=== PATIENT | male | born 1960 | race Caucasian/White ===

== ENCOUNTER → 2017-06-27 13:14 | Outpatient (CLI) | payer OTHER, SELFPAY ==
--- NOTE | 2017-06-27 13:45 | MRI_ITS ---
STUDY: MRI RIGHT ANKLE WITHOUT CONTRAST REASON FOR EXAM: Male, 57 years old. Pain and swelling. Recent fall. Posterior tibial tendinopathy TECHNIQUE: Standardized fat and water weighted pulse sequences were obtained in all 3 orthogonal planes. COMPARISON: None. FINDINGS: Normal subcutis adipose space. There is posterior tibialis tendinosis and tenosynovitis, with a partial intrasubstance and longitudinal split tendon tear, series 3 images through . Normal flexor digitorum longus tendon. Normal flexor hallucis longus tendon. Normal peroneus longus and brevis tendons. Normal tibialis anterior tendon. Normal extensor hallucis longus tendon. Normal extensor digitorum longus tendons. Normal Achilles tendon and teno-osseous insertion. Normal plantar fascia. There is a plantar calcaneal spur, but without cancellous marrow edema. Normal intrinsic muscles of the rearfoot. Normal distal tibiofibular syndesmotic ligamentous complex. Normal lateral ligamentous complex. Normal subtalar ligaments and sinus tarsi. Normal deltoid ligamentous complexes. Normal plantar calcaneonavicular (spring) ligament. Normal tibiotalar articulation. Normal talar dome. Mild arthrosis of the subtalar articulations. Mild arthrosis of the talonavicular articulation. Normal calcaneocuboid articulation. Normal navicular-cuneiform articulations. MRI/Lower Ext Joint Only (Routine) IMPRESSION: Longitudinal split tear of the posterior tibial tendon. Electronically Signed: Seven Lisa MD at 8:30 EST , Service support ,
== END ==
PROVIDERS: Family Provider Family Medicine; PCP Family Medicine; Visit Provider Podiatrist Foot & Ankle Surgery
DX: M76.812 Anterior tibial syndrome, left leg (principal)
CPT/HCPCS: 73721

== ENCOUNTER → 2018-03-31 16:23 | Outpatient (CLI) | payer OTHER, SELFPAY ==
--- NOTE | 2018-03-31 16:25 | CT_ITS ---
STUDY: CT MAXILLOFACIAL SINUSES REASON FOR EXAM: Male, 57 years old. Vertigo RADIATION DOSAGE (If Supplied By Facility): CTDIvol = ( 33.45 ) mGy, DLP = ( 814.00 ) mGycm TECHNIQUE: The patient was scanned in a multi detector CT scanner. High resolution axial imaging was performed without the administration of intravenous contrast material. Sagittal and coronal images were reconstructed. Individualized dose optimization techniques were used for this CT. COMPARISON: None. FINDINGS: FRONTAL SINUSES: Normal aeration, without mucosal inflammatory disease. ETHMOIDAL SINUSES: Normal aeration, with minimal mucosal inflammatory disease. MAXILLARY SINUSES: Normal aeration, with likely mucous retention cysts or polyps in the left maxillary sinus SPHENOIDAL SINUSES: Normal aeration, without mucosal inflammatory disease. There is patency of the bilateral maxillary infundibuli with normal uncinate processes, ethmoid bullae, and hiatus semilunaris. Normal bilateral middle turbinates. Normal bilateral inferior turbinates. Normal midline nasal septum. There is patency of the bilateral nasal airways. There are scattered subcentimeter jugular chain lymph nodes. 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 The visualized osseous structures are normal. The visualized bilateral orbital contents are normal. CT/Sinus/Facial Bone IMPRESSION: Paranasal sinusitis Scattered subcentimeter jugular chain lymph nodes. 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
== END ==
PROVIDERS: Family Provider Family Medicine; PCP Family Medicine; Referring Provider Otolaryngology Otolaryngology/Facial Plastic Surgery; Visit Provider Otolaryngology Otolaryngology/Facial Plastic Surgery
DX: J32.9 Chronic sinusitis, unspecified (principal)
CPT/HCPCS: 70486

== ENCOUNTER → 2018-06-02 15:00 | Outpatient (CLI) | payer OTHER, SELFPAY ==
--- NOTE | 2018-06-02 15:08 | RAD_ITS ---
STUDY: X-RAY - CERVICAL SPINE REASON FOR EXAM: Male, 58 years old. Pain. TECHNIQUE: 6 view(s) of the cervical spine were obtained including flexion and extension views. COMPARISON: None FINDINGS: Normal anterior atlantoaxial articulation. Normal odontoid process. Normal cervical lordosis. There is endplate spondylosis and the level of C5-C6. There is narrowing of C5-C6 disc space. There are small posterior lateral degenerative spurs on the left side at the level of C5-C6. The alignment of the vertebral bodies is unremarkable and is unchanged on the flexion and extension views. The soft tissue structures are unremarkable. RAD/Cerv Spine Obl/Flex/Ext Comp IMPRESSION: Degenerative changes of the cervical spine as described above. Electronically Signed: Scott Mann MD at 8:08 EST Tel , Service support ,
== END ==
PROVIDERS: Family Provider Family Medicine; PCP Family Medicine; Visit Provider Family Medicine
DX: M54.2 Cervicalgia (principal); R51 Headache; R42 Dizziness and giddiness
CPT/HCPCS: 72052

== ENCOUNTER → 2018-09-17 14:57 | Outpatient (CLI) | payer OTHER, SELFPAY ==
--- NOTE | 2018-09-17 15:00 | VDLE_ITS ---
Reason For Study: pain RIGHT LEFT CFV is compressible, spontaneous, phasic, GSV is normal. competent and demonstrates normal CFV is compressible, spontaneous, phasic, augmentation. competent, and demonstrates normal Procedure augmentation. Exam performed in department. FV is compressible, spontaneous, phasic, The exam was diagnostic. competent and demonstrates normal A preliminary report was called and/or faxed augmentation. to Dr. Barbour's. POP V is compressible, spontaneous, phasic, competent and demonstrates normal augmentation. T/P Trunk is compressible. PTV is compressible. LT PerV is compressible. Hypoechoic area behind the knee measuring 1.82 x 1.75 cm. Area is nonvascular. Interpretation Summary Deep veins of the left lower extremity are patent and compressible segmentally. There is no evidence of left lower extremity deep vein thrombosis. Valvular competence appears intact within the proximal deep venous system on the left . The left greater saphenous vein appears patent and compressible segmentally. A non-vascular, hypoechoic structure is noted in the left popliteal space, measuring 1.82 cm x 1.75 cm. This probably represents a popliteal cyst. Clinical correlation is advised. Ordering Physician: Kenneth Barbour Performed By: Joselito Saul RVT
== END ==
PROVIDERS: Family Provider Family Medicine; PCP Family Medicine; Referring Provider Family Medicine; Visit Provider Family Medicine
DX: M79.662 Pain in left lower leg (principal)
CPT/HCPCS: 93971

== ENCOUNTER → 2019-05-11 13:45 | Outpatient (CLI) | payer OTHER, SELFPAY ==
[2019-05-11 15:25] LABS: Absolute Lymphocyte Count 2.35 X10^3/uL (0.83-4.51); Absolute Neutrophil Count 4.3 X10^3/uL (2.0-7.7); Basophil# 0.04 X10^3/uL; Basophil% 0.5 % (0-1); Eosinophil# 0.14 X10^3/uL; Eosinophils% 1.9 % (0-5); Hematocrit 44.9 % (40-54); Lymphocyte # 2.35 X10^3/ul (4.0); Lymphocyte % 31.8 % (19-41); Mean Corp Hgb Conc 33.4 g/dL (32-36); Mean Corpuscular Hgb 31.5 pg (27.0-32.0); Mean Corpuscular Volume 94.3 fL (80-94); Monocyte# 0.53 X10^3/uL; Monocyte% 7.2 % (0-10); NRBC Flagged by Analyzer 0 % (0-5); Neutrophil # 4.28 X10^3/uL (2.7-7.7); Neutrophil % 57.8 % (47-70); Platelet Count 233 K/mm3 (150-450); RBC Distribution Width CV 12.2 % (11.6-14.6); RBC Distribution Width SD 42.1 fl (35.1-43.9); Red Blood Count 4.76 M/mm3 (4.6-6.2); White Blood Count 7.4 K/mm3 (4.4-11.0)
[2019-05-11 15:51] LABS: AST(SGOT) 30 U/L (15-37); Alanine Aminotransfer ALT/SGPT 49 U/L (16-61); Albumin, Serum 3.6 g/dL (3.2-5.0); Alkaline Phosphatase 53 U/L (45-117); Anion Gap 5 (5-15); BUN 14 mg/dL (7-18); BUN/Creat Ratio 20.6 RATIO (10-20); Calcium,Total 8.8 mg/dL (8.5-10.1); Chloride 106 mmol/L (98-107); Creatinine, Serum 0.68 mg/dL (0.70-1.30); EST Glomerular Filtration Rate 126 mL/min (>60); Est Glom Filt Rate - Afr Amer 153 mL/min (>60); Globulin 3.6 g/dL (2.2-4.2); Glucose 96 mg/dL (74-106); Potassium 3.9 mmol/L (3.5-5.1); Protein, Total 7.2 g/dL (6.4-8.2); Sodium Level 137 mmol/L (136-145)
== END ==
PROVIDERS: Family Provider Family Medicine; PCP Family Medicine; Visit Provider Family Medicine
DX: R03.0 Elevated blood-pressure reading, without diagnosis of hypertension (principal); E66.9 Obesity, unspecified; Z83.3 Family history of diabetes mellitus
CPT/HCPCS: 36415; 80053; 83036; 85025

== ENCOUNTER → 2020-04-26 11:01 | Outpatient (CLI) | payer OTHER, SELFPAY ==
[2020-04-19 11:44] VITALS: BMI 38.1
[2020-04-26 12:04] LABS: AST(SGOT) 21 U/L (15-37); Alanine Aminotransfer ALT/SGPT 42 U/L (16-61); Albumin, Serum 3.5 g/dL (3.2-5.0); Alkaline Phosphatase 56 U/L (45-117); Bilirubin, Direct 0.21 mg/dL (0.00-0.30); Cholesterol 200 mg/dL (200); Globulin 3.6 g/dL (2.2-4.2); High Density Lipoprotein 61 mg/dL; Protein, Total 7.1 g/dL (6.4-8.2); Triglycerides 104 mg/dL; Very Low Density Lipoprotein 21 mg/dL (5-40)
== END ==
PROVIDERS: PCP Family Medicine; Referring Provider Internal Medicine Cardiovascular Disease; Visit Provider Internal Medicine Cardiovascular Disease
DX: E78.00 Pure hypercholesterolemia, unspecified (principal)
CPT/HCPCS: 36415; 80061; 80076

== ENCOUNTER → 2021-08-24 | Outpatient (CLI) | payer OTHER, SELFPAY ==
--- NOTE | 2021-08-24 12:46 | STRESSREP_ITS ---
Stress Test Report Date: 08-24-2021 Procedure: Pharmacologic stress nuclear imaging study Indications: Chest pain; hypertension Consent: Per the patient Procedure: The patient underwent pharmacologic (Regadenoson 0.4mg ) evaluation with a peak heart rate of 74 beats per minute (47%predicted maximal heart rate) and a peak blood pressure of 162/90 mmHg. The baseline ECG demonstrated sinus bradycardia. The peak pharmacologic ECG demonstrated no obvious ECG changes. There were no cardiac dysrhythmias pretest, during pharmacologic infusion, or recovery. There was no complaint of chest discomfort during pharmacologic infusion or recovery. The examination was discontinued secondary to completion of protocol. Impression: 1. Pharmacologic (Regadenoson) evaluation 2. Peak pharmacologic ECG with no obvious ECG changes. 3. There were no cardiac dysrhythmias pretest, during pharmacologic infusion, or recovery. 4. Nuclear images pending Myocardial perfusion imaging study: Technique: The patient was injected with 14.5 millicuries of technetium 99m Cardiolite and subsequently rest SPECT Cardiolite nuclear imaging was obtained in the horizont al long, vertical long, and short axis views. The patient underwent pharmacologic (Regadenoson) evaluation with a peak heart rate of 74 beats per minute (47% percent predicted maximal heart rate) and a peak blood pressure of 162/90 mmHg. The patient was injected with 44.1 millicuries of technetium 99m Cardiolite and subsequently stress SPECT Cardiolite nuclear imaging was obtained in the horizontal long, vertical long, and short axis views. A gated Cardiolite study at peak stress was obtained. Interpretation: Rest and stress SPECT Cardiolite nuclear imaging status post realignment, normalization, and attenuation correction demonstrate a small area of subtle diminished tracer uptake near the apical segments without significant change between rest and stress appearing compatible with physiologic apical thinning. There is end systolic thickening and brightening. The gated Cardiolite study demonstrates myocardial thickening and inward wall motion. The reported LVEF is 70%. Impression: 1. Rest and stress SPECT current nuclear imaging demonstrate myocardial perfusion changes appearing compatible with physiologic apical thinning with no myocardial perfusion changes considered diagnostic for associated stress-induced myocardial ischemia. 2. The gated Cardiolite study reports an LVEF of 70%. This note was generated with iHydroRunation software. It may contain incorrect words, spelling, and punctuation that were not noted in checking the note before signing.
== END | disposition home or self-care (01) ==
LOC: CVS 06:30
PROVIDERS: PCP Family Medicine; Referring Provider Internal Medicine Cardiovascular Disease; Visit Provider Internal Medicine Cardiovascular Disease
DX: I10 Essential (primary) hypertension (principal); R20.0 Anesthesia of skin; R07.9 Chest pain, unspecified
CPT/HCPCS: 78452; 93017; A9500; A4216; J2785

== ENCOUNTER → 2021-11-09 | Outpatient (CLI) | payer OTHER, SELFPAY ==
[2021-11-09 07:10] LABS: Absolute Lymphocyte Count 2.87 X10^3/uL (0.83-4.51); Absolute Neutrophil Count 3.3 X10^3/uL (2.0-7.7); Basophil# 0.06 X10^3/uL; Basophil% 0.8 % (0-1); Eosinophils% 2.8 % (0-5); Hematocrit 45.3 % (40-54); Hemoglobin 14.6 g/dL (13.0-16.5); Lymphocyte # 2.87 X10^3/ul (0.83-4.51); Lymphocyte % 40.1 % (19-41); Mean Corp Hgb Conc 32.2 g/dL (32-36); Mean Corpuscular Hgb 31.5 pg (27.0-32.0); Mean Corpuscular Volume 97.8 fL (80-94); Mean Platelet Vol. 9.2 fl (6.2-12.0); Monocyte# 0.61 X10^3/uL; Monocyte% 8.5 % (0-10); NRBC Flagged by Analyzer 0 % (0-5); Neutrophil # 3.33 X10^3/uL (2.7-7.7); Neutrophil % 46.5 % (47-70); Platelet Count 215 K/mm3 (150-450); RBC Distribution Width CV 12.4 % (11.6-14.6); RBC Distribution Width SD 44.7 fl (35.1-43.9); Red Blood Count 4.63 M/mm3 (4.6-6.2); White Blood Count 7.2 K/mm3 (4.4-11.0)
[2021-11-09 07:54] LABS: Hemoglobin A1c 6.1 % (3.8-5.6)
[2021-11-09 07:58] LABS: AST(SGOT) 24 U/L (15-37); Alanine Aminotransfer ALT/SGPT 36 U/L (16-61); Albumin, Serum 3.4 g/dL (3.2-5.0); Alkaline Phosphatase 49 U/L (45-117); Anion Gap 6 (5-15); BUN 16 mg/dL (7-18); BUN/Creat Ratio 21.5 RATIO (10-20); Calcium,Total 8.5 mg/dL (8.5-10.1); Chloride 106 mmol/L (98-107); Cholesterol 181 mg/dL (200); Creatinine, Serum 0.74 mg/dL (0.70-1.30); EST Glomerular Filtration Rate 113 mL/min (>60); Est Glom Filt Rate - Afr Amer 137 mL/min (>60); Globulin 3.4 g/dL (2.2-4.2); Glucose 132 mg/dL (74-106); High Density Lipoprotein 50 mg/dL; Potassium 4.1 mmol/L (3.5-5.1); Protein, Total 6.8 g/dL (6.4-8.2); Sodium Level 141 mmol/L (136-145); Triglycerides 133 mg/dL; Very Low Density Lipoprotein 27 mg/dL (5-40)
== END | disposition home or self-care (01) ==
PROVIDERS: PCP Family Medicine; Referring Provider Family Medicine; Visit Provider Family Medicine
DX: R73.03 Prediabetes (principal); K21.9 Gastro-esophageal reflux disease without esophagitis
CPT/HCPCS: 36415; 80053; 80061; 83036; 85025

== ENCOUNTER → 2022-07-12 | Outpatient (CLI) | payer OTHER, SELFPAY ==
--- NOTE | 2022-07-12 16:20 | MRI_ITS ---
EXAM: MR HEAD WITHOUT AND WITH INTRAVENOUS CONTRAST CLINICAL INDICATION: ATAXIA TECHNIQUE: Multiplanar and multisequence MR images of the brain were obtained without and with intravenous contrast. This report was created using Payment plugin report generation technology. CONTRAST: IV 22ML CLARISCAN COMPARISON: 2..18 FINDINGS: BRAIN AND EXTRA-AXIAL SPACES: Single focus of increased FLAIR signal in the right frontal lobe may signify early microvascular ischemic changes, a demyelinating process, vasculitis, or sequela related to migraines. No intra- or extra-axial hemorrhage. No intracranial mass or mass effect. Posterior fossa structures are unremarkable. Ventricles are appropriate for age. No hydrocephalus. Basal cisterns are patent. SELLA: Unremarkable. Normal sella turcica, pituitary gland, infundibular stalk, optic chiasm and hypothalamus. AUDITORY SYSTEM: Unremarkable. The internal auditory canals are patent. BONES/JOINTS: Unremarkable. No discrete lytic or blastic abnormalities. SINUSES: There is sinus disease. MASTOID AIR CELLS: Unremarkable as visualized. Clear. ORBITS: Unremarkable as visualized. Both globes, extraocular muscles, optic nerves and retrobulbar fat appear unremarkable. VASCULATURE: Unremarkable as visualized. Normal flow voids in the major intracranial circulation. MRI/Brain W/WO Contrast IMPRESSION: Single focus of increased FLAIR signal in the right frontal lobe may signify early microvascular ischemic changes, a demyelinating process, vasculitis, or sequela related to migraines. Electronically Signed: Tavares Pool MD at 21:28 EDT ,
[2022-07-12 16:40] LABS: CREATININE FINGERSTICK 0.9 mg/dL (0.70-1.30); EGFR FINGERSTICK > 60.0000 mL/min (>60)
== END | disposition home or self-care (01) ==
LOC: MRI 16:10
PROVIDERS: Referring Provider Otolaryngology Otolaryngology/Facial Plastic Surgery; Visit Provider Otolaryngology Otolaryngology/Facial Plastic Surgery
DX: R27.0 Ataxia, unspecified (principal)
CPT/HCPCS: 70553; A9575

== ENCOUNTER → 2022-08-21 | Outpatient (CLI) | payer OTHER, SELFPAY ==
[2022-08-21 16:55] LABS: Bacteria 0 SEEN /hpf (None Seen); Mucous, Urine 0 SEEN /hpf (<or=2+); White Blood Cells 0 SEEN /hpf (0-5)
[2022-08-21 18:21] LABS: Absolute Lymphocyte Count 3.34 X10^3/uL (0.83-4.51); Absolute Neutrophil Count 4.8 X10^3/uL (2.0-7.7); Basophil# 0.05 X10^3/uL; Basophil% 0.5 % (0-1); Eosinophils% 2.2 % (0-5); Hematocrit 47.2 % (40-54); Hemoglobin 15.7 g/dL (13.0-16.5); Lymphocyte # 3.34 X10^3/ul (0.83-4.51); Lymphocyte % 36.5 % (19-41); Mean Corp Hgb Conc 33.3 g/dL (32-36); Mean Corpuscular Volume 96.3 fL (80-94); Mean Platelet Vol. 9.7 fl (6.2-12.0); Monocyte# 0.67 X10^3/uL; Monocyte% 7.3 % (0-10); NRBC Flagged by Analyzer 0 % (0-5); Neutrophil # 4.76 X10^3/uL (2.7-7.7); Neutrophil % 52.1 % (47-70); Platelet Count 243 K/mm3 (150-450); RBC Distribution Width CV 12.7 % (11.6-14.6); RBC Distribution Width SD 45.1 fl (35.1-43.9); White Blood Count 9.2 K/mm3 (4.4-11.0)
[2022-08-21 18:37] LABS: Color, Urine Yellow (Yellow); Glucose, Dipstick Normal (Normal); Ketone-Dipstick Negative (Negative); Leukocyte Esterase-Dipstick Negative /ul (Negative); Nitrite-Dipstick Negative (Negative); Occult Blood-Urine 10 /ul (Negative); Protein-Dipstick Negative (Negative); Specific Gravity, Urine 1.015 (1.002-1.030); Urine Bilirubin Dipstick Negative (Negative); Urine Clarity Clear (Clear); Urine Urobilinogen Normal (Normal); Urine pH 6.5 (5.0 - 8.0)
[2022-08-21 18:43] LABS: Red Blood Cells-Urine 0-5 SEEN /hpf (0-5); Squamous Epithelial Cells - UA 0-5 SEEN /hpf (0-5)
[2022-08-21 19:06] LABS: Cholesterol 200 mg/dL (200); High Density Lipoprotein 55 mg/dL; T4 Free Direct 0.98 ng/dL (0.76-1.46); Thyroid Stim Hormone (TSH) 1.92 uIU/mL (0.358-3.74); Triglycerides 170 mg/dL; Very Low Density Lipoprotein 34 mg/dL (5-40)
[2022-08-22 08:34] LABS: Vitamin B12 260 pg/mL (211-911); Vitamin D,25 Hydroxy 25.6 ng/mL
[2022-08-23 12:52] LABS: AST(SGOT) 24 U/L (15-37); Alanine Aminotransfer ALT/SGPT 44 U/L (16-61); Albumin, Serum 3.6 g/dL (3.2-5.0); Alkaline Phosphatase 53 U/L (45-117); Anion Gap 5 (5-15); BUN 18 mg/dL (7-18); BUN/Creat Ratio 26.5 RATIO (10-20); Calcium,Total 9.1 mg/dL (8.5-10.1); Chloride 104 mmol/L (98-107); Creatinine, Serum 0.68 mg/dL (0.70-1.30); EST Glomerular Filtration Rate 125 mL/min (>60); Est Glom Filt Rate - Afr Amer 151 mL/min (>60); Globulin 3.5 g/dL (2.2-4.2); Glucose 92 mg/dL (74-106); Potassium 4.3 mmol/L (3.5-5.1); Protein, Total 7.1 g/dL (6.4-8.2); Sodium Level 134 mmol/L (136-145)
== END | disposition home or self-care (01) ==
LOC: MTLAB 16:46
PROVIDERS: PCP Family Medicine; Referring Provider Family Medicine; Visit Provider Family Medicine
DX: I10 Essential (primary) hypertension (principal); R53.83 Other fatigue
CPT/HCPCS: 36415; 80053; 80061; 81001; 82306; 82607; 84439; 84443; 85025

== ENCOUNTER → 2022-12-19 | Outpatient (CLI) | payer OTHER, SELFPAY ==
--- NOTE | 2022-12-19 15:06 | CDU_ITS ---
Reason For Study: Lightheadedness Rt. Velocities/BP Lt. Velocities/BP Prox CCA 88.8/23.7 cm/sec. Prox CCA 133.2/22.2 cm/sec. Mid CCA 97.2/20.4 cm/sec. Mid CCA 100.1/18.9 cm/sec. Dist CCA 143.3/26.7 cm/sec. Dist CCA 95.3/17.9 cm/sec. Prox ICA 104.7/33.5 cm/sec. Prox ICA 83.8/19.6 cm/sec. Mid ICA 88.3/23.4 cm/sec. Mid ICA 91.3/32.4 cm/sec. Dist ICA 101.5/36.2 cm/sec. Dist ICA 74.0/27.4 cm/sec. Rt. ICA/CCA = 1.0. Lt. ICA/CCA = 0.9. Prox ECA 122.9/18.8 cm/sec. Prox ECA 83.9/27.4 cm/sec. Rt. Vert. 83.9/16.3 cm/sec. Lt. Vert. 62.2/18.2 cm/sec. Right Extracranial There is intimal thickening but no significant atherosclerotic plaque noted in the right common carotid artery. There is heterogeneous, irregular atherosclerotic plaque noted in the right internal carotid artery. There is intimal thickening but no significant atherosclerotic plaque noted in the right external carotid artery. Antegrade flow is noted in the right vertebral artery. Left Extracranial There is homogeneous, smooth atherosclerotic plaque noted in the left common carotid artery. There is heterogeneous, irregular atherosclerotic plaque noted in the left internal carotid artery. The left external carotid artery is not well visualized. Antegrade flow is noted in the left vertebral artery. Procedure Carotid Duplex 19927. This is a Carotid Duplex examination using B-mode, color flow and specral Doppler. The exam was diagnostic. Exam performed in department. VL/Carotid Duplex Ultrasound Interpretation Summary Mild (<50%) stenosis right extracranial internal carotid. Mild (<50%) stenosis left extracranial internal carotid. Patent and antegrade vertebrals bilaterally. Ordering Physician: Lou Soler Referring Physician: Jose Moreno Performed By: Juan Perez RVT
== END | disposition home or self-care (01) ==
LOC: CVS 15:04
PROVIDERS: PCP Family Medicine; Referring Provider Nurse Practitioner Gerontology; Visit Provider Nurse Practitioner Gerontology
DX: R42 Dizziness and giddiness (principal)
CPT/HCPCS: 93880

== ENCOUNTER → 2023-01-07 | Outpatient (CLI) | payer OTHER, SELFPAY ==
[2023-01-07 17:40] LABS: Absolute Lymphocyte Count 2.61 X10^3/uL (0.83-4.51); Absolute Neutrophil Count 3.4 X10^3/uL (2.0-7.7); Basophil# 0.03 X10^3/uL; Basophil% 0.4 % (0-1); Eosinophil# 0.13 X10^3/uL; Eosinophils% 1.9 % (0-5); Hematocrit 43.9 % (40-54); Hemoglobin 14.4 g/dL (13.0-16.5); Lymphocyte # 2.61 X10^3/ul (0.83-4.51); Lymphocyte % 38.7 % (19-41); Mean Corp Hgb Conc 32.8 g/dL (32-36); Mean Corpuscular Hgb 32.2 pg (27.0-32.0); Mean Corpuscular Volume 98.2 fL (80-94); Mean Platelet Vol. 9.9 fl (6.2-12.0); Monocyte# 0.53 X10^3/uL; Monocyte% 7.9 % (0-10); NRBC Flagged by Analyzer 0 % (0-5); Neutrophil # 3.42 X10^3/uL (2.7-7.7); Neutrophil % 50.7 % (47-70); Platelet Count 228 K/mm3 (150-450); RBC Distribution Width CV 12.8 % (11.6-14.6); RBC Distribution Width SD 46.1 fl (35.1-43.9); Red Blood Count 4.47 M/mm3 (4.6-6.2); White Blood Count 6.8 K/mm3 (4.4-11.0)
[2023-01-07 18:44] LABS: ALB/GLOB Ratio 1.1 RATIO (0.9-2.4); AST(SGOT) 26 U/L (15-37); Alanine Aminotransfer ALT/SGPT 44 U/L (16-61); Albumin, Serum 3.6 g/dL (3.2-5.0); Alkaline Phosphatase 48 U/L (45-117); Anion Gap 4 (5-15); BUN 18 mg/dL (7-18); BUN/Creat Ratio 28.4 RATIO (10-20); Calcium,Total 8.4 mg/dL (8.5-10.1); Chloride 109 mmol/L (98-107); Creatinine, Serum 0.63 mg/dL (0.70-1.30); EST Glomerular Filtration Rate 135 mL/min (>60); Est Glom Filt Rate - Afr Amer 164 mL/min (>60); Globulin 3.3 g/dL (2.2-4.2); Glucose 91 mg/dL (74-106); Potassium 3.9 mmol/L (3.5-5.1); Protein, Total 6.9 g/dL (6.4-8.2); Sodium Level 141 mmol/L (136-145); Thyroid Stim Hormone (TSH) 1.41 uIU/mL (0.358-3.74)
== END | disposition home or self-care (01) ==
LOC: MFPLAB 16:33
PROVIDERS: PCP Family Medicine; Visit Provider Family Medicine
DX: I10 Essential (primary) hypertension (principal); R73.02 Impaired glucose tolerance (oral)
CPT/HCPCS: 36415; 80053; 83036; 84443; 85025

== ENCOUNTER → 2023-05-20 | Outpatient (CLI) | payer MEDICARE, OTHER, SELFPAY ==
[2023-05-20 15:51] LABS: Basophil# 0.03 X10^3/uL; Basophil% 0.4 % (0-1); Eosinophil# 0.12 X10^3/uL; Eosinophils% 1.7 % (0-5); Lymphocyte % 33.9 % (19-41); Mean Corp Hgb Conc 32.6 g/dL (32-36); Mean Corpuscular Hgb 31.3 pg (27.0-32.0); Mean Platelet Vol. 9.9 fl (6.2-12.0); Monocyte# 0.47 X10^3/uL; Monocyte% 6.6 % (0-10); NRBC Flagged by Analyzer 0 % (0-5); Neutrophil # 4.02 X10^3/uL (2.7-7.7); Neutrophil % 56.8 % (47-70); Platelet Count 230 K/mm3 (150-450); RBC Distribution Width CV 12.3 % (11.6-14.6); Red Blood Count 4.79 M/mm3 (4.6-6.2); White Blood Count 7.1 K/mm3 (4.4-11.0)
[2023-05-20 16:27] LABS: ALB/GLOB Ratio 1.1 RATIO (0.9-2.4); AST(SGOT) 31 U/L (15-37); Alanine Aminotransfer ALT/SGPT 44 U/L (16-61); Albumin, Serum 3.6 g/dL (3.2-5.0); Alkaline Phosphatase 51 U/L (45-117); Anion Gap 5 (5-15); BUN 14 mg/dL (7-18); BUN/Creat Ratio 20.3 RATIO (10-20); Calcium,Total 8.6 mg/dL (8.5-10.1); Chloride 106 mmol/L (98-107); Cholesterol 188 mg/dL (200); Creatinine, Serum 0.69 mg/dL (0.70-1.30); EST Glomerular Filtration Rate 123 mL/min (>60); Est Glom Filt Rate - Afr Amer 148 mL/min (>60); Globulin 3.2 g/dL (2.2-4.2); Glucose 96 mg/dL (74-106); High Density Lipoprotein 60 mg/dL; Potassium 3.9 mmol/L (3.5-5.1); Protein, Total 6.8 g/dL (6.4-8.2); Sodium Level 138 mmol/L (136-145); Triglycerides 98 mg/dL; Very Low Density Lipoprotein 20 mg/dL (5-40)
== END | disposition home or self-care (01) ==
LOC: MTLAB 12:05
PROVIDERS: PCP Family Medicine; Referring Provider Family Medicine; Visit Provider Family Medicine
DX: I10 Essential (primary) hypertension (principal); R73.02 Impaired glucose tolerance (oral)
CPT/HCPCS: 36415; 80053; 80061; 83036; 85025

== ENCOUNTER → 2023-05-29 | Outpatient (CLI) | payer MEDICARE, OTHER, SELFPAY ==
--- NOTE | 2023-05-29 08:00 | CT_ITS ---
CT LEFT LOWER EXTREMITY WITH 3-D IMAGING CLINICAL INDICATION: OSTEOARTHRITIS, PRE OP ANTOLIN LEFT KNEE TECHNIQUE: Axial CT images of the left lower extremity (including left hip left knee, left ankle) was performed without IV contrast material. Coronal and sagittal reformats were provided. RADIATION DOSAGE (If Supplied By Facility): CTDIvol = ( 20.10 ) mGy, DLP = ( 2262.61 ) mGycm COMPARISON: No relevant prior comparison study available. FINDINGS: Bones: There is mild pubic symphysis arthrosis. There is moderate degenerative arthrosis of the left hip joint with joint space narrowing and small marginal osteophyte formation. There is tricompartment degenerative arthrosis of the left knee with joint space narrowing and marginal osteophyte formation, most pronounced in the medial femorotibial compartment. There is a tiny plantar calcaneal spur. Osseous structures are intact without evidence of fracture or dislocation. No lytic or blastic osseous masses. Soft Tissues: There is a small knee joint effusion with a suspected 2.0 cm ossified loose body in the superior aspect of the suprapatellar bursa. The deep soft tissue structures are unremarkable. There is atherosclerotic calcifications. There is mild subcutaneous soft tissue edema along the anterior aspect of the knee and along the medial aspect of the ankle. CT/Extremity Lower without Contra IMPRESSION: Tricompartment degenerative arthrosis of the left knee, most pronounced in the medial femorotibial compartment. Small knee joint effusion with a suspected 2.0 cm ossified loose body in the superior aspect of the suprapatellar bursa. Mild subcutaneous soft tissue edema along the anterior aspect of the knee. Electronically Signed: Shahzad Wagner MD at 10:46 EST ,
== END | disposition home or self-care (01) ==
LOC: CT 07:59
PROVIDERS: PCP Family Medicine; Referring Provider Orthopaedic Surgery; Visit Provider Orthopaedic Surgery
DX: M17.12 Unilateral primary osteoarthritis, left knee (principal)
CPT/HCPCS: 73700

== ENCOUNTER → 2023-06-30 | Outpatient (CLI) | payer MEDICARE, OTHER, SELFPAY ==
--- NOTE | 2023-06-30 09:04 | EKG12_ITS ---
Test Reason : PRE OP Blood Pressure : / mmHG Vent. Rate : 059 BPM Atrial Rate : 059 BPM P-R Int : 124 ms QRS Dur : 098 ms QT Int : 402 ms P-R-T Axes : -25 -61 051 degrees QTc Int : 397 ms Sinus bradycardia Left anterior fascicular block Nonspecific ST abnormality Abnormal ECG Confirmed by Lior Pak ([id number]), editor trade journal ANNEL MCKENNA ([id number]) on 07/01/2023 7:43:15 AM Referred By: Yogesh Brown Confirmed By:Lior Pak
[2023-06-30 09:10] LABS: Absolute Lymphocyte Count 2.11 X10^3/uL (0.83-4.51); Absolute Neutrophil Count 3.1 X10^3/uL (2.0-7.7); Basophil# 0.03 X10^3/uL; Basophil% 0.5 % (0-1); Eosinophils% 1.7 % (0-5); Hematocrit 46.6 % (40-54); Hemoglobin 15.4 g/dL (13.0-16.5); Lymphocyte # 2.11 X10^3/ul (0.83-4.51); Lymphocyte % 35.8 % (19-41); Mean Corpuscular Hgb 31.8 pg (27.0-32.0); Mean Corpuscular Volume 96.1 fL (80-94); Mean Platelet Vol. 9.2 fl (6.2-12.0); Monocyte# 0.46 X10^3/uL; Monocyte% 7.8 % (0-10); NRBC Flagged by Analyzer 0 % (0-5); Neutrophil # 3.14 X10^3/uL (2.7-7.7); Neutrophil % 53.4 % (47-70); Platelet Count 207 K/mm3 (150-450); RBC Distribution Width CV 12.8 % (11.6-14.6); RBC Distribution Width SD 45.1 fl (35.1-43.9); Red Blood Count 4.85 M/mm3 (4.6-6.2); White Blood Count 5.9 K/mm3 (4.4-11.0)
[2023-06-30 09:40] LABS: Vitamin D,25 Hydroxy 30.4 ng/mL
[2023-06-30 10:16] LABS: AST(SGOT) 27 U/L (15-37); Alanine Aminotransfer ALT/SGPT 44 U/L (16-61); Albumin, Serum 3.4 g/dL (3.2-5.0); Alkaline Phosphatase 50 U/L (45-117); Anion Gap 5 (5-15); BUN 16 mg/dL (7-18); Chloride 110 mmol/L (98-107); Cholesterol 204 mg/dL (200); EST Glomerular Filtration Rate 121 mL/min (>60); Est Glom Filt Rate - Afr Amer 146 mL/min (>60); Globulin 3.5 g/dL (2.2-4.2); Glucose 107 mg/dL (74-106); High Density Lipoprotein 63 mg/dL; Potassium 4.3 mmol/L (3.5-5.1); Protein, Total 6.9 g/dL (6.4-8.2); Sodium Level 141 mmol/L (136-145); Triglycerides 109 mg/dL; Very Low Density Lipoprotein 22 mg/dL (5-40)
[2023-06-30 10:36] LABS: Hemoglobin A1c 6.1 % (3.8-5.6)
--- NOTE | 2023-06-30 19:16 | RAD_ITS ---
INDICATION: PRE OP EXAMINATION/TECHNIQUE: X-RAY - XR Chest 2 Views COMPARISON: No relevant prior comparison study available FINDINGS: LINES/DEVICES: None. LUNGS: No consolidation, edema or effusion. No pneumothorax. MEDIASTINUM AND CARDIOVASCULAR STRUCTURES: Cardiac silhouette not enlarged. Central airways and mediastinal contour are unremarkable. BONES AND SOFT TISSUES: Mild degenerative changes of the thoracic spine. RAD/Chest PA and Lateral IMPRESSION: No radiographic evidence of acute cardiopulmonary disease. Electronically Signed: Scott Mann MD at 11:20 EST ,
== END | disposition home or self-care (01) ==
LOC: PSN 08:42
PROVIDERS: PCP Family Medicine; Referring Provider Orthopaedic Surgery; Visit Provider Orthopaedic Surgery
DX: Z01.810 Encounter for preprocedural cardiovascular examination (principal); Z01.811 Encounter for preprocedural respiratory examination; Z01.818 Encounter for other preprocedural examination; M17.12 Unilateral primary osteoarthritis, left knee; R94.31 Abnormal electrocardiogram [ECG] [EKG]; E55.9 Vitamin D deficiency, unspecified; I10 Essential (primary) hypertension; R73.02 Impaired glucose tolerance (oral)
CPT/HCPCS: 36415; 71046; 80053; 80061; 82306; 83036; 85025; 93005

== ENCOUNTER → 2023-07-21 | Outpatient (CLI) | payer MEDICARE, OTHER, SELFPAY ==
--- NOTE | 2023-07-18 09:15 | KNEE_PTH ---
PATIENT: VESTA OLIVAREZ LOC: [facility] U#:[id number] AGE/SX: 63/M ROOM: RE07/21/[address]: Dr. Yogesh Brown MD : 1960 BED: DIS: 07/21/2023 SPEC #: [id number] RECD: 07/22/23 08:50 STATUS: QUIQUE REWilliam #: [id number] ISABELA: 07/18/23 09:[address]: Yogesh Brown DEPT: SURGICAL PATHOLOGY RECD BY: Nia Britton ENTERED: 07/22/23 08:51 SP TYPE: TOTAL KNEE OTHR DR: Dr. Jose Moreno MD [facility] Tissues: Knee, NOS Procedures: Decalcification bone/plaque Surgery Specimen Level IV HEADER OPERATION: Left total knee replacement PRE-OP DIAGNOSIS: Grade four primary osteoarthritis, left knee TISSUE SUBMITTED: Left knee MICROSCOPIC DIAGNOSIS Bone and soft tissue, left knee, total knee replacement/resection: Pieces of bone with degenerative osteoarthritic changes. Fibroconnective tissue, fibroadipose tissue and reactive synovial tissue. RA: 07/25/2023 MICROSCOPIC DESCRIPTION Slides are reviewed. GROSS DESCRIPTION Received is one container designated bone and soft tissue left knee. The specimen consists of multiple fragments of parra-yellow bone measuring in aggregate 11.0 x 9.0 x 4.0 cm. A piece of soft tissue is noted attached to one piece of bone measuring 2.5 x 1.5 x 0.3cm. A piece of bone consistent with loose body is also identified measuring 1.6 x 1.0 x 0.5cm. A number of bony fragments contain articular surfaces consistent with tibial plateau and femoral condyle and displaying prominent osteophyte formation, eburnation and bone erosion. Benzene Washer Operator sections are submitted in two cassettes as follows: 1 - soft tissue, entirely submitted, 2 - bone after decalcification. RA/ 07/22/23 TC:5 CPT: 05737, [id number]
== END | disposition home or self-care (01) ==
LOC: LABSPEC 15:18
PROVIDERS: PCP Family Medicine; Referring Provider Orthopaedic Surgery; Visit Provider Orthopaedic Surgery
DX: M17.12 Unilateral primary osteoarthritis, left knee (principal)
CPT/HCPCS: 88305; 88311

== ENCOUNTER → 2023-07-31 | Outpatient (CLI) | payer MEDICARE, OTHER, SELFPAY ==
--- NOTE | 2023-07-31 13:21 | VDLE_ITS ---
Reason For Study: pain in left knee RIGHT LEFT CFV is compressible, spontaneous, phasic, GSV is normal. competent and demonstrates normal CFV is compressible, spontaneous, phasic, augmentation. competent, and demonstrates normal Procedure augmentation. This is a venous duplex using B-mode, color FV is compressible, spontaneous, phasic, flow and spectral Doppler. competent and demonstrates normal Exam performed in department. augmentation. The exam was of fair technical quality due to POP V is compressible, spontaneous, phasic, severe edema. competent and demonstrates normal A preliminary report was called and/or faxed augmentation. to [facility]. T/P Trunk is compressible. PTV is compressible. LT PerV is compressible. VL/Venous Duplex US, Unilateral Interpretation Summary Deep veins of the left lower extremity are patent and compressible segmentally. There is no evidence of left lower extremity deep vein thrombosis. The left great saphenous vein collette ears patent and compressible segmentally. Ordering Physician: Hannah Hooker Performed By: Joselito Saul RVT
== END | disposition home or self-care (01) ==
LOC: CVS 13:10
PROVIDERS: PCP Family Medicine; Visit Provider Physician Assistant
DX: M25.462 Effusion, left knee (principal); G89.18 Other acute postprocedural pain; M25.562 Pain in left knee
CPT/HCPCS: 93971

== ENCOUNTER → 2023-10-02 | Outpatient (CLI) | payer MEDICARE, OTHER, SELFPAY ==
[2023-10-02 10:45] LABS: Vitamin D,25 Hydroxy 28.6 ng/mL
[2023-10-02 10:49] LABS: Absolute Lymphocyte Count 1.79 X10^3/uL (0.83-4.51); Absolute Neutrophil Count 2.7 X10^3/uL (2.0-7.7); Basophil# 0.03 X10^3/uL; Basophil% 0.6 % (0-1); Eosinophil# 0.08 X10^3/uL; Eosinophils% 1.6 % (0-5); Hematocrit 44.3 % (40-54); Hemoglobin 14.3 g/dL (13.0-16.5); Hemoglobin A1c 5.8 % (3.8-5.6); Lymphocyte # 1.79 X10^3/ul (0.83-4.51); Lymphocyte % 35.4 % (19-41); Mean Corp Hgb Conc 32.3 g/dL (32-36); Mean Corpuscular Hgb 31.3 pg (27.0-32.0); Mean Corpuscular Volume 96.9 fL (80-94); Mean Platelet Vol. 9.5 fl (6.2-12.0); Monocyte# 0.45 X10^3/uL; Monocyte% 8.9 % (0-10); NRBC Flagged by Analyzer 0 % (0-5); Neutrophil # 2.67 X10^3/uL (2.7-7.7); Neutrophil % 52.9 % (47-70); Platelet Count 249 K/mm3 (150-450); RBC Distribution Width CV 12.9 % (11.6-14.6); Red Blood Count 4.57 M/mm3 (4.6-6.2); White Blood Count 5.1 K/mm3 (4.4-11.0)
[2023-10-02 10:53] LABS: ALB/GLOB Ratio 0.8 RATIO (0.9-2.4); AST(SGOT) 23 U/L (15-37); Alanine Aminotransfer ALT/SGPT 29 U/L (16-61); Albumin, Serum 3.2 g/dL (3.2-5.0); Alkaline Phosphatase 58 U/L (45-117); Anion Gap 6 (5-15); BUN 15 mg/dL (7-18); BUN/Creat Ratio 20.1 RATIO (10-20); Calcium,Total 8.8 mg/dL (8.5-10.1); Chloride 108 mmol/L (98-107); Cholesterol 184 mg/dL (200); Creatinine, Serum 0.75 mg/dL (0.70-1.30); EST Glomerular Filtration Rate 112 mL/min (>60); Est Glom Filt Rate - Afr Amer 135 mL/min (>60); Globulin 3.8 g/dL (2.2-4.2); Glucose 112 mg/dL (74-106); High Density Lipoprotein 51 mg/dL; Magnesium 1.9 mg/dL (1.6-2.6); Potassium 3.4 mmol/L (3.5-5.1); Sodium Level 138 mmol/L (136-145); Triglycerides 133 mg/dL; Very Low Density Lipoprotein 27 mg/dL (5-40)
== END | disposition home or self-care (01) ==
LOC: MFPLAB 08:17
PROVIDERS: PCP Family Medicine; Visit Provider Family Medicine
DX: I10 Essential (primary) hypertension (principal); E55.9 Vitamin D deficiency, unspecified; R73.02 Impaired glucose tolerance (oral); R60.0 Localized edema
CPT/HCPCS: 36415; 80053; 80061; 82306; 83036; 83735; 85025

== ENCOUNTER → 2023-12-17 | Outpatient (CLI) | payer MEDICARE, OTHER, SELFPAY ==
[2023-12-17 15:38] LABS: Anion Gap 6 (5-15); BUN 18 mg/dL (7-18); BUN/Creat Ratio 23.8 RATIO (10-20); Calcium,Total 8.9 mg/dL (8.5-10.1); Chloride 104 mmol/L (98-107); Creatinine, Serum 0.76 mg/dL (0.70-1.30); EST Glomerular Filtration Rate 110 mL/min (>60); Est Glom Filt Rate - Afr Amer 133 mL/min (>60); Glucose 101 mg/dL (74-106); Sodium Level 138 mmol/L (136-145)
== END | disposition home or self-care (01) ==
LOC: MFPLAB 13:43
PROVIDERS: PCP Family Medicine; Visit Provider Family Medicine
DX: R60.0 Localized edema (principal)
CPT/HCPCS: 36415; 80048

== ENCOUNTER 2024-01-23 11:00 | Outpatient (RCR) | payer MEDICARE, OTHER, SELFPAY ==
[2024-01-20 08:26] VITALS: BP 150/61; PULSE 61; RESP 18; TEMP 36.7; BMI 38.8
--- NOTE | 2024-01-20 09:41 | PCM.HP.STD ---
HPI - General General Date of Admission: 01/20/24 HPI Narrative VESTA OLIVAREZ, is a 63 M who presents as a new patient for bilateral lower extremity swelling, left greater than right. Patient has been treated for cellulitis left lower extremity. Patient underwent left total knee replacement in June 2023. Since that time he has noted increased swelling to his left lower extremity. Patient has had outpatient duplex ultrasound negative for any DVT. Patient denies any chest pain calf pain shortness of breath. Patient denies any constitutional symptoms. Patient denies any wounds today but notes occasional blistering the left lower extremity mid tibial region. No other complaints. [facility] Medical History (Updated 01/20/24 @ 09:[address] Antione Bah, LATRELL) Basal cell carcinoma of skin GERD (gastroesophageal reflux disease) Positional vertigo Chest pain Home Medications ?Medication ?Instructions ?Recorded ?Last Taken ?Type ibuprofen 200 mg tablet (Advil) 200 mg PO Q6H PRN pain 04/19/20 Unknown History antiarthritic combination no.2 900 900 mg PO DAILY PRN 06/06/22 Unknown History mg tablet (glucosamine-chondroitin) aspirin 81 mg tablet,delayed 81 mg PO DAILY PRN pain 06/06/22 Unknown History release famotidine 20 mg tablet 20 mg PO DAILY 01/20/24 Unknown History fluticasone propionate 50 1 spray intranasal QHS 01/20/24 Unknown History mcg/actuation nasal spray,suspension furosemide 40 mg tablet 40 mg PO DAILY 01/20/24 Unknown History Allergy/AdvReac Type Severity Reaction Status Date / Time No Known Allergies Allergy Verified 01/20/24 08:21 Family History Mother Hypertension Diabetes Father Diabetes Hypertension Social History Smoking Status: Never smoker alcohol intake: never substance use type: does not use caffeine: Yes Type: carbonated beverages and coffee Vital Signs Vital Signs Vital Signs: 01/20/24 08:26 Temperature 98.1 F Temperature Source Temporal Pulse Rate 61 Respiratory Rate 18 Blood Pressure 150/61 H Blood Pressure Mean 90 Blood Pressure Source Monitor Blood Pressure Position Sitting Blood Pressure Location Left Arm Oxygen Delivery Method Room Air Weight Weight: 112.491 kg Body Mass Index (BMI) 38.8 Physical Exam Narrative Vascular: Dorsalis pedis posterior tibial pulses palpable 2 out of 4 to bilateral lower extremity. +3 pitting edema to left lower extremity. +1 pitting edema to right lower extremity. Varicosities noted to perimalleolar region bilaterally. Neurologic: Light touch protective sensation intact bilateral feet. Dermatologic: Focal area of erythema and scaling to the mid tibial region medially along course of great saphenous veins. Musculoskeletal: No pain with calf squeeze. No gross musculoskeletal deformity causing wound formation. Muscular strength full. Assessment & Plan Assessment/Plan (1) Venous insufficiency (chronic) (peripheral): PLAN: Exam performed. No additional antibiotics indicated. Previous notes lab results cultures reviewed. I believe the issue is secondary to venous insufficiency with stasis dermatitis to left lower extremity. This has been exacerbated by recent left knee replacement overloading the incompetent venous system of the left lower extremity. I have recommended compression elevation exercise for edema management. Today we wrapped left lower extremity and 3M compression wrap. Plan for Tubigrip to right lower extremity. Follow-up in 1 week. Consider addition of triamcinolone ointment.
--- NOTE | 2024-01-21 10:22 | WC ---
PHOTO 01/20/24 KIKI
--- NOTE | 2024-01-21 10:23 | WC ---
PHOTO 01/20/24 KIKI
== END 2024-01-26 23:59 | disposition home or self-care (01) ==
LOC: WC 11:00
PROVIDERS: PCP Family Medicine; Referring Provider Family Medicine; Visit Provider Podiatrist
DX: I87.2 Venous insufficiency (chronic) (peripheral) (principal); Z79.82 Long term (current) use of aspirin
CPT/HCPCS: 29581; 99213; G0463

== ENCOUNTER 2024-02-24 08:15 | Outpatient (RCR) | payer MEDICARE, OTHER, SELFPAY ==
[2024-01-27 00:32] VITALS: BP 150/61; PULSE 61; RESP 18; TEMP 36.7; BMI 38.8
[2024-01-27 08:22] VITALS: BP 157/79; PULSE 60; RESP 18; TEMP 36.2; BMI 38.8
--- NOTE | 2024-01-27 08:59 | PN.PCM_ITS ---
History of Present Illness Date of Service: 01/27/24 Progress of Wound: Left lower extremity cellulitis in setting of chronic swelling and venous insufficiency after obtaining a knee replacement. Objective Data Objective Data Vital Signs: Vital Signs Temp Pulse Resp BP O2 Del Method 97.2 F L 60 18 157/79 H Room Air 01/27/24 08:22 01/27/24 08:22 01/27/24 08:22 01/27/24 08:22 01/27/24 08:22 Oxygen Delivery Method Room Air Weight: 112.491 kg Body Mass Index (BMI) 38.8 Physical Exam Narrative Neurovascular status unchanged. No open wounds noted. Improved erythema to medial leg along course of great saphenous vein. Improved edema of the left lower extremity significantly. Residual +1 pitting edema noted to MARIA ALEJANDRA malleoli region on the left side today. Debridement Note Debridement Note Post-Debridement Measurements and Additional Note: Post-Debridement Measurements/Treatment WC - Nurse 1 - General Ulcer Assessment Start: 01/27/24 08:22 Freq: Status: Active Protocol: LEONEL Activity Type Activity Date Activity User E-sign Co-sign Detail Recorded Client Recorded Date Recorded By Document 01/27/24 08:22 KW [id number] 01/27/24 08:29 KW 01/27/24 08:22 - Today's Visit Information Type of service Follow-up Visit (Physician/CONTROL CLERK [employer] ) Arrival Mode Ambulatory Height and Weight Body Mass Index (BMI) 38.8 BMI Classification Obese Vital Signs Temperature (97.8 F-99.1 F) 97.2 F L Temperature Source Temporal Pulse Rate (60-100) 60 Pulse Location Monitor Respiratory Rate (12-18) 18 Respiratory rate source Observation Oxygen Delivery Method Room Air Blood Pressure (90/60-120/80) 157/79 H Blood Pressure Mean (mm Hg) 105 Source Monitor Position Sitting Blood Pressure Location Left Arm History Since Last Visit- (Skip if this is Patient's initial visit) Have you changed medications since your No last visit? Any new allergies or adverse reactions No Had a fall/change in ADL's that may No increase risk of falls Signs or symptoms of abuse and/or No neglect since last visit Have you been in the hospital since your No last visit? Has dressing in place as prescribed Yes Has compression in place as prescribed Yes Has offloadiing in place as prescribed N/A Experienced any changes in pain level or No management Left Footwear Regular Shoe Right Footwear Regular Shoe Pain Scale: 0-10 Numeric Is Patient Pain Free? Yes WC - Nurse 1 - General Ulcer Measurement Start: 01/27/24 08:22 Freq: Status: Active Protocol: Activity Type Activity Date Activity User E-sign Co-sign Detail Recorded Client Recorded Date Recorded By Document 01/27/24 08:22 KW [id number] 01/27/24 08:29 KW 01/27/24 08:22 Wound Center Nurse 1 Left Calf (cm) 44 Left Ankle (cm) 28 WC - Nurse 2 - General Ulcer CM Notes Start: 01/27/24 08:22 Freq: Status: Active Protocol: Activity Type Activity Date Activity User E-sign Co-sign Detail Recorded Client Recorded Date Recorded By Document 01/27/24 08:45 JF [id number] 01/27/24 08:46 JF 01/27/24 08:45 Pain Scale: 0-10 Numeric Is Patient Pain Free? Yes Assessment/Plan Assessment/Plan (1) Venous insufficiency (chronic) (peripheral): CODE(S): I87.2 - Venous insufficiency (chronic) (peripheral) PLAN: Exam performed. Significant improvement in left lower extremity edema noted today with improvement in erythema. Left lower extremity rewrapped with 3M compression wrap. Continue compression exercises and elevation for edema management Will plan for custom compression stockings pending resolution of left lower extremity edema Consider lymphedema pumps if required.
[2024-02-04 11:04] VITALS: BP 158/84; PULSE 64; RESP 18; TEMP 36.4; BMI 38.8
[2024-02-04 11:09] VITALS: BP 158/84; PULSE 18; RESP 18; TEMP 36.4; BMI 38.8
--- NOTE | 2024-02-04 11:57 | PCM.WC.PN ---
History of Present Illness Date of Service: 02/04/24 Chief Complaint: Ulcer on left lozano History of Wound: Patient is wearing compression wraps for the week and when they took him off this last week he had a blister that had developed and opened. Drained clear fluid. And now is just an open wound nonhealing. The cork cutter is seeing him for cellulitis and for swelling. Progress of Wound: Left lower extremity cellulitis in setting of chronic swelling and venous insufficiency after obtaining a knee replacement. Subjective Subjective Patient is very happy with outcome so far his legs let skinnier and he is doing very well. Objective Data Objective Data Coloring of the leg looks good around the wound there is no erythema no odor the wound is open easily debrided and bleeds easily. Has good skin buds growing. Will use Aquacel dry on it and Adaptic over top and then he can wear his wraps he will be re-seen on Friday. Vital Signs: Vital Signs Temp Pulse Resp BP O2 Del Method 97.6 F L 18 L 18 158/84 H Room Air 02/04/24 11:09 02/04/24 11:09 02/04/24 11:02/04/24 11:01/27/24 08:22 Oxygen Delivery Method Room Air Weight: 248 lb Body Mass Index (BMI) 38.8 Physical Exam Const oriented x3 General Appearance: cooperative Exam Limitations: no limitations HEENT normocephalic Eyes General Eye: normal appearance of both eyes Neck full ROM General: normal visual inspection Resp normal respiratory effort Effort and Inspection: able to speak in complete sentences Auscultation: clear to auscultation bilaterally Cardio regular rate and regular rhythm Palpation: normal PMI Rate: regular rate Rhythm: regular rhythm Extremity normal to inspection General Extremity: normal exam except as noted Peripheral Pulses: Yes pulses 2+ throughout Skin no rashes or lesions noted Wounds: wounds noted Wound Narrative: Nonhealing wound left lozano Neuro oriented x3 Psych Appearance: grossly normal Speech: normal speech Thought Content: normal thought content Judgement: judgement good Debridement Note Debridement Note Wound debrided: Left lozano open wound nonhealing nonsurgical Type of Debridement: Excisional debridement Anesthesia Used: 5% Lidocaine Gel Depth: Down to and including healthy tissue and in the subcutaneous layer Percentage of wound debrided: 100 Instrument Used: 5mm curette Tissue Removed: Fibrin Severity: Fat Layer Exposed Amount of bleeding with debridement: Mild Bleeding Controlled with: Compression and gauze Patient tolerated procedure: Patient tolerated procedure well Post-Debridement Measurements and Additional Note: Post-Debridement Measurements/Treatment WC - Nurse 1 - General Ulcer Assessment Start: 01/27/24 08:22 Freq: Status: Active Protocol: LEONEL Activity Type Activity Date Activity User E-sign Co-sign Detail Recorded Client Recorded Date Recorded By Document 01/27/24 08:22 KW [id number] 01/27/24 08:29 KW Document 02/04/24 11:04 DL [id number] 02/04/24 11:09 DL Document 02/04/24 11:09 DL [id number] 02/04/24 11:13 DL 01/27/24 02/04/24 02/04/24 08:22 11:04 11:09 WC - Today's Visit Information Type of service Follow-up Visit Follow-up Visit Follow-up Visit (Physician/LOSS PREVENTION SUPERVISOR (Physician/LOSS PREVENTION SUPERVISOR (Physician/LOSS PREVENTION SUPERVISOR ) ) ) Arrival Mode Ambulatory Ambulatory Ambulatory Transfer Assistance None None Patient Identification Verified (Name & Yes Yes ) Patient Requires Transmission-Based No No Precautions Height and Weight Body Mass Index (BMI) 38.8 38.8 38.8 BMI Classification Obese Obese Obese Vital Signs Temperature (97.8 F-99.1 F) 97.2 F L 97.5 F L 97.6 F L Temperature Source Temporal Temporal Temporal Pulse Rate (60-100) 60 64 18 L Pulse Location Monitor Monitor Monitor Respiratory Rate (12-18) 18 18 18 Respiratory rate source Observation Observation Observation Oxygen Delivery Method Room Air Blood Pressure (90/60-120/80) 157/79 H 158/84 H 158/84 H Blood Pressure Mean (mm Hg) 105 108 108 Source Monitor Monitor Monitor Position Sitting Blood Pressure Location Left Arm History Since Last Visit- (Skip if this is Patient's initial visit) Have you changed medications since your No No No last visit? Any new allergies or adverse reactions No No No Had a fall/change in ADL's that may No No No increase risk of falls Signs or symptoms of abuse and/or No No No neglect since last visit Have you been in the hospital since your No No No last visit? Has dressing in place as prescribed Yes Yes Yes Has compression in place as prescribed Yes Yes Yes Has offloadiing in place as prescribed N/A N/A N/A Experienced any changes in pain level or No No No management Left Footwear Regular Shoe Right Footwear Regular Shoe Pain Scale: 0-10 Numeric Is Patient Pain Free? Yes Yes Yes - Nurse 1 - General Ulcer Measurement Start: 01/27/24 08:22 Freq: Status: Active Protocol: Activity Type Activity Date Activity User E-sign Co-sign Detail Recorded Client Recorded Date Recorded By Document 01/27/24 08:22 KW [id number] 01/27/24 08:29 KW Document 02/04/24 11:09 DL [id number] 02/04/24 11:13 DL 01/27/24 02/04/24 08:22 11:09 Wound Center Nurse 1 #1 L Lozano -Current Size (cm) - Length 1.8 -Current Size (cm) - Width 1.8 -Current Size (cm) - Depth 0.1 -Total Square Cm 3.24 -Photo Taken Yes -Exudate Amt Medium -Exudate Type Purulent -Wound Margin Distinct, Outline Attached -Granulation Amt Large (67-100%) -Granulation Quality Marvin,Red -Necrosis Amt Small (1-33%) -Necrotic Tissue Type Adherent Slough -Structure Exposed N/A -Texture (Estefany-wound Skin Appearance) Scarring -Moisture (Estefany-wound Skin Appearance) No Abnormality -Color (Estefany-wound Skin Appearance) Hemosiderin Staining -Temperature (Estefany-wound Skin No Abnormality Appearance) (Pt Warm) -Ulcer Cleansing Soap and Water -Foul Odor after Cleansing No -Anesthetic Used 5% Lidocaine Gel Left Calf (cm) 44 Left Ankle (cm) 28 - Nurse 2 - General Ulcer CM Notes Start: 01/27/24 08:22 Freq: Status: Active Protocol: Activity Type Activity Date Activity User E-sign Co-sign Detail Recorded Client Recorded Date Recorded By Document 01/27/24 08:45 [id number] 01/27/24 08:46 Document 02/04/24 11:32 BM [id number] 02/04/24 11:35 [facility] 01/27/24 02/04/24 08:45 11:32 Wound Center Nurse 2 #1 L Lozano -Time 11:32 -Correct Patient Yes -Correct Side, Site, Position Yes -Correct Procedure Yes -Procedure Performed Yes -Type of Procedure Debridement -Clinical Debridement Subcutaneous -Tissue Removed Subcutaneous -Post Debridement (cm) - Length 2 -Post Debridement (cm) - Width 2 -Post Debridement (cm) - Depth 0.2 -Total Square (Post) (cm) 4 -Area of Debridement (cm) - Length 2 -Area of Debridement (cm) - Width 2 -Total Square (Area) (cm) 4 -Tunneling No -Undermining/Tunneling No -Circular Undermining No -Wound/Ulcer Outcome Not Healed -Ulcer Cleansing Rinsed/ Irrigated with Saline -Foul Odor after Cleansing No -Bioengineered Tissue No -Bleeding Controlled with Pressure -Treatment Response Procedure Tolerated Well -Debridement - Subq, 1st 20sq cm Yes Pain Scale: 0-10 Numeric Is Patient Pain Free? Yes Yes - Nurse 3 - General Ulcer D/C NN Start: 01/27/24 08:22 Freq: Status: Active Protocol: Activity Type Activity Date Activity User E-sign Co-sign Detail Recorded Client Recorded Date Recorded By Document 01/27/24 09:07 KW [id number] 01/27/24 09:07 KW Document 02/04/24 11:04 DL [id number] 02/04/24 11:09 DL Document 02/04/24 11:54 DL [id number] 02/04/24 11:56 DL 01/27/24 02/04/24 02/04/24 09:07 11:04 11:54 Wound Care Center Nurse 3 #1 L Lozano -Ulcer Cleansing Rinsed/ Irrigated with Saline -Foul Odor after Cleansing No -Primary Dressing Applied Aquacel Extra, NonAdherent Contact Layer -Primary Dressing Covered/Secured with Dry Gauze -Aquacel Extra 1 Left -Multi-Layered Wrap Application Multi-Layer Multi-Layer Comp - Left ($) Comp - Left ($) Treatment Response Procedure Tolerated Well Vital Signs Temperature (97.8 F-99.1 F) 97.5 F L Temperature Source Temporal Pulse Rate (60-100) 64 Pulse Location Monitor Respiratory Rate (12-18) 18 Respiratory rate source Observation Blood Pressure (90/60-120/80) 158/84 H Blood Pressure Mean (mm Hg) 108 Source Monitor Pain Scale: 0-10 Numeric Is Patient Pain Free? Yes Yes Yes WC - Visit Discharge Discharge Condition Stable Ambulatory Status Ambulatory Transportation Private Auto Assessment/Plan Assessment/Plan (1) Venous insufficiency (chronic) (peripheral): CODE(S): I87.2 - Venous insufficiency (chronic) (peripheral) (2) Nonhealing nonsurgical wound: CODE(S): T14.8XXA - Other injury of unspecified body region, initial encounter PLAN: Apply Aquacel extra to wound base Adaptic over top and then small dressing then apply his 2 layered compression stocking. Follow-up in [address] Bah
--- NOTE | 2024-02-05 09:33 | WC ---
PHOTO 02/04/24 LEFT SHEA
[2024-02-10 08:20] VITALS: BP 152/84; PULSE 61; RESP 18; TEMP 36.1; BMI 38.8
--- NOTE | 2024-02-10 09:15 | PCM.WC.PN ---
History of Present Illness Date of Service: 02/10/24 Chief Complaint: Ulcer on left lozano History of Wound: Patient is wearing compression wraps for the week and when they took him off this last week he had a blister that had developed and opened. Drained clear fluid. And now is just an open wound nonhealing. The cocoa milling machine operator is seeing him for cellulitis and for swelling. Progress of Wound: Patient had an ulceration on previous visits secondary to blister formation. Patient follow-up for this today but denies constitutional symptoms. Denies chest pain calf pain shortness of breath. Objective Data Objective Data Vital Signs: Vital Signs Temp Pulse Resp BP O2 Del Method 97 F L 61 18 152/84 H Room Air 02/10/24 08:20 02/10/24 08:20 02/10/24 08:20 02/10/24 08:20 01/27/24 08:22 Oxygen Delivery Method Room Air Weight: 112.491 kg Body Mass Index (BMI) 38.8 Physical Exam Narrative Neurovascular status unchanged from previous visit. Full-thickness wound noted to the left medial leg. Wound demonstrates clean granular base and no signs of infection deep probing or undermining. No gross deformities noted bilaterally. No pain with calf squeeze bilaterally. Debridement Note Debridement Note Post-Debridement Measurements and Additional Note: Post-Debridement Measurements/Treatment - Nurse 1 - General Ulcer Assessment Start: 01/27/24 08:22 Freq: Status: Active Protocol: KENYA.KOREY Activity Type Activity Date Activity User E-sign Co-sign Detail Recorded Client Recorded Date Recorded By Document 01/27/24 08:22 KW [id number] 01/27/24 08:29 KW Document 02/04/24 11:04 DL [id number] 02/04/24 11:09 DL Document 02/04/24 11:09 DL [id number] 02/04/24 11:13 DL Document 02/10/24 08:20 RB [id number] 02/10/24 08:28 RB 01/27/24 02/04/24 02/04/24 08:22 11:04 11:09 - Today's Visit Information Type of service Follow-up Visit Follow-up Visit Follow-up Visit (Physician/CLINICAL MENTAL HEALTH COUNSELOR (Physician/CLINICAL MENTAL HEALTH COUNSELOR (Physician/CLINICAL MENTAL HEALTH COUNSELOR ) ) ) Arrival Mode Ambulatory Ambulatory Ambulatory Transfer Assistance None None Patient Identification Verified (Name & Yes Yes ) Patient Requires Transmission-Based No No Precautions Height and Weight Body Mass Index (BMI) 38.8 38.8 38.8 BMI Classification Obese Obese Obese Vital Signs Temperature (97.8 F-99.1 F) 97.2 F L 97.5 F L 97.6 F L Temperature Source Temporal Temporal Temporal Pulse Rate (60-100) 60 64 18 L Pulse Location Monitor Monitor Monitor Respiratory Rate (12-18) 18 18 18 Respiratory rate source Observation Observation Observation Oxygen Delivery Method Room Air Blood Pressure (90/60-120/80) 157/79 H 158/84 H 158/84 H Blood Pressure Mean (mm Hg) 105 108 108 Source Monitor Monitor Monitor Position Sitting Blood Pressure Location Left Arm History Since Last Visit- (Skip if this is Patient's initial visit) Have you changed medications since your No No No last visit? Any new allergies or adverse reactions No No No Had a fall/change in ADL's that may No No No increase risk of falls Signs or symptoms of abuse and/or No No No neglect since last visit Have you been in the hospital since your No No No last visit? Has dressing in place as prescribed Yes Yes Yes Has compression in place as prescribed Yes Yes Yes Has offloadiing in place as prescribed N/A N/A N/A Experienced any changes in pain level or No No No management Left Footwear Regular Shoe Right Footwear Regular Shoe Pain Scale: 0-10 Numeric Is Patient Pain Free? Yes Yes Yes 02/10/24 08:20 WC - Today's Visit Information Type of service Follow-up Visit (Physician/CLINICAL MENTAL HEALTH COUNSELOR ) Arrival Mode Ambulatory Transfer Assistance None Patient Identification Verified (Name & Yes ) Patient Requires Transmission-Based No Precautions Height and Weight Body Mass Index (BMI) 38.8 BMI Classification Obese Vital Signs Temperature (97.8 F-99.1 F) 97 F L Temperature Source Temporal Pulse Rate (60-100) 61 Pulse Location Monitor Respiratory Rate (12-18) 18 Respiratory rate source Observation Oxygen Delivery Method Blood Pressure (90/60-120/80) 152/84 H Blood Pressure Mean (mm Hg) 106 Source Monitor Position Sitting Blood Pressure Location Left Arm History Since Last Visit- (Skip if this is Patient's initial visit) Have you changed medications since your No last visit? Any new allergies or adverse reactions No Had a fall/change in ADL's that may No increase risk of falls Signs or symptoms of abuse and/or No neglect since last visit Have you been in the hospital since your No last visit? Has dressing in place as prescribed Yes Has compression in place as prescribed Yes Has offloadiing in place as prescribed No Experienced any changes in pain level or No management Left Footwear Right Footwear Pain Scale: 0-10 Numeric Is Patient Pain Free? Yes WC - Nurse 1 - General Ulcer Measurement Start: 01/27/24 08:22 Freq: Status: Active Protocol: Activity Type Activity Date Activity User E-sign Co-sign Detail Recorded Client Recorded Date Recorded By Document 01/27/24 08:22 KW [id number] 01/27/24 08:29 KW Document 02/04/24 11:09 DL [id number] 02/04/24 11:13 DL Document 02/10/24 08:20 RB [id number] 02/10/24 08:28 RB 01/27/24 02/04/24 02/10/24 08:22 11:09 08:20 Wound Center Nurse 1 #1 L Lozano -Combined with other wound No -Current Size (cm) - Length 1.8 2 -Current Size (cm) - Width 1.8 1.9 -Current Size (cm) - Depth 0.1 0.1 -Total Square Cm 3.24 3.8 -Photo Taken Yes -Tunneling No -Undermining/Tunneling No -Circular Undermining No -Exudate Amt Medium Large -Exudate Type Purulent Serosanguineous -Wound Margin Distinct, Distinct, Outline Outline Attached Attached -Granulation Amt Large (67-100%) Large (67-100%) -Granulation Quality Jenera,Red Red -Slough/Fibrin Yes -Necrosis Amt Small (1-33%) Small (1-33%) -Necrotic Tissue Type Adherent Slough Adherent Slough -Structure Exposed N/A N/A -Texture (Estefany-wound Skin Appearance) Scarring Assessed -Moisture (Estefany-wound Skin Appearance) No Abnormality Assessed -Color (Estefany-wound Skin Appearance) Hemosiderin Hemosiderin Staining Staining -Temperature (Estefany-wound Skin No Abnormality No Abnormality Appearance) (Pt Warm) (Pt Warm) -Tenderness on Palpation (Estefany-wound No Skin Appearance) -Ulcer Cleansing Soap and Water Wound Cleanser -Foul Odor after Cleansing No No -Anesthetic Used 5% Lidocaine 5% Lidocaine Gel Gel Lower Limb Edema Present Yes Left Calf (cm) 44 43.5 Left Ankle (cm) 28 28 WC - Nurse 2 - General Ulcer CM Notes Start: 01/27/24 08:22 Freq: Status: Active Protocol: Activity Type Activity Date Activity User E-sign Co-sign Detail Recorded Client Recorded Date Recorded By Document 01/27/24 08:45 JF [id number] 01/27/24 08:46 JF Document 02/04/24 11:32 BMF [id number] 02/04/24 11:35 BM Document 02/10/24 08:45 JF [id number] 02/10/24 08:47 JF 01/27/24 02/04/24 02/10/24 08:45 11:32 08:45 Wound Center Nurse 2 #1 L Lozano -Time 11:32 08:46 -Correct Patient Yes Yes -Correct Side, Site, Position Yes Yes -Correct Procedure Yes Yes -Procedure Performed Yes Yes -Type of Procedure Debridement Debridement -Clinical Debridement Subcutaneous Subcutaneous -Tissue Removed Subcutaneous Subcutaneous -Post Debridement (cm) - Length 2 2 -Post Debridement (cm) - Width 2 1.8 -Post Debridement (cm) - Depth 0.2 0.1 -Total Square (Post) (cm) 4 3.6 -Area of Debridement (cm) - Length 2 2 -Area of Debridement (cm) - Width 2 1.8 -Total Square (Area) (cm) 4 3.6 -Tunneling No No -Undermining/Tunneling No No -Circular Undermining No No -Wound/Ulcer Outcome Not Healed Not Healed -Ulcer Cleansing Rinsed/ Rinsed/ Irrigated with Irrigated with Saline Saline -Foul Odor after Cleansing No No -Bioengineered Tissue No No -Bleeding Controlled with Pressure Pressure -Treatment Response Procedure Procedure Tolerated Well Tolerated Well -Offloading No -Debridement - Subq, 1st 20sq cm Yes Yes Pain Scale: 0-10 Numeric Is Patient Pain Free? Yes Yes Yes - Nurse 3 - General Ulcer D/C NN Start: 01/27/24 08:22 Freq: Status: Active Protocol: Activity Type Activity Date Activity User E-sign Co-sign Detail Recorded Client Recorded Date Recorded By Document 01/27/24 09:07 KW [id number] 01/27/24 09:07 KW Document 02/04/24 11:04 DL [id number] 02/04/24 11:09 DL Document 02/04/24 11:54 DL [id number] 02/04/24 11:56 DL Document 02/10/24 08:58 KW [id number] 02/10/24 08:58 KW 01/27/24 02/04/24 02/04/24 09:07 11:04 11:54 Wound Care Center Nurse 3 #1 L Lozano -Ulcer Cleansing Rinsed/ Irrigated with Saline -Foul Odor after Cleansing No -Primary Dressing Applied Aquacel Extra, NonAdherent Contact Layer -Other Dressing -Primary Dressing Covered/Secured with Dry Gauze -Aquacel Extra 1 Left -Multi-Layered Wrap Application Multi-Layer Multi-Layer Comp - Left ($) Comp - Left ($) Treatment Response Procedure Tolerated Well Vital Signs Temperature (97.8 F-99.1 F) 97.5 F L Temperature Source Temporal Pulse Rate (60-100) 64 Pulse Location Monitor Respiratory Rate (12-18) 18 Respiratory rate source Observation Blood Pressure (90/60-120/80) 158/84 H Blood Pressure Mean (mm Hg) 108 Source Monitor Pain Scale: 0-10 Numeric Is Patient Pain Free? Yes Yes Yes WC - Visit Discharge Discharge Condition Stable Ambulatory Status Ambulatory Transportation Private Auto 02/10/24 08:58 Wound Care Center Nurse 3 #1 L Lozano -Ulcer Cleansing -Foul Odor after Cleansing -Primary Dressing Applied -Other Dressing pt own aquacel then adaptic -Primary Dressing Covered/Secured with Dry Gauze & Roll Gauze, Secured with Tape -Aquacel Extra Left -Multi-Layered Wrap Application Multi-Layer Comp - Left ($) Treatment Response Vital Signs Temperature (97.8 F-99.1 F) Temperature Source Pulse Rate (60-100) Pulse Location Respiratory Rate (12-18) Respiratory rate source Blood Pressure (90/60-120/80) Blood Pressure Mean (mm Hg) Source Pain Scale: 0-10 Numeric Is Patient Pain Free? Yes WC - Visit Discharge Discharge Condition Ambulatory Status Transportation Assessment/Plan Assessment/Plan (1) Non-pressure chronic ulcer of left calf with fat layer exposed: CODE(S): L97.222 - Non-pressure chronic ulcer of left calf with fat layer exposed PLAN: Exam performed. Wound appears improved today, nearly healed. Edema significantly improved. Left leg wound was excisionally debrided down to including level of subcutaneous tissue of all nonviable tissue using a 3 mm dermal curette. Topical anesthesia was used. Hemostasis obtained with light compression. Patient tolerated procedure well. All nonviable tissue was removed. Pre and postdebridement measurements documented nursing notes. Dressed with Adaptic silver alginate dry sterile dressing and 3M compression wrap. Patient continue compression elevation and exercise for edema management Will plan for transition to compression stockings upon wound healing. (2) Venous insufficiency (chronic) (peripheral): CODE(S): I87.2 - Venous insufficiency (chronic) (peripheral)
[2024-02-17 08:15] VITALS: BP 183/84; PULSE 62; RESP 18; TEMP 36.7; BMI 38.8
--- NOTE | 2024-02-17 09:35 | PN.PCM_ITS ---
History of Present Illness Date of Service: 02/17/24 Chief Complaint: Ulcer on left lozano History of Wound: Patient is wearing compression wraps for the week and when they took him off this last week he had a blister that had developed and opened. Drained clear fluid. And now is just an open wound nonhealing. The singer and unloader is seeing him for cellulitis and for swelling. Progress of Wound: Patient had an ulceration on previous visits secondary to blister formation. Patient follow-up for this today but denies constitutional symptoms. Denies chest pain calf pain shortness of breath. Objective Data Objective Data Vital Signs: Vital Signs Temp Pulse Resp BP O2 Del Method 98.0 F 62 18 183/84 H Room Air 02/17/24 08:15 02/17/24 08:15 02/17/24 08:15 02/17/24 08:15 02/17/24 08:15 Oxygen Delivery Method Room Air Weight: 112.491 kg Body Mass Index (BMI) 38.8 Physical Exam Narrative Neurovascular status unchanged from previous visit. Full-thickness wound noted to the left medial leg, improving. Wound demonstrates clean granular base and no signs of infection deep probing or undermining. No gross deformities noted bilaterally. No pain with calf squeeze bilaterally. Debridement Note Debridement Note Post-Debridement Measurements and Additional Note: Post-Debridement Measurements/Treatment - Nurse 1 - General Ulcer Assessment Start: 01/27/24 08:22 Freq: Status: Active Protocol: [email or web address] Activity Type Activity Date Activity User E-sign Co-sign Detail Recorded Client Recorded Date Recorded By Document 01/27/24 08:22 KW [id number] 01/27/24 08:29 KW Document 02/04/24 11:04 DL [id number] 02/04/24 11:09 DL Document 02/04/24 11:09 DL [id number] 02/04/24 11:13 DL Document 02/10/24 08:20 RB [id number] 02/10/24 08:28 RB Document 02/17/24 08:15 KW [id number] 02/17/24 08:22 KW 01/27/24 02/04/24 02/04/24 08:22 11:04 11:09 - Today's Visit Information Type of service Follow-up Visit Follow-up Visit Follow-up Visit (Physician/MATERNAL CHILD NURSE (Physician/MATERNAL CHILD NURSE (Physician/MATERNAL CHILD NURSE ) ) ) Arrival Mode Ambulatory Ambulatory Ambulatory Transfer Assistance None None Patient Identification Verified (Name & Yes Yes ) Patient Requires Transmission-Based No No Precautions Height and Weight Body Mass Index (BMI) 38.8 38.8 38.8 BMI Classification Obese Obese Obese Vital Signs Temperature (97.8 F-99.1 F) 97.2 F L 97.5 F L 97.6 F L Temperature Source Temporal Temporal Temporal Pulse Rate (60-100) 60 64 18 L Pulse Location Monitor Monitor Monitor Respiratory Rate (12-18) 18 18 18 Respiratory rate source Observation Observation Observation Oxygen Delivery Method Room Air Blood Pressure (90/60-120/80) 157/79 H 158/84 H 158/84 H Blood Pressure Mean (mm Hg) 105 108 108 Source Monitor Monitor Monitor Position Sitting Blood Pressure Location Left Arm History Since Last Visit- (Skip if this is Patient's initial visit) Have you changed medications since your No No No last visit? Any new allergies or adverse reactions No No No Had a fall/change in ADL's that may No No No increase risk of falls Signs or symptoms of abuse and/or No No No neglect since last visit Have you been in the hospital since your No No No last visit? Has dressing in place as prescribed Yes Yes Yes Has compression in place as prescribed Yes Yes Yes Has offloadiing in place as prescribed N/A N/A N/A Experienced any changes in pain level or No No No management Left Footwear Regular Shoe Right Footwear Regular Shoe Pain Scale: 0-10 Numeric Is Patient Pain Free? Yes Yes Yes 02/10/24 02/17/24 08:20 08:15 WC - Today's Visit Information Type of service Follow-up Visit Follow-up Visit (Physician/MATERNAL CHILD NURSE (Physician/MATERNAL CHILD NURSE ) ) Arrival Mode Ambulatory Ambulatory Transfer Assistance None Patient Identification Verified (Name & Yes Yes ) Patient Requires Transmission-Based No Precautions Height and Weight Body Mass Index (BMI) 38.8 38.8 BMI Classification Obese Obese Vital Signs Temperature (97.8 F-99.1 F) 97 F L 98.0 F Temperature Source Temporal Temporal Pulse Rate (60-100) 61 62 Pulse Location Monitor Monitor Respiratory Rate (12-18) 18 18 Respiratory rate source Observation Observation Oxygen Delivery Method Room Air Blood Pressure (90/60-120/80) 152/84 H 183/84 H Blood Pressure Mean (mm Hg) 106 117 Source Monitor Monitor Position Sitting Semi-Fowlers Blood Pressure Location Left Arm Left Arm History Since Last Visit- (Skip if this is Patient's initial visit) Have you changed medications since your No No last visit? Any new allergies or adverse reactions No No Had a fall/change in ADL's that may No No increase risk of falls Signs or symptoms of abuse and/or No No neglect since last visit Have you been in the hospital since your No No last visit? Has dressing in place as prescribed Yes Yes Has compression in place as prescribed Yes Yes Has offloadiing in place as prescribed No N/A Experienced any changes in pain level or No No management Left Footwear Regular Shoe Right Footwear Regular Shoe Pain Scale: 0-10 Numeric Is Patient Pain Free? Yes Yes WC - Nurse 1 - General Ulcer Measurement Start: 01/27/24 08:22 Freq: Status: Active Protocol: Activity Type Activity Date Activity User E-sign Co-sign Detail Recorded Client Recorded Date Recorded By Document 01/27/24 08:22 KW [id number] 01/27/24 08:29 KW Document 02/04/24 11:09 DL [id number] 02/04/24 11:13 DL Document 02/10/24 08:20 RB [id number] 02/10/24 08:28 RB Document 02/17/24 08:15 KW [id number] 02/17/24 08:22 KW 01/27/24 02/04/24 02/10/24 08:22 11:09 08:20 Wound Center Nurse 1 #1 L Lozano -Combined with other wound No -Current Size (cm) - Length 1.8 2 -Current Size (cm) - Width 1.8 1.9 -Current Size (cm) - Depth 0.1 0.1 -Total Square Cm 3.24 3.8 -Date of Last Picture (Recall this field) -Photo Taken Yes -Epithelialization -Tunneling No -Undermining/Tunneling No -Circular Undermining No -Exudate Amt Medium Large -Exudate Type Purulent Serosanguineous -Wound Margin Distinct, Distinct, Outline Outline Attached Attached -Granulation Amt Large (67-100%) Large (67-100%) -Granulation Quality Garfield,Red Red -Slough/Fibrin Yes -Necrosis Amt Small (1-33%) Small (1-33%) -Necrotic Tissue Type Adherent Slough Adherent Slough -Structure Exposed N/A N/A -Texture (Estefany-wound Skin Appearance) Scarring Assessed -Moisture (Estefany-wound Skin Appearance) No Abnormality Assessed -Color (Estefany-wound Skin Appearance) Hemosiderin Hemosiderin Staining Staining -Temperature (Estefany-wound Skin No Abnormality No Abnormality Appearance) (Pt Warm) (Pt Warm) -Tenderness on Palpation (Estefany-wound No Skin Appearance) -Ulcer Cleansing Soap and Water Wound Cleanser -Foul Odor after Cleansing No No -Anesthetic Used 5% Lidocaine 5% Lidocaine Gel Gel Lower Limb Edema Present Yes Right Calf (cm) Right Ankle (cm) Left Calf (cm) 44 43.5 Left Ankle (cm) 28 28 02/17/24 08:15 Wound Center Nurse 1 #1 L Lozano -Combined with other wound -Current Size (cm) - Length 0.1 -Current Size (cm) - Width 0.1 -Current Size (cm) - Depth 0.1 -Total Square Cm 0.01 -Date of Last Picture (Recall this 02/17/24 field) -Photo Taken -Epithelialization Large 67-100% -Tunneling -Undermining/Tunneling -Circular Undermining -Exudate Amt Small -Exudate Type Serosanguineous -Wound Margin Distinct, Outline Attached -Granulation Amt Large (67-100%) -Granulation Quality Red -Slough/Fibrin -Necrosis Amt -Necrotic Tissue Type -Structure Exposed -Texture (Estefany-wound Skin Appearance) Assessed -Moisture (Estefany-wound Skin Appearance) Assessed -Color (Estefany-wound Skin Appearance) Assessed -Temperature (Estefany-wound Skin No Abnormality Appearance) (Pt Warm) -Tenderness on Palpation (Estefany-wound No Skin Appearance) -Ulcer Cleansing Soap and Water -Foul Odor after Cleansing No -Anesthetic Used 5% Lidocaine Gel Lower Limb Edema Present Right Calf (cm) 42.5 Right Ankle (cm) 26 Left Calf (cm) Left Ankle (cm) WC - Nurse 2 - General Ulcer CM Notes Start: 01/27/24 08:22 Freq: Status: Active Protocol: Activity Type Activity Date Activity User E-sign Co-sign Detail Recorded Client Recorded Date Recorded By Document 01/27/24 08:45 ROSALIND [id number] 01/27/24 08:46 Document 02/04/24 11:32 BM [id number] 02/04/24 11:35 BM Document 02/10/24 08:45 JF [id number] 02/10/24 08:47 JF Document 02/17/24 08:39 JF [id number] 02/17/24 08:40 JF 01/27/24 02/04/24 02/10/24 08:45 11:32 08:45 Wound Center Nurse 2 #1 L Lozano -Time 11:32 08:46 -Correct Patient Yes Yes -Correct Side, Site, Position Yes Yes -Correct Procedure Yes Yes -Procedure Performed Yes Yes -Type of Procedure Debridement Debridement -Clinical Debridement Subcutaneous Subcutaneous -Tissue Removed Subcutaneous Subcutaneous -Post Debridement (cm) - Length 2 2 -Post Debridement (cm) - Width 2 1.8 -Post Debridement (cm) - Depth 0.2 0.1 -Total Square (Post) (cm) 4 3.6 -Area of Debridement (cm) - Length 2 2 -Area of Debridement (cm) - Width 2 1.8 -Total Square (Area) (cm) 4 3.6 -Tunneling No No -Undermining/Tunneling No No -Circular Undermining No No -Wound/Ulcer Outcome Not Healed Not Healed -Ulcer Cleansing Rinsed/ Rinsed/ Irrigated with Irrigated with Saline Saline -Foul Odor after Cleansing No No -Bioengineered Tissue No No -Bleeding Controlled with Pressure Pressure -Treatment Response Procedure Procedure Tolerated Well Tolerated Well -Offloading No -Debridement - Subq, 1st 20sq cm Yes Yes Pain Scale: 0-10 Numeric Is Patient Pain Free? Yes Yes Yes 02/17/24 08:39 Wound Center Nurse 2 #1 L Lozano -Time -Correct Patient No -Correct Side, Site, Position No -Correct Procedure No -Procedure Performed No -Type of Procedure -Clinical Debridement -Tissue Removed -Post Debridement (cm) - Length -Post Debridement (cm) - Width -Post Debridement (cm) - Depth -Total Square (Post) (cm) -Area of Debridement (cm) - Length -Area of Debridement (cm) - Width -Total Square (Area) (cm) -Tunneling -Undermining/Tunneling -Circular Undermining -Wound/Ulcer Outcome Not Healed -Ulcer Cleansing -Foul Odor after Cleansing -Bioengineered Tissue -Bleeding Controlled with -Treatment Response -Offloading -Debridement - Subq, 1st 20sq cm Pain Scale: 0-10 Numeric Is Patient Pain Free? Yes WC - Nurse 3 - General Ulcer D/C NN Start: 01/27/24 08:22 Freq: Status: Active Protocol: Activity Type Activity Date Activity User E-sign Co-sign Detail Recorded Client Recorded Date Recorded By Document 01/27/24 09:07 KW [id number] 01/27/24 09:07 KW Document 02/04/24 11:04 DL [id number] 02/04/24 11:09 DL Document 02/04/24 11:54 DL [id number] 02/04/24 11:56 DL Document 02/10/24 08:58 KW [id number] 02/10/24 08:58 KW Document 02/17/24 09:10 RB [id number] 02/17/24 09:11 RB 01/27/24 02/04/24 02/04/24 09:07 11:04 11:54 Wound Care Center Nurse 3 #1 L Lozano -Ulcer Cleansing Rinsed/ Irrigated with Saline -Foul Odor after Cleansing No -Primary Dressing Applied Aquacel Extra, NonAdherent Contact Layer -Other Dressing -Primary Dressing Covered/Secured with Dry Gauze -Aquacel Extra 1 Estefany-Wound Care bilat LE -Multi-Layered Wrap Application Left -Multi-Layered Wrap Application Multi-Layer Multi-Layer Comp - Left ($) Comp - Left ($) Treatment Response Procedure Tolerated Well Vital Signs Temperature (97.8 F-99.1 F) 97.5 F L Temperature Source Temporal Pulse Rate (60-100) 64 Pulse Location Monitor Respiratory Rate (12-18) 18 Respiratory rate source Observation Blood Pressure (90/60-120/80) 158/84 H Blood Pressure Mean (mm Hg) 108 Source Monitor Pain Scale: 0-10 Numeric Is Patient Pain Free? Yes Yes Yes WC - Visit Discharge Discharge Condition Stable Ambulatory Status Ambulatory Transportation Private Auto Medication Reconcilliation completed & provided to patient/care provider Clinical Summary of Care Provided 02/10/24 02/17/24 08:58 09:10 Wound Care Center Nurse 3 #1 L Lozano -Ulcer Cleansing Wound Cleanser -Foul Odor after Cleansing -Primary Dressing Applied NonAdherent Contact Layer -Other Dressing pt own aquacel then adaptic -Primary Dressing Covered/Secured with Dry Gauze & Roll Gauze, Secured with Tape -Aquacel Extra Estefany-Wound Care Lotion bilat LE -Multi-Layered Wrap Application Multi-Layer Comp - Bilat ($ ) Left -Multi-Layered Wrap Application Multi-Layer Comp - Left ($) Treatment Response Vital Signs Temperature (97.8 F-99.1 F) Temperature Source Pulse Rate (60-100) Pulse Location Respiratory Rate (12-18) Respiratory rate source Blood Pressure (90/60-120/80) Blood Pressure Mean (mm Hg) Source Pain Scale: 0-10 Numeric Is Patient Pain Free? Yes Yes WC - Visit Discharge Discharge Condition Stable Ambulatory Status Ambulatory Transportation Private Auto Medication Reconcilliation completed & No provided to patient/care provider Clinical Summary of Care Provided Yes Assessment/Plan Assessment/Plan (1) Non-pressure chronic ulcer of left calf with fat layer exposed: CODE(S): L97.222 - Non-pressure chronic ulcer of left calf with fat layer exposed PLAN: Exam performed. Wound appears improved today, nearly healed. Edema significantly improved. no debridement today Dressed with Adaptic silver alginate dry sterile dressing and 3M compression wrap. Patient continue compression elevation and exercise for edema management Will plan for transition to compression stockings upon wound healing. (2) Venous insufficiency (chronic) (peripheral): CODE(S): I87.2 - Venous insufficiency (chronic) (peripheral)
--- NOTE | 2024-02-20 09:02 | WC ---
PHOTO 02/17/24 LEFT SHEA
[2024-02-24 08:15] VITALS: BP 156/87; PULSE 66; RESP 16; TEMP 36.2; BMI 38.8
--- NOTE | 2024-02-24 08:53 | PN.PCM_ITS ---
History of Present Illness Date of Service: 03/03/24 Chief Complaint: Ulcer on left lozano History of Wound: Patient is wearing compression wraps for the week and when they took him off this last week he had a blister that had developed and opened. Drained clear fluid. And now is just an open wound nonhealing. The surgical instruments inspector is seeing him for cellulitis and for swelling. Progress of Wound: Patient had an ulceration on previous visits secondary to blister formation. Patient follow-up for this today but denies constitutional symptoms. Denies chest pain calf pain shortness of breath. Objective Data Objective Data Vital Signs: Vital Signs Temp Pulse Resp BP O2 Del Method 97.1 F L 66 16 156/87 H Room Air 02/24/24 08:15 02/24/24 08:15 02/24/24 08:15 02/24/24 08:15 02/24/24 08:15 Oxygen Delivery Method Room Air Weight: 112.491 kg Body Mass Index (BMI) 38.8 Physical Exam Narrative Neurovascular status unchanged from previous visit. Full-thickness wound noted to the left medial leg, improving. Wound demonstrates clean granular base and no signs of infection deep probing or undermining. No gross deformities noted bilaterally. No pain with calf squeeze bilaterally. Debridement Note Debridement Note Post-Debridement Measurements and Additional Note: Post-Debridement Measurements/Treatment - Nurse 1 - General Ulcer Assessment Start: 01/27/24 08:22 Freq: Status: Active Protocol: [email or web address].LOWMICAH Activity Type Activity Date Activity User E-sign Co-sign Detail Recorded Client Recorded Date Recorded By Document 01/27/24 08:22 KW [id number] 01/27/24 08:29 KW Document 02/04/24 11:04 DL [id number] 02/04/24 11:09 DL Document 02/04/24 11:09 DL [id number] 02/04/24 11:13 DL Document 02/10/24 08:20 RB [id number] 02/10/24 08:28 RB Document 02/17/24 08:15 KW [id number] 02/17/24 08:22 KW Document 02/24/24 08:15 KW [id number] 02/24/24 08:26 KW 01/27/24 02/04/24 02/04/24 08:22 11:04 11:09 - Today's Visit Information Type of service Follow-up Visit Follow-up Visit Follow-up Visit (Physician/SENIOR QUALITY CONTROL TECHNICIAN (Physician/SENIOR QUALITY CONTROL TECHNICIAN (Physician/SENIOR QUALITY CONTROL TECHNICIAN ) ) ) Arrival Mode Ambulatory Ambulatory Ambulatory Transfer Assistance None None Patient Identification Verified (Name & Yes Yes ) Patient Requires Transmission-Based No No Precautions Height and Weight Body Mass Index (BMI) 38.8 38.8 38.8 BMI Classification Obese Obese Obese Vital Signs Temperature (97.8 F-99.1 F) 97.2 F L 97.5 F L 97.6 F L Temperature Source Temporal Temporal Temporal Pulse Rate (60-100) 60 64 18 L Pulse Location Monitor Monitor Monitor Respiratory Rate (12-18) 18 18 18 Respiratory rate source Observation Observation Observation Oxygen Delivery Method Room Air Blood Pressure (90/60-120/80) 157/79 H 158/84 H 158/84 H Blood Pressure Mean (mm Hg) 105 108 108 Source Monitor Monitor Monitor Position Sitting Blood Pressure Location Left Arm History Since Last Visit- (Skip if this is Patient's initial visit) Have you changed medications since your No No No last visit? Any new allergies or adverse reactions No No No Had a fall/change in ADL's that may No No No increase risk of falls Signs or symptoms of abuse and/or No No No neglect since last visit Have you been in the hospital since your No No No last visit? Has dressing in place as prescribed Yes Yes Yes Has compression in place as prescribed Yes Yes Yes Has offloadiing in place as prescribed N/A N/A N/A Experienced any changes in pain level or No No No management Left Footwear Regular Shoe Right Footwear Regular Shoe Pain Scale: 0-10 Numeric Is Patient Pain Free? Yes Yes Yes 02/10/24 02/17/24 02/24/24 08:20 08:15 08:15 WC - Today's Visit Information Type of service Follow-up Visit Follow-up Visit Follow-up Visit (Physician/SENIOR QUALITY CONTROL TECHNICIAN (Physician/SENIOR QUALITY CONTROL TECHNICIAN (Physician/SENIOR QUALITY CONTROL TECHNICIAN ) ) ) Arrival Mode Ambulatory Ambulatory Ambulatory Transfer Assistance None Patient Identification Verified (Name & Yes Yes Yes ) Patient Requires Transmission-Based No Precautions Height and Weight Body Mass Index (BMI) 38.8 38.8 38.8 BMI Classification Obese Obese Obese Vital Signs Temperature (97.8 F-99.1 F) 97 F L 98.0 F 97.1 F L Temperature Source Temporal Temporal Temporal Pulse Rate (60-100) 61 62 66 Pulse Location Monitor Monitor Monitor Respiratory Rate (12-18) 18 18 16 Respiratory rate source Observation Observation Observation Oxygen Delivery Method Room Air Room Air Blood Pressure (90/60-120/80) 152/84 H 183/84 H 156/87 H Blood Pressure Mean (mm Hg) 106 117 110 Source Monitor Monitor Monitor Position Sitting Semi-Fowlers Semi-Fowlers Blood Pressure Location Left Arm Left Arm Left Arm History Since Last Visit- (Skip if this is Patient's initial visit) Have you changed medications since your No No No last visit? Any new allergies or adverse reactions No No No Had a fall/change in ADL's that may No No No increase risk of falls Signs or symptoms of abuse and/or No No No neglect since last visit Have you been in the hospital since your No No No last visit? Has dressing in place as prescribed Yes Yes Yes Has compression in place as prescribed Yes Yes Yes Has offloadiing in place as prescribed No N/A N/A Experienced any changes in pain level or No No No management Left Footwear Regular Shoe Regular Shoe Right Footwear Regular Shoe Regular Shoe Pain Scale: 0-10 Numeric Is Patient Pain Free? Yes Yes Yes WC - Nurse 1 - General Ulcer Measurement Start: 01/27/24 08:22 Freq: Status: Active Protocol: Activity Type Activity Date Activity User E-sign Co-sign Detail Recorded Client Recorded Date Recorded By Document 01/27/24 08:22 KW [id number] 01/27/24 08:29 KW Document 02/04/24 11:09 DL [id number] 02/04/24 11:13 DL Document 02/10/24 08:20 RB [id number] 02/10/24 08:28 RB Document 02/17/24 08:15 KW [id number] 02/17/24 08:22 KW Document 02/24/24 08:15 KW [id number] 02/24/24 08:26 KW 01/27/24 02/04/24 02/10/24 08:22 11:09 08:20 Wound Center Nurse 1 #1 L Lozano -Combined with other wound No -Current Size (cm) - Length 1.8 2 -Current Size (cm) - Width 1.8 1.9 -Current Size (cm) - Depth 0.1 0.1 -Total Square Cm 3.24 3.8 -Date of Last Picture (Recall this field) -Photo Taken Yes -Epithelialization -Tunneling No -Undermining/Tunneling No -Circular Undermining No -Exudate Amt Medium Large -Exudate Type Purulent Serosanguineous -Wound Margin Distinct, Distinct, Outline Outline Attached Attached -Granulation Amt Large (67-100%) Large (67-100%) -Granulation Quality [place],Red Red -Slough/Fibrin Yes -Necrosis Amt Small (1-33%) Small (1-33%) -Necrotic Tissue Type Adherent Slough Adherent Slough -Structure Exposed N/A N/A -Texture (Estefany-wound Skin Appearance) Scarring Assessed -Moisture (Estefany-wound Skin Appearance) No Abnormality Assessed -Color (Estefany-wound Skin Appearance) Hemosiderin Hemosiderin Staining Staining -Temperature (Estefany-wound Skin No Abnormality No Abnormality Appearance) (Pt Warm) (Pt Warm) -Tenderness on Palpation (Estefany-wound No Skin Appearance) -Ulcer Cleansing Soap and Water Wound Cleanser -Foul Odor after Cleansing No No -Anesthetic Used 5% Lidocaine 5% Lidocaine Gel Gel Lower Limb Edema Present Yes Right Calf (cm) Right Ankle (cm) Left Calf (cm) 44 43.5 Left Ankle (cm) 28 28 02/17/24 02/24/24 08:15 08:15 Wound Center Nurse 1 #1 L Lozano -Combined with other wound -Current Size (cm) - Length 0.1 0.1 -Current Size (cm) - Width 0.1 0.1 -Current Size (cm) - Depth 0.1 0.1 -Total Square Cm 0.01 0.01 -Date of Last Picture (Recall this 02/17/24 02/24/24 field) -Photo Taken -Epithelialization Large 67-100% -Tunneling -Undermining/Tunneling -Circular Undermining -Exudate Amt Small None Present -Exudate Type Serosanguineous -Wound Margin Distinct, Outline Attached -Granulation Amt Large (67-100%) -Granulation Quality Red -Slough/Fibrin -Necrosis Amt -Necrotic Tissue Type -Structure Exposed -Texture (Estefany-wound Skin Appearance) Assessed Assessed -Moisture (Estefany-wound Skin Appearance) Assessed Assessed -Color (Estefany-wound Skin Appearance) Assessed Assessed, Hemosiderin Staining -Temperature (Estefany-wound Skin No Abnormality No Abnormality Appearance) (Pt Warm) (Pt Warm) -Tenderness on Palpation (Estefany-wound No No Skin Appearance) -Ulcer Cleansing Soap and Water Soap and Water -Foul Odor after Cleansing No No -Anesthetic Used 5% Lidocaine Gel Lower Limb Edema Present Right Calf (cm) 42.5 39 Right Ankle (cm) 26 28.5 Left Calf (cm) 42.5 Left Ankle (cm) 28.5 WC - Nurse 2 - General Ulcer CM Notes Start: 01/27/24 08:22 Freq: Status: Active Protocol: Activity Type Activity Date Activity User E-sign Co-sign Detail Recorded Client Recorded Date Recorded By Document 01/27/24 08:45 [id number] 01/27/24 08:46 JF Document 02/04/24 11:32 BM [id number] 02/04/24 11:35 BM Document 02/10/24 08:45 JF [id number] 02/10/24 08:47 JF Document 02/17/24 08:39 JF [id number] 02/17/24 08:40 JF Document 02/24/24 08:50 JF [id number] 02/24/24 08:51 JF 01/27/24 02/04/24 02/10/24 08:45 11:32 08:45 Wound Center Nurse 2 #1 L Lozano -Time 11:32 08:46 -Correct Patient Yes Yes -Correct Side, Site, Position Yes Yes -Correct Procedure Yes Yes -Procedure Performed Yes Yes -Type of Procedure Debridement Debridement -Clinical Debridement Subcutaneous Subcutaneous -Tissue Removed Subcutaneous Subcutaneous -Post Debridement (cm) - Length 2 2 -Post Debridement (cm) - Width 2 1.8 -Post Debridement (cm) - Depth 0.2 0.1 -Total Square (Post) (cm) 4 3.6 -Area of Debridement (cm) - Length 2 2 -Area of Debridement (cm) - Width 2 1.8 -Total Square (Area) (cm) 4 3.6 -Tunneling No No -Undermining/Tunneling No No -Circular Undermining No No -Wound/Ulcer Outcome Not Healed Not Healed -Ulcer Cleansing Rinsed/ Rinsed/ Irrigated with Irrigated with Saline Saline -Foul Odor after Cleansing No No -Bioengineered Tissue No No -Bleeding Controlled with Pressure Pressure -Treatment Response Procedure Procedure Tolerated Well Tolerated Well -Offloading No -Debridement - Subq, 1st 20sq cm Yes Yes Pain Scale: 0-10 Numeric Is Patient Pain Free? Yes Yes Yes 02/17/24 02/24/24 08:39 08:50 Wound Center Nurse 2 #1 L Lozano -Time -Correct Patient No No -Correct Side, Site, Position No No -Correct Procedure No No -Procedure Performed No No -Type of Procedure -Clinical Debridement -Tissue Removed -Post Debridement (cm) - Length -Post Debridement (cm) - Width -Post Debridement (cm) - Depth -Total Square (Post) (cm) -Area of Debridement (cm) - Length -Area of Debridement (cm) - Width -Total Square (Area) (cm) -Tunneling -Undermining/Tunneling -Circular Undermining -Wound/Ulcer Outcome Not Healed Healed- Epithelialized -Ulcer Cleansing -Foul Odor after Cleansing -Bioengineered Tissue -Bleeding Controlled with -Treatment Response -Offloading -Debridement - Subq, 1st 20sq cm Pain Scale: 0-10 Numeric Is Patient Pain Free? Yes Yes - Nurse 3 - General Ulcer D/C NN Start: 01/27/24 08:22 Freq: Status: Active Protocol: Activity Type Activity Date Activity User E-sign Co-sign Detail Recorded Client Recorded Date Recorded By Document 01/27/24 09:07 KW [id number] 01/27/24 09:07 KW Document 02/04/24 11:04 DL [id number] 02/04/24 11:09 DL Document 02/04/24 11:54 DL [id number] 02/04/24 11:56 DL Document 02/10/24 08:58 KW [id number] 02/10/24 08:58 KW Document 02/17/24 09:10 RB [id number] 02/17/24 09:11 RB Document 02/24/24 08:52 JF [id number] 02/24/24 08:52 JF 01/27/24 02/04/24 02/04/24 09:07 11:04 11:54 Wound Care Center Nurse 3 #1 L Lozano -Ulcer Cleansing Rinsed/ Irrigated with Saline -Foul Odor after Cleansing No -Primary Dressing Applied Aquacel Extra, NonAdherent Contact Layer -Other Dressing -Primary Dressing Covered/Secured with Dry Gauze -Aquacel Extra 1 Estefany-Wound Care bilat LE -Multi-Layered Wrap Application -Tubular Bandage -Size of Tubigrip Used -Size E ($) Left -Multi-Layered Wrap Application Multi-Layer Multi-Layer Comp - Left ($) Comp - Left ($) Treatment Response Procedure Tolerated Well Vital Signs Temperature (97.8 F-99.1 F) 97.5 F L Temperature Source Temporal Pulse Rate (60-100) 64 Pulse Location Monitor Respiratory Rate (12-18) 18 Respiratory rate source Observation Blood Pressure (90/60-120/80) 158/84 H Blood Pressure Mean (mm Hg) 108 Source Monitor Pain Scale: 0-10 Numeric Is Patient Pain Free? Yes Yes Yes WC - Visit Discharge Discharge Condition Stable Ambulatory Status Ambulatory Transportation Private Auto Medication Reconcilliation completed & provided to patient/care provider Clinical Summary of Care Provided 02/10/24 02/17/24 02/24/24 08:58 09:10 08:52 Wound Care Center Nurse 3 #1 L Lozano -Ulcer Cleansing Wound Cleanser -Foul Odor after Cleansing -Primary Dressing Applied NonAdherent Contact Layer -Other Dressing pt own aquacel then adaptic -Primary Dressing Covered/Secured with Dry Gauze & Roll Gauze, Secured with Tape -Aquacel Extra Estefany-Wound Care Lotion bilat LE -Multi-Layered Wrap Application Multi-Layer Comp - Bilat ($ ) -Tubular Bandage Double Layer -Size of Tubigrip Used Size E -Size E ($) 2 Left -Multi-Layered Wrap Application Multi-Layer Comp - Left ($) Treatment Response Vital Signs Temperature (97.8 F-99.1 F) Temperature Source Pulse Rate (60-100) Pulse Location Respiratory Rate (12-18) Respiratory rate source Blood Pressure (90/60-120/80) Blood Pressure Mean (mm Hg) Source Pain Scale: 0-10 Numeric Is Patient Pain Free? Yes Yes Yes WC - Visit Discharge Discharge Condition Stable Stable Ambulatory Status Ambulatory Ambulatory Transportation Private Auto Private Auto Medication Reconcilliation completed & No Yes provided to patient/care provider Clinical Summary of Care Provided Yes Yes Assessment/Plan Assessment/Plan (1) Non-pressure chronic ulcer of left calf with fat layer exposed: CODE(S): L97.222 - Non-pressure chronic ulcer of left calf with fat layer exposed PLAN: Exam performed. Wound healed. no debridement today Dispensed Tubigrip. Patient continue compression elevation and exercise for edema management Patient to get 20 to 30 mmHg compression stockings. Recommend continued exercise elevation compression for edema management. Follow-up as needed. (2) Venous insufficiency (chronic) (peripheral): CODE(S): I87.2 - Venous insufficiency (chronic) (peripheral)
--- NOTE | 2024-03-01 11:23 | WC ---
PHOTO 02/24/24 KIKI (H)
== END 2024-02-24 13:25 | disposition home or self-care (01) ==
LOC: WC 08:15
PROVIDERS: PCP Family Medicine; Referring Provider Family Medicine; Visit Provider Podiatrist
DX: L97.222 Non-pressure chronic ulcer of left calf with fat layer exposed (principal); L03.116 Cellulitis of left lower limb; I87.2 Venous insufficiency (chronic) (peripheral)
CPT/HCPCS: 11042; 29581; 99213; G0463

== ENCOUNTER 2024-03-23 08:52 | Outpatient (RCR) | payer MEDICARE, OTHER, SELFPAY ==
[2024-03-23 09:00] VITALS: BP 167/94; PULSE 61; RESP 18; TEMP 36.4
--- NOTE | 2024-03-23 09:47 | PCM.WC.PN ---
History of Present Illness Date of Service: 03/23/24 Chief Complaint: Ulcer on left lozano History of Wound: Patient is wearing compression wraps for the week and when they took him off this last week he had a blister that had developed and opened. Drained clear fluid. And now is just an open wound nonhealing. The plate grainer is seeing him for cellulitis and for swelling. Progress of Wound: Patient Pavan presents today with new left leg ulceration. Patient difficulty obtaining compression stockings. Patient states he has been up and using compression for 3 weeks noticed increased swelling to left lower extremity. Patient denies any chest pain calf pain shortness of breath. Patient notes some redness and drainage to wound site but has minimal pain. Objective Data Objective Data Vital Signs: Vital Signs Temp Pulse Resp BP O2 Del Method 97.5 F L 61 18 167/94 H Room Air 03/23/24 09:00 03/23/24 09:00 03/23/24 09:00 03/23/24 09:00 03/23/24 09:00 Oxygen Delivery Method Room Air Physical Exam Narrative Vascular: Diffuse left lower extremity swelling noted +3 pitting edema noted. Dorsalis pedis posterior tibial pulses palpable 2 out of 4 to bilateral lower extremity. Intact digital hair growth noted. Neurologic: Light touch protective sensation intact bilateral lower extremity. Dermatologic: Full-thickness wound noted to the anterior leg. Mild periwound erythema. No other signs of infection. No evidence deep probing undermining noted. Wound demonstrates mixed fibrogranular base. Musculoskeletal: No pain with calf squeeze. Negative Homans' sign. Muscular strength full to bilateral lower extremity compartments. Debridement Note Debridement Note Post-Debridement Measurements and Additional Note: Post-Debridement Measurements/Treatment - Nurse 1 - General Ulcer Assessment Start: 03/23/24 09:00 Freq: Status: Active Protocol: KENYA.LOWEXCristal Activity Type Activity Date Activity User E-sign Co-sign Detail Recorded Client Recorded Date Recorded By Document 03/23/24 09:00 KW [id number] 03/23/24 09:10 KW 03/23/24 09:00 - Today's Visit Information Type of service Follow-up Visit (Physician/TOOL ANALYST ) Arrival Mode Ambulatory Patient Identification Verified (Name & Yes ) Vital Signs Temperature (97.8 F-99.1 F) 97.5 F L Temperature Source Temporal Pulse Rate (60-100) 61 Pulse Location Monitor Respiratory Rate (12-18) 18 Respiratory rate source Observation Oxygen Delivery Method Room Air Blood Pressure (90/60-120/80) 167/94 H Blood Pressure Mean (mm Hg) 118 Source Monitor Position Semi-Fowlers Blood Pressure Location Left Arm History Since Last Visit- (Skip if this is Patient's initial visit) Have you changed medications since your No last visit? Any new allergies or adverse reactions No Had a fall/change in ADL's that may No increase risk of falls Signs or symptoms of abuse and/or No neglect since last visit Have you been in the hospital since your No last visit? Has dressing in place as prescribed Yes Has compression in place as prescribed N/A Has offloadiing in place as prescribed N/A Experienced any changes in pain level or No management Left Footwear Regular Shoe Right Footwear Regular Shoe Pain Scale: 0-10 Numeric Is Patient Pain Free? Yes WC - Nurse 1 - General Ulcer Measurement Start: 03/23/24 09:00 Freq: Status: Active Protocol: Activity Type Activity Date Activity User E-sign Co-sign Detail Recorded Client Recorded Date Recorded By Document 03/23/24 09:00 [id number] 03/23/24 09:10 KW 03/23/24 09:00 Wound Center Nurse 1 #1 L Lozano -Current Size (cm) - Length 3 -Current Size (cm) - Width 2.4 -Current Size (cm) - Depth 0.1 -Total Square Cm 7.2 -Exudate Amt Small -Exudate Type Serosanguineous -Wound Margin Distinct, Outline Attached -Granulation Amt Large (67-100%) -Granulation Quality Red -Necrosis Amt Small (1-33%) -Necrotic Tissue Type Adherent Slough -Texture (Estefany-wound Skin Appearance) Assessed -Moisture (Estefany-wound Skin Appearance) Assessed -Color (Estefany-wound Skin Appearance) Assessed, Erythema, Hemosiderin Staining -Temperature (Estefany-wound Skin No Abnormality Appearance) (Pt Warm) -Tenderness on Palpation (Estefany-wound No Skin Appearance) -Ulcer Cleansing Rinsed/ Irrigated with Saline -Foul Odor after Cleansing No -Anesthetic Used 5% Lidocaine Gel Right Calf (cm) 43 Right Ankle (cm) 31 Left Calf (cm) 53 Left Ankle (cm) 32.2 WC - Nurse 2 - General Ulcer CM Notes Start: 03/23/24 09:00 Freq: Status: Active Protocol: Activity Type Activity Date Activity User E-sign Co-sign Detail Recorded Client Recorded Date Recorded By Document 03/23/24 09:28 ROSALIND [id number] 03/23/24 09:30 [email or web address] 03/23/24 09:28 Wound Center Nurse 2 #1 L Lozano -Time 09:28 -Correct Patient Yes -Correct Side, Site, Position Yes -Correct Procedure Yes -Procedure Performed Yes -Type of Procedure Debridement -Clinical Debridement Subcutaneous -Tissue Removed Subcutaneous -Post Debridement (cm) - Length 2.8 -Post Debridement (cm) - Width 3.6 -Post Debridement (cm) - Depth 0.1 -Total Square (Post) (cm) 10.08 -Area of Debridement (cm) - Length 2.8 -Area of Debridement (cm) - Width 3.6 -Total Square (Area) (cm) 10.08 -Tunneling No -Undermining/Tunneling No -Circular Undermining No -Wound/Ulcer Outcome Not Healed -Ulcer Cleansing Rinsed/ Irrigated with Saline -Foul Odor after Cleansing No -Bioengineered Tissue No -Bleeding Controlled with Pressure -Treatment Response Procedure Tolerated Well -Offloading No -Debridement - Subq, 1st 20sq cm Yes Pain Scale: 0-10 Numeric Is Patient Pain Free? Yes Assessment/Plan Assessment/Plan (1) Non-pressure chronic ulcer of left calf with fat layer exposed: CODE(S): L97.222 - Non-pressure chronic ulcer of left calf with fat layer exposed PLAN: Exam performed. Reviewed previous venous studies. Recommended vascular referral, patient wishes to wait. Today left leg wound anteriorly was debrided excisionally down to including level of subcutaneous tissue of all nonviable tissue using a 5 mm dermal curette. Topical anesthesia was used. Hemostasis obtained with light compression. Patient tolerated procedure well. Pre and postdebridement measurements documented nursing notes. Will plan for Adaptic silver alginate and 3M compression wrap. Patient will continue compression stocking right lower extremity. Upon resolution of swelling patient now has compression stockings and will use daily. Additionally patient has recent total knee replacement left lower extremity which is contributed to his increased swelling on that side. (2) Venous insufficiency (chronic) (peripheral): CODE(S): I87.2 - Venous insufficiency (chronic) (peripheral)
== END 2024-03-27 23:59 | disposition home or self-care (01) ==
LOC: WC 08:52
PROVIDERS: PCP Family Medicine; Referring Provider Family Medicine; Visit Provider Podiatrist
DX: L97.222 Non-pressure chronic ulcer of left calf with fat layer exposed (principal); I87.2 Venous insufficiency (chronic) (peripheral)
CPT/HCPCS: 11042; 29581; 99213; G0463

== ENCOUNTER 2024-04-27 09:00 | Outpatient (RCR) | payer MEDICARE, OTHER, SELFPAY ==
[2024-03-28 00:35] VITALS: BP 167/94; PULSE 61; RESP 18; TEMP 36.4
[2024-03-30 09:01] VITALS: BP 168/84; PULSE 76; RESP 18; TEMP 36.5
--- NOTE | 2024-03-30 10:49 | PCM.WC.PN ---
History of Present Illness Date of Service: 03/23/24 Chief Complaint: Ulcer on left lozano History of Wound: Patient is wearing compression wraps for the week and when they took him off this last week he had a blister that had developed and opened. Drained clear fluid. And now is just an open wound nonhealing. The robotic welding operator is seeing him for cellulitis and for swelling. Progress of Wound: Patient Pavan presents today with new left leg ulceration. Patient difficulty obtaining compression stockings. Patient states he has been up and using compression for 3 weeks noticed increased swelling to left lower extremity. Patient denies any chest pain calf pain shortness of breath. Patient notes some redness and drainage to wound site but has minimal pain. Objective Data Objective Data Vital Signs: Vital Signs Temp Pulse Resp BP O2 Del Method 97.7 F L 76 18 168/84 H Room Air 03/30/24 09:01 03/30/24 09:01 03/30/24 09:01 03/30/24 09:01 03/30/24 09:01 Oxygen Delivery Method Room Air Physical Exam Narrative Vascular: Diffuse left lower extremity swelling noted +3 pitting edema noted. Dorsalis pedis posterior tibial pulses palpable 2 out of 4 to bilateral lower extremity. Intact digital hair growth noted. Neurologic: Light touch protective sensation intact bilateral lower extremity. Dermatologic: Full-thickness wound noted to the anterior leg. Mild periwound erythema. No other signs of infection. No evidence deep probing undermining noted. Wound demonstrates mixed fibrogranular base. Musculoskeletal: No pain with calf squeeze. Negative Homans' sign. Muscular strength full to bilateral lower extremity compartments. Debridement Note Debridement Note Post-Debridement Measurements and Additional Note: Post-Debridement Measurements/Treatment - Nurse 1 - General Ulcer Assessment Start: 03/30/24 09:00 Freq: Status: Active Protocol: KENYA.LOWEXCristal Activity Type Activity Date Activity User E-sign Co-sign Detail Recorded Client Recorded Date Recorded By Document 03/30/24 09:01 KW [id number] 03/30/24 09:14 KW 03/30/24 09:01 - Today's Visit Information Type of service Follow-up Visit (Physician/SONOSCOPE OPERATOR ) Arrival Mode Ambulatory Patient Identification Verified (Name & Yes ) Vital Signs Temperature (97.8 F-99.1 F) 97.7 F L Temperature Source Temporal Pulse Rate (60-100) 76 Pulse Location Monitor Respiratory Rate (12-18) 18 Respiratory rate source Observation Oxygen Delivery Method Room Air Blood Pressure (90/60-120/80) 168/84 H Blood Pressure Mean (mm Hg) 112 Source Monitor Position Semi-Fowlers Blood Pressure Location Left Arm History Since Last Visit- (Skip if this is Patient's initial visit) Have you changed medications since your No last visit? Any new allergies or adverse reactions No Had a fall/change in ADL's that may No increase risk of falls Signs or symptoms of abuse and/or No neglect since last visit Have you been in the hospital since your No last visit? Has dressing in place as prescribed Yes Has compression in place as prescribed Yes Has offloadiing in place as prescribed N/A Experienced any changes in pain level or No management Left Footwear Regular Shoe Right Footwear Regular Shoe Pain Scale: 0-10 Numeric Is Patient Pain Free? Yes WC - Nurse 1 - General Ulcer Measurement Start: 03/30/24 09:00 Freq: Status: Active Protocol: Activity Type Activity Date Activity User E-sign Co-sign Detail Recorded Client Recorded Date Recorded By Document 03/30/24 09:01 [id number] 03/30/24 09:14 KW 03/30/24 09:01 Wound Center Nurse 1 #2 LT MED LE -Current Size (cm) - Length 1.5 -Current Size (cm) - Width 1 -Current Size (cm) - Depth 0.1 -Total Square Cm 1.5 -Exudate Amt Small -Exudate Type Serosanguineous -Wound Margin Distinct, Outline Attached -Granulation Amt Large (67-100%) -Granulation Quality Red -Texture (Estefany-wound Skin Appearance) Assessed -Moisture (Estefany-wound Skin Appearance) Assessed -Color (Estefany-wound Skin Appearance) Assessed -Temperature (Estefany-wound Skin No Abnormality Appearance) (Pt Warm) -Tenderness on Palpation (Estefany-wound No Skin Appearance) -Ulcer Cleansing Soap and Water -Foul Odor after Cleansing No -Anesthetic Used 5% Lidocaine Gel #1 L Lozano -Current Size (cm) - Length 7.5 -Current Size (cm) - Width 2.5 -Current Size (cm) - Depth 0.1 -Total Square Cm 18.75 -Date of Last Picture (Recall this 03/30/24 field) -Exudate Amt Medium -Exudate Type Serosanguineous -Wound Margin Distinct, Outline Attached -Granulation Amt Large (67-100%) -Granulation Quality Red -Texture (Estefany-wound Skin Appearance) Assessed -Moisture (Estefany-wound Skin Appearance) Assessed -Color (Estefany-wound Skin Appearance) Assessed, Hemosiderin Staining -Temperature (Estefany-wound Skin No Abnormality Appearance) (Pt Warm) -Tenderness on Palpation (Estefany-wound No Skin Appearance) -Ulcer Cleansing Soap and Water -Anesthetic Used 5% Lidocaine Gel Left Calf (cm) 50.2 Left Ankle (cm) 31 WC - Nurse 2 - General Ulcer CM Notes Start: 03/30/24 09:00 Freq: Status: Active Protocol: Activity Type Activity Date Activity User E-sign Co-sign Detail Recorded Client Recorded Date Recorded By Document 03/30/24 09:21 ROSALIND [id number] 03/30/24 09:26 ROSALIND 03/30/24 09:21 Wound Center Nurse 2 #2 LT MED LE -Time 09:22 -Correct Patient Yes -Correct Side, Site, Position Yes -Correct Procedure Yes -Procedure Performed Yes -Type of Procedure Debridement -Clinical Debridement Subcutaneous -Tissue Removed Subcutaneous -Post Debridement (cm) - Length 0.9 -Post Debridement (cm) - Width 1.2 -Post Debridement (cm) - Depth 0.1 -Total Square (Post) (cm) 1.08 -Area of Debridement (cm) - Length 0.9 -Area of Debridement (cm) - Width 1.2 -Total Square (Area) (cm) 1.08 -Tunneling No -Undermining/Tunneling No -Circular Undermining No -Wound/Ulcer Outcome Not Healed -Ulcer Cleansing Rinsed/ Irrigated with Saline -Foul Odor after Cleansing No -Bioengineered Tissue No -Bleeding Controlled with Pressure -Treatment Response Procedure Tolerated Well -Offloading No -Debridement - Subq, 1st 20sq cm Yes #1 L Lozano -Time 09:22 -Correct Patient Yes -Correct Side, Site, Position Yes -Correct Procedure Yes -Procedure Performed Yes -Type of Procedure Debridement -Clinical Debridement Subcutaneous -Tissue Removed Subcutaneous -Post Debridement (cm) - Length 7 -Post Debridement (cm) - Width 1.2 -Post Debridement (cm) - Depth 0.1 -Total Square (Post) (cm) 8.4 -Area of Debridement (cm) - Length 7 -Area of Debridement (cm) - Width 1.2 -Total Square (Area) (cm) 8.4 -Tunneling No -Undermining/Tunneling No -Circular Undermining No -Wound/Ulcer Outcome Not Healed -Ulcer Cleansing Rinsed/ Irrigated with Saline -Foul Odor after Cleansing No -Bioengineered Tissue No -Bleeding Controlled with Pressure -Treatment Response Procedure Tolerated Well -Offloading No -Debridement - Subq, 1st 20sq cm No Pain Scale: 0-10 Numeric Is Patient Pain Free? Yes WC - Nurse 3 - General Ulcer D/C NN Start: 03/30/24 09:00 Freq: Status: Active Protocol: Activity Type Activity Date Activity User E-sign Co-sign Detail Recorded Client Recorded Date Recorded By Document 03/30/24 09:48 KW [id number] 03/30/24 09:49 KW 03/30/24 09:48 Wound Care Center Nurse 3 #2 LT MED LE -Primary Dressing Applied Optilok 8x12 -Other Dressing PT OWN SILVERCEL -Optilok 8x12 1 #1 L Lozano -Other Dressing PT SILVERCEL WITH OPTILOK -Primary Dressing Covered/Secured with Dry Gauze & Roll Gauze, Secured with Tape Right -Other PT OWN COMPRESSION STOCKING Left -Multi-Layered Wrap Application Multi-Layer Comp - Left ($) Pain Scale: 0-10 Numeric Is Patient Pain Free? Yes Assessment/Plan Assessment/Plan (1) Non-pressure chronic ulcer of left calf with fat layer exposed: CODE(S): L97.222 - Non-pressure chronic ulcer of left calf with fat layer exposed PLAN: Exam performed. Reviewed previous venous studies. Recommended vascular referral, patient wishes to wait. Today left leg wound anteriorly was debrided excisionally down to including level of subcutaneous tissue of all nonviable tissue using a 5 mm dermal curette. Topical anesthesia was used. Hemostasis obtained with light compression. Patient tolerated procedure well. Pre and postdebridement measurements documented nursing notes. Will plan for Adaptic silver alginate and 3M compression wrap. Patient will continue compression stocking right lower extremity. Upon resolution of swelling patient now has compression stockings and will use daily. Additionally patient has recent total knee replacement left lower extremity which is contributed to his increased swelling on that side. (2) Venous insufficiency (chronic) (peripheral): CODE(S): I87.2 - Venous insufficiency (chronic) (peripheral)
--- NOTE | 2024-04-02 10:32 | WC ---
PHOTO 03/30/24 LEFT SHEA
--- NOTE | 2024-04-02 10:52 | WC ---
PHOTO 03/30/24 LEFT MED LEG
[2024-04-06 08:27] VITALS: BP 184/81; PULSE 60; RESP 18; TEMP 35.8
--- NOTE | 2024-04-06 09:18 | PN.PCM_ITS ---
History of Present Illness Date of Service: 04/06/24 Chief Complaint: Ulcer on left lozano History of Wound: Patient is wearing compression wraps for the week and when they took him off this last week he had a blister that had developed and opened. Drained clear fluid. And now is just an open wound nonhealing. The web developer is seeing him for cellulitis and for swelling. Progress of Wound: Patient Pavan presents today with new left leg ulceration. Patient difficulty obtaining compression stockings. Patient states he has been up and using compression for 3 weeks noticed increased swelling to left lower extremity. Patient denies any chest pain calf pain shortness of breath. Patient notes some redness and drainage to wound site but has minimal pain. Objective Data Objective Data Vital Signs: Vital Signs Temp Pulse Resp BP O2 Del Method 96.5 F L 60 18 184/81 H Room Air 04/06/24 08:27 04/06/24 08:27 04/06/24 08:27 04/06/24 08:27 03/30/24 09:01 Oxygen Delivery Method Room Air Physical Exam Narrative Vascular: Diffuse left lower extremity swelling noted +3 pitting edema noted. Dorsalis pedis posterior tibial pulses palpable 2 out of 4 to bilateral lower extremity. Intact digital hair growth noted. Neurologic: Light touch protective sensation intact bilateral lower extremity. Dermatologic: Full-thickness wound noted to the anterior leg. Mild periwound erythema. No other signs of infection. No evidence deep probing undermining noted. Wound demonstrates mixed fibrogranular base. Musculoskeletal: No pain with calf squeeze. Negative Homans' sign. Muscular strength full to bilateral lower extremity compartments. Debridement Note Debridement Note Post-Debridement Measurements and Additional Note: Post-Debridement Measurements/Treatment - Nurse 1 - General Ulcer Assessment Start: 03/30/24 09:00 Freq: Status: Active Protocol: KENYA.KOREY Activity Type Activity Date Activity User E-sign Co-sign Detail Recorded Client Recorded Date Recorded By Document 03/30/24 09:01 KW [id number] 03/30/24 09:14 KW Document 04/06/24 08:27 RB [id number] 04/06/24 08:29 RB 03/30/24 04/06/24 09:01 08:27 - Today's Visit Information Type of service Follow-up Visit Follow-up Visit (Physician/SOFTWARE APPLICATIONS ENGINEER (Physician/SOFTWARE APPLICATIONS ENGINEER ) ) Arrival Mode Ambulatory Ambulatory Transfer Assistance None Patient Identification Verified (Name & Yes Yes ) Patient Requires Transmission-Based No Precautions Vital Signs Temperature (97.8 F-99.1 F) 97.7 F L 96.5 F L Temperature Source Temporal Temporal Pulse Rate (60-100) 76 60 Pulse Location Monitor Monitor Respiratory Rate (12-18) 18 18 Respiratory rate source Observation Observation Oxygen Delivery Method Room Air Blood Pressure (90/60-120/80) 168/84 H 184/81 H Blood Pressure Mean (mm Hg) 112 115 Source Monitor Monitor Position Semi-Fowlers Semi-Fowlers Blood Pressure Location Left Arm Left Arm History Since Last Visit- (Skip if this is Patient's initial visit) Have you changed medications since your No No last visit? Any new allergies or adverse reactions No No Had a fall/change in ADL's that may No No increase risk of falls Signs or symptoms of abuse and/or No No neglect since last visit Have you been in the hospital since your No No last visit? Has dressing in place as prescribed Yes Yes Has compression in place as prescribed Yes Yes Has offloadiing in place as prescribed N/A No Experienced any changes in pain level or No No management Left Footwear Regular Shoe Right Footwear Regular Shoe Pain Scale: 0-10 Numeric Is Patient Pain Free? Yes Yes WC - Nurse 1 - General Ulcer Measurement Start: 03/30/24 09:00 Freq: Status: Active Protocol: Activity Type Activity Date Activity User E-sign Co-sign Detail Recorded Client Recorded Date Recorded By Document 03/30/24 09:01 KW [id number] 03/30/24 09:14 KW Document 04/06/24 08:27 RB [id number] 04/06/24 08:29 RB 03/30/24 04/06/24 09:01 08:27 Wound Center Nurse 1 #1 L Lozano -Combined with other wound No -Current Size (cm) - Length 7.5 0.1 -Current Size (cm) - Width 2.5 0.1 -Current Size (cm) - Depth 0.1 0.1 -Total Square Cm 18.75 0.01 -Date of Last Picture (Recall this 03/30/24 field) -Tunneling No -Undermining/Tunneling No -Circular Undermining No -Exudate Amt Medium Medium -Exudate Type Serosanguineous Serosanguineous -Wound Margin Distinct, Distinct, Outline Outline Attached Attached -Granulation Amt Large (67-100%) Medium (34-66%) -Granulation Quality [employer] -Slough/Fibrin Yes -Necrosis Amt Medium (34-66%) -Necrotic Tissue Type Adherent Slough -Structure Exposed N/A -Texture (Estefany-wound Skin Appearance) Assessed Assessed -Moisture (Estefany-wound Skin Appearance) Assessed Dry/Scaly -Color (Estefany-wound Skin Appearance) Assessed, Assessed Hemosiderin Staining -Temperature (Estefany-wound Skin No Abnormality No Abnormality Appearance) (Pt Warm) (Pt Warm) -Tenderness on Palpation (Estefany-wound No No Skin Appearance) -Ulcer Cleansing Soap and Water Wound Cleanser -Foul Odor after Cleansing No -Anesthetic Used 5% Lidocaine 5% Lidocaine Gel Gel #2 LT MED LE -Combined with other wound No -Current Size (cm) - Length 1.5 0.1 -Current Size (cm) - Width 1 0.1 -Current Size (cm) - Depth 0.1 0.1 -Total Square Cm 1.5 0.01 -Tunneling No -Undermining/Tunneling No -Circular Undermining No -Exudate Amt Small Medium -Exudate Type Serosanguineous Serosanguineous -Wound Margin Distinct, Distinct, Outline Outline Attached Attached -Granulation Amt Large (67-100%) Medium (34-66%) -Granulation Quality [employer] -Slough/Fibrin Yes -Necrosis Amt Small (1-33%) -Necrotic Tissue Type Adherent Slough -Structure Exposed N/A -Texture (Estefany-wound Skin Appearance) Assessed Assessed -Moisture (Estefany-wound Skin Appearance) Assessed Dry/Scaly -Color (Estefany-wound Skin Appearance) Assessed Assessed -Temperature (Estefany-wound Skin No Abnormality No Abnormality Appearance) (Pt Warm) (Pt Warm) -Tenderness on Palpation (Estefany-wound No No Skin Appearance) -Ulcer Cleansing Soap and Water Wound Cleanser -Foul Odor after Cleansing No No -Anesthetic Used 5% Lidocaine 5% Lidocaine Gel Gel Lower Limb Edema Present Yes Left Calf (cm) 50.2 51 Left Ankle (cm) 31 27.6 WC - Nurse 2 - General Ulcer CM Notes Start: 03/30/24 09:00 Freq: Status: Active Protocol: Activity Type Activity Date Activity User E-sign Co-sign Detail Recorded Client Recorded Date Recorded By Document 03/30/24 09:21 JF [id number] 03/30/24 09:26 JF Document 04/06/24 08:41 JF [id number] 04/06/24 08:48 03/30/24 04/06/24 09:21 08:41 Wound Center Nurse 2 #1 L Lozano -Time 09:22 -Correct Patient Yes No -Correct Side, Site, Position Yes No -Correct Procedure Yes No -Procedure Performed Yes No -Type of Procedure Debridement -Clinical Debridement Subcutaneous -Tissue Removed Subcutaneous -Post Debridement (cm) - Length 7 0 -Post Debridement (cm) - Width 1.2 0 -Post Debridement (cm) - Depth 0.1 0 -Total Square (Post) (cm) 8.4 0 -Area of Debridement (cm) - Length 7 0 -Area of Debridement (cm) - Width 1.2 0 -Total Square (Area) (cm) 8.4 0 -Tunneling No -Undermining/Tunneling No -Circular Undermining No -Wound/Ulcer Outcome Not Healed Healed- Epithelialized -Ulcer Cleansing Rinsed/ Irrigated with Saline -Foul Odor after Cleansing No -Bioengineered Tissue No -Bleeding Controlled with Pressure -Treatment Response Procedure Tolerated Well -Offloading No -Debridement - Subq, 1st 20sq cm No #2 LT MED LE -Time 09:22 08:42 -Correct Patient Yes Yes -Correct Side, Site, Position Yes Yes -Correct Procedure Yes Yes -Procedure Performed Yes Yes -Type of Procedure Debridement Debridement -Clinical Debridement Subcutaneous Subcutaneous -Tissue Removed Subcutaneous Subcutaneous -Post Debridement (cm) - Length 0.9 0.4 -Post Debridement (cm) - Width 1.2 0.7 -Post Debridement (cm) - Depth 0.1 0.1 -Total Square (Post) (cm) 1.08 0.28 -Area of Debridement (cm) - Length 0.9 0.4 -Area of Debridement (cm) - Width 1.2 0.7 -Total Square (Area) (cm) 1.08 0.28 -Tunneling No No -Undermining/Tunneling No No -Circular Undermining No No -Wound/Ulcer Outcome Not Healed Not Healed -Ulcer Cleansing Rinsed/ Rinsed/ Irrigated with Irrigated with Saline Saline -Foul Odor after Cleansing No No -Bioengineered Tissue No No -Bleeding Controlled with Pressure Pressure -Treatment Response Procedure Procedure Tolerated Well Tolerated Well -Offloading No No -Debridement - Subq, 1st 20sq cm Yes Yes Pain Scale: 0-10 Numeric Is Patient Pain Free? Yes Yes - Nurse 3 - General Ulcer D/C NN Start: 03/30/24 09:00 Freq: Status: Active Protocol: Activity Type Activity Date Activity User E-sign Co-sign Detail Recorded Client Recorded Date Recorded By Document 03/30/24 09:48 KW [id number] 03/30/24 09:49 KW Document 04/06/24 08:56 KW [id number] 04/06/24 08:57 KW 03/30/24 04/06/24 09:48 08:56 Wound Care Center Nurse 3 #1 L Lozano -Other Dressing PT SILVERCEL WITH OPTILOK -Primary Dressing Covered/Secured with Dry Gauze & Roll Gauze, Secured with Tape #2 LT MED LE -Primary Dressing Applied Optilok 8x12 -Other Dressing PT OWN pt silver with SILVERCEL adaptic -Primary Dressing Covered/Secured with Dry Gauze & Roll Gauze, Secured with Tape -Optilok 8x12 1 Right -Other PT OWN COMPRESSION STOCKING Left -Multi-Layered Wrap Application Multi-Layer Multi-Layer Comp - Left ($) Comp - Left ($) Pain Scale: 0-10 Numeric Is Patient Pain Free? Yes Yes - Visit Discharge Discharge Condition Stable Ambulatory Status Ambulatory Transportation Private Auto Medication Reconcilliation completed & No provided to patient/care provider Clinical Summary of Care Provided Yes Assessment/Plan Assessment/Plan (1) Non-pressure chronic ulcer of left calf with fat layer exposed: CODE(S): L97.222 - Non-pressure chronic ulcer of left calf with fat layer exposed PLAN: Exam performed. Reviewed previous venous studies. Recommended vascular referral, patient wishes to wait. Today left leg wound anteriorly was debrided excisionally down to including level of subcutaneous tissue of all nonviable tissue using a 5 mm dermal curette. Topical anesthesia was used. Hemostasis obtained with light co mpression. Patient tolerated procedure well. Pre and postdebridement measurements documented nursing notes. Will plan for Adaptic silver alginate and 3M compression wrap. Patient will continue compression stocking right lower extremity. Upon resolution of swelling patient now has compression stockings and will use daily. Additionally patient has recent total knee replacement left lower extremity which is contributed to his increased swelling on that side. (2) Venous insufficiency (chronic) (peripheral): CODE(S): I87.2 - Venous insufficiency (chronic) (peripheral)
[2024-04-13 08:12] VITALS: BP 116/84; PULSE 69; RESP 18; TEMP 36.3
--- NOTE | 2024-04-13 09:10 | PN.PCM_ITS ---
History of Present Illness Date of Service: 04/13/24 Chief Complaint: Ulcer on left lozano History of Wound: Patient is wearing compression wraps for the week and when they took him off this last week he had a blister that had developed and opened. Drained clear fluid. And now is just an open wound nonhealing. The supervisor partial denture department is seeing him for cellulitis and for swelling. Progress of Wound: Patient Pavan presents today with new left leg ulceration. Patient difficulty obtaining compression stockings. Patient states he has been up and using compression for 3 weeks noticed increased swelling to left lower extremity. Patient denies any chest pain calf pain shortness of breath. Patient notes some redness and drainage to wound site but has minimal pain. Objective Data Objective Data Vital Signs: Vital Signs Temp Pulse Resp BP O2 Del Method 97.4 F L 69 18 116/84 H Room Air 04/13/24 08:12 04/13/24 08:12 04/13/24 08:12 04/13/24 08:12 04/13/24 08:12 Oxygen Delivery Method Room Air Physical Exam Narrative Vascular: Diffuse left lower extremity swelling noted +3 pitting edema noted. Dorsalis pedis posterior tibial pulses palpable 2 out of 4 to bilateral lower extremity. Intact digital hair growth noted. Neurologic: Light touch protective sensation intact bilateral lower extremity. Dermatologic: Full-thickness wound noted to the anterior leg, medial leg and new onset wound to the inferior leg. Mild periwound erythema. No other signs of infection. No evidence deep probing undermining noted. Wound demonstrates mixed fibrogranular base. Musculoskeletal: No pain with calf squeeze. Negative Homans' sign. Muscular strength full to bilateral lower extremity compartments. Debridement Note Debridement Note Post-Debridement Measurements and Additional Note: Post-Debridement Measurements/Treatment - Nurse 1 - General Ulcer Assessment Start: 03/30/24 09:00 Freq: Status: Active Protocol: [email or web address] Activity Type Activity Date Activity User E-sign Co-sign Detail Recorded Client Recorded Date Recorded By Document 03/30/24 09:01 KW [id number] 03/30/24 09:14 KW Document 04/06/24 08:27 RB [id number] 04/06/24 08:29 RB Document 04/13/24 08:12 KW [id number] 04/13/24 08:19 KW 03/30/24 04/06/24 04/13/24 09:01 08:27 08:12 - Today's Visit Information Type of service Follow-up Visit Follow-up Visit Follow-up Visit (Physician/HAND LACER (Physician/HAND LACER (Physician/HAND LACER ) ) ) Arrival Mode Ambulatory Ambulatory Ambulatory Transfer Assistance None Patient Identification Verified (Name & Yes Yes Yes ) Patient Requires Transmission-Based No Precautions Vital Signs Temperature (97.8 F-99.1 F) 97.7 F L 96.5 F L 97.4 F L Temperature Source Temporal Temporal Temporal Pulse Rate (60-100) 76 60 69 Pulse Location Monitor Monitor Monitor Respiratory Rate (12-18) 18 18 18 Respiratory rate source Observation Observation Observation Oxygen Delivery Method Room Air Room Air Blood Pressure (90/60-120/80) 168/84 H 184/81 H 116/84 H Blood Pressure Mean (mm Hg) 112 115 94 Source Monitor Monitor Monitor Position Semi-Fowlers Semi-Fowlers Sitting Blood Pressure Location Left Arm Left Arm Left Arm History Since Last Visit- (Skip if this is Patient's initial visit) Have you changed medications since your No No No last visit? Any new allergies or adverse reactions No No No Had a fall/change in ADL's that may No No No increase risk of falls Signs or symptoms of abuse and/or No No No neglect since last visit Have you been in the hospital since your No No No last visit? Has dressing in place as prescribed Yes Yes Yes Has compression in place as prescribed Yes Yes Yes Has offloadiing in place as prescribed N/A No N/A Experienced any changes in pain level or No No No management Left Footwear Regular Shoe Regular Shoe Right Footwear Regular Shoe Regular Shoe Pain Scale: 0-10 Numeric Is Patient Pain Free? Yes Yes Yes - Nurse 1 - General Ulcer Measurement Start: 03/30/24 09:00 Freq: Status: Active Protocol: Activity Type Activity Date Activity User E-sign Co-sign Detail Recorded Client Recorded Date Recorded By Document 03/30/24 09:01 KW [id number] 03/30/24 09:14 KW Document 04/06/24 08:27 RB [id number] 04/06/24 08:29 RB Document 04/13/24 08:12 KW [id number] 04/13/24 08:19 KW 03/30/24 04/06/24 04/13/24 09:01 08:27 08:12 Wound Center Nurse 1 #2 LT MED LE -Combined with other wound No -Current Size (cm) - Length 1.5 0.1 0.1 -Current Size (cm) - Width 1 0.1 0.1 -Current Size (cm) - Depth 0.1 0.1 0.1 -Total Square Cm 1.5 0.01 0.01 -Tunneling No -Undermining/Tunneling No -Circular Undermining No -Exudate Amt Small Medium Small -Exudate Type Serosanguineous Serosanguineous Serosanguineous -Wound Margin Distinct, Distinct, Distinct, Outline Outline Outline Attached Attached Attached -Granulation Amt Large (67-100%) Medium (34-66%) Large (67-100%) -Granulation Quality Red [place] Red -Slough/Fibrin Yes -Necrosis Amt Small (1-33%) -Necrotic Tissue Type Adherent Slough -Structure Exposed N/A -Texture (Estefany-wound Skin Appearance) Assessed Assessed Assessed -Moisture (Estefany-wound Skin Appearance) Assessed Dry/Scaly Assessed -Color (Estefany-wound Skin Appearance) Assessed Assessed Assessed -Temperature (Estefany-wound Skin No Abnormality No Abnormality No Abnormality Appearance) (Pt Warm) (Pt Warm) (Pt Warm) -Tenderness on Palpation (Estefany-wound No No No Skin Appearance) -Ulcer Cleansing Soap and Water Wound Cleanser Soap and Water -Foul Odor after Cleansing No No No -Anesthetic Used 5% Lidocaine 5% Lidocaine 5% Lidocaine Gel Gel Gel #1 L Lozano lower -Combined with other wound No -Current Size (cm) - Length 7.5 0.1 3 -Current Size (cm) - Width 2.5 0.1 9 -Current Size (cm) - Depth 0.1 0.1 0.1 -Total Square Cm 18.75 0.01 27 -Date of Last Picture (Recall this 03/30/24 field) -Tunneling No -Undermining/Tunneling No -Circular Undermining No -Exudate Amt Medium Medium Large -Exudate Type Serosanguineous Serosanguineous Serosanguineous -Wound Margin Distinct, Distinct, Distinct, Outline Outline Outline Attached Attached Attached -Granulation Amt Large (67-100%) Medium (34-66%) Large (67-100%) -Granulation Quality Red [place] Red -Slough/Fibrin Yes -Necrosis Amt Medium (34-66%) -Necrotic Tissue Type Adherent Slough -Structure Exposed N/A -Texture (Estefany-wound Skin Appearance) Assessed Assessed Assessed -Moisture (Estefany-wound Skin Appearance) Assessed Dry/Scaly Assessed, Maceration -Color (Estefany-wound Skin Appearance) Assessed, Assessed Assessed, Hemosiderin Hemosiderin Staining Staining -Temperature (Estefany-wound Skin No Abnormality No Abnormality No Abnormality Appearance) (Pt Warm) (Pt Warm) (Pt Warm) -Tenderness on Palpation (Estefany-wound No No No Skin Appearance) -Ulcer Cleansing Soap and Water Wound Cleanser Soap and Water -Foul Odor after Cleansing No No -Anesthetic Used 5% Lidocaine 5% Lidocaine 5% Lidocaine Gel Gel Gel Lower Limb Edema Present Yes Left Calf (cm) 50.2 51 53 Left Ankle (cm) 31 27.6 29.5 WC - Nurse 2 - General Ulcer CM Notes Start: 03/30/24 09:00 Freq: Status: Active Protocol: Activity Type Activity Date Activity User E-sign Co-sign Detail Recorded Client Recorded Date Recorded By Document 03/30/24 09:21 [id number] 03/30/24 09:26 Document 04/06/24 08:41 [id number] 04/06/24 08:48 Document 04/13/24 08:53 [id number] 04/13/24 08:58 03/30/24 04/06/24 04/13/24 09:21 08:41 08:53 Wound Center Nurse 2 3-left medial leg -Time 08:57 -Correct Patient Yes -Correct Side, Site, Position Yes -Correct Procedure Yes -Procedure Performed Yes -Type of Procedure Debridement -Clinical Debridement Subcutaneous -Tissue Removed Subcutaneous -Post Debridement (cm) - Length 0.5 -Post Debridement (cm) - Width 0.5 -Post Debridement (cm) - Depth 0.1 -Total Square (Post) (cm) 0.25 -Area of Debridement (cm) - Length 0.5 -Area of Debridement (cm) - Width 0.5 -Total Square (Area) (cm) 0.25 -Tunneling No -Undermining/Tunneling No -Circular Undermining No -Wound/Ulcer Outcome Not Healed -Ulcer Cleansing Rinsed/ Irrigated with Saline -Foul Odor after Cleansing No -Bioengineered Tissue No -Bleeding Controlled with Pressure -Treatment Response Procedure Tolerated Well -Offloading No -Debridement - Subq, 1st 20sq cm Yes #2 LT MED LE -Time 09: 08:42 08:55 -Correct Patient Yes Yes Yes -Correct Side, Site, Position Yes Yes Yes -Correct Procedure Yes Yes Yes -Procedure Performed Yes Yes Yes -Type of Procedure Debridement Debridement Debridement -Clinical Debridement Subcutaneous Subcutaneous Subcutaneous -Tissue Removed Subcutaneous Subcutaneous Subcutaneous -Post Debridement (cm) - Length 0.9 0.4 0.5 -Post Debridement (cm) - Width 1.2 0.7 0.5 -Post Debridement (cm) - Depth 0.1 0.1 0.1 -Total Square (Post) (cm) 1.08 0.28 0.25 -Area of Debridement (cm) - Length 0.9 0.4 0.5 -Area of Debridement (cm) - Width 1.2 0.7 0.5 -Total Square (Area) (cm) 1.08 0.28 0.25 -Tunneling No No No -Undermining/Tunneling No No No -Circular Undermining No No No -Wound/Ulcer Outcome Not Healed Not Healed Not Healed -Ulcer Cleansing Rinsed/ Rinsed/ Rinsed/ Irrigated with Irrigated with Irrigated with Saline Saline Saline -Foul Odor after Cleansing No No No -Bioengineered Tissue No No No -Bleeding Controlled with Pressure Pressure Pressure -Treatment Response Procedure Procedure Procedure Tolerated Well Tolerated Well Tolerated Well -Offloading No No No -Debridement - Subq, 1st 20sq cm Yes Yes No #1 L Lozano lower -Time 09: 08:56 -Correct Patient Yes No Yes -Correct Side, Site, Position Yes No Yes -Correct Procedure Yes No Yes -Procedure Performed Yes No Yes -Type of Procedure Debridement Debridement -Clinical Debridement Subcutaneous Subcutaneous -Tissue Removed Subcutaneous Subcutaneous -Post Debridement (cm) - Length 7 0 2.5 -Post Debridement (cm) - Width 1.2 0 6.0 -Post Debridement (cm) - Depth 0.1 0 0.1 -Total Square (Post) (cm) 8.4 0 15.00 -Area of Debridement (cm) - Length 7 0 2.5 -Area of Debridement (cm) - Width 1.2 0 6.0 -Total Square (Area) (cm) 8.4 0 15.00 -Tunneling No No -Undermining/Tunneling No No -Circular Undermining No No -Wound/Ulcer Outcome Not Healed Healed- Not Healed Epithelialized -Ulcer Cleansing Rinsed/ Rinsed/ Irrigated with Irrigated with Saline Saline -Foul Odor after Cleansing No No -Bioengineered Tissue No No -Bleeding Controlled with Pressure Pressure -Treatment Response Procedure Procedure Tolerated Well Tolerated Well -Offloading No No -Debridement - Subq, 1st 20sq cm No No Pain Scale: 0-10 Numeric Is Patient Pain Free? Yes Yes Yes - Nurse 3 - General Ulcer D/C NN Start: 03/30/24 09:00 Freq: Status: Active Protocol: Activity Type Activity Date Activity User E-sign Co-sign Detail Recorded Client Recorded Date Recorded By Document 03/30/24 09:48 KW [id number] 03/30/24 09:49 KW Document 04/06/24 08:56 KW [id number] 04/06/24 08:57 KW 03/30/24 04/06/24 09:48 08:56 Wound Care Center Nurse 3 #2 LT MED LE -Primary Dressing Applied Optilok 8x12 -Other Dressing PT OWN pt silver with SILVERCEL adaptic -Primary Dressing Covered/Secured with Dry Gauze & Roll Gauze, Secured with Tape -Optilok 8x12 1 #1 L Lozano lower -Other Dressing PT SILVERCEL WITH OPTILOK -Primary Dressing Covered/Secured with Dry Gauze & Roll Gauze, Secured with Tape Right -Other PT OWN COMPRESSION STOCKING Left -Multi-Layered Wrap Application Multi-Layer Multi-Layer Comp - Left ($) Comp - Left ($) Pain Scale: 0-10 Numeric Is Patient Pain Free? Yes Yes - Visit Discharge Discharge Condition Stable Ambulatory Status Ambulatory Transportation Private Auto Medication Reconcilliation completed & No provided to patient/care provider Clinical Summary of Care Provided Yes Assessment/Plan Assessment/Plan (1) Non-pressure chronic ulcer of left calf with fat layer exposed: CODE(S): L97.222 - Non-pressure chronic ulcer of left calf with fat layer exposed PLAN: Exam performed. Reviewed previous venous studies. Recommended vascular referral -patient agreeable today. Patient notes that compression dressing on the left lower extremity came unraveled prior to visit today because increased swelling and new wound formation Patient additionally works on his feet daily for 8 to 10 hours which is contributing to left lower extremity swelling and likely inconsistency with compression Today left leg wound anteriorly was debrided excisionally down to including level of subcutaneous tissue of all nonviable tissue using a 5 mm dermal curette. Topical anesthesia was used. Hemostasis obtained with light compression. Patient tolerated procedure well. Pre and postdebridement measurements documented nursing notes. Will plan for Adaptic silver alginate and 3M compression wrap. Patient will continue compression stocking right lower extremity. Upon resolution of swelling patient now has compression stockings and will use daily. Additionally patient has recent total knee replacement left lower extremity which is contributed to his increased swelling on that side. (2) Venous insufficiency (chronic) (peripheral): CODE(S): I87.2 - Venous insufficiency (chronic) (peripheral)
[2024-04-20 08:26] VITALS: BP 145/85; PULSE 59; RESP 16; TEMP 36.8
[2024-04-27 09:31] VITALS: BP 125/77; PULSE 55; RESP 18; TEMP 36.3
--- NOTE | 2024-04-27 12:27 | PCM.WC.PN ---
History of Present Illness Date of Service: 04/27/24 Chief Complaint: Ulcer on left lozano History of Wound: Patient is wearing compression wraps for the week and when they took him off this last week he had a blister that had developed and opened. Drained clear fluid. And now is just an open wound nonhealing. The change management facilitator is seeing him for cellulitis and for swelling. Progress of Wound: Patient Pavan presents today with new left leg ulceration. Patient difficulty obtaining compression stockings. Patient states he has been up and using compression for 3 weeks noticed increased swelling to left lower extremity. Patient denies any chest pain calf pain shortness of breath. Patient notes some redness and drainage to wound site but has minimal pain. Subjective Subjective Mr. Cash is a 64-year-old male presented wound care center today for follow-up evaluation of full-thickness wound to the left leg. Patient has been compliant with his multilayer compression bandages. He admits improvement to his leg pain and swelling. Denies trauma. Denies constitutional symptoms. No other pedal complaints at this time. Objective Data Objective Data Vital Signs: Vital Signs Temp Pulse Resp BP O2 Del Method 97.4 F L 55 L 18 125/77 H Room Air 04/27/24 09:31 04/27/24 09:31 04/27/24 09:31 04/27/24 09:31 04/27/24 09:31 Oxygen Delivery Method Room Air Physical Exam Narrative Vascular: Diffuse left lower extremity swelling noted +1 pitting edema noted. Dorsalis pedis posterior tibial pulses palpable 2 out of 4 to bilateral lower extremity. Intact digital hair growth noted. Neurologic: Light touch protective sensation intact bilateral lower extremity. Dermatologic: Full-thickness wound to the left leg and now healed. +1 pitting edema appreciated left lower extremity. Musculoskeletal: No pain with calf squeeze. Negative Homans' sign. Muscular strength full to bilateral lower extremity compartments. Debridement Note Debridement Note Post-Debridement Measurements and Additional Note: Post-Debridement Measurements/Treatment WC - Nurse 1 - General Ulcer Assessment Start: 03/30/24 09:00 Freq: Status: Active Protocol: BRANDYEXT Activity Type Activity Date Activity User E-sign Co-sign Detail Recorded Client Recorded Date Recorded By Document 03/30/24 09:01 KW [id number] 03/30/24 09:14 KW Document 04/06/24 08:27 RB [id number] 04/06/24 08:29 RB Document 04/13/24 08:12 KW [id number] 04/13/24 08:19 KW Document 04/20/24 08:26 ML [id number] 04/20/24 08:30 ML Document 04/27/24 09:31 BMF [id number] 04/27/24 09:42 BMF 03/30/24 04/06/24 04/13/24 09:01 08:27 08:12 WC - Today's Visit Information Type of service Follow-up Visit Follow-up Visit Follow-up Visit (Physician/CLOSED CIRCUIT SCREEN WATCHER (Physician/CLOSED CIRCUIT SCREEN WATCHER (Physician/CLOSED CIRCUIT SCREEN WATCHER ) ) ) Arrival Mode Ambulatory Ambulatory Ambulatory Transfer Assistance None Patient Identification Verified (Name & Yes Yes Yes ) Patient Requires Transmission-Based No Precautions Vital Signs Temperature (97.8 F-99.1 F) 97.7 F L 96.5 F L 97.4 F L Temperature Source Temporal Temporal Temporal Pulse Rate (60-100) 76 60 69 Pulse Location Monitor Monitor Monitor Respiratory Rate (12-18) 18 18 18 Respiratory rate source Observation Observation Observation Oxygen Delivery Method Room Air Room Air Blood Pressure (90/60-120/80) 168/84 H 184/81 H 116/84 H Blood Pressure Mean (mm Hg) 112 115 94 Source Monitor Monitor Monitor Position Semi-Fowlers Semi-Fowlers Sitting Blood Pressure Location Left Arm Left Arm Left Arm History Since Last Visit- (Skip if this is Patient's initial visit) Have you changed medications since your No No No last visit? Any new allergies or adverse reactions No No No Had a fall/change in ADL's that may No No No increase risk of falls Signs or symptoms of abuse and/or No No No neglect since last visit Have you been in the hospital since your No No No last visit? Has dressing in place as prescribed Yes Yes Yes Has compression in place as prescribed Yes Yes Yes Has offloadiing in place as prescribed N/A No N/A Experienced any changes in pain level or No No No management Left Footwear Regular Shoe Regular Shoe Right Footwear Regular Shoe Regular Shoe Pain Scale: 0-10 Numeric Is Patient Pain Free? Yes Yes Yes 04/20/24 04/27/24 08:26 09:31 WC - Today's Visit Information Type of service Nurse-only Follow-up Visit Visit (Physician/CLOSED CIRCUIT SCREEN WATCHER ) Arrival Mode Ambulatory Ambulatory Transfer Assistance None Patient Identification Verified (Name & Yes Yes ) Patient Requires Transmission-Based No Precautions Vital Signs Temperature (97.8 F-99.1 F) 98.2 F 97.4 F L Temperature Source Temporal Temporal Pulse Rate (60-100) 59 L 55 L Pulse Location Monitor Monitor Respiratory Rate (12-18) 16 18 Respiratory rate source Observation Observation Oxygen Delivery Method Room Air Blood Pressure (90/60-120/80) 145/85 H 125/77 H Blood Pressure Mean (mm Hg) 105 93 Source Monitor Monitor Position Sitting Blood Pressure Location Right Arm History Since Last Visit- (Skip if this is Patient's initial visit) Have you changed medications since your No No last visit? Any new allergies or adverse reactions No No Had a fall/change in ADL's that may No No increase risk of falls Signs or symptoms of abuse and/or No No neglect since last visit Have you been in the hospital since your No last visit? Has dressing in place as prescribed Yes Yes Has compression in place as prescribed Yes Yes Has offloadiing in place as prescribed Yes N/A Experienced any changes in pain level or No No management Left Footwear Regular Shoe Right Footwear Regular Shoe Pain Scale: 0-10 Numeric Is Patient Pain Free? Yes Yes WC - Nurse 1 - General Ulcer Measurement Start: 03/30/24 09:00 Freq: Status: Active Protocol: Activity Type Activity Date Activity User E-sign Co-sign Detail Recorded Client Recorded Date Recorded By Document 03/30/24 09:01 KW [id number] 03/30/24 09:14 KW Document 04/06/24 08:27 RB [id number] 04/06/24 08:29 RB Document 04/13/24 08:12 KW [id number] 04/13/24 08:19 KW Document 04/20/24 08:26 ML [id number] 04/20/24 08:30 ML Document 04/27/24 09:31 BMF [id number] 04/27/24 09:42 BMF 03/30/24 04/06/24 04/13/24 09:01 08:27 08:12 Wound Center Nurse 1 3-left medial leg -Combined with other wound -Current Size (cm) - Length -Current Size (cm) - Width -Current Size (cm) - Depth -Total Square Cm -Date of Last Picture (Recall this field) -Photo Taken -Epithelialization #2 LT MED LE -Combined with other wound No -Current Size (cm) - Length 1.5 0.1 0.1 -Current Size (cm) - Width 1 0.1 0.1 -Current Size (cm) - Depth 0.1 0.1 0.1 -Total Square Cm 1.5 0.01 0.01 -Date of Last Picture (Recall this field) -Photo Taken -Epithelialization -Tunneling No -Undermining/Tunneling No -Circular Undermining No -Exudate Amt Small Medium Small -Exudate Type Serosanguineous Serosanguineous Serosanguineous -Wound Margin Distinct, Distinct, Distinct, Outline Outline Outline Attached Attached Attached -Granulation Amt Large (67-100%) Medium (34-66%) Large (67-100%) -Granulation Quality [place] Red -Slough/Fibrin Yes -Necrosis Amt Small (1-33%) -Necrotic Tissue Type Adherent Slough -Structure Exposed N/A -Texture (Estefany-wound Skin Appearance) Assessed Assessed Assessed -Moisture (Estefany-wound Skin Appearance) Assessed Dry/Scaly Assessed -Color (Estefany-wound Skin Appearance) Assessed Assessed Assessed -Temperature (Estefany-wound Skin No Abnormality No Abnormality No Abnormality Appearance) (Pt Warm) (Pt Warm) (Pt Warm) -Tenderness on Palpation (Estefany-wound No No No Skin Appearance) -Ulcer Cleansing Soap and Water Wound Cleanser Soap and Water -Foul Odor after Cleansing No No No -Anesthetic Used 5% Lidocaine 5% Lidocaine 5% Lidocaine Gel Gel Gel #1 L Lozano lower -Combined with other wound No -Current Size (cm) - Length 7.5 0.1 3 -Current Size (cm) - Width 2.5 0.1 9 -Current Size (cm) - Depth 0.1 0.1 0.1 -Total Square Cm 18.75 0.01 27 -Date of Last Picture (Recall this 03/30/24 field) -Photo Taken -Epithelialization -Tunneling No -Undermining/Tunneling No -Circular Undermining No -Exudate Amt Medium Medium Large -Exudate Type Serosanguineous Serosanguineous Serosanguineous -Wound Margin Distinct, Distinct, Distinct, Outline Outline Outline Attached Attached Attached -Granulation Amt Large (67-100%) Medium (34-66%) Large (67-100%) -Granulation Quality [place] Red -Slough/Fibrin Yes -Necrosis Amt Medium (34-66%) -Necrotic Tissue Type Adherent Slough -Structure Exposed N/A -Texture (Estefany-wound Skin Appearance) Assessed Assessed Assessed -Moisture (Estefany-wound Skin Appearance) Assessed Dry/Scaly Assessed, Maceration -Color (Estefany-wound Skin Appearance) Assessed, Assessed Assessed, Hemosiderin Hemosiderin Staining Staining -Temperature (Estefany-wound Skin No Abnormality No Abnormality No Abnormality Appearance) (Pt Warm) (Pt Warm) (Pt Warm) -Tenderness on Palpation (Estefany-wound No No No Skin Appearance) -Ulcer Cleansing Soap and Water Wound Cleanser Soap and Water -Foul Odor after Cleansing No No -Anesthetic Used 5% Lidocaine 5% Lidocaine 5% Lidocaine Gel Gel Gel Lower Limb Edema Present Yes Left Calf (cm) 50.2 51 53 Left Ankle (cm) 31 27.6 29.5 04/20/24 04/27/24 08:26 09:31 Wound Center Nurse 1 3-left medial leg -Combined with other wound No -Current Size (cm) - Length 0.1 -Current Size (cm) - Width 0.1 -Current Size (cm) - Depth 0.1 -Total Square Cm 0.01 -Date of Last Picture (Recall this 04/27/24 field) -Photo Taken Yes -Epithelialization Large 67-100% #2 LT MED LE -Combined with other wound No -Current Size (cm) - Length 0.1 -Current Size (cm) - Width 0.1 -Current Size (cm) - Depth 0.1 -Total Square Cm 0.01 -Date of Last Picture (Recall this 04/27/24 field) -Photo Taken Yes -Epithelialization Large 67-100% -Tunneling -Undermining/Tunneling -Circular Undermining -Exudate Amt -Exudate Type -Wound Margin -Granulation Amt -Granulation Quality -Slough/Fibrin -Necrosis Amt -Necrotic Tissue Type -Structure Exposed -Texture (Estefany-wound Skin Appearance) -Moisture (Estefany-wound Skin Appearance) -Color (Estefany-wound Skin Appearance) -Temperature (Estefany-wound Skin Appearance) -Tenderness on Palpation (Estefany-wound Skin Appearance) -Ulcer Cleansing -Foul Odor after Cleansing -Anesthetic Used #1 L Lozano lower -Combined with other wound No -Current Size (cm) - Length 0.1 -Current Size (cm) - Width 0.1 -Current Size (cm) - Depth 0.1 -Total Square Cm 0.01 -Date of Last Picture (Recall this 04/27/24 field) -Photo Taken Yes -Epithelialization Large 67-100% -Tunneling -Undermining/Tunneling -Circular Undermining -Exudate Amt -Exudate Type -Wound Margin -Granulation Amt -Granulation Quality -Slough/Fibrin -Necrosis Amt -Necrotic Tissue Type -Structure Exposed -Texture (Estefany-wound Skin Appearance) -Moisture (Estefany-wound Skin Appearance) -Color (Estefany-wound Skin Appearance) -Temperature (Estefany-wound Skin Appearance) -Tenderness on Palpation (Estefany-wound Skin Appearance) -Ulcer Cleansing -Foul Odor after Cleansing -Anesthetic Used Lower Limb Edema Present Yes Left Calf (cm) 49.5 45 Left Ankle (cm) 29 28.3 WC - Nurse 2 - General Ulcer CM Notes Start: 03/30/24 09:00 Freq: Status: Active Protocol: Activity Type Activity Date Activity User E-sign Co-sign Detail Recorded Client Recorded Date Recorded By Document 03/30/24 09:21 [id number] 03/30/24 09:26 Document 04/06/24 08:41 [id number] 04/06/24 08:48 Document 04/13/24 08:53 [id number] 04/13/24 08:58 Document 04/27/24 09:56 [id number] 04/27/24 09:57 03/30/24 04/06/24 04/13/24 09:21 08:41 08:53 Wound Center Nurse 2 3-left medial leg -Time 08:57 -Correct Patient Yes -Correct Side, Site, Position Yes -Correct Procedure Yes -Procedure Performed Yes -Type of Procedure Debridement -Clinical Debridement Subcutaneous -Tissue Removed Subcutaneous -Post Debridement (cm) - Length 0.5 -Post Debridement (cm) - Width 0.5 -Post Debridement (cm) - Depth 0.1 -Total Square (Post) (cm) 0.25 -Area of Debridement (cm) - Length 0.5 -Area of Debridement (cm) - Width 0.5 -Total Square (Area) (cm) 0.25 -Tunneling No -Undermining/Tunneling No -Circular Undermining No -Wound/Ulcer Outcome Not Healed -Ulcer Cleansing Rinsed/ Irrigated with Saline -Foul Odor after Cleansing No -Bioengineered Tissue No -Bleeding Controlled with Pressure -Treatment Response Procedure Tolerated Well -Offloading No -Debridement - Subq, 1st 20sq cm Yes #2 LT MED LE -Time 09:22 08:42 08:55 -Correct Patient Yes Yes Yes -Correct Side, Site, Position Yes Yes Yes -Correct Procedure Yes Yes Yes -Procedure Performed Yes Yes Yes -Type of Procedure Debridement Debridement Debridement -Clinical Debridement Subcutaneous Subcutaneous Subcutaneous -Tissue Removed Subcutaneous Subcutaneous Subcutaneous -Post Debridement (cm) - Length 0.9 0.4 0.5 -Post Debridement (cm) - Width 1.2 0.7 0.5 -Post Debridement (cm) - Depth 0.1 0.1 0.1 -Total Square (Post) (cm) 1.08 0.28 0.25 -Area of Debridement (cm) - Length 0.9 0.4 0.5 -Area of Debridement (cm) - Width 1.2 0.7 0.5 -Total Square (Area) (cm) 1.08 0.28 0.25 -Tunneling No No No -Undermining/Tunneling No No No -Circular Undermining No No No -Wound/Ulcer Outcome Not Healed Not Healed Not Healed -Ulcer Cleansing Rinsed/ Rinsed/ Rinsed/ Irrigated with Irrigated with Irrigated with Saline Saline Saline -Foul Odor after Cleansing No No No -Bioengineered Tissue No No No -Bleeding Controlled with Pressure Pressure Pressure -Treatment Response Procedure Procedure Procedure Tolerated Well Tolerated Well Tolerated Well -Offloading No No No -Debridement - Subq, 1st 20sq cm Yes Yes No #1 L Lozano lower -Time 09:22 08:56 -Correct Patient Yes No Yes -Correct Side, Site, Position Yes No Yes -Correct Procedure Yes No Yes -Procedure Performed Yes No Yes -Type of Procedure Debridement Debridement -Clinical Debridement Subcutaneous Subcutaneous -Tissue Removed Subcutaneous Subcutaneous -Post Debridement (cm) - Length 7 0 2.5 -Post Debridement (cm) - Width 1.2 0 6.0 -Post Debridement (cm) - Depth 0.1 0 0.1 -Total Square (Post) (cm) 8.4 0 15.00 -Area of Debridement (cm) - Length 7 0 2.5 -Area of Debridement (cm) - Width 1.2 0 6.0 -Total Square (Area) (cm) 8.4 0 15.00 -Tunneling No No -Undermining/Tunneling No No -Circular Undermining No No -Wound/Ulcer Outcome Not Healed Healed- Not Healed Epithelialized -Ulcer Cleansing Rinsed/ Rinsed/ Irrigated with Irrigated with Saline Saline -Foul Odor after Cleansing No No -Bioengineered Tissue No No -Bleeding Controlled with Pressure Pressure -Treatment Response Procedure Procedure Tolerated Well Tolerated Well -Offloading No No -Debridement - Subq, 1st 20sq cm No No Pain Scale: 0-10 Numeric Is Patient Pain Free? Yes Yes Yes 04/27/24 09:56 Wound Center Nurse 2 3-left medial leg -Time -Correct Patient No -Correct Side, Site, Position No -Correct Procedure No -Procedure Performed No -Type of Procedure -Clinical Debridement -Tissue Removed -Post Debridement (cm) - Length 0 -Post Debridement (cm) - Width 0 -Post Debridement (cm) - Depth 0 -Total Square (Post) (cm) 0 -Area of Debridement (cm) - Length 0 -Area of Debridement (cm) - Width 0 -Total Square (Area) (cm) 0 -Tunneling -Undermining/Tunneling -Circular Undermining -Wound/Ulcer Outcome Healed- Epithelialized -Ulcer Cleansing -Foul Odor after Cleansing -Bioengineered Tissue -Bleeding Controlled with -Treatment Response -Offloading -Debridement - Subq, 20sq cm #2 LT MED LE -Time -Correct Patient No -Correct Side, Site, Position No -Correct Procedure No -Procedure Performed No -Type of Procedure -Clinical Debridement -Tissue Removed -Post Debridement (cm) - Length 0 -Post Debridement (cm) - Width 0 -Post Debridement (cm) - Depth 0 -Total Square (Post) (cm) 0 -Area of Debridement (cm) - Length 0 -Area of Debridement (cm) - Width 0 -Total Square (Area) (cm) 0 -Tunneling -Undermining/Tunneling -Circular Undermining -Wound/Ulcer Outcome Healed- Epithelialized -Ulcer Cleansing -Foul Odor after Cleansing -Bioengineered Tissue -Bleeding Controlled with -Treatment Response -Offloading -Debridement - Subq, 1st 20sq cm #1 L Lozano lower -Time -Correct Patient No -Correct Side, Site, Position No -Correct Procedure No -Procedure Performed No -Type of Procedure -Clinical Debridement -Tissue Removed -Post Debridement (cm) - Length 0 -Post Debridement (cm) - Width 0 -Post Debridement (cm) - Depth 0 -Total Square (Post) (cm) 0 -Area of Debridement (cm) - Length 0 -Area of Debridement (cm) - Width 0 -Total Square (Area) (cm) 0 -Tunneling -Undermining/Tunneling -Circular Undermining -Wound/Ulcer Outcome Healed- Epithelialized -Ulcer Cleansing -Foul Odor after Cleansing -Bioengineered Tissue -Bleeding Controlled with -Treatment Response -Offloading -Debridement - Subq, 1st 20sq cm Pain Scale: 0-10 Numeric Is Patient Pain Free? Yes WC - Nurse 3 - General Ulcer D/C NN Start: 03/30/24 09:00 Freq: Status: Active Protocol: Activity Type Activity Date Activity User E-sign Co-sign Detail Recorded Client Recorded Date Recorded By Document 03/30/24 09:48 KW [id number] 03/30/24 09:49 KW Document 04/06/24 08:56 KW [id number] 04/06/24 08:57 KW Document 04/13/24 09:09 KW [id number] 04/13/24 09:11 KW Document 04/20/24 08:26 ML [id number] 04/20/24 08:30 ML Document 04/27/24 10:06 KW [id number] 04/27/24 10:06 KW 03/30/24 04/06/24 04/13/24 09:48 08:56 09:09 Wound Care Center Nurse 3 3-left medial leg -Primary Dressing Applied Aquacel AG 4x4, NonAdherent Contact Layer -Primary Dressing Covered/Secured with Dry Gauze & Roll Gauze, Secured with Tape -Aquacel AG 4x4 1 #2 LT MED LE -Primary Dressing Applied Optilok 8x12 -Other Dressing PT OWN pt silver with aquacel and SILVERCEL adaptic adaptic -Primary Dressing Covered/Secured with Dry Gauze & Dry Gauze Roll Gauze, Secured with Tape -Aquacel AG 4x4 -Optilok 8x12 1 #1 L Lozano lower -Primary Dressing Applied -Other Dressing PT SILVERCEL adaptic and WITH OPTILOK aquacel -Primary Dressing Covered/Secured with Dry Gauze & Roll Gauze, Secured with Tape -Aquacel AG 4x4 Right -Other PT OWN pt own COMPRESSION compression STOCKING stocking Left -Multi-Layered Wrap Application Multi-Layer Multi-Layer Multi-Layer Comp - Left ($) Comp - Left ($) Comp - Left ($) Vital Signs Temperature (97.8 F-99.1 F) Temperature Source Pulse Rate (60-100) Pulse Location Respiratory Rate (12-18) Respiratory rate source Blood Pressure (90/60-120/80) Blood Pressure Mean (mm Hg) Source Pain Scale: 0-10 Numeric Is Patient Pain Free? Yes Yes Yes WC - Visit Discharge Discharge Condition Stable Stable Ambulatory Status Ambulatory Ambulatory Transportation Private Auto Private Auto Medication Reconcilliation completed & No No provided to patient/care provider Clinical Summary of Care Provided Yes Yes 04/20/24 04/27/24 08:26 10:06 Wound Care Center Nurse 3 3-left medial leg -Primary Dressing Applied -Primary Dressing Covered/Secured with -Aquacel AG 4x4 #2 LT MED LE -Primary Dressing Applied Aquacel AG 4x4 -Other Dressing adaptic,3m -Primary Dressing Covered/Secured with -Aquacel AG 4x4 0 -Optilok 8x12 #1 L Lozano lower -Primary Dressing Applied Aquacel AG 4x4 -Other Dressing adaptic -Primary Dressing Covered/Secured with -Aquacel AG 4x4 0 Right -Other Left -Multi-Layered Wrap Application Multi-Layer Multi-Layer Comp - Left ($) Comp - Left ($) Vital Signs Temperature (97.8 F-99.1 F) 98.2 F Temperature Source Temporal Pulse Rate (60-100) 59 L Pulse Location Monitor Respiratory Rate (12-18) 16 Respiratory rate source Observation Blood Pressure (90/60-120/80) 145/85 H Blood Pressure Mean (mm Hg) 105 Source Monitor Pain Scale: 0-10 Numeric Is Patient Pain Free? Yes Yes WC - Visit Discharge Discharge Condition Stable Ambulatory Status Ambulatory Transportation Private Auto Medication Reconcilliation completed & No provided to patient/care provider Clinical Summary of Care Provided Yes Assessment/Plan Assessment/Plan (1) Non-pressure chronic ulcer of left calf with fat layer exposed: CODE(S): L97.222 - Non-pressure chronic ulcer of left calf with fat layer exposed PLAN: Patient was examined and evaluated. All findings were discussed with the patient. All questions were answered to the patient's satisfaction. Patient's full-thickness wounds to left leg are now healed. He will be placed in a multilayer compression bandage to leave clean dry and intact and will follow-up with Dr. Bah next Friday. (2) Venous insufficiency (chronic) (peripheral): CODE(S): I87.2 - Venous insufficiency (chronic) (peripheral)
--- NOTE | 2024-05-03 11:31 | WC ---
PHOTO 04/27/24 LEFT MED LEG/LEFT LOWER SHEA
== END 2024-04-27 23:59 | disposition home or self-care (01) ==
LOC: WC 09:00
PROVIDERS: PCP Family Medicine; Referring Provider Family Medicine; Visit Provider Podiatrist
DX: L97.222 Non-pressure chronic ulcer of left calf with fat layer exposed (principal); I87.2 Venous insufficiency (chronic) (peripheral); I89.0 Lymphedema, not elsewhere classified
CPT/HCPCS: 11042; 29581; 99213; G0463

== ENCOUNTER 2024-05-26 13:15 | Outpatient (RCR) | payer MEDICARE, OTHER, SELFPAY ==
[2024-04-28 00:20] VITALS: BP 167/94; PULSE 61; RESP 18; TEMP 36.4
[2024-05-04 08:19] VITALS: BP 174/94; PULSE 60; RESP 18; TEMP 36.5
--- NOTE | 2024-05-04 09:19 | PCM.WC.PN ---
History of Present Illness Date of Service: 04/13/24 Chief Complaint: Ulcer on left lozano History of Wound: Patient is wearing compression wraps for the week and when they took him off this last week he had a blister that had developed and opened. Drained clear fluid. And now is just an open wound nonhealing. The landscape architecture teacher is seeing him for cellulitis and for swelling. Progress of Wound: Patient Pavan presents today with new left leg ulceration. Patient difficulty obtaining compression stockings. Patient states he has been up and using compression for 3 weeks noticed increased swelling to left lower extremity. Patient denies any chest pain calf pain shortness of breath. Patient notes some redness and drainage to wound site but has minimal pain. Objective Data Objective Data Vital Signs: Vital Signs Temp Pulse Resp BP O2 Del Method 97.7 F L 60 18 174/94 H Room Air 05/04/24 08:19 05/04/24 08:19 05/04/24 08:19 05/04/24 08:19 05/04/24 08:19 Oxygen Delivery Method Room Air Physical Exam Narrative Vascular: Diffuse left lower extremity swelling noted +3 pitting edema noted. Dorsalis pedis posterior tibial pulses palpable 2 out of 4 to bilateral lower extremity. Intact digital hair growth noted. Neurologic: Light touch protective sensation intact bilateral lower extremity. Dermatologic: Healed leg wounds. Mild erythema to medial left leg along course great saphenous vein. No other signs of infection. No evidence deep probing undermining noted. Wound demonstrates mixed fibrogranular base. Musculoskeletal: No pain with calf squeeze. Negative Homans' sign. Muscular strength full to bilateral lower extremity compartments. Debridement Note Debridement Note Post-Debridement Measurements and Additional Note: Post-Debridement Measurements/Treatment - Nurse 1 - General Ulcer Assessment Start: 05/04/24 08:18 Freq: Status: Active Protocol: KENYA.LOWEXCristal Activity Type Activity Date Activity User E-sign Co-sign Detail Recorded Client Recorded Date Recorded By Document 05/04/24 08:19 KW [id number] 05/04/24 08:26 KW 05/04/24 08:19 - Today's Visit Information Type of service Follow-up Visit (Physician/MANAGER HOSPICE ) Arrival Mode Ambulatory Patient Identification Verified (Name & Yes ) Vital Signs Temperature (97.8 F-99.1 F) 97.7 F L Temperature Source Temporal Pulse Rate (60-100) 60 Pulse Location Monitor Respiratory Rate (12-18) 18 Respiratory rate source Monitor Oxygen Delivery Method Room Air Blood Pressure (90/60-120/80) 174/94 H Blood Pressure Mean (mm Hg) 120 Source Monitor Position Sitting Blood Pressure Location Left Forearm History Since Last Visit- (Skip if this is Patient's initial visit) Have you changed medications since your No last visit? Any new allergies or adverse reactions No Had a fall/change in ADL's that may No increase risk of falls Signs or symptoms of abuse and/or No neglect since last visit Have you been in the hospital since your No last visit? Has dressing in place as prescribed Yes Has compression in place as prescribed Yes Has offloadiing in place as prescribed N/A Experienced any changes in pain level or No management Left Footwear Regular Shoe Right Footwear Regular Shoe Pain Scale: 0-10 Numeric Is Patient Pain Free? Yes WC - Nurse 1 - General Ulcer Measurement Start: 05/04/24 08:18 Freq: Status: Active Protocol: Activity Type Activity Date Activity User E-sign Co-sign Detail Recorded Client Recorded Date Recorded By Document 05/04/24 08:19 KW [id number] 05/04/24 08:26 KW 05/04/24 08:19 Wound Center Nurse 1 Left Calf (cm) 42.7 Left Ankle (cm) 227.5 WC - Nurse 2 - General Ulcer CM Notes Start: 05/04/24 08:18 Freq: Status: Active Protocol: Activity Type Activity Date Activity User E-sign Co-sign Detail Recorded Client Recorded Date Recorded By Document 05/04/24 09:11 JF [id number] 05/04/24 09:11 05/04/24 09:11 Pain Scale: 0-10 Numeric Is Patient Pain Free? Yes Assessment/Plan Assessment/Plan (1) Non-pressure chronic ulcer of left calf with fat layer exposed: CODE(S): L97.222 - Non-pressure chronic ulcer of left calf with fat layer exposed PLAN: Exam performed. Wounds healed Reviewed previous venous studies. Recommended vascular referral -patient awaiting appointment Patient awaiting lymphedema pumps No debridement performed today Will plan for 3M compression wrap. Patient will continue compression stocking right lower extremity. Follow-up 1 week (2) Venous insufficiency (chronic) (peripheral): CODE(S): I87.2 - Venous insufficiency (chronic) (peripheral)
--- NOTE | 2024-05-06 11:53 | WC ---
PHOTO 05/04/24 KIKI
--- NOTE | 2024-05-06 11:55 | WC ---
PHOTO 05/04/24 KIKI
[2024-05-11 08:15] VITALS: BP 177/84; PULSE 61; RESP 18; TEMP 36.6
--- NOTE | 2024-05-11 09:32 | PCM.WC.PN ---
History of Present Illness Date of Service: 05/11/24 Chief Complaint: Ulcer on left lozano History of Wound: Patient is wearing compression wraps for the week and when they took him off this last week he had a blister that had developed and opened. Drained clear fluid. And now is just an open wound nonhealing. The chemical project engineer is seeing him for cellulitis and for swelling. Progress of Wound: Patient Pavan presents today with new left leg ulceration. Patient difficulty obtaining compression stockings. Patient states he has been up and using compression for 3 weeks noticed increased swelling to left lower extremity. Patient denies any chest pain calf pain shortness of breath. Patient notes some redness and drainage to wound site but has minimal pain. Objective Data Objective Data Vital Signs: Vital Signs Temp Pulse Resp BP O2 Del Method 97.8 F 61 18 177/84 H Room Air 05/11/24 08:15 05/11/24 08:15 05/11/24 08:15 05/11/24 08:15 05/11/24 08:15 Oxygen Delivery Method Room Air Physical Exam Narrative Vascular: Diffuse left lower extremity swelling noted +3 pitting edema noted. Dorsalis pedis posterior tibial pulses palpable 2 out of 4 to bilateral lower extremity. Intact digital hair growth noted. Neurologic: Light touch protective sensation intact bilateral lower extremity. Dermatologic: New onset anterior left leg wound no deep probing undermining clean granular base. No acute signs of infection. Pre and postdebridement measurements document nursing notes. Mild erythema to medial left leg along course great saphenous vein. No other signs of infection. No evidence deep probing undermining noted. Wound demonstrates mixed fibrogranular base. Musculoskeletal: No pain with calf squeeze. Negative Homans' sign. Muscular strength full to bilateral lower extremity compartments. Debridement Note Debridement Note Post-Debridement Measurements and Additional Note: Post-Debridement Measurements/Treatment - Nurse 1 - General Ulcer Assessment Start: 05/04/24 08:18 Freq: Status: Active Protocol: LEONEL Activity Type Activity Date Activity User E-sign Co-sign Detail Recorded Client Recorded Date Recorded By Document 05/04/24 08:19 KW [id number] 05/04/24 08:26 KW Document 05/11/24 08:15 KW [id number] 05/11/24 08:25 KW 05/04/24 05/11/24 08:19 08:15 - Today's Visit Information Type of service Follow-up Visit Follow-up Visit (Physician/POLYMERIZATION KETTLE OPERATOR (Physician/POLYMERIZATION KETTLE OPERATOR ) ) Arrival Mode Ambulatory Ambulatory Patient Identification Verified (Name & Yes Yes ) Vital Signs Temperature (97.8 F-99.1 F) 97.7 F L 97.8 F Temperature Source Temporal Temporal Pulse Rate (60-100) 60 61 Pulse Location Monitor Monitor Respiratory Rate (12-18) 18 18 Respiratory rate source Monitor Observation Oxygen Delivery Method Room Air Room Air Blood Pressure (90/60-120/80) 174/94 H 177/84 H Blood Pressure Mean (mm Hg) 120 115 Source Monitor Monitor Position Sitting Semi-Fowlers Blood Pressure Location Left Forearm Left Arm History Since Last Visit- (Skip if this is Patient's initial visit) Have you changed medications since your No No last visit? Any new allergies or adverse reactions No No Had a fall/change in ADL's that may No No increase risk of falls Signs or symptoms of abuse and/or No No neglect since last visit Have you been in the hospital since your No No last visit? Has dressing in place as prescribed Yes Yes Has compression in place as prescribed Yes Yes Has offloadiing in place as prescribed N/A N/A Experienced any changes in pain level or No No management Left Footwear Regular Shoe Regular Shoe Right Footwear Regular Shoe Regular Shoe Pain Scale: 0-10 Numeric Is Patient Pain Free? Yes Yes - Nurse 1 - General Ulcer Measurement Start: 05/04/24 08:18 Freq: Status: Active Protocol: Activity Type Activity Date Activity User E-sign Co-sign Detail Recorded Client Recorded Date Recorded By Document 05/04/24 08:19 KW [id number] 05/04/24 08:26 KW Document 05/11/24 08:15 KW [id number] 05/11/24 08:25 KW 05/04/24 05/11/24 08:19 08:15 Wound Center Nurse 1 Left Calf (cm) 42.7 42.5 Left Ankle (cm) 227.5 27 - Nurse 2 - General Ulcer CM Notes Start: 05/04/24 08:18 Freq: Status: Active Protocol: Activity Type Activity Date Activity User E-sign Co-sign Detail Recorded Client Recorded Date Recorded By Document 05/04/24 09:11 ROSALIND [id number] 05/04/24 09:11 Document 05/11/24 08:37 [id number] 05/11/24 08:39 JF 05/04/24 05/11/24 09:11 08:37 Wound Center Nurse 2 4-left lozano -Time 08:38 -Correct Patient Yes -Correct Side, Site, Position Yes -Correct Procedure Yes -Procedure Performed Yes -Type of Procedure Debridement -Clinical Debridement Subcutaneous -Tissue Removed Subcutaneous -Post Debridement (cm) - Length 3.0 -Post Debridement (cm) - Width 1.5 -Post Debridement (cm) - Depth 0.1 -Total Square (Post) (cm) 4.50 -Area of Debridement (cm) - Length 3.0 -Area of Debridement (cm) - Width 1.5 -Total Square (Area) (cm) 4.50 -Tunneling No -Undermining/Tunneling No -Circular Undermining No -Wound/Ulcer Outcome Not Healed -Ulcer Cleansing Rinsed/ Irrigated with Saline -Foul Odor after Cleansing No -Bioengineered Tissue No -Bleeding Controlled with Pressure -Treatment Response Procedure Tolerated Well -Offloading No -Debridement - Subq, 1st 20sq cm Yes Pain Scale: 0-10 Numeric Is Patient Pain Free? Yes Yes - Nurse 3 - General Ulcer D/C NN Start: 05/04/24 08:18 Freq: Status: Active Protocol: Activity Type Activity Date Activity User E-sign Co-sign Detail Recorded Client Recorded Date Recorded By Document 05/04/24 09:19 JF [id number] 05/04/24 09:20 Document 05/11/24 08:56 KW [id number] 05/11/24 08:57 05/04/24 05/11/24 09:19 08:56 Wound Care Center Nurse 3 4-left lozano -Primary Dressing Applied C Hydrogel ($) -Primary Dressing Covered/Secured with Dry Gauze, Secured with Tape Left -Lotion applied to leg before Yes compression wrap -Multi-Layered Wrap Application Multi-Layer Comp - Left ($) -Other pt compression stockings Pain Scale: 0-10 Numeric Is Patient Pain Free? Yes Yes - Visit Discharge Discharge Condition Stable Stable Ambulatory Status Ambulatory Ambulatory Transportation Private Auto Medication Reconcilliation completed & Yes No provided to patient/care provider Clinical Summary of Care Provided Yes Yes Assessment/Plan Assessment/Plan (1) Non-pressure chronic ulcer of left calf with fat layer exposed: CODE(S): L97.222 - Non-pressure chronic ulcer of left calf with fat layer exposed PLAN: Exam performed. Wounds healed Reviewed previous venous studies. Recommended vascular referral -patient awaiting appointment Patient awaiting lymphedema pumps Left leg wound was excisionally debrided down to and including level of subcutaneous tissue of all nonviable tissue using a 5 mm dermal curette. Topical anesthesia was used. Hemostasis obtained with light compression. Patient tolerated procedure well. Pre and postdebridement measurements document nursing notes. Will plan for daily hydrogel Adaptic bordered foam and compression stockings Follow-up 1 week (2) Venous insufficiency (chronic) (peripheral): CODE(S): I87.2 - Venous insufficiency (chronic) (peripheral)
[2024-05-18 08:23] VITALS: BP 163/91; PULSE 60; RESP 18; TEMP 36.6
--- NOTE | 2024-05-18 08:44 | PCM.WC.PN ---
History of Present Illness Date of Service: 05/18/24 Chief Complaint: Ulcer on left lozano History of Wound: Patient is wearing compression wraps for the week and when they took him off this last week he had a blister that had developed and opened. Drained clear fluid. And now is just an open wound nonhealing. The salon customer experience specialist is seeing him for cellulitis and for swelling. Progress of Wound: Patient Pavan presents today with new left leg ulceration. Patient difficulty obtaining compression stockings. Patient states he has been up and using compression for 3 weeks noticed increased swelling to left lower extremity. Patient denies any chest pain calf pain shortness of breath. Patient notes some redness and drainage to wound site but has minimal pain. Objective Data Objective Data Vital Signs: Vital Signs Temp Pulse Resp BP O2 Del Method 98 F 60 18 163/91 H Room Air 05/18/24 08:23 05/18/24 08:23 05/18/24 08:23 05/18/24 08:23 05/11/24 08:15 Oxygen Delivery Method Room Air Physical Exam Narrative Vascular: Diffuse left lower extremity swelling noted +2 pitting edema noted. Dorsalis pedis posterior tibial pulses palpable 2 out of 4 to bilateral lower extremity. Intact digital hair growth noted. Neurologic: Light touch protective sensation intact bilateral lower extremity. Dermatologic: New onset anterior left leg wound no deep probing undermining clean granular base, reduced in size. No acute signs of infection. Pre and postdebridement measurements document nursing notes. Mild erythema to medial left leg along course great saphenous vein. No other signs of infection. No evidence deep probing undermining noted. Wound demonstrates mixed fibrogranular base. Musculoskeletal: No pain with calf squeeze. Negative Homans' sign. Muscular strength full to bilateral lower extremity compartments. Const alert and oriented x3 Debridement Note Debridement Note Post-Debridement Measurements and Additional Note: Post-Debridement Measurements/Treatment WC - Nurse 1 - General Ulcer Assessment Start: 05/04/24 08:18 Freq: Status: Active Protocol: [email or web address].KOREY Activity Type Activity Date Activity User E-sign Co-sign Detail Recorded Client Recorded Date Recorded By Document 05/04/24 08:19 KW [id number] 05/04/24 08:26 KW Document 05/11/24 08:15 KW [id number] 05/11/24 08:25 KW Document 05/18/24 08:23 RB [id number] 05/18/24 08:26 RB 05/04/24 05/11/24 05/18/24 08:19 08:15 08:23 - Today's Visit Information Type of service Follow-up Visit Follow-up Visit Follow-up Visit (Physician/SIGN LETTERER (Physician/SIGN LETTERER (Physician/SIGN LETTERER ) ) ) Arrival Mode Ambulatory Ambulatory Ambulatory Transfer Assistance None Patient Identification Verified (Name & Yes Yes Yes ) Patient Requires Transmission-Based No Precautions Safety Precautions NA Vital Signs Temperature (97.8 F-99.1 F) 97.7 F L 97.8 F 98 F Temperature Source Temporal Temporal Temporal Pulse Rate (60-100) 60 61 60 Pulse Location Monitor Monitor Monitor Respiratory Rate (12-18) 18 18 18 Respiratory rate source Monitor Observation Observation Oxygen Delivery Method Room Air Room Air Blood Pressure (90/60-120/80) 174/94 H 177/84 H 163/91 H Blood Pressure Mean (mm Hg) 120 115 115 Source Monitor Monitor Monitor Position Sitting Semi-Fowlers Semi-Fowlers Blood Pressure Location Left Forearm Left Arm Left Arm History Since Last Visit- (Skip if this is Patient's initial visit) Have you changed medications since your No No No last visit? Any new allergies or adverse reactions No No No Had a fall/change in ADL's that may No No No increase risk of falls Signs or symptoms of abuse and/or No No No neglect since last visit Have you been in the hospital since your No No No last visit? Has dressing in place as prescribed Yes Yes Yes Has compression in place as prescribed Yes Yes Yes Has offloadiing in place as prescribed N/A N/A No Experienced any changes in pain level or No No No management Left Footwear Regular Shoe Regular Shoe Regular Shoe Right Footwear Regular Shoe Regular Shoe Regular Shoe Pain Scale: 0-10 Numeric Is Patient Pain Free? Yes Yes Yes - Nurse 1 - General Ulcer Measurement Start: 05/04/24 08:18 Freq: Status: Active Protocol: Activity Type Activity Date Activity User E-sign Co-sign Detail Recorded Client Recorded Date Recorded By Document 05/04/24 08:19 KW [id number] 05/04/24 08:26 KW Document 05/11/24 08:15 KW [id number] 05/11/24 08:25 KW Document 05/18/24 08:23 RB [id number] 05/18/24 08:26 RB 05/04/24 05/11/24 05/18/24 08:19 08:15 08:23 Wound Center Nurse 1 4-left lozano -Combined with other wound No -Current Size (cm) - Length 0.1 -Current Size (cm) - Width 0.1 -Current Size (cm) - Depth 0.1 -Total Square Cm 0.01 -Photo Taken Yes -Tunneling No -Undermining/Tunneling No -Circular Undermining No -Exudate Amt Medium -Exudate Type Serosanguineous -Wound Margin Distinct, Outline Attached -Granulation Amt Medium (34-66%) -Granulation Quality [place] -Slough/Fibrin Yes -Necrosis Amt Small (1-33%) -Necrotic Tissue Type Adherent Slough -Structure Exposed N/A -Texture (Estefany-wound Skin Appearance) Assessed -Moisture (Estefany-wound Skin Appearance) Assessed -Color (Estefany-wound Skin Appearance) Hemosiderin Staining -Temperature (Estefany-wound Skin No Abnormality Appearance) (Pt Warm) -Tenderness on Palpation (Estefany-wound No Skin Appearance) -Ulcer Cleansing Rinsed/ Irrigated with Saline -Foul Odor after Cleansing No -Anesthetic Used 5% Lidocaine Gel Lower Limb Edema Present Yes Left Calf (cm) 42.7 42.5 48 Left Ankle (cm) 227.5 27 29.8 WC - Nurse 2 - General Ulcer CM Notes Start: 05/04/24 08:18 Freq: Status: Active Protocol: Activity Type Activity Date Activity User E-sign Co-sign Detail Recorded Client Recorded Date Recorded By Document 05/04/24 09:11 [id number] 05/04/24 09:11 Document 05/11/24 08:37 [id number] 05/11/24 08:39 Document 05/18/24 08:35 [id number] 05/18/24 08:39 05/04/24 05/11/24 05/18/24 09:11 08:37 08:35 Wound Center Nurse 2 4-left lozano -Time 08:38 -Correct Patient Yes No -Correct Side, Site, Position Yes No -Correct Procedure Yes No -Procedure Performed Yes No -Type of Procedure Debridement -Clinical Debridement Subcutaneous -Tissue Removed Subcutaneous -Post Debridement (cm) - Length 3.0 -Post Debridement (cm) - Width 1.5 -Post Debridement (cm) - Depth 0.1 -Total Square (Post) (cm) 4.50 -Area of Debridement (cm) - Length 3.0 -Area of Debridement (cm) - Width 1.5 -Total Square (Area) (cm) 4.50 -Tunneling No -Undermining/Tunneling No -Circular Undermining No -Wound/Ulcer Outcome Not Healed Not Healed -Ulcer Cleansing Rinsed/ Irrigated with Saline -Foul Odor after Cleansing No -Bioengineered Tissue No -Bleeding Controlled with Pressure -Treatment Response Procedure Tolerated Well -Offloading No -Debridement - Subq, 1st 20sq cm Yes No Pain Scale: 0-10 Numeric Is Patient Pain Free? Yes Yes Yes - Nurse 3 - General Ulcer D/C NN Start: 05/04/24 08:18 Freq: Status: Active Protocol: Activity Type Activity Date Activity User E-sign Co-sign Detail Recorded Client Recorded Date Recorded By Document 05/04/24 09:19 [id number] 05/04/24 09:20 Document 05/11/24 08:56 [id number] 05/11/24 08:57 05/04/24 05/11/24 09:19 08:56 Wound Care Center Nurse 3 4-left lozano -Primary Dressing Applied C Hydrogel ($) -Primary Dressing Covered/Secured with Dry Gauze, Secured with Tape Left -Lotion applied to leg before Yes compression wrap -Multi-Layered Wrap Application Multi-Layer Comp - Left ($) -Other pt compression stockings Pain Scale: 0-10 Numeric Is Patient Pain Free? Yes Yes - Visit Discharge Discharge Condition Stable Stable Ambulatory Status Ambulatory Ambulatory Transportation Private Auto Medication Reconcilliation completed & Yes No provided to patient/care provider Clinical Summary of Care Provided Yes Yes Assessment/Plan Assessment/Plan (1) Non-pressure chronic ulcer of left calf with fat layer exposed: CODE(S): L97.222 - Non-pressure chronic ulcer of left calf with fat layer exposed PLAN: Exam performed. small superficial ulceration to anterior left leg Reviewed previous venous studies. Recommended vascular referral -patient awaiting appointment Patient awaiting lymphedema pumps compression stockings did poorly for patient since last visit, will try to get circaid wraps approved continue compression, elevation and exercise for edema management today site dressed with hydrogel, adaptic/DSD/3M compression follow up in 1-2 weeks (2) Venous insufficiency (chronic) (peripheral): CODE(S): I87.2 - Venous insufficiency (chronic) (peripheral)
--- NOTE | 2024-05-20 09:33 | WC ---
PHOTO 05/18/24 KIKI
[2024-05-26 13:36] VITALS: BP 167/75; PULSE 55; RESP 18; TEMP 36.3
== END 2024-05-28 23:59 | disposition home or self-care (01) ==
LOC: WC 13:15
PROVIDERS: PCP Family Medicine; Referring Provider Family Medicine; Visit Provider Podiatrist
DX: L97.222 Non-pressure chronic ulcer of left calf with fat layer exposed (principal); I87.2 Venous insufficiency (chronic) (peripheral)
CPT/HCPCS: 11042; 29581; 99212; 99213; G0463

== ENCOUNTER 2024-06-01 08:15 | Outpatient (RCR) | payer MEDICARE, OTHER, SELFPAY ==
[2024-05-29 00:45] VITALS: BP 167/75; PULSE 55; RESP 18; TEMP 36.3
[2024-06-01 08:17] VITALS: BP 160/74; PULSE 58; RESP 18; TEMP 36.8
--- NOTE | 2024-06-01 09:58 | PCM.WC.PN ---
History of Present Illness Date of Service: 06/01/24 Chief Complaint: Ulcer on left lozano History of Wound: Patient is wearing compression wraps for the week and when they took him off this last week he had a blister that had developed and opened. Drained clear fluid. And now is just an open wound nonhealing. The psychologist is seeing him for cellulitis and for swelling. Progress of Wound: Patient Pavan presents today with new left leg ulceration. Patient difficulty obtaining compression stockings. Patient states he has been up and using compression for 3 weeks noticed increased swelling to left lower extremity. Patient denies any chest pain calf pain shortness of breath. Patient notes some redness and drainage to wound site but has minimal pain. Objective Data Objective Data Vital Signs: Vital Signs Temp Pulse Resp BP 98.3 F 58 L 18 160/74 H 06/01/24 08:17 06/01/24 08:17 06/01/24 08:17 06/01/24 08:17 Physical Exam Narrative Vascular: Diffuse left lower extremity swelling noted +2 pitting edema noted. Dorsalis pedis posterior tibial pulses palpable 2 out of 4 to bilateral lower extremity. Intact digital hair growth noted. Neurologic: Light touch protective sensation intact bilateral lower extremity. Dermatologic: No wounds noted today. Resolved stasis dermatitis left lower extremity. Musculoskeletal: No pain with calf squeeze. Negative Homans' sign. Muscular strength full to bilateral lower extremity compartments. Const alert and oriented x3 Debridement Note Debridement Note Post-Debridement Measurements and Additional Note: Post-Debridement Measurements/Treatment - Nurse 1 - General Ulcer Assessment Start: 06/01/24 08:17 Freq: Status: Active Protocol: LEONEL Activity Type Activity Date Activity User E-sign Co-sign Detail Recorded Client Recorded Date Recorded By Document 06/01/24 08:17 [id number] 06/01/24 08:19 RB 06/01/24 08:17 - Today's Visit Information Type of service Follow-up Visit (Physician/FINANCIAL ASSISTANT ) Arrival Mode Ambulatory Transfer Assistance None Patient Identification Verified (Name & Yes ) Patient Requires Transmission-Based No Precautions Vital Signs Temperature (97.8 F-99.1 F) 98.3 F Temperature Source Temporal Pulse Rate (60-100) 58 L Pulse Location Monitor Respiratory Rate (12-18) 18 Respiratory rate source Observation Blood Pressure (90/60-120/80) 160/74 H Blood Pressure Mean (mm Hg) 102 Source Monitor Position Semi-Fowlers Blood Pressure Location Left Arm History Since Last Visit- (Skip if this is Patient's initial visit) Have you changed medications since your No last visit? Any new allergies or adverse reactions No Had a fall/change in ADL's that may No increase risk of falls Signs or symptoms of abuse and/or No neglect since last visit Have you been in the hospital since your No last visit? Has dressing in place as prescribed Yes Has compression in place as prescribed Yes Has offloadiing in place as prescribed N/A Experienced any changes in pain level or No management Left Footwear Regular Shoe Right Footwear Regular Shoe Pain Scale: 0-10 Numeric Is Patient Pain Free? Yes - Nurse 1 - General Ulcer Measurement Start: 06/01/24 08:17 Freq: Status: Active Protocol: Activity Type Activity Date Activity User E-sign Co-sign Detail Recorded Client Recorded Date Recorded By Document 06/01/24 08:17 EL [id number] 06/01/24 08:19 RB 06/01/24 08:17 Wound Center Nurse 1 4-left lozano -Combined with other wound No -Current Size (cm) - Length 0 -Current Size (cm) - Width 0 -Current Size (cm) - Depth 0 -Total Square Cm 0 -Photo Taken Yes -Epithelialization Large 67-100% Lower Limb Edema Present Yes Left Calf (cm) 44 Left Ankle (cm) 26.5 - Nurse 2 - General Ulcer CM Notes Start: 06/01/24 08:17 Freq: Status: Active Protocol: Activity Type Activity Date Activity User E-sign Co-sign Detail Recorded Client Recorded Date Recorded By Document 06/01/24 08:39 [email or web address] [id number] 06/01/24 08:39 [email or web address] 06/01/24 08:39 Wound Center Nurse 2 4-left lozano -Correct Patient No -Correct Side, Site, Position No -Correct Procedure No -Procedure Performed No -Post Debridement (cm) - Length 0 -Post Debridement (cm) - Width 0 -Post Debridement (cm) - Depth 0 -Total Square (Post) (cm) 0 -Area of Debridement (cm) - Length 0 -Area of Debridement (cm) - Width 0 -Total Square (Area) (cm) 0 -Wound/Ulcer Outcome Healed- Epithelialized Pain Scale: 0-10 Numeric Is Patient Pain Free? Yes WC - Nurse 3 - General Ulcer D/C NN Start: 06/01/24 08:17 Freq: Status: Active Protocol: Activity Type Activity Date Activity User E-sign Co-sign Detail Recorded Client Recorded Date Recorded By Document 06/01/24 08:52 KW [id number] 06/01/24 08:53 KW 06/01/24 08:52 Wound Care Center Nurse 3 Left -Other circaide Pain Scale: 0-10 Numeric Is Patient Pain Free? Yes WC - Visit Discharge Discharge Condition Stable Ambulatory Status Ambulatory Transportation Private Auto Medication Reconcilliation completed & No provided to patient/care provider Clinical Summary of Care Provided Yes Assessment/Plan Assessment/Plan (1) Non-pressure chronic ulcer of left calf with fat layer exposed: CODE(S): L97.222 - Non-pressure chronic ulcer of left calf with fat layer exposed PLAN: Exam performed. Healed left leg ulcerations. Patient has received CircAid wraps and will use these for compression management in concordance with the lymphedema pumps that he received as well. Patient will perform a compression elevation and exercise for edema management. Patient will follow-up in 1 month or sooner if there are any issues. (2) Venous insufficiency (chronic) (peripheral): CODE(S): I87.2 - Venous insufficiency (chronic) (peripheral)
--- NOTE | 2024-06-02 12:09 | WC ---
PHOTO 06/01/24 LEFT SHEA
== END 2024-06-25 23:59 | disposition home or self-care (01) ==
LOC: WC 08:15
PROVIDERS: PCP Family Medicine; Referring Provider Family Medicine; Visit Provider Podiatrist
DX: I87.2 Venous insufficiency (chronic) (peripheral) (principal); L97.222 Non-pressure chronic ulcer of left calf with fat layer exposed
CPT/HCPCS: 99213; G0463

== ENCOUNTER → 2024-06-16 | Outpatient (CLI) | payer MEDICARE, OTHER, SELFPAY ==
[2024-06-16 15:43] LABS: Bacteria 0 SEEN /hpf (None Seen); Mucous, Urine 0 SEEN /hpf (<or=2+); Squamous Epithelial Cells - UA 0 SEEN /hpf (0-5); White Blood Cells 0 SEEN /hpf (0-5)
[2024-06-16 17:40] LABS: Absolute Lymphocyte Count 2.55 X10^3/uL (0.83-4.51); Absolute Neutrophil Count 3.2 X10^3/uL (2.0-7.7); Basophil# 0.04 X10^3/uL; Basophil% 0.6 % (0-1); Eosinophil# 0.18 X10^3/uL; Eosinophils% 2.7 % (0-5); Hematocrit 43.1 % (40-54); Hemoglobin 13.9 g/dL (13.0-16.5); Lymphocyte # 2.55 X10^3/ul (0.83-4.51); Lymphocyte % 38.8 % (19-41); Mean Corp Hgb Conc 32.3 g/dL (32-36); Mean Corpuscular Hgb 31.3 pg (27.0-32.0); Mean Corpuscular Volume 97.1 fL (80-94); Mean Platelet Vol. 10.1 fl (6.2-12.0); Monocyte# 0.57 X10^3/uL; Monocyte% 8.7 % (0-10); NRBC Flagged by Analyzer 0 % (0-5); Neutrophil # 3.21 X10^3/uL (2.7-7.7); Neutrophil % 48.7 % (47-70); Platelet Count 245 K/mm3 (150-450); RBC Distribution Width CV 13.1 % (11.6-14.6); RBC Distribution Width SD 46.5 fl (35.1-43.9); Red Blood Count 4.44 M/mm3 (4.6-6.2); White Blood Count 6.6 K/mm3 (4.4-11.0)
[2024-06-16 18:17] LABS: ALB/GLOB Ratio 0.9 RATIO (0.9-2.4); AST(SGOT) 23 U/L (15-37); Alanine Aminotransfer ALT/SGPT 34 U/L (16-61); Albumin, Serum 3.5 g/dL (3.2-5.0); Alkaline Phosphatase 49 U/L (45-117); Anion Gap 5 (5-15); BUN 19 mg/dL (7-18); BUN/Creat Ratio 30.9 RATIO (10-20); Calcium,Total 8.9 mg/dL (8.5-10.1); Chloride 108 mmol/L (98-107); Cholesterol 182 mg/dL (200); Creatinine, Serum 0.62 mg/dL (0.70-1.30); EST Glomerular Filtration Rate 139 mL/min (>60); Est Glom Filt Rate - Afr Amer 168 mL/min (>60); Globulin 3.8 g/dL (2.2-4.2); Glucose 96 mg/dL (74-106); High Density Lipoprotein 56 mg/dL; Potassium 3.9 mmol/L (3.5-5.1); Protein, Total 7.3 g/dL (6.4-8.2); Sodium Level 140 mmol/L (136-145); Triglycerides 136 mg/dL; Very Low Density Lipoprotein 27 mg/dL (5-40)
[2024-06-16 18:26] LABS: Color, Urine Yellow (Yellow); Glucose, Dipstick Normal (Normal); Ketone-Dipstick Negative (Negative); Leukocyte Esterase-Dipstick Negative /ul (Negative); Nitrite-Dipstick Negative (Negative); Occult Blood-Urine 25 /ul (Negative); Protein-Dipstick Negative (Negative); Specific Gravity, Urine 1.015 (1.002-1.030); Urine Bilirubin Dipstick Negative (Negative); Urine Clarity Clear (Clear); Urine Urobilinogen Normal (Normal); Urine pH 6.5 (5.0 - 8.0)
[2024-06-16 18:30] LABS: Hemoglobin A1c 6.1 % (3.8-5.6)
[2024-06-16 18:37] LABS: Red Blood Cells-Urine 0-5 SEEN /hpf (0-5)
[2024-06-17 14:40] LABS: Vitamin D,25 Hydroxy 31.2 ng/mL
== END | disposition home or self-care (01) ==
LOC: MFPLAB 15:38
PROVIDERS: PCP Family Medicine; Referring Provider Family Medicine; Visit Provider Family Medicine
DX: I10 Essential (primary) hypertension (principal); R73.02 Impaired glucose tolerance (oral); E55.9 Vitamin D deficiency, unspecified
CPT/HCPCS: 36415; 80053; 80061; 81001; 82306; 83036; 84443; 85025

== ENCOUNTER 2024-06-29 08:16 | Outpatient (RCR) | payer MEDICARE, OTHER, SELFPAY ==
[2024-06-26 01:49] VITALS: BP 160/74; PULSE 58; RESP 18; TEMP 36.8
[2024-06-29 08:17] VITALS: BP 156/79; PULSE 52; RESP 16; TEMP 36.3
--- NOTE | 2024-06-29 09:12 | PN.PCM_ITS ---
History of Present Illness Date of Service: 06/29/24 Chief Complaint: Ulcer on left lozano History of Wound: Patient is wearing compression wraps for the week and when they took him off this last week he had a blister that had developed and opened. Drained clear fluid. And now is just an open wound nonhealing. The elementary school tutor is seeing him for cellulitis and for swelling. Objective Data Objective Data Vital Signs: Vital Signs Temp Pulse Resp BP O2 Del Method 97.4 F L 52 L 16 156/79 H Room Air 06/29/24 08:17 06/29/24 08:17 06/29/24 08:17 06/29/24 08:17 06/29/24 08:17 Oxygen Delivery Method Room Air Physical Exam Narrative Vascular: Diffuse left lower extremity swelling noted +2 pitting edema noted. Dorsalis pedis posterior tibial pulses palpable 2 out of 4 to bilateral lower extremity. Intact digital hair growth noted. Neurologic: Light touch protective sensation intact bilateral lower extremity. Dermatologic: No wounds noted today. Resolved stasis dermatitis left lower extremity. Musculoskeletal: No pain with calf squeeze. Negative Homans' sign. Muscular strength full to bilateral lower extremity compartments. 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 Any new allergies or adverse reactions No Had a fall/change in ADL's that may No increase risk of falls Signs or symptoms of abuse and/or No neglect since last visit Have you been in the hospital since your No last visit? Has dressing in place as prescribed Yes Has compression in place as prescribed Yes Has offloadiing in place as prescribed N/A Experienced any changes in pain level or No management Left Footwear Regular Shoe Right Footwear Regular Shoe Pain Scale: 0-10 Numeric Is Patient Pain Free? Yes WC - Nurse 1 - General Ulcer Measurement Start: 06/29/24 08:16 Freq: Status: Active Protocol: Activity Type Activity Date Activity User E-sign Co-sign Detail Recorded Client Recorded Date Recorded By Document 06/29/24 08:17 KW [id number] 06/29/24 08:33 KW 06/29/24 08:17 Wound Center Nurse 1 Left Calf (cm) 44 Left Ankle (cm) 27.5 WC - Nurse 2 - General Ulcer CM Notes Start: 06/29/24 08:16 Freq: Status: Active Protocol: Activity Type Activity Date Activity User E-sign Co-sign Detail Recorded Client Recorded Date Recorded By Document 06/29/24 09:10 DS [id number] 06/29/24 09:10 DS 06/29/24 09:10 Pain Scale: 0-10 Numeric Is Patient Pain Free? Yes Assessment/Plan Assessment/Plan (1) Non-pressure chronic ulcer of left calf with fat layer exposed: CODE(S): L97.222 - Non-pressure chronic ulcer of left calf with fat layer exposed PLAN: Exam performed. Healed left leg ulcerations. Patient has received CircAid wraps and will use these for compression management in concordance with the lymphedema pumps that he received as well. Patient will perform a compression elevation and exercise for edema management. Patient will follow-up as needed (2) Venous insufficiency (chronic) (peripheral): CODE(S): I87.2 - Venous insufficiency (chronic) (peripheral)
--- NOTE | 2024-06-30 13:58 | WC ---
PHOTO 06/29/24 LEFT LEG
== END 2024-07-26 16:16 | disposition home or self-care (01) ==
LOC: WC 08:16
PROVIDERS: PCP Family Medicine; Referring Provider Family Medicine; Visit Provider Podiatrist
DX: L97.222 Non-pressure chronic ulcer of left calf with fat layer exposed (principal); I87.2 Venous insufficiency (chronic) (peripheral)
CPT/HCPCS: 99213; G0463

== ENCOUNTER 2024-09-14 11:30 | Outpatient (RCR) | payer MEDICARE, OTHER, SELFPAY ==
--- NOTE | 2024-08-31 11:11 | HP.PTEVAL_ITS ---
Patient's Visit Information Visit Information Visit Information: VESTA OLIVAREZ is a 64 year old M referred to Physical Therapy by Dr. Jose Moreno MD with a diagnosis of positional vertigo. Date of Evaluation: 08/31/24 Physical Therapist: HOANG Perkins Visit Plan Frequency: 1-2x /Week Duration: 4 Weeks Plan: 1-2X/ week for 4 weeks for treatment for BPPV (re-test R Hallpike), testing of VOR if needed or Habituation exercises if needed 1. retest R Hallpike. 2. Give BD exercises if needed. 3. Test VOR and treatment if needed Subjective Subjective: Seven years ago he was hunting and coming down from tree stand and limb hit him on the head and he was woken up and everything. Within 6 months after getting hit in the head he would get dizzy. He feels that his off balance in his head, no room spinning. He takes Tylenol and Advil as needed to calm it down. He does the Eply maneuver 3X/ day on his own and that seems to help out. He says that laying down on his R side with L head up and he will get a little dizzy but it does seem to help. He has been dealing with it. Dr Hill said that they patient has some pinching in back of neck and goes up to the front of his head. He can not sleep on his R side because his head feels funny so he sleeps on his L side. He has no pain and no RAMIREZ. He is off balance only when w alking and he has to watch tilting his head back or FW. Objective Objective: + R Hallpike for torsional nystagmus that lasted approx. 45 seconds and treated with R EPLY. On second attempt with R Hallpike...pt was dizzy with nystagmus that was less intense and lasted approx 20 seconds. Went ahead and treated with R Eply again. Tested R Hallpike again and was negative for dizziness and nystagmus. Balance/Special Test Scores Dizziness Score: 12 Goals Goal 1:: I HEP if needed Goal Time Frame: 4-6 Weeks Goal 2:: Test VOR if needed Goal Time Frame: 4-6 Weeks Goal 3:: Abolish dizziness Goal Time Frame: 4-6 Weeks Rehabilitation Potential Rehabilitation Potential: Good Anticipated Interventions Patient/Client Instruction: Educate patient on: Condition and Plan of Care For the Purpose of:: To improve ability to perform ADL's, To increase tolerance to activity/condition/position, To improve performance and independence with ADL's, To increase flexibility/ROM, To improve balance and To improve safety wit h gait Therapeutic Exercise to Include: Strength training, Endurance training, Balance training, Gait and locomotor training, Neuromotor development, Active ROM and Scapular Strength/Stabilization For the Purpose of:: To improve muscle performance and motor function, To improve ability to perform ADL's, To increase tolerance to activity/condition/position, To decrease level of supervision to perform tasks, To improve ability of physical actions for home/community/work/leisure, To improve gait and locomotor functions, To improve balance and To assume or resume ADL's Functional Training to Include: Gait training For the Purpose of:: To improve gait and locomotor functions Manual Therapy Techniques to Include: Other Comment: EPLY For the Purpose of:: To improve gait and locomotor functions Text: Thank you for the opportunity to evaluate your patient. For Medicare and Medicare HMO plans, please review the plan of care and approve it. It will need to be FAXED BACK to us at [phone] for Medicare purposes. For Medicare only, by signing this I certify the plan of care. Please let me know if there are questions or concerns regarding this plan of care. Physician Signature: Date:
== END 2024-09-14 19:00 | disposition home or self-care (01) ==
LOC: PT 11:30
PROVIDERS: PCP Family Medicine; Referring Provider Family Medicine; Visit Provider Family Medicine
DX: H81.10 Benign paroxysmal vertigo, unspecified ear (principal)
CPT/HCPCS: 97161; 97530

== ENCOUNTER → 2024-10-12 | Outpatient (CLI) | payer MEDICARE, OTHER, SELFPAY ==
[2024-10-12 18:39] LABS: PSA,Total - Annual Screen 0.68 ng/mL (0.02-4.00)
== END | disposition home or self-care (01) ==
LOC: MFPLAB 16:07
PROVIDERS: PCP Family Medicine; Referring Provider Family Medicine; Visit Provider Family Medicine
DX: Z12.5 Encounter for screening for malignant neoplasm of prostate (principal)
CPT/HCPCS: 36415; 84153; G0103

== ENCOUNTER → 2024-11-23 | Outpatient (CLI) | payer MEDICARE, OTHER, SELFPAY ==
--- NOTE | 2024-11-23 10:14 | RAD_ITS ---
PROCEDURE: CERV SPINE 2 OR 3 VIEWS 11/23/2024 REASON FOR EXAM: PAIN TECHNIQUE: CERV SPINE 2 OR 3 VIEWS COMPARISON: 06/02/2018 FINDINGS: C5-C6 moderate disc space narrowing, endplate sclerosis, osteophyte formation. Very mild degeneration otherwise. Mild cervicothoracic scoliosis. No acute bone, soft tissue, or lung apical pathology. RAD/Cerv Spine 2 or 3 Views IMPRESSION: Cervical spine scoliosis and degeneration Disclaimer: Reading [facility]
== END | disposition home or self-care (01) ==
LOC: MTRAD 10:14
PROVIDERS: PCP Family Medicine; Referring Provider Family Medicine; Visit Provider Family Medicine
DX: M54.2 Cervicalgia (principal)
CPT/HCPCS: 72040

== ENCOUNTER 2024-12-28 15:30 | Outpatient (RCR) | payer MEDICARE, OTHER, SELFPAY ==
--- NOTE | 2024-12-08 10:41 | HP.PTEVAL_ITS ---
Patient's Visit Information Visit Information Visit Information: VESTA OLIVAREZ is a 64 year old M referred to Physical Therapy by Dr. Jose Moreno MD with a diagnosis of cervical spine DJD. Date of Evaluation: 12/07/24 Physical Therapist: Jordan Salas DPT Visit Plan Frequency: 2x /Week Duration: 4 Weeks Plan: 1) manual sub occipital release 2) cervical retraction progressing from AROM to over pressure. 3) progress to scapular strengthening. Subjective Subjective: Pt. is here today for his initial evaluation with diagnosis of cervical DJD. Pt. did have an xray showing moderate C5-C6 disc degeneration. Pt. reports having a tree limb falling on his head ~6-7 years ago. Pt. reports when the tree limb fell on him it knocked unconscious. Since then he has issues with walking, making him feel dizzy and feels like it is hard to walk a straight line. He has been taking anti inflammatory to reduce pain with some success. Pt. has done chiro without much success. Pt. reports no UE radiculopathy. No numbness noted either. He has had some imaging which was mostly negative. Pt. is hopeful to reduce symptoms in order to get back to all work and recreational activities without limitations. Pain Cervical spine: Pain Intensity (Out of 10): 2 Comment: sub occipital region Objective Objective: POSTURE: Pt. has forward head posture, pt. has difficulty with correcting it. PALPATION: Pt. has tenderness at B sub occipital region. Hypomobility noted throughout cervical spine with spring testing. NEURO: Normal DTR and normal sensation throughout. ROM: CERVICAL SPINE: flexion min loss tightness noted, ext mod loss tightness noted, rotation min loss bilat, SB mod loss bilat. Pt. has normal B shoulder ROM. MMT: Pt. has full strength throughout BUEs. Pt. has 5/5 cervical isometrics. Special Tests C/S Radiculapathy - Left Spurlings: Negative C/S Radiculapathy - Right Spurlings: Negative Cervical Sitting: Protrusion - Mechanical Response: No effect Cervical Sitting: Protrusion - Symptoms During Testing: No effect Cervical Sitting: Protrusion - Symptoms After Testing: No effect Cervical Sitting: Retraction - Mechanical Response: No effect Cervical Sitting: Retraction - Symptoms During Testing: Decreases Cervical Sitting: Retraction - Symptoms After Testing: Better Balance/Special Test Scores Oswestry Neck Score: 10 Goals Goal 1:: LTG: Pt. to be I with HEP. Goal Time Frame: 4-6 Weeks Goal 2:: STG: Pt. to have increased cervical ROM by 25% in all directions. Goal Time Frame: 2-4 Weeks Goal 3:: LTG: Pt. to demonstrate proper posture throughout therapy session. Goal Time Frame: 4-6 Weeks Goal 4:: LTG: Pt. to report no cervical spine pain. Goal Time Frame: 4-6 Weeks Rehabilitation Potential Physical Therapy Diagnosis: Pt. has signs and symptoms consistent with with cervical spine DJD. Pt. has marked cervical hypomobility and muscle tension in his neck. He would benefit from PT to address the above limitations. Rehabilitation Potential: Good Anticipated Interventions Patient/Client Instruction: Educate patient on: Condition, Plan of Care, Risk Factors and Benefits of Fitness Program For the Purpose of:: To improve decision making, To facilitate caregiver knowledge, To improve self management, To prevent re-injury, To improve ability to perform tasks related to life management and To improve tolerance to ADL's Therapeutic Exercise to Include: Strength training, Power training, Endurance training, Postural training, Flexibilty training, Passive ROM, Active ROM and Fbaby Exercises For the Purpose of:: To decrease pain, To decrease swelling/inflammation, To increase ROM, To improve nutrient delivery to tissue, To increase oxygenation perfusion, To improve muscle performance and motor function and To improve ability to perform ADL's Manual Therapy Techniques to Include: Mobilization and Soft tissue mobilization For the Purpose of:: To decrease pain, To decrease swelling/inflammation, To increase ROM and To increase oxygenation perfusion Text: Thank you for the opportunity to evaluate your patient. For Medicare and Medicare HMO plans, please review the plan of care and approve it. It will need to be FAXED BACK to us at [phone] for Medicare purposes. For Medicare only, by signing this I certify the plan of care. Please let me know if there are questions or concerns regarding this plan of care. Physician Signature: Date:
== END 2024-12-28 19:00 | disposition home or self-care (01) ==
LOC: PT 15:30
PROVIDERS: PCP Family Medicine; Referring Provider Family Medicine; Visit Provider Family Medicine
DX: M47.9 Spondylosis, unspecified (principal)
CPT/HCPCS: 97110; 97140; 97161; 97530

== ENCOUNTER → 2025-01-28 | Outpatient (CLI) | payer MEDICARE, OTHER, SELFPAY ==
--- OUTSIDE RECORDS SUMMARY | 2025-01-28 17:01 | XMS RPT_ITS | CCD ---
Author Organization [facility] [place] [facility] Care Team Providers Care Self Contained Behavior Unit Teacher Name Role Phone Dr. Kenneth Barbour Primary Care Provider 1([facility])[phone] Dr. Tavon Gonzalez Attending Provider 1([facility])[phone] Dr. Tavon Gonzalez Referring Provider 1([facility])[phone] Dr. Tavon Gonzalez Other Provider 1([facility])[phone] Kenneth Barbour Primary Care Provider 1([facility])[phone] Dr. Kenneth Barbour Referring Provider 1([facility])[phone] Bryan SUPERVISOR STITCHING DEPARTMENT, SUPERVISOR STITCHING DEPARTMENT-C Jose Adam Attending Provider 1([facility])[phone] Ryder SUPERVISOR STITCHING DEPARTMENT, SUPERVISOR STITCHING DEPARTMENT-C Lou Attending Provider Dr. Jose Moreno Primary Care Provider 1([facility] )[phone] Dr. Jose Moreno Referring Provider 1([facility])[phone] Dr. Boby Hernandez Attending Provider 1([facility])[phone] Ryder BULL, SUPERVISOR STITCHING DEPARTMENT-C Lou Referring Provider Dr. Jose Moreno Primary Care Provider 1([facility] )[phone] Dr. Lior Pak Attending Provider 1([facility])[phone] Yogesh Brown Referring Provider 1([facility])[phone] Dr. Boby Hernandez Attending Provider 1([facility])[phone] Jose Moreno MD Primary Care Provider Dr. Jose Moreno MD Referring Provider 1([facility] )[phone] Dr. Antione Bah DPM Attending Provider 1([facility] )[phone] Kelly Pérez Attending Provider 1([facility])[phone] Antione Bah DPM Referring Provider Josh ASCENCIO, Dr. Jose Amaral Attending Provider [phone] Josh ASCENCIO, Dr. Jose Amaral Primary Care Provider Josh ASCENCIO, Dr. Jose Amaral Referring Provider Olvin SAMS, Dr. Talbot Attending Provider Josh ASCENCIO, Dr. Jose Amaral Attending Provider Josh ASCENCIO, Dr. Jose Amaral Primary Care Provider Josh ASCENCIO, Dr. Jose Amaral Referring Provider Ryder SUPERVISOR STITCHING DEPARTMENT-CLou Attending Provider Jose Moreno Primary Care Unavailable Jose Moreno Referring Unavailable Jose Moreno Attending Unavailable Jose Moreno Referring Unavailable Antione Bah Attending Unavailable Jose Moreno Primary Care Unavailable Jose Moreno Primary Care Unavailable Jose Moreno Referring Unavailable Jose Moreno Attending Unavailable SchJose hernandez Primary Care Unavailable SchJose hernandez Referring Unavailable Antione Bah Attending Unavailable Jose Moreno Primary Care Unavailable Antione Bah Referring Unavailable Kelly Roblero Attending Unavailable SchJose hernandez Primary Care Unavailable SchJose hernandez Referring Unavailable Lou Soler NP Attending Unavailable Jose Moreno Primary Care Unavailable Jose Moreno Referring Unavailable Antione Bah Attending Unavailable Jose Moreno Primary Care Unavailable Jose Moreno Referring Unavailable Antione Bah Attending Unavailable Jose Moreno Primary Care Unavailable SchJose hernandez Referring Unavailable Antione Bah Attending Unavailable Jose Moreno Primary Care Unavailable Jose Moreno Referring Unavailable Antione Bah Attending Unavailable Jose Moreno Referring Unavailable SchJose hernandez Attending Unavailable SchJose hernandez Primary Care Unavailable Antione Bah Attending Unavailable Jose Moreno Referring Unavailable SchJose hernandez Primary Care Unavailable SchJose hernandez Referring Unavailable SchJose hernandez Attending Unavailable SchJose hernandez Primary Care Unavailable SchJose hernandez Primary Care Unavailable Jose Moreno Referring Unavailable Jose Moreno Attending Unavailable Medications Current Medications Medication Drug Class(es) Dates Sig (Normalized) Sig (Original) cyclobenzaprine hydrochloride 10 mg oral tablet (3 sources) Muscle Relaxant Start: 11-25-2024 take 1 tablet by mouth at bedtime as needed Cyclobenzaprine 10 mg tablet Active 10 mg PO BEDTIME as needed November 25, 2024 12:00am pravastatin sodium 40 mg oral tablet (3 sources) HMG-CoA Reductase Inhibitor Start: 11-25-2024 take 1 tablet by mouth at bedtime Pravastatin 40 mg tablet Active 40 mg PO AT BEDTIME November 25, 2024 12:00am Turmeric extract (15 sources) Start: 04-19-2020 take 400 mg by mouth once daily Turmeric Active 400 MG PO DAILY April 19, 2020 12:45pm Start: 04-19-2020 End: 06-06-2022 take 1 capsule by mouth once daily Turmeric 400 mg capsule Discontinued 400 mg PO DAILY April 19, 2020 1:00am June 06, 2022 12:30pm Start: 04-19-2020 End: 06-06-2022 take 400 mg by mouth once daily Turmeric Discontinued 400 MG PO DAILY April 19, 2020 12:00am June 06, 2022 11:30am Start: 04-19-2020 End: 06-06-2022 take 400 mg by mouth once daily Turmeric Discontinued 400 MG PO DAILY April 19, 2020 1:00am June 06, 2022 12:30pm Start: 04-19-2020 take 400 mg by mouth once imtiaz y Turmeric Active 400 MG PO DAILY April 19, 2020 1:00am Completed/Discontinued Medications Medication Drug Class(es) Dates Sig (Normalized) Sig (Original) Antiarthritic Combination No.2 (Glucosamine-Chondro itin) 900 mg tablet (20 sources) Start: 06-06-2022 End: 05-25-2024 take 1 tablet by mouth once daily as needed Antiarthritic Combination No.2 (Glucosamine-Chondr oitin) 900 mg tablet Discontinued 900 mg PO DAILY as needed June 06, 2022 12:30pm May 25, 2024 4:34pm Start: 06-06-2022 take 1 tablet by alexandria once daily Antiarthritic Combination No.2 (Glucosamine-Chondroitin) 900 mg tablet Active 900 MG PO DAILY June 06, 2022 11:30am Start: 06-06-2022 take 1 tablet by alexandria th once daily Antiarthritic Combination No.2 (Glucosamine-Chondroitin) 900 mg tablet Active 900 MG PO DAILY June 06, 2022 12:30pm Start: 04-19-2020 take 1 tablet by alexandria th once daily Antiarthritic Combination No.2 (Glucosamine-Chondroitin) 900 mg tablet Active 900 MG PO DAILY April 19, 2020 12:45pm Start: 04-19-2020 End: 06-06-2022 take 1 tablet by mouth once daily Antiarthritic Combination No.2 (Glucosamine-Chondroitin) 900 mg tablet Discontinued 900 mg PO DAILY April 19, 2020 1:00am June 06, 2022 12:30pm Start: 04-19-2020 End: 06-06-2022 take 1 tablet by mouth once daily Antiarthritic Combination No.2 (Glucosamine-Chondroitin) 900 mg tablet Discontinued 900 MG PO DAILY April 19, 2020 12:00am June 06, 2022 11:30am Start: 04-19-2020 End: 06-06-2022 take 1 tablet by mouth once daily Antiarthritic Combination No.2 (Glucosamine-Chondroitin) 900 mg tablet Discontinued 900 MG PO DAILY April 19, 2020 1:00am June 06, 2022 12:30pm Start: 04-19-2020 take 1 tablet by alexandria th once daily Antiarthritic Combination No.2 (Glucosamine-Chondroitin) 900 mg tablet Active 900 MG PO DAILY April 19, 2020 1:00am aspirin 81 mg delayed release oral tablet (20 sources) Platelet Aggregation Inhibitor, Nonsteroidal Anti-inflammatory Drug Start: 04-19-2020 End: 11-25-2024 take 1 tablet by mouth once daily as needed for pain Aspirin 81 mg tablet,delayed release (DR/EC) Discontinued 81 mg PO DAILY as needed for pain June 06, 2022 12:30pm November 25, 2024 3:23pm diazePAM 2 mg oral tablet (15 sources) Benzodiazepine Start: 2020 End: 04-19-2020 take 1 tablet by mouth three times daily as needed Diazepam 2 mg tablet Discontinued 2 mg PO THREE TIMES A DAY as needed 2020 1:00am April 19, 2020 12:44pm famotidine 20 mg oral tablet (5 sources) Histamine-2 Receptor Antagonist Start: 01-20-2024 End: 05-25-2024 take 1 tablet by mouth once daily Famotidine 20 mg tablet Discontinued 20 mg PO DAILY January 20, 2024 12:00am May 25, 2024 4:34pm fluticasone propionate 0.05 mg/actuat metered dose nasal spray (5 sources) Corticosteroid Start: 01-20-2024 End: 11-25-2024 Fluticasone Propionate 50 mcg/actuation spray,suspension Discontinued 1 NMA INTRANASAL AT BEDTIME January 20, 2024 12:00am November 25, 2024 3:23pm furosemide 40 mg oral tablet (5 sources) Loop Diuretic Start: 01-20-2024 End: 05-25-2024 take 1 tablet by mouth once daily Furosemide 40 mg tablet Discontinued 40 mg PO DAILY January 20, 2024 12:00am May 25, 2024 4:34pm ibuprofen 200 mg oral tablet (15 sources) Nonsteroidal Anti-inflammatory Drug Start: 04-19-2020 End: 05-25-2024 take 1 tablet by mouth every six hours as needed for pain Ibuprofen (Advil) 200 mg tablet Discontinued 200 mg PO EVERY 6 HOURS as needed for pain April 19, 2020 1:00am May 25, 2024 4:34pm triamcinolone acetonide 0.001 mg/mg topical ointment (5 sources) Corticosteroid Start: 05-04-2024 End: 05-25-2024 Triamcinolone Acetonide 0.1 % ointment Discontinued 1 NMA TOPICAL DAILY 80 3 May 04, 2024 1:00am May 25, 2024 4:34pm Problems Active Problems Problem Classification Problem Date Documented Date Episodic/Chronic Chronic ulcer of skin (16 sources) Chronic non-pressure ulcer of calf extending to fat level; Translations: [Non-pressure chronic ulcer of right calf with fat layer exposed] Onset: 09-10-2024 02-10-2024 Chronic Conditions associated with dizziness or vertigo (20 sources) Positional vertigo; Translations: [Postural vertigo] 2020 Episodic Esophageal disorders (15 sources) Gastroesophageal reflux disease; Translations: [Gastro-esophageal reflux disease without esophagitis] 2020 Chronic Essential hypertension (20 sources) Essential hypertension; Translations: [Essential (primary) hypertension] Onset: 06-30-2024 08-13-2021 Chronic Nonspecific chest pain (20 sources) Chest discomfort; Translations: [Other chest pain] 06-06-2022 Episodic Other diseases of veins and lymphatics (7 sources) Lymphedema; Translations: [Lymphedema, not elsewhere classified] 04-06-2024 Chronic Other diseases of veins and lymphatics (11 sources) Peripheral venous insufficiency; Translations: [Venous insufficiency (chronic) (peripheral)] 01-20-2024 Episodic Other injuries and conditions due to external causes (5 sources) Open wound; Translations: [Other injury of unspecified body region, initial encounter] 02-04-2024 Episodic Other nervous system disorders (15 sources) Numbness of upper limb; Translations: [Anesthesia of skin] 08-13-2021 Episodic Other screening for suspected conditions (not mental disorders or infectious disease) (1 source) Encounter for screening for malignant neoplasm of prostate; Translations: [Encounter for screening for malignant neoplasm of prostate] Onset: 10-19-2024 Episodic Spondylosis; intervertebral disc disorders; other back problems (1 source) Cervicalgia; Translations: [Cervicalgia] Onset: 12-01-2024 Episodic Past or Other Problems Problem Classification Problem Date Documented Date Episodic/Chronic Other diseases of veins and lymphatics (1 source) Venous insufficiency (chronic) (peripheral); Translations: [Venous insufficiency (chronic) (peripheral)] Onset: 08-27-2024 Episodic Results Test Name Value Interpretation Reference Range Facility Inital Evaluation (1) - PT 12-08-2024 Inital Evaluation (1) - PT [facility] [place] [address] / REHABILITATION SERVICES INITIAL EVALUATION MR#: [id number] Acct: [id number] Name: VESTA OLIVAREZ Rep #: [id number] : 1960 64 From: Jordan Salas DPT Referring Dr.: Dr. Jose Moreno MD Status: REG RCR Insurance: MEDICARE PART A B [facility] Patient's Visit Information Visit Information Visit Information: VESTA OLIVAREZ is a 64 year old M referred to Physical Therapy by Dr. Jose Moreno MD with a diagnosis of cervical spine DJD. Date of Evaluation: 12/07/24 Physical Therapist: Jordan Salas DPT Visit Plan Frequency: 2x /Week Duration: 4 Weeks Plan: 1) manual sub occipital release 2) cervical retraction progressing from AROM to over pressure. 3) progress to scapular strengthening. Subjective Subjective: Pt. is here today for his initial evaluation with diagnosis of cervical DJD. Pt. did have an xray showing moderate C5-C6 disc degeneration. Pt. reports having a tree limb falling on his head 6-7 years ago. Pt. reports when the tree limb fell on him it knocked unconscious. Since then he has issues with walking, making him feel dizzy and feels like it is hard to walk a straight line. He has been taking anti inflammatory to reduce pain with some success. Pt. has done chiro without much success. Pt. reports no UE radiculopathy. No numbness noted either. He has had some imaging which was mostly negative. Pt. is hopeful to reduce symptoms in order to get back to all work and recreational activities without limitations. Pain Cervical spine: Pain Intensity (Out of 10): 2 Comment: sub occipital region Objective Objective: POSTURE: Pt. has forward head posture, pt. has difficulty with correcting it. PALPATION: Pt. has tenderness at B sub occipital region. Hypomobility noted throughout cervical spine with spring testing. NEURO: Normal DTR and normal sensation throughout. ROM: CERVICAL SPINE: flexion min loss tightness noted, ext mod loss tightness noted, rotation min loss bilat, SB mod loss bilat. Pt. has normal B shoulder ROM. MMT: Pt. has full strength throughout BUEs. Pt. has 5/5 cervical isometrics. Special Tests C/S Radiculapathy - Left Spurlings: Negative C/S Radiculapathy - Right Spurlings: Negative Cervical Sitting: Protrusion - Mechanical Response: No effect Cervical Sitting: Protrusion - Symptoms During Testing: No effect Cervical Sitting: Protrusion - Symptoms After Testing: No effect Cervical Sitting: Retraction - Mechanical Response: No effect Cervical Sitting: Retraction - Symptoms During Testing: Decreases Cervical Sitting: Retraction - Symptoms After Testing: Better Balance/Special Test Scores Oswestry Neck Score: 10 Goals Goal 1:: LTG: Pt. to be I with HEP. Goal Time Frame: 4-6 Weeks Goal 2:: STG: Pt. to have increased cervical ROM by 25% in all directions. Goal Time Frame: 2-4 Weeks Goal 3:: LTG: Pt. to demonstrate proper posture throughout therapy session. Goal Time Frame: 4-6 Weeks Goal 4:: LTG: Pt. to report no cervical spine pain. Goal Time Frame: 4-6 Weeks Rehabilitation Potential Physical Therapy Diagnosis: Pt. has signs and symptoms consistent with with cervical spine DJD. Pt. has marked cervical hypomobility and muscle tension in his neck. He would benefit from PT to address the above limitations. Rehabilitation Potential: Good Anticipated Interventions Patient/Client Instruction: Educate patient on: Condition, Plan of Care, Risk Factors and Benefits of Fitness Program For the Purpose of:: To improve decision making, To facilitate caregiver knowledge, To improve self management, To prevent re-injury, To improve ability to perform tasks related to life management and To improve tolerance to ADL's Therapeutic Exercise to Include: Strength training, Power training, Endurance training, Postural training, Flexibilty training, Passive ROM, Active ROM and Fabby Exercises For the Purpose of:: To decrease pain, To decrease swelling/inflammati on, To increase ROM, To improve nutrient delivery to tissue, To increase oxygenation perfusion, To improve muscle perf ormance and motor function and To improve ability to perform ADL's Manual Therapy Techniques to Include: Mobilization and Soft tissue mobilization For the Purpose of:: To decrease pain, To decrease swelling/inflammati on, To increase ROM and To increase oxygenation perfusion Text: Thank you for the opportunity to evaluate your patient. For Medicare and Medicare HMO plans, please review the plan of care and approve it. It will need to be FAXED BACK to us at [phone] for Medicare purposes. For Medicare only, by signing this I certify the plan of care. Please let me know if there are questions or concerns regarding this plan of care. Physician Signature: (more content not included)... Normal [facility] Cardiology Visit Reporton Cardiology Visit Report [facility] [address] [place] [address] OFFICE VISIT Date of Service: 11/25/24 MR#: [id number] Acct: [id number] Name: VESTA OLIVAREZ Rep #: [id number] : 1960 Provider: TONY null Age/Sex: 64/M [place] [facility] [place] Status: Signed HPI HPI History of Present Illness Details: This is a 64-year-old white male who presents for an outpatient cardiovascular follow-up visit. Patient was last seen in our office in November 2022. He has a history of hypertension. At initial consult visit, he stated several weeks of left-sided chest tightness that did not radiate. This was associated with [id number] "or "pricks" sensations that occur in his left chest and left upper extremity. He completed stress test on 08/24/2021 that was negative for ischemia. From a cardiac standpoint, the patient is doing well. He denies any palpitations, chest pain, pressure or heaviness. He denies SOB, Orthopnea, and PND. He does wear a CPAP nightly. He does not have bleeding issues; no blood in urine, stool, or nosebleeds. He denies any decrease in energy level, myalgias, or claudication. He does not have edema, or sudden weight gain. He does acknowledge occasional vertigo. He denies lightheadedness, dizziness, syncopal or near syncopal episodes, and headaches. Intake Vital Signs 01/20/24 08:26 11/25/24 11:37 Height 5 ft 7 in 5 ft 7 in Weight: 240 lb BMI 37.5 BP 142/79 H Blood Pressure Location Lt brachial Position Sitting Respiration 18 Pulse 57 L Pulse Source Monitor Pulse Oximetry (%) 97 Intake Visit Reasons: OVERDUE 1 Y FU Manager Utilization Required: No Is patient in pain?: No Allergies No Known Allergies Allergy (Verified 11/25/24 15:35) Medications ???Medication ???Instructions ???Recorded ???Confirmed ???Type aspirin 81 mg tablet,delayed 81 mg PO DAILY pain 11/25/2411/25 History release cyclobenzaprine 10 mg tablet 10 mg PO HS PRN 11/25/24 11/25/24 History pravastatin 40 mg tablet 40 mg PO QHS 11/25/24 11/25/24 His tory Ejection fraction %: 75 Have you fallen in the past year?: No PFSH Medical History Basal cell carcinoma of skin GERD (gastroesophageal reflux disease) Positional vertigo Chest pain Surgical History (Updated 11/25/24 @ 15:33 by Lou Soler NP, SUPERVISOR STITCHING DEPARTMENT-C) History of left knee replacement Family History Mother Hypertension Diabetes Father Diabetes Hypertension Social History Smoking Status: Never smoker alcohol intake: never substance use type: does not use caffeine: Yes Type: carbonated beverages and coffee ROS Const Const: Negative for fatigue, weakness, headache(s) or frequent falls Eyes Eyes: Negative for blurry vision ENT ENT: Negative for headache(s), dizziness or Nosebleed/epistaxis Cardio Chest Pain: No Palpitations: No Edema: None Muscle aches with walking: None Resp Respiratory: Negative for SOB with activity, SOB at rest or SOB orthopnea SOB lying down GI GI: Negative nausea, vomiting, heartburn, bright, red blood in stools or black,tarry stools : Negative for hematuria Neuro Neuro: Positive for vertigo; Negative for dizziness, lightheadedness, near syncope, syncope, frequent falls, headache(s), weakness or blurry vision Endo Endo: Negative for fatigue Cardiology Exam Const Appearance: cooperative, healthy appearing, comfortable and no acute distress Nutritional Appearance: well nourished and obese Orientation: alert, awake and oriented x3 Head Head: normal to inspection Ears: hearing grossly normal bilaterally Nose: external nose normal Face and Sinus: face symmetric Eyes General: appearance normal, both eyes and all related structures Eyelids: eyelids normal EOM: EOM intact bilaterally Neck Neck: normal visual inspection and no JVD Carotids: normal carotid upstroke Chest Chest inspection: normal inspection of the chest, symmetric chest movement and normal respiratory effort; Negative cough Auscultation: Bilateral: Clear to Auscultation Cardio Rate: regular rate Rhythm: regular rhythm Heart sounds: S1 normal and S2 normal; Negative rub, gallop or murmur GI GI: normal to inspection and obese Neuro General: patient alert, patient awake, patient oriented x3 and CN's II-XI intact bilaterally Skin Skin: no rashes or lesions noted Extremities Pulses: Normal: Right Posterior Tibial Pulse, Left Posterior Tibial Pulse, Right Radial Pulse and Left Radial Pulse Lower Extremity Edema: Trace: Bilateral Psych Psychological: normal affect Supplemental Info Supplemental Information Trans (more content not included)... Normal [facility] Cerv Spine 2 or 3 Viewson Cerv Spine 2 or 3 Views [facility] [address] [place] [address] Cerv Spine 2 or 3 Views MR#: [id number] Acct: [id number] Name: VESTA OLIVAREZ Rep #: [id number] : 1960 M 64 From: Yao Yu MD PCP: Dr. Jose Moreno MD Status: REG CLI Study: Cerv Spine 2 or 3 Views Date of Exam: 11/23/24 Exam# [id number] Ordering Dr: Jose Moreno MD PROCEDURE: CERV SPINE 2 OR 3 VIEWS 11/23/2024 REASON FOR EXAM: PAIN TECHNIQUE: CERV SPINE 2 OR 3 VIEWS COMPARISON: 06/02/2018 FINDINGS: C5-C6 moderate disc space narrowing, endplate sclerosis, osteophyte formation. Very mild degeneration otherwise. Mild cervicothoracic scoliosis. No acute bone, soft tissue, or lung apical pathology. RAD/Cerv Spine 2 or 3 Views IMPRESSION: Cervical spine scoliosis and degeneration Disclaimer: Reading Location: [place] [address] CC: Dr. Jose Moreno MD Stencil Cutter: Signed Normal [facility] PSA,Total - Annual Screenon 10-12-2024 PSA,TOT SCREEN 0.68 ng/mL Normal 0.02-4.00 [facility] Comment on above: Order Comment: Order Date: 10/12/24 Order Info: [id number] - PSA Result Comment: This test was performed using the [employer] tPSA method. Measured values of a patient??sample can vary depending on the testing procedure used. PSA values determined on patient samples by different testing procedures cannot be used interchangeably. If there is a change in PSA assays while monitoring therapy, sequential testing should be performed to confirm baseline values. Performed By: #### L [id number] #### [facility] [address], [address] Inital Evaluation (1) - PTon 08-31-2024 Inital Evaluation (1) - PT [facility] [address] [place] [address] / REHABILITATION SERVICES INITIAL EVALUATION MR#: [id number] Acct: [id number] Name: VESTA OLIVAREZ Rep #: [id number] : 1960 64 From: Ninfa BOLTON Referring Dr.: Dr. Jose Moreno MD Status: REG RCR Insurance: MEDICARE PART A B [facility] Patient's Visit Information Visit Information Visit Information: VESTA OLIVAREZ is a 64 year old M referred to Physical Therapy by Dr. Jose Moreno MD with a diagnosis of positional vertigo. Date of Evaluation: 08/31/24 Physical Therapist: HOANG Perkins Visit Plan Frequency: 1-2x /Week Duration: 4 Weeks Plan: 1-2X/ week for 4 weeks for treatment for BPPV (re-test R Hallpike), testing of VOR if needed or Habituation exercises if needed 1. retest R Hallpike. 2. Give BD exercises if needed. 3. Test VOR and treatment if needed Subjective Subjective: Seven years ago he was hunting and coming down from tree stand and limb hit him on the head and he was woken up and everything. Within 6 months after getting hit in the head he would get dizzy. He feels that his off balance in his head, no room spinning. He takes Tylenol and Advil as needed to calm it down. He does the Eply maneuver 3X/ day on his own and that seems to help out. He says that laying down on his R side with L head up and he will get a little dizzy but it does seem to help. He has been dealing with it. Dr Hill said that they patient has some pinching in back of neck and goes up to the front of his head. He can not sleep on his R side because his head feels funny so he sleeps on his L side. He has no pain and no RAMIREZ. He is off balance only when walking and he has to watch tilting his head back or FW. Objective Objective: + R Hallpike for torsional nystagmus that lasted approx. 45 seconds and treated with R EPLY. On second attempt with R Hallpike...pt was dizzy with nystagmus that was less intense and lasted approx 20 seconds. Went ahead and treated with R Eply again. Tested R Hallpike again and was negative for dizziness and nystagmus. Balance/Special Test Scores Dizziness Score: 12 Goals Goal 1:: I HEP if needed Goal Time Frame: 4-6 Weeks Goal 2:: Test VOR if needed Goal Time Frame: 4-6 Weeks Goal 3:: Abolish dizziness Goal Time Frame: 4-6 Weeks Rehabilitation Potential Rehabilitation Potential: Good Anticipated Interventions Patient/Client Instruction: Educate patient on: Condition and Plan of Care For the Purpose of:: To improve ability to perform ADL's, To increase tolerance to activity/condition/ position, To improve performance and independence with ADL's, To increase flexibility/ROM, To improve balance and To improve safety with gait Therapeutic Exercise to Include: Strength training, Endurance training, Balance training, Gait and locomotor training, Neuromotor development, Active ROM and Scapular Strength/Stabilizat ion For the Purpose of:: To improve muscle performance and motor function, To improve ability to perform ADL's, To increase tolerance to activity/condition/ position, To decrease level of supervision to perform tasks, To improve ability of physical actions for home/community/work /leisure, To improve gait and locomotor functions, To improve balance and To assume or resume ADL's Functional Training to Include: Gait training For the Purpose of:: To improve gait and locomotor functions Manual Therapy Techniques to Include: Other Comment: EPLY For the Purpose of:: To improve gait and locomotor functions Text: Thank you for the opportunity to evaluate your patient. For Medicare and Medicare HMO plans, please review the plan of care and approve it. It will need to be FAXED BACK to us at [phone] for Medicare purposes. For Medicare only, by signing this I certify the plan of care. Please let me know if there are questions or concerns regarding this plan of care. Physician Signature: __Date: 08/31/24 1111 CC: Dr. Jose Moreno MD Signed Normal [facility] Vitamin D,25 Hydroxyon 06-17 Vitamin D 25-OH 31.2 ng/mL Normal [facility] Comment on above: Order Comment: Order Date: 06/16/24Order Info: [id number] - VITD25 Result Comment: Kristal min D 25(OH) Status Range Deficiency <20 ng/mL (50nmol/L) Insufficiency 20 - 30 ng/mL (50 - 75 nmol/L) Sufficiency 30 - 100 ng/mL (75 - 250 nmol/L) Toxicity >100 ng/mL (>250 nmol/L) Performed By: #### L 501.9985, L500.4050, L100.0100, L500.4100, L501.9520, L506.1000 ####[facility] [address] [place], [address] 66-OL-Uxgpnmw DOrdered By: Jaimie Moreno on 06-16-2024 Vitamin D 25-Hydroxy 31.2 ng/mL [facility] Comment on above: Vitamin D 25(OH) Sta tus Range Deficiency <20 ng/mL (50nmol/L) Insufficiency 20 - 30 ng/mL (50 - 75 nmol/L) Sufficiency 30 - 100 ng/mL (75 - 250 nmol/L) Toxicity >100 ng/mL (>250 nmol/L) Absolute neutrophil countOrd ered By: Jose Moreno on 06-16-2024 Neutrophils (Bld) [#/Vol] 3.2 10*3/uL 2.0-7.7 [facility] Albumin to globulin ratioOrd ered By: Jose Moreno on 06-16-2024 Albumin/Globulin [Mass ratio] 0.9 {ratio} 0.9-2.4 [facility] Basophil percentageOrdered B y: Jose Moreno on 06-16-2024 Basophils/100 WBC (Bld) 0.6 % 0-1 [facility] Bilirubin Test strip Ql (U)O rdered By: Jose Moreno on 06-16-2024 Bilirubin Ql (U) Negative Negative [facility] Bilirubin, totalOrdered By: Jose Moreno on 06-16-2024 Bilirubin [Mass/Vol] 0.80 mg/dL 0.20-1.00 [facility] Comment on above: For patients on eltr ombopag therapy, use of Dimension [place] TBIL is not recommended. Blood urea nitrogen (BUN)/cr eatinine ratioOrdered By: Jose Moreno on 06-16-2024 Urea nitrogen/Creatinine [Mass ratio] 30.9 mg/mg High 10- [facility] CBC W/Diff, Automatedon 05-29 Absolute Lymph 2.55 X10 3/uL Normal 0.83-4.51 [facility] Comment on above: Order Comment: Order Date: 06/16/24 Order Info: [id number] - CBCD Performed By: #### L 501.9985, L500.4050, L100.0100, L500.4100, L501.9520, L506.1000 #### [facility] [address] [place], [address] Absolute Neut 3.2 X10 3/uL Normal 2.0-7.7 [facility] Comment on above: Order Comment: Order Date: 06/16/24 Order Info: [id number] - CBCD Performed By: #### L 501.9985, L500.4050, L100.0100, L500.4100, L501.9520, L506.1000 #### [facility] [address] [place], [address] Basophils/100 WBC (Bld) 0.6 % Normal 0-1 [facility] Comment on above: Order Comment: Order Date: 06/16/24 Order Info: [id number] - CBCD Performed By: #### L 501.9985, L500.4050, L100.0100, L500.4100, L501.9520, L506.1000 #### [facility] [address] [place], [address] Eosinophils/100 WBC (Bld) 2.7 % Normal 0-5 [facility] Comment on above: Order Comment: Order Date: 06/16/24 Order Info: 0184-1 - CBCD Performed By: #### L 501.9985, L500.4050, L100.0100, L500.4100, L501.9520, L506.1000 #### [facility] [address] [place], [address] Erythrocyte distribution width (RBC) [Ratio] 13.1 % Normal 11.6-14.6 [facility] Comment on above: Order Comment: Order Date: 06/16/24 Order Info: 0184-1 - CBCD Performed By: #### L 501.9985, L500.4050, L100.0100, L500.4100, L501.9520, L506.1000 #### [facility] [address] [place], [address] Hematocrit (Bld) [Volume fraction] 43.1 % Normal 40-54 [facility] Comment on above: Order Comment: Order Date: 06/16/24 Order Info: 0184-1 - CBCD Performed By: #### L 501.9985, L500.4050, L100.0100, L500.4100, L501.9520, L506.1000 #### [facility] [address] [place], [address] Hemoglobin (Bld) [Mass/Vol] 13.9 g/dL Normal 13.0-16.5 [facility] Comment on above: Order Comment: Order Date: 06/16/24 Order Info: 0184-1 - CBCD Performed By: #### L 501.9985, L500.4050, L100.0100, L500.4100, L501.9520, L506.1000 #### [facility] [address] [place], [address] IG% 0.500 Normal 0.0-0.9 [facility] Comment on above: Order Comment: Order Date: 06/16/24 Order Info: 0184-1 - CBCD Result Comment: IG% - Immature Granulocytes (promyelocytes, myelocytes and metamyelocytes) > 1% indicates that a LEFT SHIFT is Present. Performed By: #### L 501.9985, L500.4050, L100.0100, L500.4100, L501.9520, L506.1000 #### [facility] [address] [place], [address] Lymphocytes/100 WBC (Bld) 38.8 % Normal 19-41 [facility] Comment on above: Order Comment: Order Date: 06/16/24 Order Info: 0184-1 - CBCD Performed By: #### L 501.9985, L500.4050, L100.0100, L500.4100, L501.9520, L506.1000 #### [facility] [address] [place], [address] MCH (RBC) [Entitic mass] 31.3 pg Normal 27.0-32.0 [facility] Comment on above: Order Comment: Order Date: 06/16/24 Order Info: 0184-1 - CBCD Performed By: #### L 501.9985, L500.4050, L100.0100, L500.4100, L501.9520, L506.1000 #### [facility] [address] [place], [address] MCHC (RBC) [Mass/Vol] 32.3 g/dL Normal 32-36 [facility] Comment on above: Order Comment: Order Date: 06/16/24 Order Info: 0184-1 - CBCD Performed By: #### L 501.9985, L500.4050, L100.0100, L500.4100, L501.9520, L506.1000 #### [facility] [address] [place], [address] MCV (RBC) [Entitic vol] 97.1 fL High 80-94 [facility] Comment on above: Order Comment: Order Date: 06/16/24 Order Info: 0184-1 - CBCD Performed By: #### L 501.9985, L500.4050, L100.0100, L500.4100, L501.9520, L506.1000 #### [facility] [address] [place], [address] Monocytes/100 WBC (Bld) 8.7 % Normal 0-10 [facility] Comment on above: Order Comment: Order Date: 06/16/24 Order Info: 0184- - CBCD Performed By: #### L 501.9985, L500.4050, L100.0100, L500.4100, L501.9520, L506.1000 #### [facility] [address] [place], [address] Neutrophils/100 WBC (Bld) 48.7 % Normal 47-70 [facility] Comment on above: Order Comment: Order Date: 06/16/24 Order Info: 0184- - CBCD Performed By: #### L 501.9985, L500.4050, L100.0100, L500.4100, L501.9520, L506.1000 #### [facility] [address] [place], [address] Nucleated RBC (Bld) [#/Vol] 0 10*3/uL Normal 0-5 [facility] Comment on above: Order Comment: Order Date: 06/16/24 Order Info: 0184-1 - CBCD Performed By: #### L 501.9985, L500.4050, L100.0100, L500.4100, L501.9520, L506.1000 #### [facility] [address] [place], [address] Platelet mean volume (Bld) [Entitic vol] 10.1 fL Normal 6.2-12.0 [facility] Comment on above: Order Comment: Order Date: 06/16/24 Order Info: 0184-1 - CBCD Performed By: #### L 501.9985, L500.4050, L100.0100, L500.4100, L501.9520, L506.1000 #### [facility] [address] [place], [address] Platelets (Bld) [#/Vol] 245 10*3/uL Normal 150-450 [facility] Comment on above: Order Comment: Order Date: 06/16/24 Order Info: 0184- - CBCD Performed By: #### L 501.9985, L500.4050, L100.0100, L500.4100, L501.9520, L506.1000 #### [facility] [address] [place], [address] RBC (Bld) [#/Vol] 4.44 10*6/uL Low 4.6-6.2 [facility] Comment on above: Order Comment: Order Date: 06/16/24 Order Info: 0184-1 - CBCD Performed By: #### L 501.9985, L500.4050, L100.0100, L500.4100, L501.9520, L506.1000 #### [facility] [address] [place], [address] RDW SD 46.5 fl High 35.1-43.9 [facility] Comment on above: Order Comment: Order Date: 06/16/24 Order Info: 0184-1 - CBCD Performed By: #### L 501.9985, L500.4050, L100.0100, L500.4100, L501.9520, L506.1000 #### [facility] [address] [place], [address] WBC (Bld) [#/Vol] 6.6 10*3/uL Normal 4.4-11.0 [facility] Comment on above: Order Comment: Order Date: 06/16/24 Order Info: 0184-1 - CBCD Performed By: #### L 501.9985, L500.4050, L100.0100, L500.4100, L501.9520, L506.1000 #### [facility] [address] [place], [address] Carbon dioxide measurementOr dered By: Jose oMreno on 06-16-2024 CO2 [Moles/Vol] 27.0 mmol/L 21.0-32.0 [facility] Chloride measurementOrdered By: Jose Moreno on 06-16-2024 Chloride [Moles/Vol] 108 mmol/L High 98-107 [facility] Comprehensive Metabolic Prof ilon 06-16-2024 Albumin [Mass/Vol] 3.5 g/dL Normal 3.2-5.0 [facility] Comment on above: Order Comment: Order Date: 06/16/24 Order Info: [id number] - CMP Order Info: [id number] - LIPID Order Info: [id number] - TSH Performed By: #### L 501.9985, L500.4050, L100.0100, L500.4100, L501.9520, L506.1000 #### [facility] [address] [place], [address] Albumin/Globulin [Mass ratio] 0.9 {ratio} Normal 0.9-2.4 [facility] Comment on above: Order Comment: Order Date: 06/16/24 Order Info: [id number] - CMP Order Info: [id number] - LIPID Order Info: [id number] - TSH Performed By: #### L 501.9985, L500.4050, L100.0100, L500.4100, L501.9520, L506.1000 #### [facility] [address] [place], [address] ALK P 49 U/L Normal 45-117 [facility] Comment on above: Order Comment: Order Date: 06/16/24 Order Info: [id number] - CMP Order Info: - LIPID Order Info: [id number] - TSH Performed By: #### L 501.9985, L500.4050, L100.0100, L500.4100, L501.9520, L506.1000 #### [facility] [address] [place], [address] ALT [Catalytic activity/Vol] 34 U/L Normal 16-61 [facility] Comment on above: Order Comment: Order Date: 06/16/24 Order Info: 86- - CMP Order Info: - LIPID Order Info: [id number] - TSH Performed By: #### L 501.9985, L500.4050, L100.0100, L500.4100, L501.9520, L506.1000 #### [facility] [address] [place], [address] AST [Catalytic activity/Vol] 23 U/L Normal 15-37 [facility] Comment on above: Order Comment: Order Date: 06/16/24 Order Info: 86 - CMP Order Info: - LIPID Order Info: [id number] - TSH Performed By: #### L 501.9985, L500.4050, L100.0100, L500.4100, L501.9520, L506.1000 #### [facility] [address] [place], [address] Bilirubin [Mass/Vol] 0.80 mg/dL Normal 0.20-1.00 [facility] Comment on above: Order Comment: Order Date: 06/16/24 Order Info: 0786 - CMP Order Info: [id number] - LIPID Order Info: [id number] - TSH Result Comment: For patients on eltrombopag therapy, use of Dimension [place] TBIL is not recommended. Performed By: #### L 501.9985, L500.4050, L100.0100, L500.4100, L501.9520, L506.1000 #### [facility] [address] [place], [address] BUN/CRE 30.9 RATIO High 10-20 [facility] Comment on above: Order Comment: Order Date: 06/16/24 Order Info: [id number] - CMP Order Info: - LIPID Order Info: [id number] - TSH Performed By: #### L 501.9985, L500.4050, L100.0100, L500.4100, L501.9520, L506.1000 #### [facility] [address] [place], [address] CA,Total 8.9 mg/dL Normal 8.5-10.1 [facility] Comment on above: Order Comment: Order Date: 06/16/24 Order Info: 785-1 - CMP Order Info: - LIPID Order Info: [id number] - TSH Performed By: #### L 501.9985, L500.4050, L100.0100, L500.4100, L501.9520, L506.1000 #### [facility] [address] [place], [address] Chloride [Moles/Vol] 108 mmol/L High 98-107 [facility] Comment on above: Order Comment: Order Date: 06/16/24 Order Info: 0786 - CMP Order Info: [id number] - LIPID Order Info: [id number] - TSH Performed By: #### L 501.9985, L500.4050, L100.0100, L500.4100, L501.9520, L506.1000 #### [facility] [address] [place], [address] CO2 [Moles/Vol] 27.0 mmol/L Normal 21.0-32.0 [facility] Comment on above: Order Comment: Order Date: 06/16/24 Order Info: [id number] - CMP Order Info: [id number] - LIPID Order Info: [id number] - TSH Performed By: #### L 501.9985, L500.4050, L100.0100, L500.4100, L501.9520, L506.1000 #### [facility] [address] [place], [address] Creatinine [Mass/Vol] 0.62 mg/dL Low 0.70-1.30 [facility] Comment on above: Order Comment: Order Date: 06/16/24 Order Info: 0786-1 - CMP Order Info: [id number] - LIPID Order Info: [id number] - TSH Result Comment: The validity of the calculated GFR GFRAA in patients over 70 years has not been determined. Clinical correlation is essential. Performed By: #### L 501.9985, L500.4050, L100.0100, L500.4100, L501.9520, L506.1000 #### [facility] [address] [place], [address] EST GFR - AA 168 mL/min Normal >60 [facility] Comment on above: Order Comment: Order Date: 06/16/24 Order Info: 0786 - CMP Order Info: [id number] - LIPID Order Info: [id number] - TSH Result Comment: Afri can [place] GFR Calc Performed By: #### L 501.9985, L500.4050, L100.0100, L500.4100, L501.9520, L506.1000 #### [facility] [address] [place], [address] GAP 5 Normal 5-15 [facility] Comment on above: Order Comment: Order Date: 06/16/24 Order Info: 0786-1 - CMP Order Info: [id number] - LIPID Order Info: [id number] - TSH Performed By: #### L 501.9985, L500.4050, L100.0100, L500.4100, L501.9520, L506.1000 #### [facility] [address] [place], [address] GFR/1.73 sq M.predicted among non-blacks MDRD (S/P/Bld) [Vol rate/Area] 139 mL/min/{1.73_m2} Normal >60 [facility] Comment on above: Order Comment: Order Date: 06/16/24 Order Info: 785- - CMP Order Info: - LIPID Order Info: [id number] - TSH Result Comment: Non- GFR Calc Performed By: #### L 501.9985, L500.4050, L100.0100, L500.4100, L501.9520, L506.1000 #### [facility] [address] [place], [address] Globulin (S) [Mass/Vol] 3.8 g/dL Normal 2.2-4.2 [facility] Comment on above: Order Comment: Order Date: 06/16/24 Order Info: [id number] - CMP Order Info: - LIPID Order Info: [id number] - TSH Performed By: #### L 501.9985, L500.4050, L100.0100, L500.4100, L501.9520, L506.1000 #### [facility] [address] [place], [address] Glucose [Mass/Vol] 96 mg/dL Normal 74-106 [facility] Comment on above: Order Comment: Order Date: 06/16/24 Order Info: [id number] - CMP Order Info: - LIPID Order Info: [id number] - TSH Performed By: #### L 501.9985, L500.4050, L100.0100, L500.4100, L501.9520, L506.1000 #### [facility] [address] [place], [address] Potassium [Moles/Vol] 3.9 mmol/L Normal 3.5-5.1 [facility] Comment on above: Order Comment: Order Date: 06/16/24 Order Info: 785-04 - CMP Order Info: - LIPID Order Info: [id number] - TSH Performed By: #### L 501.9985, L500.4050, L100.0100, L500.4100, L501.9520, L506.1000 #### [facility] [address] [place], [address] Sodium [Moles/Vol] 140 mmol/L Normal 136-145 [facility] Comment on above: Order Comment: Order Date: 06/16/24 Order Info: 0786-1 - CMP Order Info: [id number] - LIPID Order Info: [id number] - TSH Performed By: #### L 501.9985, L500.4050, L100.0100, L500.4100, L501.9520, L506.1000 #### [facility] [address] [place], [address] T PROT 7.3 g/dL Normal 6.4-8.2 [facility] Comment on above: Order Comment: Order Date: 06/16/24 Order Info: 0786- - CMP Order Info: [id number] - LIPID Order Info: 3 - TSH Performed By: #### L 501.9985, L500.4050, L100.0100, L500.4100, L501.9520, L506.1000 #### [facility] [address] [place], [address] Urea nitrogen [Mass/Vol] 19 mg/dL High 7-18 [facility] Comment on above: Order Comment: Order Date: 06/16/24 Order Info: 0786-1 - CMP Order Info: [id number] - LIPID Order Info: 6-3 - TSH Performed By: #### L 501.9985, L500.4050, L100.0100, L500.4100, L501.9520, L506.1000 #### [facility] [address] [place], [address] Eosinophil percentageOrdered By: Jose Moreno on 06-16-2024 Eosinophils/100 WBC (Bld) 2.7 % 0-5 [facility] Epithelial cells.squamous LM Ql (Urine sed)Ordered By: Jose Moreno on 06-16-2024 Epithelial cells.squamous LM.HPF (Urine sed) [#/Area] 0 /[HPF] 0-5 [facility] Erythrocyte distribution wid th ratioOrdered By: Jose Moreno on 06-16-2024 Erythrocyte distribution width (RBC) [Ratio] 13.1 % 11.6-14.6 [facility] Erythrocyte distribution wid th standard deviationOrdered By: Jose Moreno on 06-16-2024 Erythrocyte distribution width (RBC) [Entitic vol] 46.5 fL High 35.1-43.9 [facility] Estimated glomerular filtrat ion rate (GFR) AmericanOrdered By: Jose Moreno on 06-16-2024 Estimated GFR (MDRD) Amer 168 mL/min >60 [facility] Comment on above: GFR Calc Glomerular filtration rate ( GFR) estimationOrdered By: Jose Moreno on 06-16-2024 Estimated GFR (MDRD) Non-Af Amer 139 mL/min >60 [facility] Comment on above: Non- GFR Calc Glucose Ql (U)Ordered By: Cassie Moreno on 06-16-2024 Urine Glucose (UA) Normal mg/dl Normal [facility] Glucose measurementOrdered B y: Jose Moreno on 06-16-2024 Glucose [Mass/Vol] 96 mg/dL 74-106 [facility] Hematocrit Auto (Bld) [Volum e fraction]Ordered By: Jose Moreno on 06-16-2024 Hematocrit (Bld) [Volume fraction] 43.1 % 40-54 [facility] Hemoglobin A1con 06-16-2024 HbA1c (Bld) [Mass fraction] 6.1 % High 3.8-5.6 [facility] Comment on above: Order Comment: Order Date: 06/16/24Order Info: [id number] - A1C Result Comment: Norm al < 5.7 % Prediabetic 5.7 - 6.4 % Diabetic >or= 6.5 % Please note range changes. Performed By: #### L 501.9985, L500.4050, L100.0100, L500.4100, L501.9520, L506.1000 ####[facility] [address] [place], [address] Hemoglobin A1c percentageOrd ered By: Jose Moreno on 06-16-2024 HbA1c (Bld) [Mass fraction] 6.1 % High 3.8-5.6 [facility] Comment on above: Normal < 5.7 % Predi abetic 5.7 - 6.4 % Diabetic >or= 6.5 % Please note range changes. Hemoglobin measurementOrdere d By: Jose Moreno on 06-16-2024 Hemoglobin (Bld) [Mass/Vol] 13.9 g/dL 13.0-16.5 [facility] High density lipoprotein (HD L) measurementOrdered By: Jose Moreno on 06-16-2024 Cholesterol in HDL [Mass/Vol] 56 mg/dL >40 [facility] Comment on above: The drugs N-Acetylcy steine and Metamizole may falsely depress this assay. Reference Range HDL <40 mg/dL Low HDL Cholesterol HDL >or= 60 mg/dL High HDL Cholesterol Immature granulocytes/100 WB C Auto (Bld)Ordered By: Jose Moreno on 06-16-2024 Immature granulocytes/100 WBC (Bld) 0.500 % 0.0-0.9 [facility] Comment on above: IG% - Immature Granu locytes (promyelocytes, myelocytes and metamyelocytes) > 1% indicates that a LEFT SHIFT is Present. Ketones Test strip Ql (U)Ord ered By: Jose Moreno on 06-16-2024 Ketones Ql (U) Negative Negative [facility] - Chemistry and C hemistry - challengeOrdered By: Jose Moreno on 06-16-2024 AST [Catalytic activity/Vol] 23 U/L 15-37 [facility] Lipid Profileon 06-16-2024 Cholesterol [Mass/Vol] 182 mg/dL Normal 200 [facility] Comment on above: Order Comment: Order Date: 06/16/24 Order Info: [id number] - CMP Order Info: [id number] - LIPID Order Info: [id number] - TSH Result Comment: <200 mg/dL Desirable 200-240 mg/dL Borderline >240 mg/dL High Risk Performed By: #### L 501.9985, L500.4050, L100.0100, L500.4100, L501.9520, L506.1000 #### [facility] [address] [place], [address] Cholesterol in HDL [Mass/Vol] 56 mg/dL Normal [facility] Comment on above: Order Comment: Order Date: 06/16/24 Order Info: 0786- - CMP Order Info: [id number] - LIPID Order Info: 3 - TSH Result Comment: The drugs N-Acetylcysteine and Metamizole may falsely depress this assay. Reference Range HDL <40 mg/dL Low HDL Cholesterol HDL >or= 60 mg/dL High HDL Cholesterol Performed By: #### L 501.9985, L500.4050, L100.0100, L500.4100, L501.9520, L506.1000 #### [facility] [address] [place], [address] Cholesterol in LDL [Mass/Vol] 99 mg/dL Normal 0-130 [facility] Comment on above: Order Comment: Order Date: 06/16/24 Order Info: 0786- - CMP Order Info: [id number] - LIPID Order Info: [id number] - TSH Performed By: #### L 501.9985, L500.4050, L100.0100, L500.4100, L501.9520, L506.1000 #### [facility] [address] [place], [address] Cholesterol in VLDL [Mass/Vol] 27 mg/dL Normal 5-40 [facility] Comment on above: Order Comment: Order Date: 06/16/24 Order Info: 0786- - CMP Order Info: [id number] - LIPID Order Info: [id number] - TSH Performed By: #### L 501.9985, L500.4050, L100.0100, L500.4100, L501.9520, L506.1000 #### [facility] [address] [place], [place], [address] Triglyceride [Mass/Vol] 136 mg/dL Normal [facility] Comment on above: Order Comment: Order Date: 06/16/24 Order Info: [id number] - CMP Order Info: [id number] - LIPID Order Info: [id number] - TSH Result Comment: The drugs N-Acetylcysteine and Metamizole may falsely depress this assay. Serum Triglycerides Reference Interval Normal <150 mg/dL Borderline high 150 - 199 mg/dL High 200 - 499 mg/dL Very High > or = 500 mg/dL Performed By: #### L 501.9985, L500.4050, L100.0100, L500.4100, L501.9520, L506.1000 #### [facility] [address] [place], [address] Low density lipoprotein (LDL ) cholesterol measurementOrdered By: Jose Moreno on 06-16-2024 Cholesterol in LDL [Mass/Vol] 99 mg/dL 0-130 [facility] Lymphocytes Auto (Unsp spec) [#/Vol]Ordered By: Jose Moreno on 06-16-2024 Lymphocytes (Bld) [#/Vol] 2.55 10*3/uL 0.83-4.5 1 [facility] Lymphocytes/100 WBC Auto (Un sp spec)Ordered By: Jose Moreno on 06-16-2024 Lymphocytes/100 WBC (Bld) 38.8 % 19-41 [facility] MCV (mean corpuscular volume ) determinationOrdered By: Jose Moreno on 06-16-2024 MCV (RBC) [Entitic vol] 97.1 fL High 80-94 [facility] Mean corpuscular hemoglobin (MCH) determinationOrdered By: Jose Moreno on 06-16-2024 MCH (RBC) [Entitic mass] 31.3 pg 27.0-32.0 [facility] Mean corpuscular hemoglobin concentration (MCHC) determinationOrdered By: Jose Moreno on 06-16-2024 MCHC (RBC) [Mass/Vol] 32.3 g/dL 32-36 [facility] Mean platelet volume determi nationOrdered By: Jose Moreno on 06-16-2024 Platelet mean volume (Bld) [Entitic vol] 10.1 fL 6.2-12.0 [facility] Microscopic analysis of urin e for red blood cells (RBC)Ordered By: Jose Moreno on 06-16-2024 Urine RBC 0-5 SEEN /hpf 0-5 [facility] Monocyte percentageOrdered B y: Jose Moreno on 06-16-2024 Monocytes/100 WBC (Bld) 8.7 % 0-10 [facility] Mucus LM Ql (Urine sed)Order ed By: Jose Moreno on 06-16-2024 Mucus Ql (Urine sed) 0 SEEN /hpf [facility] Neutrophil percentageOrdered By: Jose Moreno on 06-16-2024 Neutrophils/100 WBC (Bld) 48.7 % 47-70 [facility] Nitrite Test strip Ql (U)Ord ered By: Jose Moreno on 06-16-2024 Nitrite Ql (U) Negative Negative [facility] Nucleated red blood cell per centageOrdered By: Jose Moreno on 06-16-2024 Nucleated RBC/100 WBC (Bld) [Ratio] 0 % 0-5 [facility] Platelet countOrdered By: Cassie Moreno on 06-16-2024 Platelets (Bld) [#/Vol] 245 10*3/uL 150-450 [facility] Potassium measurementOrdered By: Jose Moreno on 06-16-2024 Potassium [Moles/Vol] 3.9 mmol/L 3.5-5.1 [facility] Protein Test strip Ql (U)Ord ered By: Jose Moreno on 06-16-2024 Protein Ql (U) Negative Negative [facility] RBC Auto (Bld) [#/Vol]Ordere d By: Jose Moreno on 06-16-2024 RBC (Bld) [#/Vol] 4.44 10*6/uL Low 4.6-6.2 [facility] Serum anion gap measurementO rdered By: Jose Moreno on 06-16-2024 Anion gap [Moles/Vol] 5 mmol/L 5-15 [facility] Serum globulin measurementOr dered By: Jose Moreno on 06-16-2024 Globulin (S) [Mass/Vol] 3.8 g/dL 2.2-4.2 [facility] Serum or plasma alanine morelos otransferase (ALT) measurementOrdered By: Jose Moreno on 06-16-2024 ALT [Catalytic activity/Vol] 34 U/L 16-61 [facility] Serum or plasma albumin alexis urement (mass/volume)Ordered By: Jose Moreno on 06-16-2024 Albumin [Mass/Vol] 3.5 g/dL 3.2-5.0 [facility] Serum or plasma alkaline yin sphatase measurementOrdered By: Jose Moreno on 06-16-2024 ALP [Catalytic activity/Vol] 49 U/L 45-117 [facility] Serum or plasma calcium alexis urement (mass/volume)Ordered By: Jose Moreno on 06-16-2024 Calcium [Mass/Vol] 8.9 mg/dL 8.5-10.1 [facility] Serum or plasma cholesterol measurement (mass/volume)Ordered By: Jose Moreno on 06-16-2024 Cholesterol [Mass/Vol] 182 mg/dL <200 [facility] Comment on above: <200 mg/dL Desirable 200-240 mg/dL Borderline >240 mg/dL High Risk Serum or plasma creatinine m easurement (mass/volume)Ordered By: Jose Moreno on 06-16-2024 Creatinine [Mass/Vol] 0.62 mg/dL Low 0.70-1.30 [facility] Comment on above: The validity of the calculated GFR & GFRAA in patients over 70 years has not been determined. Clinical correlation is essential. Serum or plasma urea nitroge n measurement (mass/volume)Ordered By: Jose Moreno on 06-16-2024 Urea nitrogen [Mass/Vol] 19 mg/dL High 7-18 [facility] Sodium levelOrdered By: Jose Moreno on 06-16-2024 Sodium [Moles/Vol] 140 mmol/L 136-145 [facility] TSH QnOrdered By: Jose anderson on 06-16-2024 Thyroid Stimulating Hormone (TSH) 1.740 uIU/mL 0.358-3.740 [facility] Thyroid Stim Hormone (TSH)on 06-16-2024 TSH 1.740 uIU/mL Normal 0.358-3.740 [facility] Comment on above: Order Comment: Order Date: 06/16/24 Order Info: [id number] - CMP Order Info: [id number] - LIPID Order Info: [id number] - TSH Performed By: #### L 501.9985, L500.4050, L100.0100, L500.4100, L501.9520, L506.1000 #### [facility] [address] [place], [address] Total proteinOrdered By: Jaden Moreno on 06-16-2024 Protein [Mass/Vol] 7.3 g/dL 6.4-8.2 [facility] Triglycerides measurementOrd ered By: Jose Moreno on 06-16-2024 Triglyceride [Mass/Vol] 136 mg/dL <199 [facility] Comment on above: The drugs N-Acetylcy steine and Metamizole may falsely depress this assay.Serum Triglycerides Reference Interval Normal <150 mg/dL Borderline high 150 - 199 mg/dL High 200 - 499 mg/dL Very High > or = 500 mg/dL Urinalysis, Completeon 06-16 RBC 0-5 SEEN Normal 0-5 [facility] Comment on above: Order Comment: CLEAN CATCH Performed By: #### L [id number] #### [facility] [address] [place], [address] BACTERIA 0 SEEN Normal None Seen [facility] Comment on above: Order Comment: CLEAN CATCH Performed By: #### L [id number] #### [facility] [address] [place], [address] EPI,SQUAMOUS 0 SEEN Normal 0-5 [facility] Comment on above: Order Comment: CLEAN CATCH Performed By: #### L [id number] #### [facility] [address] [place], [address] Mucus Ql (Urine sed) 0 SEEN Normal [facility] Comment on above: Order Comment: CLEAN CATCH Performed By: #### L [id number] #### [facility] [address] [place], [place], [address] WBC 0 SEEN Normal 0-5 [facility] Comment on above: Order Comment: CLEAN CATCH Performed By: #### L [id number] #### [facility] [address] [place], [place], [address] Urine blood detectionOrdered By: Jose Moreno on 06-16-2024 Urine Occult Blood 25 /ul High Negative [facility] Urine clarityOrdered By: Jaden Moreno on 06-16-2024 Clarity (U) Clear Clear [facility] Urine color determinationOrd ered By: Jose Moreno on 06-16-2024 Color (U) Yellow Yellow [facility] Urine leukocyte esterase det ection by dipstickOrdered By: Jose Moreno on 06-16-2024 Leukocyte esterase Test strip Ql (U) Negative Negative [facility] Urine pHOrdered By: Jose hernandez on 06-16-2024 pH (U) 6.5 [pH] 5.0 - 8.0 [facility] Urine sediment bacteria coun t by microscopy (number/high power field)Ordered By: Jose Moreno on 06-16-2024 Bacteria LM.HPF (Urine sed) [#/Area] 0 /[HPF] None Seen [facility] Urine specific gravity measu rementOrdered By: Jose Moreno on 06-16-2024 Specific gravity (U) [Rel density] 1.015 1.002-1.030 [facility] Urobilinogen Ql (U)Ordered B y: Jose Moreno on 06-16-2024 Urine Urobilinogen Normal mg/dl Normal [facility] Very low density lipoprotein (VLDL) cholesterol measurementOrdered By: Jose Moreno on 06-16-2024 VLDL Cholesterol 27 mg/dL 5-40 [facility] White blood cell (WBC) count Ordered By: Jose Moreno on 06-16-2024 WBC (Bld) [#/Vol] 6.6 10*3/uL 4.4-11.0 [facility] White blood cell countOrdere d By: Jose Moreno on 06-16-2024 Urine WBC 0 SEEN /hpf 0-5 [facility] MR/BMS.BVSon 05-25-2024 MR/BMS.BVS [facility] [address] [place] [address] OFFICE VISIT Date of Service: 05/25/24 MR#: [id number] Acct: [id number] Name: VESTA OLIVAREZ Rep #: [id number] : 1960 Provider: ANGELA Gonzalez Age/Sex: 64/M [place] [facility] Status: Signed Intake Vital Signs 01/20/24 08:26 05/25/24 15:39 Height 5 ft 7 in Weight: 246 lb BP 166/86 H Blood Pressure Location Lt brachial Position Sitting Respiration 16 Pulse 55 L Pulse Source Monitor Temp 97.5 F L Temp Source Temporal Pulse Oximetry (%) 96 Oxygen Delivery Method room air Intake Visit Reasons: VENOUS INSUFFICIENCY Is patient in pain?: No Allergies No Known Allergies Allergy (Verified 05/25/24 15:41) Medications ???Medication ???Instructions ???Recorded ???Confirmed ???Type aspirin 81 mg tablet,delayed 81 mg PO DAILY PRN pain 06/06/22 05/25/24 History release fluticasone propionate 50 1 spray intranasal QHS 01/20/24 05/25/24 History mcg/actuation nasal spray,suspension Have you fallen in the past year?: No PFSH Medical History Basal cell carcinoma of skin GERD (gastroesophageal reflux disease) Positional vertigo Chest pain Family History Mother Hypertension Diabetes Father Diabetes Hypertension Social History Smoking Status: Never smoker alcohol intake: never substance use type: does not use caffeine: Yes Type: carbonated beverages and coffee HPI HPI HPI: VESTA OLIVAREZ, is a 64 M who presents to the office today for evaluation of BLE edema as referred from the wound center. He has had some degress of BLE edema for years typically L worse than right, but had never really been bothersome. In June 2023 he had L TKR and subsequently saw a significant increase in his LLE edema which has been more bothersome, difficult to manage, and has not improved much. He had some superficial ulcerations which improved/healed with local care and compression. He does not have painful varicosities. He had a venous duplex which was negative for DVT but did not assess for reflux. He denies history of VTE but there is a strong family history of venous disease/lymphedema. He sees the greatest benefit when he is being treated with the 3M wraps at [facility]. When he previously tried to transition from these to standard compression stockings this did not adequately manage his swelling. Now, [facility] has ordered circaids which he received and will start using at his next appointment there. They also ordered lymphedema pumps which he has not yet received. ROS General General: No weight change, appetite, fatigue, colon cancer, breast cancer or weakness HEENT HEENT: No difficulty swallowing, eye injury, eye surgery, swollen glands or hoarseness Endo Endocrine: No thyroid disease, diabetes mellitus, thyroid cancer, Hair loss, heat intolerance or cold intolerance Skin Skin: No rash or changing moles Musc Musculoskeletal: No back problems, arthritis, rheumatoid arthritis, gout or joint pain Cardio Cardiovascular: No murmur, pacemaker, heart disease, atrial fibrillation, high blood pressure, heart attack, heart stent, palpitations, shortness of breat with exertion or chest pain Psych Psychiatric: No depression, anxiety or hearing voices Resp Respiratory: No shortness of breath, Yes sleep apnea, No cough, No COPD, No asthma, No emphysema and No wheezing Gastro Gastrointestinal: No abdominal pain, No nausea or vomiting, No diarrhea, No constipation, No blood in stool, No acid reflux, No hemorrhoids, No ulcers, No gallbladder problem and No black,tarry stools [place] Hematologic: No blood thinners, No blood disorders, No bleeding, No anemia and No blood clots Neuro Neurologic: No system reviewed and no additional complaints, except as documented, No as per HPI, No abnormal gait, No abnormal hearing, No abnormal movements, No abnormal speech, No behavioral changes, No burning sensations, No confusion, No convulsions, No disequilibrium, No dizziness, No localized weakness, No frequent falls, No headache(s), No lack of coordination, No loss of vision, No memory loss, No numbness, No other visual disturbances, No radicular pain, No restless legs, No sensory deficit, No syncope, No tingling, No tremor(s), No weakness and No other Exam Const General: cooperative, comfortable and no acute distress Orientation: alert, awake and oriented x3 HENMT Head: normal to inspection, normocephalic and atraumatic Ears: hearing grossly normal bilaterally and external ears normal Nose: external nose normal Eyes General: appearance normal, both eyes an (more content not included)... Normal [facility] Absolute lymphocyte countOrd ered By: Jose Moreno on 06-30-2023 Lymphocytes Auto (Unsp spec) [#/Vol] 2.11 10*3/uL 0.83-4.51 [facility] Automated lymphocyte count a s percentage of total leukocytesOrdered By: Jose Moreno on 06-30-2023 Lymphocytes/100 WBC Auto (Unsp spec) 35.8 % 19-41 [facility] Basophil percentageOrdered B y: Jose Moreno on 06-30-2023 Basophils/100 WBC (Bld) 0.5 % 0-1 [facility] Bilirubin [Mass/Vol] 1.40 mg/dL 0.20-1.00 [facility] Comment on above: For patients on eltr ombopag therapy, use of Dimension [place] TBIL is not recommended. Chloride [Moles/Vol] 110 mmol/L 98-107 [facility] Cholesterol [Mass/Vol] 204 mg/dL <200 [facility] Comment on above: <200 mg/dL Desirable 200-240 mg/dL Borderline >240 mg/dL High Risk Eosinophils/100 WBC (Bld) 1.7 % 0-5 [facility] Glucose [Mass/Vol] 107 mg/dL 74-106 [facility] Comment on above: Fasting Glucose resu lt from 100 to 125 mg/dL suggests IMPAIRED HOMEOSTASIS per A.D.A. criteria. Hemoglobin (Bld) [Mass/Vol] 15.4 g/dL 13.0-16.5 [facility] Monocytes/100 WBC (Bld) 7.8 % 0-10 [facility] Neutrophils (Bld) [#/Vol] 3.1 10*3/uL 2.0-7.7 [facility] Neutrophils/100 WBC (Bld) 53.4 % 47-70 [facility] Potassium [Moles/Vol] 4.3 mmol/L 3.5-5.1 [facility] Protein [Mass/Vol] 6.9 g/dL 6.4-8.2 [facility] Sodium [Moles/Vol] 141 mmol/L 136-145 [facility] Triglyceride [Mass/Vol] 109 mg/dL <199 [facility] Comment on above: The drugs N-Acetylcy steine and Metamizole may falsely depress this assay.Serum Triglycerides Reference Interval Normal <150 mg/dL Borderline high 150 - 199 mg/dL High 200 - 499 mg/dL Very High > or = 500 mg/dL WBC (Bld) [#/Vol] 5.9 10*3/uL 4.4-11.0 [facility] Determination of erythrocyte mean corpuscular volume (MCV)Ordered By: Jose Moreno on 06-30-2023 MCV (RBC) [Entitic vol] 96.1 fL 80-94 [facility] Erythrocyte distribution wid th ratioOrdered By: Jose Moreno on 06-30-2023 Erythrocyte distribution width (RBC) [Ratio] 12.8 % 11.6-14.6 [facility] Erythrocyte distribution wid th standard deviationOrdered By: Jose Moreno on 06-30-2023 Erythrocyte distribution width (RBC) [Entitic vol] 45.1 fL 35.1-43.9 [facility] Hematocrit Auto (Bld) [Volum e fraction]Ordered By: Jose Moreno on 06-30-2023 Hematocrit (Bld) [Volume fraction] 46.6 % 40-54 [facility] Immature granulocytes/100 WB C Auto (Bld)Ordered By: Jose Moreno on 06-30-2023 Immature granulocytes/100 WBC (Bld) 0.800 % 0.0-0.9 [facility] Comment on above: IG% - Immature Granu locytes (promyelocytes, myelocytes and metamyelocytes) > 1% indicates that a LEFT SHIFT is Present. Laboratory - Chemistry and C hemistry - challengeOrdered By: Jose Moreno on 06-30-2023 Albumin/Globulin [Mass ratio] 1.0 {ratio} 0.9-2.4 [facility] ALP [Catalytic activity/Vol] 50 U/L 45-117 [facility] ALT [Catalytic activity/Vol] 44 U/L 16-61 [facility] Cholesterol in HDL [Mass/Vol] 63 mg/dL >40 [facility] Comment on above: The drugs N-Acetylcy steine and Metamizole may falsely depress this assay. Reference Range HDL <40 mg/dL Low HDL Cholesterol HDL >or= 60 mg/dL High HDL Cholesterol Cholesterol in LDL [Mass/Vol] 119 mg/dL 0-130 [facility] CO2 [Moles/Vol] 26.0 mmol/L 21.0-32.0 [facility] Globulin (S) [Mass/Vol] 3.5 g/dL 2.2-4.2 [facility] Urea nitrogen/Creatinine [Mass ratio] 23.0 mg/mg 10-20 [facility] - Hematology and Cell countsOrdered By: Jose Moreno on 06-30-2023 MCH (RBC) [Entitic mass] 31.8 pg 27.0-32.0 [facility] MCHC (RBC) [Mass/Vol] 33.0 g/dL 32-36 [facility] Nucleated RBC/100 WBC (Bld) [Ratio] 0 % 0-5 [facility] Platelet mean volume (Bld) [Entitic vol] 9.2 fL 6.2-12.0 [facility] Platelets (Bld) [#/Vol] 207 10*3/uL 150-450 [facility] No Panel InformationOrdered By: Jose Moreno on 06-30-2023 Estimated GFR (MDRD) Amer 146 mL/min >60 [facility] Comment on above: GFR Calc Estimated GFR (MDRD) Non-Af Amer 121 mL/min >60 [facility] Comment on above: Non- GFR Calc Vitamin D 25-Hydroxy 30.4 ng/mL [facility] Comment on above: Vitamin D 25(OH) Sta tus Range Deficiency <20 ng/mL (50nmol/L) Insufficiency 20 - 30 ng/mL (50 - 75 nmol/L) Sufficiency 30 - 100 ng/mL (75 - 250 nmol/L) Toxicity >100 ng/mL (>250 nmol/L) VLDL Cholesterol 22 mg/dL 5-40 [facility] RBC Auto (Bld) [#/Vol]Ordere d By: Jose Moreno on 06-30-2023 RBC (Bld) [#/Vol] 4.85 10*6/uL 4.6-6.2 [facility] Serum or plasma calcium alexis urement (mass/volume)Ordered By: Jose Moreno on 06-30-2023 Calcium [Mass/Vol] 9.0 mg/dL 8.5-10.1 [facility] Serum or plasma creatinine m easurement (mass/volume)Ordered By: Jose Moreno on 06-30-2023 Creatinine [Mass/Vol] 0.70 mg/dL 0.70-1.30 [facility] Comment on above: The validity of the calculated GFR & GFRAA in patients over 70 years has not been determined. Clinical correlation is essential. Serum or plasma urea nitroge n measurement (mass/volume)Ordered By: Jose Moreno on 06-30-2023 Urea nitrogen [Mass/Vol] 16 mg/dL 7-18 [facility] Thin prep Papanicolaou smear with manual screeningOrdered By: Jose Moreno on 06-30-2023 Thin prep Papanicolaou smear with manual screening 3.4 g/dL 3.2-5.0 [facility] Thin prep Papanicolaou smear with manual screening 27 U/L 15-37 [facility] Thin prep Papanicolaou smear with manual screening 5 5-15 [facility] Whole blood hemoglobin A1c/t otal hemoglobin ratio (mass fraction)Ordered By: Jose Moreno on 06-30-2023 HbA1c (Bld) [Mass fraction] 6.1 % 3.8-5.6 [facility] Comment on above: Normal < 5.7 % Predi abetic 5.7 - 6.4 % Diabetic >or= 6.5 % Please note range changes. Absolute lymphocyte countOrd ered By: Jose Moreno on 05-20-2023 Lymphocytes Auto (Unsp spec) [#/Vol] 2.40 10*3/uL 0.83-4.51 [facility] Automated lymphocyte count a s percentage of total leukocytesOrdered By: Jose Moreno on 05-20-2023 Lymphocytes/100 WBC Auto (Unsp spec) 33.9 % 19-41 [facility] Basophil percentageOrdered B y: Jose Moreno on 05-20-2023 Basophils/100 WBC (Bld) 0.4 % 0-1 [facility] Bilirubin [Mass/Vol] 1.20 mg/dL 0.20-1.00 [facility] Comment on above: For patients on eltr ombopag therapy, use of Dimension [place] TBIL is not recommended. Chloride [Moles/Vol] 106 mmol/L 98-107 [facility] Cholesterol [Mass/Vol] 188 mg/dL <200 [facility] Comment on above: <200 mg/dL Desirable 200-240 mg/dL Borderline >240 mg/dL High Risk Eosinophils/100 WBC (Bld) 1.7 % 0-5 [facility] Glucose [Mass/Vol] 96 mg/dL 74-106 [facility] Hemoglobin (Bld) [Mass/Vol] 15.0 g/dL 13.0-16.5 [facility] Monocytes/100 WBC (Bld) 6.6 % 0-10 [facility] Neutrophils (Bld) [#/Vol] 4.0 10*3/uL 2.0-7.7 [facility] Neutrophils/100 WBC (Bld) 56.8 % 47-70 [facility] Potassium [Moles/Vol] 3.9 mmol/L 3.5-5.1 [facility] Protein [Mass/Vol] 6.8 g/dL 6.4-8.2 [facility] Sodium [Moles/Vol] 138 mmol/L 136-145 [facility] Triglyceride [Mass/Vol] 98 mg/dL <199 [facility] Comment on above: The drugs N-Acetylcy steine and Metamizole may falsely depress this assay.Serum Triglycerides Reference Interval Normal <150 mg/dL Borderline high 150 - 199 mg/dL High 200 - 499 mg/dL Very High > or = 500 mg/dL WBC (Bld) [#/Vol] 7.1 10*3/uL 4.4-11.0 [facility] Determination of erythrocyte mean corpuscular volume (MCV)Ordered By: Jose Moreno on 05-20-2023 MCV (RBC) [Entitic vol] 96.0 fL 80-94 [facility] Erythrocyte distribution wid th ratioOrdered By: Jose Moreno on 05-20-2023 Erythrocyte distribution width (RBC) [Ratio] 12.3 % 11.6-14.6 [facility] Erythrocyte distribution wid th standard deviationOrdered By: Jose Moreno on 05-20-2023 Erythrocyte distribution width (RBC) [Entitic vol] 44.0 fL 35.1-43.9 [facility] Hematocrit Auto (Bld) [Volum e fraction]Ordered By: Jose Moreno on 05-20-2023 Hematocrit (Bld) [Volume fraction] 46.0 % 40-54 [facility] High density lipoprotein (HD L) measurementOrdered By: Jose Moreno on 05-20-2023 Cholesterol in HDL (Body fld) [Mass/Vol] 60 mg/dL >40 [facility] Comment on above: The drugs N-Acetylcy steine and Metamizole may falsely depress this assay. Reference Range HDL <40 mg/dL Low HDL Cholesterol HDL >or= 60 mg/dL High HDL Cholesterol Immature granulocytes/100 WB C Auto (Bld)Ordered By: oJse Moreno on 05-20-2023 Immature granulocytes/100 WBC (Bld) 0.600 % 0.0-0.9 [facility] Comment on above: IG% - Immature Granu locytes (promyelocytes, myelocytes and metamyelocytes) > 1% indicates that a LEFT SHIFT is Present. Laboratory - Chemistry and C hemistry - challengeOrdered By: Jose Moreno on 05-20-2023 Albumin/Globulin [Mass ratio] 1.1 {ratio} 0.9-2.4 [facility] ALP [Catalytic activity/Vol] 51 U/L 45-117 [facility] ALT [Catalytic activity/Vol] 44 U/L 16-61 [facility] CO2 [Moles/Vol] 27.0 mmol/L 21.0-32.0 [facility] Globulin (S) [Mass/Vol] 3.2 g/dL 2.2-4.2 [facility] Urea nitrogen/Creatinine [Mass ratio] 20.3 mg/mg 10-20 [facility] - Hematology and Cell countsOrdered By: Jose Moreno on 05-20-2023 MCH (RBC) [Entitic mass] 31.3 pg 27.0-32.0 [facility] MCHC (RBC) [Mass/Vol] 32.6 g/dL 32-36 [facility] Nucleated RBC/100 WBC (Bld) [Ratio] 0 % 0-5 [facility] Platelets (Bld) [#/Vol] 230 10*3/uL 150-450 [facility] Low density lipoprotein (LDL ) cholesterol measurementOrdered By: Jose Moreno on 05-20-2023 Cholesterol in LDL (Body fld) [Moles/Vol] 108 mg/dL 0-130 [facility] No Panel InformationOrdered By: Jose Moreno on 05-20-2023 Estimated GFR (MDRD) Amer 148 mL/min >60 [facility] Comment on above: GFR Calc Estimated GFR (MDRD) Non-Af Amer 123 mL/min >60 [facility] Comment on above: Non- GFR Calc Platelet mean volume Alexis-Ec ker (Bld) [Entitic vol]Ordered By: Jose Moreno on 05-20-2023 Platelet mean volume (Bld) [Entitic vol] 9.9 fL 6.2-12.0 [facility] RBC Auto (Bld) [#/Vol]Ordere d By: Jose Moreno on 05-20-2023 RBC (Bld) [#/Vol] 4.79 10*6/uL 4.6-6.2 [facility] Serum or plasma calcium alexis urement (mass/volume)Ordered By: Jose Moreno on 05-20-2023 Calcium [Mass/Vol] 8.6 mg/dL 8.5-10.1 [facility] Serum or plasma creatinine m easurement (mass/volume)Ordered By: Jsoe Moreno on 05-20-2023 Creatinine [Mass/Vol] 0.69 mg/dL 0.70-1.30 [facility] Comment on above: The validity of the calculated GFR & GFRAA in patients over 70 years has not been determined. Clinical correlation is essential. Serum or plasma urea nitroge n measurement (mass/volume)Ordered By: Jose Moreno on 05-20-2023 Urea nitrogen [Mass/Vol] 14 mg/dL 7-18 [facility] Thin prep Papanicolaou smear with manual screeningOrdered By: Jose Moreno on 05-20-2023 Thin prep Papanicolaou smear with manual screening 3.6 g/dL 3.2-5.0 [facility] Thin prep Papanicolaou smear with manual screening 31 U/L 15-37 [facility] Thin prep Papanicolaou smear with manual screening 5 5-15 [facility] Very low density lipoprotein (VLDL) cholesterol measurementOrdered By: Jose Moreno on 05-20-2023 Cholesterol in VLDL Calc [Moles/Vol] 20 mg/dL 5-40 [facility] Whole blood hemoglobin A1c/t otal hemoglobin ratio (mass fraction)Ordered By: Jose Moreno on 05-20-2023 HbA1c (Bld) [Mass fraction] 6.0 % 3.8-5.6 [facility] Comment on above: Normal < 5.7 % Predi abetic 5.7 - 6.4 % Diabetic >or= 6.5 % Please note range changes. Absolute lymphocyte countOrd ered By: Jose Moreno on 01-07-2023 Lymphocytes Auto (Unsp spec) [#/Vol] 2.61 10*3/uL 0.83-4.51 [facility] Basophil percentageOrdered B y: Jose Moreno on 01-07-2023 Basophils/100 WBC (Bld) 0.4 % 0-1 [facility] Bilirubin [Mass/Vol] 0.90 mg/dL 0.20-1.00 [facility] Comment on above: For patients on eltr ombopag therapy, use of Dimension [place] TBIL is not recommended. Chloride [Moles/Vol] 109 mmol/L 98-107 [facility] Eosinophils/100 WBC (Bld) 1.9 % 0-5 [facility] Glucose [Mass/Vol] 91 mg/dL 74-106 [facility] Neutrophils (Bld) [#/Vol] 3.4 10*3/uL 2.0-7.7 [facility] Neutrophils/100 WBC (Bld) 50.7 % 47-70 [facility] Potassium [Moles/Vol] 3.9 mmol/L 3.5-5.1 [facility] Protein [Mass/Vol] 6.9 g/dL 6.4-8.2 [facility] Sodium [Moles/Vol] 141 mmol/L 136-145 [facility] WBC (Bld) [#/Vol] 6.8 10*3/uL 4.4-11.0 [facility] Blood erythrocytes count (nu mber/volume)Ordered By: Jose Moreno on 01-07-2023 RBC (Bld) [#/Vol] 4.47 10*6/uL 4.6-6.2 [facility] Blood hemoglobin measurement (mass/volume)Ordered By: Jose Moreno on 01-07-2023 Hemoglobin (Bld) [Mass/Vol] 14.4 g/dL 13.0-16.5 [facility] Blood lymphocytes/100 leukoc ytesOrdered By: Jose Moreno on 01-07-2023 Lymphocytes/100 WBC (Bld) 38.7 % 19-41 [facility] Blood monocytes/100 leukocyt esOrdered By: Jose Moreno on 01-07-2023 Monocytes/100 WBC (Bld) 7.9 % 0-10 [facility] Blood platelet mean volumeOr dered By: Jose Moreno on 01-07-2023 Platelet mean volume (Bld) [Entitic vol] 9.9 fL 6.2-12.0 [facility] Determination of erythrocyte mean corpuscular volume (MCV)Ordered By: Jose Moreno on 01-07-2023 MCV (RBC) [Entitic vol] 98.2 fL 80-94 [facility] Hematocrit Auto (Bld) [Volum e fraction]Ordered By: Jose Moreno on 01-07-2023 Hematocrit (Bld) [Volume fraction] 43.9 % 40-54 [facility] Laboratory - Chemistry and C hemistry - challengeOrdered By: Jose Moreno on 01-07-2023 ALP [Catalytic activity/Vol] 48 U/L 45-117 [facility] ALT [Catalytic activity/Vol] 44 U/L 16-61 [facility] CO2 [Moles/Vol] 28.0 mmol/L 21.0-32.0 [facility] Globulin (S) [Mass/Vol] 3.3 g/dL 2.2-4.2 [facility] Urea nitrogen/Creatinine [Mass ratio] 28.4 mg/mg 10-20 [facility] Laboratory - Hematology and Cell countsOrdered By: Jose Moreno on 01-07-2023 Erythrocyte distribution width (RBC) [Entitic vol] 46.1 fL 35.1-43.9 [facility] Erythrocyte distribution width (RBC) [Ratio] 12.8 % 11.6-14.6 [facility] Immature granulocytes/100 WBC (Bld) 0.400 % 0.0-0.9 [facility] Comment on above: IG% - Immature Granu locytes (promyelocytes, myelocytes and metamyelocytes) > 1% indicates that a LEFT SHIFT is Present. MCH (RBC) [Entitic mass] 32.2 pg 27.0-32.0 [facility] Nucleated RBC/100 WBC (Bld) [Ratio] 0 % 0-5 [facility] MCHC Auto (RBC) [Mass/Vol]Or dered By: Jose Moreno on 01-07-2023 MCHC (RBC) [Mass/Vol] 32.8 g/dL 32-36 [facility] No Panel InformationOrdered By: Jose Moreno on 01-07-2023 Estimated GFR (MDRD) Amer 164 mL/min >60 [facility] Comment on above: GFR Calc Estimated GFR (MDRD) Non-Af Amer 135 mL/min >60 [facility] Comment on above: Non- GFR Calc Thyroid Stimulating Hormone (TSH) 1.41 uIU/mL 0.358-3.74 [facility] Platelets bldOrdered By: Jaden Moreno on 01-07-2023 Platelets (Bld) [#/Vol] 228 10*3/uL 150-450 [facility] Serum or plasma albumin alexis urement (mass/volume)Ordered By: Jose Moreno on 01-07-2023 Albumin [Mass/Vol] 3.6 g/dL 3.2-5.0 [facility] Serum or plasma albumin/glob ulin mass ratioOrdered By: Jose Moreno on 01-07-2023 Albumin/Globulin [Mass ratio] 1.1 {ratio} 0.9-2.4 [facility] Serum or plasma calcium alexis urement (mass/volume)Ordered By: Jose Moreno on 01-07-2023 Calcium [Mass/Vol] 8.4 mg/dL 8.5-10.1 [facility] Serum or plasma creatinine m easurement (mass/volume)Ordered By: Jose Moreno on 01-07-2023 Creatinine [Mass/Vol] 0.63 mg/dL 0.70-1.30 [facility] Comment on above: The validity of the calculated GFR & GFRAA in patients over 70 years has not been determined. Clinical correlation is essential. Serum or plasma urea nitroge n measurement (mass/volume)Ordered By: Jose Moreno on 01-07-2023 Urea nitrogen [Mass/Vol] 18 mg/dL 7-18 [facility] Thin prep Papanicolaou smear with manual screeningOrdered By: Jose Moreno on 01-07-2023 Thin prep Papanicolaou smear with manual screening 26 U/L 15-37 [facility] Thin prep Papanicolaou smear with manual screening 4 5-15 [facility] Whole blood hemoglobin A1c/t otal hemoglobin ratio (mass fraction)Ordered By: Jose Moreno on 01-07-2023 HbA1c (Bld) [Mass fraction] 6.0 % 3.8-5.6 [facility] Comment on above: Normal < 5.7 % Predi abetic 5.7 - 6.4 % Diabetic >or= 6.5 % Please note range changes. Absolute lymphocyte countOrd ered By: Dr. Moreno on 08-21-2022 Lymphocytes Auto (Unsp spec) [#/Vol] 3.34 10*3/uL 0.83-4.51 [facility] Basophil percentageOrdered B y: Dr. Moreno on 08-21-2022 Basophil percentage 0 SEEN /hpf 0-5 [facility] Basophils/100 WBC (Bld) 0.5 % 0-1 [facility] Bilirubin [Mass/Vol] 1.00 mg/dL 0.20-1.00 [facility] Comment on above: For patients on eltr ombopag therapy, use of Dimension [place] TBIL is not recommended. Chloride [Moles/Vol] 104 mmol/L 98-107 [facility] Cholesterol [Mass/Vol] 200 mg/dL <200 [facility] Comment on above: <200 mg/dL Desirable 200-240 mg/dL Borderline >240 mg/dL High Risk Eosinophils/100 WBC (Bld) 2.2 % 0-5 [facility] Glucose [Mass/Vol] 92 mg/dL 74-106 [facility] Neutrophils (Bld) [#/Vol] 4.8 10*3/uL 2.0-7.7 [facility] Neutrophils/100 WBC (Bld) 52.1 % 47-70 [facility] Potassium [Moles/Vol] 4.3 mmol/L 3.5-5.1 [facility] Protein [Mass/Vol] 7.1 g/dL 6.4-8.2 [facility] Sodium [Moles/Vol] 134 mmol/L 136-145 [facility] Triglyceride [Mass/Vol] 170 mg/dL <199 [facility] Comment on above: The drugs N-Acetylcy steine and Metamizole may falsely depress this assay.Serum Triglycerides Reference Interval Normal <150 mg/dL Borderline high 150 - 199 mg/dL High 200 - 499 mg/dL Very High > or = 500 mg/dL WBC (Bld) [#/Vol] 9.2 10*3/uL 4.4-11.0 [facility] Bilirubin Test strip Ql (U)O rdered By: Dr. Moreno on 08-21-2022 Bilirubin Ql (U) Negative Negative [facility] Blood erythrocytes count (nu mber/volume)Ordered By: Dr. Moreno on 08-21-2022 RBC (Bld) [#/Vol] 4.90 10*6/uL 4.6-6.2 [facility] Blood hemoglobin measurement (mass/volume)Ordered By: Dr. Moreno on 08-21-2022 Hemoglobin (Bld) [Mass/Vol] 15.7 g/dL 13.0-16.5 [facility] Blood lymphocytes/100 leukoc ytesOrdered By: Dr. Moreno on 08-21-2022 Lymphocytes/100 WBC (Bld) 36.5 % 19-41 [facility] Blood monocytes/100 leukocyt esOrdered By: Dr. Moreno on 08-21-2022 Monocytes/100 WBC (Bld) 7.3 % 0-10 [facility] Blood platelet mean volumeOr dered By: Dr. Moreno on 08-21-2022 Platelet mean volume (Bld) [Entitic vol] 9.7 fL 6.2-12.0 [facility] Determination of erythrocyte mean corpuscular volume (MCV)Ordered By: Dr. Moreno on 08-21-2022 MCV (RBC) [Entitic vol] 96.3 fL 80-94 [facility] Hematocrit Auto (Bld) [Volum e fraction]Ordered By: Dr. Moreno on 08-21-2022 Hematocrit (Bld) [Volume fraction] 47.2 % 40-54 [facility] Ketones Test strip Ql (U)Ord ered By: Dr. Moreno on 08-21-2022 Ketones Ql (U) Negative Negative [facility] Laboratory - Chemistry and C hemistry - challengeOrdered By: Dr. Moreno on 08-21-2022 ALP [Catalytic activity/Vol] 53 U/L 45-117 [facility] ALT [Catalytic activity/Vol] 44 U/L 16-61 [facility] CO2 [Moles/Vol] 25.0 mmol/L 21.0-32.0 [facility] Cobalamin (Vitamin B12) [Mass/Vol] 260 pg/mL 211-911 [facility] Free T4 [Mass/Vol] 0.98 ng/dL 0.76-1.46 [facility] Globulin (S) [Mass/Vol] 3.5 g/dL 2.2-4.2 [facility] Urea nitrogen/Creatinine [Mass ratio] 26.5 mg/mg 10-20 [facility] Laboratory - Hematology and Cell countsOrdered By: Dr. Moreno on 08-21-2022 Erythrocyte distribution width (RBC) [Entitic vol] 45.1 fL 35.1-43.9 [facility] Erythrocyte distribution width (RBC) [Ratio] 12.7 % 11.6-14.6 [facility] Immature granulocytes/100 WBC (Bld) 1.400 % 0.0-0.9 [facility] Comment on above: IG% - Immature Granu locytes (promyelocytes, myelocytes and metamyelocytes) > 1% indicates that a LEFT SHIFT is Present. MCH (RBC) [Entitic mass] 32.0 pg 27.0-32.0 [facility] Nucleated RBC/100 WBC (Bld) [Ratio] 0 % 0-5 [facility] MCHC Auto (RBC) [Mass/Vol]Or dered By: Dr. Moreno on 08-21-2022 MCHC (RBC) [Mass/Vol] 33.3 g/dL 32-36 [facility] Mucus LM Ql (Urine sed)Order ed By: Dr. Moreno on 08-21-2022 Mucus Ql (Urine sed) 0 SEEN /hpf [facility] Nitrite Test strip Ql (U)Ord ered By: Dr. Moreno on 08-21-2022 Nitrite Ql (U) Negative Negative [facility] No Panel InformationOrdered By: Dr. Moreno on 08-21-2022 Estimated GFR (MDRD) Amer 151 mL/min >60 [facility] Comment on above: GFR Calc Estimated GFR (MDRD) Non-Af Amer 125 mL/min >60 [facility] Comment on above: Non- GFR Calc Thyroid Stimulating Hormone (TSH) 1.92 uIU/mL 0.358-3.74 [facility] Vitamin D 25-Hydroxy 25.6 ng/mL [facility] Comment on above: Vitamin D 25(OH) Sta tus Range Deficiency <20 ng/mL (50nmol/L) Insufficiency 20 - 30 ng/mL (50 - 75 nmol/L) Sufficiency 30 - 100 ng/mL (75 - 250 nmol/L) Toxicity >100 ng/mL (>250 nmol/L) Platelets bldOrdered By: Dr. Moreno on 08-21-2022 Platelets (Bld) [#/Vol] 243 10*3/uL 150-450 [facility] Protein Test strip Ql (U)Ord ered By: Dr. Moreno on 08-21-2022 Protein Ql (U) Negative Negative [facility] Serum or plasma albumin alexis urement (mass/volume)Ordered By: Dr. Moreno on 08-21-2022 Albumin [Mass/Vol] 3.6 g/dL 3.2-5.0 [facility] Serum or plasma albumin/glob ulin mass ratioOrdered By: Dr. Moreno on 08-21-2022 Albumin/Globulin [Mass ratio] 1.0 {ratio} 0.9-2.4 [facility] Serum or plasma calcium alexis urement (mass/volume)Ordered By: Dr. Moreno on 08-21-2022 Calcium [Mass/Vol] 9.1 mg/dL 8.5-10.1 [facility] Serum or plasma cholesterol in HDL measurement (mass/volume)Ordered By: Dr. Moreno on 08-21-2022 Cholesterol in HDL [Mass/Vol] 55 mg/dL >40 [facility] Comment on above: The drugs N-Acetylcy steine and Metamizole may falsely depress this assay. Reference Range HDL <40 mg/dL Low HDL Cholesterol HDL >or= 60 mg/dL High HDL Cholesterol Serum or plasma cholesterol in VLDL measurement (mass/volume)Ordered By: Dr. Moreno on 08-21-2022 Cholesterol in VLDL [Mass/Vol] 34 mg/dL 5-40 [facility] Serum or plasma creatinine m easurement (mass/volume)Ordered By: Dr. Moreno on 08-21-2022 Creatinine [Mass/Vol] 0.68 mg/dL 0.70-1.30 [facility] Comment on above: The validity of the calculated GFR & GFRAA in patients over 70 years has not been determined. Clinical correlation is essential. Serum or plasma low density lipoprotein (LDL) cholesterol measurement (mass/volume)Ordered By: Dr. Moreno on 08-21-2022 Cholesterol in LDL [Mass/Vol] 111 mg/dL 0-130 [facility] Serum or plasma urea nitroge n measurement (mass/volume)Ordered By: Dr. Moreno on 08-21-2022 Urea nitrogen [Mass/Vol] 18 mg/dL 7-18 [facility] Squamous epithelial cells de tection in urine sediment by light microscopyOrdered By: Dr. Moreno on 08-21-2022 Epithelial cells.squamous LM Ql (Urine sed) 0-5 SEEN /hpf 0-5 [facility] Thin prep Papanicolaou smear with manual screeningOrdered By: Dr. Moreno on 08-21-2022 Thin prep Papanicolaou smear with manual screening 24 U/L 15-37 [facility] Thin prep Papanicolaou smear with manual screening 5 5-15 [facility] Urine blood detectionOrdered By: Dr. Moreno on 08-21-2022 RBC Ql (U) 10 /ul Negative [facility] RBC Ql (U) 0-5 SEEN /hpf 0-5 [facility] Urine clarityOrdered By: Dr. Moreno on 08-21-2022 Clarity (U) Clear Clear [facility] Urine color determinationOrd ered By: Dr. Moreno on 08-21-2022 Color (U) Yellow Yellow [facility] Urine glucose detectionOrder ed By: Dr. Moreno on 08-21-2022 Glucose Ql (U) Normal mg/dl Normal [facility] Urine leukocyte esterase det ection by dipstickOrdered By: Dr. Moreno on 08-21-2022 Leukocyte esterase Test strip Ql (U) Negative Negative [facility] Urine pHOrdered By: Dr. Andrea lao on 08-21-2022 pH (U) 6.5 [pH] 5.0 - 8.0 [facility] Urine sediment bacteria coun t by microscopy (number/high power field)Ordered By: Dr. Moreno on 08-21-2022 Bacteria LM.HPF (Urine sed) [#/Area] 0 /[HPF] None Seen [facility] Urine specific gravity measu rementOrdered By: Dr. Moreno on 08-21-2022 Specific gravity (U) [Rel density] 1.015 1.002-1.030 [facility] Urobilinogen Auto test strip Ql (U)Ordered By: Dr. Moreno on 08-21-2022 Urobilinogen Ql (U) Normal mg/dl Normal [facility] Basophil percentageOrdered B y: Dr. Stark on 07-12-2022 Creatinine [Mass/Vol] 0.9 mg/dL 0.70-1.30 [facility] No Panel InformationOrdered By: Dr. Stark on 07-12-2022 Bedside Estimated GFR (eGFR) > 60.0000 mL/min >60 [facility] Absolute lymphocyte counton 11-09-2021 Lymphocytes Auto (Unsp spec) [#/Vol] 2.87 10*3/uL 0.83-4.51 [facility] Work Phone: Basophil percentageon 2021 Basophils/100 WBC (Bld) 0.8 % 0-1 [facility] Work Phone: Bilirubin [Mass/Vol] 0.80 mg/dL 0.20-1.00 [facility] Work Phone: Comment on above: For patients on eltr ombopag therapy, use of Dim[place] TBIL is not recommended. Chloride [Moles/Vol] 106 mmol/L 98-107 [facility] Work Phone: Cholesterol [Mass/Vol] 181 mg/dL <200 [facility] Work Phone: Comment on above: <200 mg/dL Desirable 200-240 mg/dL Borderline >240 mg/dL High Risk Eosinophils/100 WBC (Bld) 2.8 % 0-5 [facility] Work Phone: Glucose [Mass/Vol] 132 mg/dL 74-106 [facility] Work Phone: Comment on above: Fasting Glucose resu lt greater than or equal to 126 mg/dL suggests DIABETES MELLITUS per A.D.A. criteria. Neutrophils (Bld) [#/Vol] 3.3 10*3/uL 2.0-7.7 [facility] Work Phone: Neutrophils/100 WBC (Bld) 46.5 % 47-70 [facility] Work Phone: Potassium [Moles/Vol] 4.1 mmol/L 3.5-5.1 [facility] Work Phone: Protein [Mass/Vol] 6.8 g/dL 6.4-8.2 [facility] Work Phone: Sodium [Moles/Vol] 141 mmol/L 136-145 [facility] Work Phone: Triglyceride [Mass/Vol] 133 mg/dL <199 [facility] Work Phone: Comment on above: The drugs N-Acetylcy steine and Metamizole may falsely depress this assay.Serum Triglycerides Reference Interval Normal <150 mg/dL Borderline high 150 - 199 mg/dL High 200 - 499 mg/dL Very High > or = 500 mg/dL WBC (Bld) [#/Vol] 7.2 10*3/uL 4.4-11.0 [facility] Work Phone: Blood erythrocytes count (nu mber/volume)on 11-09-2021 RBC (Bld) [#/Vol] 4.63 10*6/uL 4.6-6.2 [facility] Work Phone: Blood hemoglobin measurement (mass/volume)on 11-09-2021 Hemoglobin (Bld) [Mass/Vol] 14.6 g/dL 13.0-16.5 [facility] Work Phone: Blood lymphocytes/100 leukoc yteson 11-09-2021 Lymphocytes/100 WBC (Bld) 40.1 % 19-41 [facility] Work Phone: Blood monocytes/100 leukocyt eson 11-09-2021 Monocytes/100 WBC (Bld) 8.5 % 0-10 [facility] Work Phone: Blood platelet mean volumeon 11-09-2021 Platelet mean volume (Bld) [Entitic vol] 9.2 fL 6.2-12.0 [facility] Work Phone: Determination of erythrocyte mean corpuscular volume (MCV)on 11-09-2021 MCV (RBC) [Entitic vol] 97.8 fL 80-94 [facility] Work Phone: Hematocrit Auto (Bld) [Volum e fraction]on 11-09-2021 Hematocrit (Bld) [Volume fraction] 45.3 % 40-54 [facility] Work Phone: Laboratory - Chemistry and C hemistry - challengeon 11-09-2021 ALP [Catalytic activity/Vol] 49 U/L 45-117 [facility] Work Phone: ALT [Catalytic activity/Vol] 36 U/L 16-61 [facility] Work Phone: CO2 [Moles/Vol] 29.0 mmol/L 21.0-32.0 [facility] Work Phone: Globulin (S) [Mass/Vol] 3.4 g/dL 2.2-4.2 [facility] Work Phone: Urea nitrogen/Creatinine [Mass ratio] 21.5 mg/mg 10-20 [facility] Work Phone: Laboratory - Hematology and Cell countson 11-09-2021 Erythrocyte distribution width (RBC) [Entitic vol] 44.7 fL 35.1-43.9 [facility] Work Phone: Erythrocyte distribution width (RBC) [Ratio] 12.4 % 11.6-14.6 [facility] Work Phone: Immature granulocytes/100 WBC (Bld) 1.300 % 0.0-0.9 [facility] Work Phone: Comment on above: IG% - Immature Granu locytes (promyelocytes, myelocytes and metamyelocytes) > 1% indicates that a LEFT SHIFT is Present. MCH (RBC) [Entitic mass] 31.5 pg 27.0-32.0 [facility] Work Phone: Nucleated RBC/100 WBC (Bld) [Ratio] 0 % 0-5 [facility] Work Phone: MCHC Auto (RBC) [Mass/Vol]on 11-09-2021 MCHC (RBC) [Mass/Vol] 32.2 g/dL 32-36 [facility] Work Phone: No Panel Informationon 11-09 Estimated GFR (MDRD) Amer 137 mL/min >60 [facility] Work Phone: Comment on above: GFR Calc Estimated GFR (MDRD) Non-Af Amer 113 mL/min >60 [facility] Work Phone: Comment on above: Non- GFR Calc Platelets bldon 11-09-2021 Platelets (Bld) [#/Vol] 215 10*3/uL 150-450 [facility] Work Phone: Serum or plasma albumin alexis urement (mass/volume)on 11-09-2021 Albumin [Mass/Vol] 3.4 g/dL 3.2-5.0 [facility] Work Phone: Serum or plasma albumin/glob ulin mass ratioon 11-09-2021 Albumin/Globulin [Mass ratio] 1.0 {ratio} 0.9-2.4 [facility] Work Phone: Serum or plasma calcium alexis urement (mass/volume)on 11-09-2021 Calcium [Mass/Vol] 8.5 mg/dL 8.5-10.1 [facility] Work Phone: Serum or plasma cholesterol in HDL measurement (mass/volume)on 11-09-2021 Cholesterol in HDL [Mass/Vol] 50 mg/dL >40 [facility] Work Phone: Comment on above: The drugs N-Acetylcy steine and Metamizole may falsely depress this assay. Reference Range HDL <40 mg/dL Low HDL Cholesterol HDL >or= 60 mg/dL High HDL Cholesterol Serum or plasma cholesterol in VLDL measurement (mass/volume)on 11-09-2021 Cholesterol in VLDL [Mass/Vol] 27 mg/dL 5-40 [facility] Work Phone: Serum or plasma creatinine m easurement (mass/volume)on 11-09-2021 Creatinine [Mass/Vol] 0.74 mg/dL 0.70-1.30 [facility] Work Phone: Comment on above: The validity of the calculated GFR & GFRAA in patients over 70 years has not been determined. Clinical correlation is essential. Serum or plasma low density lipoprotein (LDL) cholesterol measurement (mass/volume)on 11-09-2021 Cholesterol in LDL [Mass/Vol] 104 mg/dL 0-130 [facility] Work Phone: Serum or plasma urea nitroge n measurement (mass/volume)on 11-09-2021 Urea nitrogen [Mass/Vol] 16 mg/dL 7-18 [facility] Work Phone: Thin prep Papanicolaou smear with manual screeningon 11-09-2021 Thin prep Papanicolaou smear with manual screening 24 U/L [facility] Work Phone: Thin prep Papanicolaou smear with manual screening 6 - [facility] Work Phone: Whole blood hemoglobin A1c/t otal hemoglobin ratio (mass fraction)on 11-09-2021 HbA1c (Bld) [Mass fraction] 6.1 % 3.8-5.6 [facility] Work Phone: Comment on above: Normal < 5.7 % Predi abetic 5.7 - 6.4 % Diabetic >or= 6.5 % Please note range changes. Vital Signs Date Time Vital Sign Value Performing Clinician Faci lity 11-25-2024 11:37-0400 Body mass index (BMI) [Ratio] 37.5 kg/m2 Dr. Jose Moreno MD Work Phone: [facility] 11-25-2024 11:37-0400 Body weight 108.[address] Jose Moreno MD Work Phone: [facility] 11-25-2024 11:37-0400 Diastolic blood pressure 79 mm[Hg] Dr. Jose Moreno MD Work Phone: [facility] 11-25-2024 11:37-0400 Heart rate 57 /min Dr. Jose Moreno MD Work Phone: [facility] 11-25-2024 11:37-0400 Respiratory rate 18 /min Dr. Jose Moreno MD Work Phone: [facility] 11-25-2024 11:37-0400 SaO2% (BldA) [Mass fraction] 97 % Dr. Jose Moreno MD Work Phone: [facility] 11-25-2024 11:37-0400 Systolic blood pressure 142 mm[Hg] Dr. Jose Moreno MD Work Phone: [facility] 06-29-2024 08:17-0500 Body temperature 97.4 [degF] Dr. Jose Moreno MD Work Phone: [facility] 06-29-2024 08:17-0500 Diastolic blood pressure 79 mm[Hg] Dr. Jose Moreno MD Work Phone: [facility] 06-29-2024 08:17-0500 Heart rate 52 /min Dr. Jose Moreno MD Work Phone: [facility] 06-29-2024 08:17-0500 Respiratory rate 16 /min Dr. Jose Moreno MD Work Phone: [facility] 06-29-2024 08:17-0500 Systolic blood pressure 156 mm[Hg] Dr. Jose Moreno MD Work Phone: [facility] 06-01-2024 08:17-0500 Body temperature 98.3 [degF] Dr. Jose Moreno MD Work Phone: [facility] 06-01-2024 08:17-0500 Diastolic blood pressure 74 mm[Hg] Dr. Jose Moreno MD Work Phone: [facility] 06-01-2024 08:17-0500 Heart rate 58 /min Dr. Jose Moreno MD Work Phone: [facility] 06-01-2024 08:17-0500 Respiratory rate 18 /min Dr. Jose Moreno MD Work Phone: [facility] 06-01-2024 08:17-0500 Systolic blood pressure 160 mm[Hg] Dr. Jose Moreno MD Work Phone: [facility] 05-26-2024 13:36-0500 Body temperature 97.3 [degF] Dr. Jose Moreno MD Work Phone: [facility] 05-26-2024 13:36-0500 Diastolic blood pressure 75 mm[Hg] Dr. Jose Moreno MD Work Phone: [facility] 05-26-2024 13:36-0500 Heart rate 55 /min Dr. Jose Moreno MD Work Phone: [facility] 05-26-2024 13:36-0500 Respiratory rate 18 /min Dr. Jose Moreno MD Work Phone: 6(914)245-622610 [place] [address] 05-26-2024 13:36-0500 Systolic blood pressure 167 mm[Hg] Dr. Jose Moreno MD Work Phone: 9(949)945-071610 [place] [address] 05-25-2024 15:39-0500 Body temperature 97.5 [degF] Dr. Jose Moreno MD Work Phone: 3(841)085-286010 [place] [address] 05-25-2024 15:39-0500 Body weight 111.[address] Jose Moreno MD Work Phone: 9(929)065-888810 [place] [address] 05-25-2024 15:39-0500 Diastolic blood pressure 86 mm[Hg] Dr. Jose Moreno MD Work Phone: 0(285)776-791110 [place] [address] 05-25-2024 15:39-0500 Heart rate 55 /min Dr. Jose Moreno MD Work Phone: 3(107)506-953710 [place] [address] 05-25-2024 15:39-0500 Respiratory rate 16 /min Dr. Jose Moreno MD Work Phone: 1(432)640-103110 [place] [address] 05-25-2024 15:39-0500 SaO2% (BldA) [Mass fraction] 96 % Dr. Jose Moreno MD Work Phone: [facility] 05-25-2024 15:39-0500 Systolic blood pressure 166 mm[Hg] Dr. Jose Moreno MD Work Phone: 2(842)734-663810 [place] [address] 04-27-2024 09:31-0500 Body temperature 97.4 [degF] Dr. Jose Moreno MD Work Phone: 7(752)203-459510 [place] [address] 04-27-2024 09:31-0500 Diastolic blood pressure 77 mm[Hg] Dr. Jose Moreno MD Work Phone: [facility] 04-27-2024 09:31-0500 Heart rate 55 /min Dr. Jose Moreno MD Work Phone: [facility] 04-27-2024 09:31-0500 Respiratory rate 18 /min Dr. Jose Moreno MD Work Phone: [facility] 04-27-2024 09:31-0500 Systolic blood pressure 125 mm[Hg] Dr. Jose Moreno MD Work Phone: [facility] 12-05-2022 14:39-0400 Body height 170.[address] Jose Moreno Work Phone: [facility] 12-05-2022 14:39-0400 Body mass index (BMI) [Ratio] 38.4 kg/m2 Dr. Jose Moreno Work Phone: [facility] 12-05-2022 14:39-0400 Body weight 111.[address] Jose Moreno Work Phone: [facility] 12-05-2022 14:39-0400 Diastolic blood pressure 89 mm[Hg] Dr. Jose Moreno Work Phone: [facility] 12-05-2022 14:39-0400 Heart rate 63 /min Dr. Jose Moreno Work Phone: [facility] 12-05-2022 14:39-0400 Respiratory rate 18 /min Dr. Jose Moreno Work Phone: [facility] 12-05-2022 14:39-0400 SaO2% (BldA) [Mass fraction] 95 % Dr. Jose Moreno Work Phone: [facility] 12-05-2022 14:39-0400 Systolic blood pressure 143 mm[Hg] Dr. Jose Moreno Work Phone: [facility] 06-06-2022 11:32-0500 Body height 170.[address] Kenneth Barbour Work Phone: [facility] 06-06-2022 11:28-0500 Body mass index (BMI) [Ratio] 39.9 kg/m2 Dr. Kenneth Barbour Work Phone: [facility] 06-06-2022 11:28-0500 Body weight 115.[address] Kenneth Barbour Work Phone: [facility] 06-06-2022 11:28-0500 Diastolic blood pressure 96 mm[Hg] Dr. Kenneth Barbour Work Phone: [facility] 06-06-2022 11:28-0500 Heart rate 69 /min Dr. Kenneth Barbour Work Phone: [facility] 06-06-2022 11:28-0500 Respiratory rate 18 /min Dr. Kenneth Barbour Work Phone: [facility] 06-06-2022 11:28-0500 SaO2% (BldA) [Mass fraction] 95 % Dr. Kenneth Barbour Work Phone: [facility] 06-06-2022 11:28-0500 Systolic blood pressure 177 mm[Hg] Dr. Kenneth Barbour Work Phone: [facility] Encounters Encounter Date Encounter Type Care Provider Facility Start: 12-28-2024 ambulatory Jose Rolon y:[facility] Start: 11-25-2024 End: 11-25-2024 Patient encounter procedure Lou JIMENEZ -[facility] Work Phone: Start: 11-25-2024 End: 11-25-[address] Jose Moreno MD Work Phone: -[facility] Start: 11-23-2024 End: 11-23-[address] Jose Moreno MD Work Phone: -[facility] Start: 11-23-2024 End: 11-23-[address] Jose Moreno MD -[facility] Work Phone: Start: 11-23-2024 End: 11-23-2024 ambulatory Jose Moreno Facility:[facility] Start: 10-12-2024 End: 10-12-[address] Jose Moreno MD Work Phone: [facility] Work Phone: Start: 10-12-2024 End: 10-12-[address] Jose Moreno MD -Laboratory [facility] Start: 10-12-2024 End: 10-12-2024 ambulatory Jose Moreno Facility:[facility] Start: 09-14-2024 End: 09-14-[address] Jose Moreno MD Work Phone: -Physical Therapy Start: 09-14-2024 End: 09-14-[address] Jose Moreno MD -Physical Therapy Work Phone: Start: 09-14-[address] Jose Moreno MD -Physical Therapy Work Phone: Start: 06-29-2024 End: 07-26-[address] Antione Bah DPM -[facility] Work Phone: Start: 06-29-2024 End: 07-26-[address] Jose Moreno MD Work Phone: [facility] Work Phone: Start: 06-16-2024 End: 06-16-[address] Jose Moreno MD -[facility] Start: 06-16-2024 End: 06-16-2024 ambulatory Jose Moreno Facility:[facility] Start: 06-01-2024 End: 06-25-[address] Antione Bah DPM -[facility] Work Phone: Start: 06-01-2024 End: 06-25-2024 ambulatory Jose Moreno Facility:[facility] Start: 05-26-2024 End: 05-28-2024 ambulatory Jose Moreno Facility:[facility] Start: 05-26-2024 End: 05-28-[address] Antione Bah DPM -[facility] Work Phone: Start: 05-25-2024 End: 05-25-2024 Patient encounter procedure Kelly MILLER -[facility] Work Phone: Start: 05-25-2024 End: 05-25-2024 ambulatory Jose Moreno [facility] Start: 04-27-2024 End: 04-27-2024 ambulatory Jose Moreno Facility:[facility] Start: 04-27-2024 End: 04-27-[address] Antione Bah DPM -[facility] Work Phone: Start: 03-23-2024 End: 03-27-2024 ambulatory [facility] Cristin Moreno Facility:[facility] Start: 02-24-2024 End: 02-24-2024 ambulatory [facility] Cristin Moreno Facility:[facility] Start: 01-23-2024 End: 01-26-2024 ambulatory Jose Moreno Facility:[facility] Start: 07-31-2023 Non-patient / Non-visit Dr. Cassie Moreno Work Phone: [facility] Start: 07-31-2023 End: 07-31-[address] Jose Moreno Work Phone: [facility] Work Phone: Start: 07-31-2023 End: 07-31-[address] Jose Moreno Work Phone: [facility]-Cardiovascular Services Work Phone: Start: 07-21-2023 End: 07-21-[address] Jose Moreno Work Phone: [facility] Work Phone: Start: 07-21-2023 End: 07-21-[address] Jose Moreno Work Phone: [facility]-Laboratory, Specimen Work Phone: Start: 06-30-2023 End: 06-30-2023 Non-patient / Non-visit Dr. Jose Moreno Work Phone: [facility] Work Phone: Start: 06-30-2023 End: 06-30-2023 ambulatory [facility] Work Phone: Start: 06-30-2023 End: 06-30-2023 Patient encounter procedure [facility]-Pulmonary Services/Neurology Work Phone: Start: 05-29-2023 End: 05-29-2023 Patient encounter procedure [facility]-Cat Scan, [facility] Work Phone: Start: 05-20-2023 End: 05-20-2023 ambulatory [facility] Work Phone: Start: 05-20-2023 End: 05-20-2023 Patient encounter procedure [facility] Work Phone: Start: 01-07-2023 End: 01-07-[address] Jose Moreno Work Phone: [facility] Work Phone: Start: 01-07-2023 End: 01-07-[address] Jose Moreno Work Phone: [facility] Start: 12-23-2022 Non-patient / Non-visit Dr. Cassie Moreno Work Phone: [facility] Work Phone: Start: 12-19-2022 Non-patient / Non-visit Dr. Cassie Moreno Work Phone: [facility] Start: 12-19-2022 End: 12-19-[address] Jose Moreno Work Phone: [facility] Work Phone: Start: 12-19-2022 End: 12-19-[address] [facility]se [facility] Start: 12-05-2022 End: 12-05-[address] Jose Moreno Work Phone: [facility] Work Phone: Start: 08-21-2022 End: 08-21-[address] Kenneth Barbour Work Phone: [facility] Work Phone: Start: 08-21-2022 End: 08-21-[address] Kenneth Barbour Work Phone: [facility] Start: 07-12-2022 End: 07-12-[address] Kenneth Barbour Work Phone: [facility] Work Phone: Start: 07-12-2022 End: 07-12-[address] Kenneth Barbour Work Phone: [facility] Start: 06-06-2022 End: 06-06-[address] Kenneth Barbour Work Phone: [facility] Start: 11-09-2021 End: 11-09-[address] [facility] Start: 08-24-2021 Non-patient / Non-visit Dr. Tera Barbour Work Phone: [facility] Start: 08-24-2021 End: 08-24-[address] Kenneth Barbour [facility] Procedures Date Procedure Procedure Detail Performing Clinician Start: 11-23-2024 X-ray of cervical spine Dr. Jose Moreno MD Work Phone: Start: 10-12-2024 Prostate specific an tigen measurement Dr. Jose Moreno MD Work Phone: Comment on above: This test was perfor med using the [employer] tPSA method. Measured values of a patient sample can vary depending on the testing procedure used. PSA values determined on patient samples by different testing procedures cannot be used interchangeably. If there is a change in PSA assays while monitoring therapy, sequential testing should be performed to confirm baseline values. Start: 06-30-2023 Plain chest X-ray Start: 05-29-2023 MRI of lower extremity Start: 07-12-2022 MRI of brain with contrast Dr. Kenneth Barbour Work Phone: Start: 08-24-2021 Cardiovascular stres s test using pharmacologic stress agent Dr. Kenneth Barbour Work Phone: Plan of Treatment Date Care Activity Detail Author Patient referral [facility] Work Phone: Payers Date Payer Category Payer Self-pay [id number] 2023 Unknown [id number] [id number] 2023 Medicare [id number] 2008 Unknown [id number] Unknown [id number] 2.16.8 [id number] Unknown [id number] 2.16.8 [id number] Unknown [id number] 2.16.8 [id number] Unknown [id number] 2.16.8 [id number] Unknown [id number] 2.16.8 [id number] Unknown [id number] 2.16.8 [id number] Unknown [id number] 2.16.8 [id number] Unknown [id number] 2.16.8 [id number] Unknown [id number] 2.16.8 [id number] Unknown [id number] 2.16.8 [id number] Unknown [id number] 2.16.8 [id number] Unknown [id number] 2.16.8 [id number] Unknown [id number] 2.16.8 [id number] Unknown [id number] 2.16.8 [id number] Social History Date Type Detail Facility Start: 05-29-2020 End: 12-05-2022 Tobacco smoking status NHIS Unknown if ever smoked [facility] Start: 1960 Sex Assigned At Male [facility] Start: 01-20-2024 Tobacco smoking stat us CAIS Never smoked tobacco (finding) [facility] Start: 07-26-2024 Sex Male (finding) [facility] Clinical Notes 01-20-2024 to 11-25-2024 Note Date & Type Note Facility 11-25-2024 Evaluation note Diagnosis Onset Date Resolution Essential hypertension acute Ju ly 2024 3:15pm [facility] Work Phone: 1(753) 210-611707-31-2025 Radiology Diagnostic study note [facility] Imaging Services [address] [place], [place] [address] Cerv Spine 2 or 3 Views MR#: [id number] Acct: [id number] Name: VESTA OLIVAREZ Rep #: [id number] : 1960 M 64 From: Denise Yu MD PCP: Dr. Jose Moreno MD Status: NASH Schwartz CLI Study:Cerv Spine 2 or 3 Views Date of Exam: 11/23/24 Exam# [id number] Ordering Dr: Jose Moreno MD PROCEDURE: CERV SPINE 2 OR 3 VIEWS 11/23/2024 REASON FOR EXAM: PAIN TECHNIQUE: CERV SPINE 2 OR 3 VIEWS COMPARISON: 06/02/2018 FINDINGS: C5-C6 moderate disc space narrowing, endplate sclerosis, osteophyte formation. Very mild degeneration otherwise. Mild cervicothoracic scoliosis. No acute bone, soft tissue, or lung apical pathology. RAD/Cerv Spine 2 or 3 Views IMPRESSION: Cervical spine scoliosis and degeneration Disclaimer: Reading Location: [place] [address] CC: Dr. 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 Jose Moreno MD Status:NASH Schwartz RCR Location: History of Present Illness Date of Service: 06/29/24 Chief Complaint: Ulcer on left lozano History of Wound: Patient is wearing compression wraps for the week and when they took him off this last week he had a blister that had developed and opened. Drained clear fluid. And now is just an open wound nonhealing. The podiatristis seeing him for cellulitis and for swelling. Objective Data Objective Data Vital Signs: Vital Signs Temp Pulse Resp BP O2 Del Method 97.4 F L 52 L 16 156/79 H Room Air 06/29/24 08:17 06/29/24 08:17 06/29/24 08:17 06/29/24 08:17 06/29/24 08:17 Oxygen Delivery Method Room Air Physical Exam Narrative Vascular: Diffuse left lower extremity swelling noted +2 pitting edema noted. Dorsalis pedis posterior tibial pulses palpable 2 out of 4 to bilateral lower extremity. Intact digital hair growth noted. Neurologic: Light touch protective sensation intact bilateral lower extremity. Dermatologic: No wounds noted today. Resolved stasis dermatitis left lower extremity. Musculoskeletal: No pain with calf squeeze. Negative Homans' sign. Muscular strength full to bilateral lower extremity compartments. Const alert and oriented x3 Debridement Note Debridement Note Post-Debridement Measurements and Additional Note: Post-Debridement Measurements/Treatment WC - Nurse 1 - General Ulcer Assessment Start: 06/29/24 08:16 Freq: Status: Active Protocol: LEONEL Activity Type Activity Date Activity User E-sign Co-sign Detail Recorded Client Recorded Date Recorded By Document 06/29/24 08:17 KW [id number] 06/29/24 08:33 KW 06/29/24 08:17 WC - Today's Visit Information Type of service Follow-up Visit (Physician/PRINTER HELPER ) Arrival Mode Ambulatory Patient Identification Verified (Name & Yes ) Vital Signs Temperature (97.8 F-99.1 F) 97.4 F L Temperature Source Temporal Pulse Rate (60-100) 52 L Pulse Location Monitor Respiratory Rate (12-18) 16 Respiratory rate source Observation Oxygen Delivery Method Room Air Blood Pressure (90/60-120/80) 156/79 H Blood Pressure Mean (mm Hg) 104 Source Monitor Position Sitting Blood Pressure Location Left Arm History Since Last Visit- (Skip if this is Patient's initial visit) Have you changed medications since your No last visit? Any new allergies or adverse reactions No Had a fall/change in ADL's that may No increase risk of falls Signs or symptoms of abuse and/or No neglect since last visit Have you been in the hospital since your No last visit? Has dressing in place as prescribed Yes Has compression in place as prescribed Yes Has offloadiing in place as prescribed N/A Experienced any changes in pain level or No management Left Footwear Regular Shoe Right Footwear Regular Shoe Pain Scale: 0-10 Numeric Is Patient Pain Free? Yes WC - Nurse 1 - General Ulcer Measurement Start: 06/29/24 08:16 Freq: Status: Active Protocol: Activity Type Activity Date Activity User E-sign Co-sign Detail Recorded Client Recorded Date Recorded By Document 06/29/24 08:17 KW [id number] 06/29/24 08:33 KW 06/29/24 08:17 Wound Center Nurse 1 Left Calf (cm) 44 Left Ankle (cm) 27.5 WC - Nurse 2 - General Ulcer CM Notes Start: 06/29/24 08:16 Freq: Status: Active Protocol: Activity Type Activity Date Activity User E-sign Co-sign Detail Recorded Client Recorded Date Recorded By Document 06/29/24 09:10 DS [id number] 06/29/24 09:10 DS 06/29/24 09:10 Pain Scale: 0-10 Numeric Is Patient Pain Free? Yes Assessment/Plan Assessment/Plan (1) Non-pressure chronic ulcer of left calf with fat layer exposed: CODE(S): L97.222 - Non-pressure chronic ulcer of left calf with fat layer exposed PLAN: Exam performed. Healed left leg ulcerations. Patient has received CircAid wraps and will use these for compression managementin concordance with the lymphedema pumps that he received as well. Patient will perform a compression elevation and exercise for edema management. Patient will follow-up as needed (2) Venous insufficiency (chronic) (peripheral): CODE(S): I87.2 - Venous insufficiency (chronic) (peripheral) 06/29/24912 <Electronically signed by Antione Bah DPM> Cosigner Signature (if applicable): CC: ~ Signed [facility] Work Phone: 1(878) 706-112503-04-2025 Progress note [facility] [address] [place] [address] Progress Note - Wound Care 06/29/24911 MR#: [id number] Acct: [id number] Name: VESTA OLIVAREZ Rep #:[id number] : 1960 64 From: Antione Bah DPM PCP: Dr. Jose Moreno MD Status:RE G RCR Location: History of Present Illness Date of Service: 06/29/24 Chief Complaint: Ulcer on left lozano History of Wound: Patient is wearing compression wraps for the week and when they took him off thislast week he had a blister that had developed and opened. Drained clear fluid. And now is just an open wound nonhealing. The podiatristis seeing him for cellulitis and for swelling. Objective Data Objective Data Vital Signs: Vital Signs Temp Pulse Resp BP O2 Del Method 97.4 F L 52 L 16 156/79 H Room Air 06/29/24 08:17 06/29/24 08:17 06/29/24 08:17 06/29/24 08:17 06/29/24 08:17 Oxygen Delivery Method Room Air Physical Exam Narrative Vascular: Diffuse left lower extremity swelling noted +2 pitting edema noted. Dorsalis pedis posterior tibial pulses palpable 2 out of 4 to bilateral lower extremity. Intact digital hair growth noted. Neurologic: Light touch protective sensation intact bilateral lower extremity. Dermatologic: No wounds noted today. Resolved stasis dermatitis left lower extremity. Musculoskeletal: No pain with calf squeeze. Negative Homans' sign. Muscular strength full to bilateral lower extremity compartments. Const alert and oriented x3 Debridement Note Debridement Note Post-Debridement Measurements and Additional Note: Post-Debridement Measurements/Treatment - Nurse 1 - General Ulcer Assessment Start: 06/29/24 08:16 Freq: Status: Active Protocol: LEONEL Activity Type Activity Date Activity User E-sign Co-sign Detail Recorded Client Recorded Date Recorded By Document 06/29/24 08:17 KW [id number] 06/29/24 08:33 KW 06/29/24 08:17 - Today's Visit Information Type of service Follow-up Visit (Physician/PRINTER HELPER ) Arrival Mode Ambulatory Patient Identification Verified (Name & Yes ) Vital Signs Temperature (97.8 F-99.1 F) 97.4 F L Temperature Source Temporal Pulse Rate (60-100) 52 L Pulse Location Monitor Respiratory Rate (12-18) 16 Respiratory rate source Observation Oxygen Delivery Method Room Air Blood Pressure (90/60-120/80) 156/79 H Blood Pressure Mean (mm Hg) 104 Source Monitor Position Sitting Blood Pressure Location Left Arm History Since Last Visit- (Skip if this is Patient's initial visit) Have you changed medications since your No last visit? Any new allergies or adverse reactions No Had a fall/change in ADL's that may No increase risk of falls Signs or symptoms of abuse and/or No neglect since last visit Have you been in the hospital since your No last visit? Has dressing in place as prescribed Yes Has compression in place as prescribed Yes Has offloadiing in place as prescribed N/A Experienced any changes in pain level or No management Left Footwear Regular Shoe Right Footwear Regular Shoe Pain Scale: 0-10 Numeric Is Patient Pain Free? Yes WC - Nurse 1 - General Ulcer Measurement Start: 06/29/24 08:16 Freq: Status: Active Protocol: Activity Type Activity Date Activity User E-sign Co-sign Detail Recorded Client Recorded Date Recorded By Document 06/29/24 08:17 KW [id number] 06/29/24 08:33 KW 06/29/24 08:17 Wound Center Nurse 1 Left Calf (cm) 44 Left Ankle (cm) 27.5 WC - Nurse 2 - General Ulcer CM Notes Start: 06/29/24 08:16 Freq: Status: Active Protocol: Activity Type Activity Date Activity User E-sign Co-sign Detail Recorded Client Recorded Date Recorded By Document 06/29/24 09:10 DS [id number] 06/29/24 09:10 DS 06/29/24 09:10 Pain Scale: 0-10 Numeric Is Patient Pain Free? Yes Assessment/Plan Assessment/Plan (1) Non-pressure chronic ulcer of left calf with fat layer exposed: CODE(S): L97.222 - Non-pressure chronic ulcer of left calf with fat layer exposed PLAN: Exam performed. Healed left leg ulcerations. Patient has received CircAid wraps and will use these for compression managementin concordance withthe lymphedema pumps that he received as well. Patient will perform a compression elevation and exercise for edema management. 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 April 27 9:00am Venous insufficiency (chroni c) (peripheral) chronic April 27, 2 024 9:00am Acquired lymphedema acute Janua 2024 3:18pm Venous insufficiency (chroni c) (peripheral) chronic May 25 3:18pm 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 May 26 1:15pm Venous insufficiency (chroni c) (peripheral) chronic May 26 1:15pm 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 Jose Moreno MD Status:REG RCR Location: [facility] Date of Admission: 01/20/24 HPI Narrative VESTA OLIVAREZ, is a 63 M who presents as a new patient for bilateral lower extremity swelling, left greater than right. Patient has been treated for cellulitis left lower extremity. Patient underwent left total knee replacement in June 2023. Since that time he has noted increased swelling to his left lower extremity. Patient has had outpatient duplex ultrasound negative for any DVT. Patient denies any chest pain calf pain shortness of breath. Patient denies any constitutional symptoms. Patient denies any wounds today but notes occasional blistering the left lower extremity mid tibial region. No other complaints. [facility] Medical History (Updated 01/20/24 @ 09:[address] Antione Bah DPM) Basal cell carcinoma of skin GERD (gastroesophageal reflux disease) Positional vertigo Chest pain Home Medications ???Medication ???Instructions ???Recorded ???Last Taken ???Type ibuprofen 200 mg tablet (Advil) 200 mg PO Q6H PRN pain 04/19/20 Unknown History antiarthritic combination no.2 900 900 mg PO DAILY PRN 06/06/22 Unknown History mg tablet (glucosamine-chondroitin) aspirin 81 mg tablet,delayed 81 mg PO DAILY PRN pain 06/06/22 Unknown History release famotidine 20 mg tablet 20 mg PO DAILY 01/20/24 Unknown History fluticasone propionate 50 1 spray intranasal QHS 01/20/24 Unknown History mcg/actuation nasal spray,suspension furosemide 40 mg tablet 40 mg PO DAILY 01/20/24 Unknown History Allergy/AdvReac Type Severity Reaction Status Date / Time No Known Allergies Allergy Verified 01/20/24 08:21 Family History (Reviewed 12/05/22 @ 14:37 by Lou Soler [employer], [employer]) Mother Hypertension Diabetes Father Diabetes Hypertension Social History Smoking Status: Never smoker alcohol intake: never substance use type: does not use caffeine: Yes Type: carbonated beverages and coffee Vital Signs Vital Signs Vital Signs: 01/20/24 08:26 Temperature 98.1 F Temperature Source Temporal Pulse Rate 61 Respiratory Rate 18 Blood Pressure 150/61 H Blood Pressure Mean 90 Blood Pressure Source Monitor Blood Pressure Position Sitting Blood Pressure Location Left Arm Oxygen Delivery Method Room Air Weight Weight: 112.491 kg Body Mass Index (BMI) 38.8 Physical Exam Narrative Vascular: Dorsalis pedis posterior tibial pulses palpable 2 out of 4 to bilateral lower extremity. +3 pitting edema to left lower extremity. +1 pitting edema to right lower extremity. Varicosities noted to perimalleolar region bilaterally. Neurologic: Light touch protective sensation intact bilateral feet. Dermatologic: Focal area of erythema and scaling to the mid tibial region medially along course of great saphenous veins. Musculoskeletal: No pain with calf squeeze. No gross musculoskeletal deformity causing wound formation. Muscular strength full. Assessment Plan Assessment/Plan (1) Venous insufficiency (chronic) (peripheral): PLAN: Exam performed. No additional antibiotics indicated. Previous notes lab results cultures reviewed. I believe the issue is secondary to venous insufficiency with stasis dermatitis to left lower extremity. This has been exacerbated by recent left knee replacement overloading the incompetent venous system of the left lower extremity. I have recommended compression elevation exercise for edema management. Today we wrapped left lower extremity and 3M compression wrap. Plan for Tubigrip to right lower extremity. Follow-up in 1 week. Consider addition of triamcinolone ointment. 01/20/24 1207 Cosigner Signature (if applicable): CC: DPBret Bah; Dr. Jose Moreno MD SignedWUniversity Hospitals TriPoint Medical CenterEvaluation noteNo assessment information availableWUniversity Hospitals [facility] Center Work Phone: Evaluation note* Diagnosis Onset Date Resolution Status Essential hypertension acute Chest discomfort chronic [facility] Work Phone: Evaluation note* Diagnosis Onset Date Resolution Status Essential hypertension acute Lightheadedness acute [facility] Work Phone: Evaluation note* Diagnosis Onset Date Resolution Status Admit Date Essential hypertension acute Ju 2024 3:15pm Lightheadedness acute October 3:15pm [facility] Work Phone: Reason for referral (narrative)No reason for referral information availableWUniversity Hospitals [facility]Point [facility] Center Work Phone: Chief Complaint and Reason for Visit Chief Complaint chest pain, left arm pain, high blood pressure chest pain, left arm pain, high blood pressure Chief Complaint Some pains L chest ( normal stress 08/17) ATAXIA Reason for Visit Essential hypertensi on Chest discomfort Chief Complaint Some pains L chest ( normal stress 08/17) ATAXIA EORDER Reason for Visit Essential hypertensi on Chest discomfort Chief Complaint 6 M FU DIZZINESS AND GIDDINESS Amb Documentation Reason for Visit Essential hypertensi on Lightheadedness Chief Complaint EORDER Chief Complaint EORDER OSTEOARTHRITIS LEFT KNEE *AS1* PREOP Chief Complaint EORDER OSTEOARTHRITIS LEFT KNEE *AS1* PREOP PREOP Chief Complaint EORDER OSTEOARTHRITIS LEFT KNEE *AS1* PREOP PREOP LLE EFFUSION Chief Complaint Admit Date WOUND April 27, 2024 9:00am VENOUS INSUFFICIENCY May 25, 2024 3:18pm WOUND May 26, 2024 1 :15pm WOUND June 01, 2024 8 :15am WOUND June 29, 2024 8:16 am Reason for Visit Admit Date Acquired lymphedema Mayur 31st, 2024 9:00am 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 April 27, 2024 9:00am Venous insufficiency (chronic) (peripher al) April 27, 2024 9:00am Acquired lymphedema May 25, 2024 3 :18pm Venous insufficiency (chronic) (peripher al) May 25, 2024 3:18pm 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 May 26, 2024 1:15pm Venous insufficiency (chronic) (peripher al) May 26, 2024 1:15pm 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 June 01, 2024 8:15am Venous insufficiency (chronic) (peripher al) June 01, 2024 8:15am 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 June 29, 2024 8:16am Venous insufficiency (chronic) (peripher al) June 29, 2024 8:16am Chief Complaint Admit Date WOUND June 29, 2024 8:16 am VESTIBULAR/RX HERE September 14, 2024 11:30 am Reason for Visit Admit Date Non-pressure chronic ulcer of left calf with fat layer exposed June 29, 2024 8:16am Venous insufficiency (chronic) (peripher al) June 29, 2024 8:16am Chief Complaint Admit Date VESTIBULAR/RX HERE September 14, 2024 11:30 am pain November 23, 2024 10:1 3am OVERDUE 1 Y FU November 25, 2024 3:15 pm Reason for Visit Admit Date Essential hypertension November 25, 2024 3 :15pm Lightheadedness November 25, 2024 3:15 pm Reason for Visit Admit Date Essential hypertension November 25, 2024 3 :15pm Family History No Family History Records Found Relationship Condition Age at Onset Recorded Date/T regulo mother Hypertension Unknown Diabetes mellitus Unknown father Diabetes mellitus Unknown Hypertension Unknown Summary Purpose Advance Directives No Advanced Directives Records Found Additional Source Comments Goals (unrecognized section and content) Goals may be documented in a n alternate sectionGoals may be documented in an alternate sectionGoals may be documented in an alternate sectionGoals may be documented in an alternate sectionGoals may be documented in an alternate sectionGoals may be documented in an alternate sectionGoals may be documented in an alternate sectionGoals may be documented in an alternate sectionGoals may be documented in an alternate sectionGoals may be documented in an alternate sectionGoals may be documented in an alternate sectionGoals may be documented in an alternate sectionGoals may be documented in an alternate sectionGoals may be documented in an alternate sectionGoals may be documented in an alternate section Care Teams (unrecognized sec tion and content) Team Status: Active Member Role Status Dates Dr. Kenneth Barboru MD Family Provider Active Team Status: Inactive Member Role Status Dates Dr. Kenneth Barbour MD Primary Care Provider, Referring Provider Active Jose Adams [employer], [employer] Attending Provider Active Team Status: Inactive Member Role Status Dates Dr. Stephan Stark MD Attending Provider, Referring P rovider Active Team Status: Active Member Role Status Dates Dr. Kenneth Barbour MD Family Provider Active Dr. Jose Moreno MD Primary Care Provider Active Team Status: Inactive Member Role Status Dates Dr. Jose Moreno MD Primary Care Pr ovider, Attending Provider, Referring Provider Active Team Status: Inactive Member Role Status Dates Lou Soler [employer], [employer] Attending Provider Active Dr. Jose Moreno MD Primary Care Provider, Referr ing Provider Active Team Status: Active Member Role Status Dates Dr. Jose Moreno MD Primary Care Provider Active Lou Soler [employer], [employer] Attending Provider Active Team Status: Active Member Role Status Dates Dr. Jose Moreno MD Primary Care Provider Active Dr. Boby Hernandez MD Attending Provider Active Team Status: Inactive Member Role Status Dates Dr. Jose Moreno MD Primary Care Provider Active Lou Soler [employer], [employer] Attending Provider, Referring P rovider Active Team Status: Active Member Role Status Dates Dr. Jose Moreno MD Primary Care Provider Active Dr. Boby Hernandez MD Attending Provider Active Lou Soler [employer], [employer] Referring Provider Active Team Status: Inactive Member Role Status Dates Dr. Jose Moreno MD Primary Care Provider, Attend ing Provider Active Team Status: Inactive Member Role Status Dates Dr. Jose Moreno MD Primary Care Provider Active Dr. Yogesh Brown MD Attending Provider, Referring P rovider Active Team Status: Active Member Role Status Dates Dr. Jose Moreno MD Primary Care Provider Active Dr. Lior Pak MD Attending Provider Active Dr. Yogesh Brown MD Referring Provider Active Team Status: Inactive Member Role Status Dates Dr. Jose Moreno MD Primary Care Provider Active ANGELA Delgado Attending Provider Active Team Status: Active Member Role Status Dates Dr. Jose Moreno MD Primary Care Provider Active Team Status: Inactive Member Role Status Dates Dr. Jose Moreno MD Primary Care Provider Active Start: April 27, 2024 End: April 27, 2024 Dr. Jose Moreno MD Referring Provider Active Start: April 27, 2024 End: April 27, 2024 Dr. Antione Bah DPM Attending Provider Active Start: April 27, 2024 End: April 27, 2024 Team Status: Inactive Member Role Status Dates Dr. Jose Moreno MD Primary Care Provider Active Start: May 25, 2024 End: May 25, 2024 ANGELA Gonzalez Attending Provider Active Star t: May 25, 2024 End: May 25, 2024 Dr. Antione Bah DPM Referring Provider Active Start: May 25, 2024 End: May 25, 2024 Team Status: Inactive Member Role Status Dates Dr. Jose Moreno MD Primary Care Provider Active Start: May 26, 2024 End: May 28, 2024 Dr. Jose Moreno MD Referring Provider Active Start: May 26, 2024 End: May 28, 2024 Dr. Antione Bah DPM Attending Provider Active Start: May 26, 2024 End: May 28, 2024 Team Status: Inactive Member Role Status Dates Dr. Jose Moreno MD Primary Care Provider Active Start: June 01, 2024 End: June 25, 2024 Dr. Jose Moreno MD Referring Provider Active Start: June 01, 2024 End: June 25, 2024 Dr. Antione Bah DPM Attending Provider Active Start: June 01, 2024 End: June 25, 2024 Team Status: Inactive Member Role Status Dates Dr. Jose Moreno MD Primary Care Provider Active Start: June 16, 2024 End: June 16, 2024 Dr. Jose Moreno MD Attending Provider Active Start: June 16, 2024 End: June 16, 2024 Dr. Jose Moreno MD Referring Provider Active Start: June 16, 2024 End: June 16, 2024 Team Status: Inactive Member Role Status Dates Dr. Jose Moreno MD Primary Care Provider Active Start: June 29, 2024 End: July 26, 2024 Dr. Jose Moreno MD Referring Provider Active Start: June 29, 2024 End: July 26, 2024 Dr. Antione Bah DPM Attending Provider Active Start: June 29, 2024 End: July 26, 2024 Team Status: Active Member Role Status Dates Dr. Jose Moreno MD Primary Care Provider Active Start: September 14, 2024 Dr. Jose Moreno MD Attending Provider Active Start: September 14, 2024 Dr. Jose Moreno MD Referring Provider Active Start: September 14, 2024 Team Status: Inactive Member Role Status Dates Dr. Jose Moreno MD Primary Care Provider Active Start: October 12, 2024 End: October 12, 2024 Dr. Jose Moreno MD Attending Provider Active Start: October 12, 2024 End: October 12, 2024 Dr. Jose Moreno MD Referring Provider Active Start: October 12, 2024 End: October 12, 2024 Team Status: Active Member Role/Relationship Status Dates Dr. Jose Moreno MD Primary Care Provider Active Team Status: Active Member Role/Relationship Status Dates Dr. Jose Moreno MD Primary Care Provider Active Start: September 14, 2024 Dr. Jose Moreno MD Attending Provider Active Start: September 14, 2024 Dr. Jose Moreno MD Referring Provider Active Start: September 14, 2024 Team Status: Inactive Member Role/Relationship Status Dates Dr. Jose Moreno MD Primary Care Provider Active Start: October 12, 2024 End: October 12, 2024 Dr. Jose Moreno MD Attending Provider Active Start: October 12, 2024 End: October 12, 2024 Dr. Jose Moreno MD Referring Provider Active Start: October 12, 2024 End: October 12, 2024 Team Status: Active Member Role/Relationship Status Dates Dr. Jose Moreno MD Primary Care Provider Active Start: November 23, 2024 Dr. Jose Moreno MD Attending Provider Active Start: November 23, 2024 Dr. Jose Moreno MD Referring Provider Active Start: November 23, 2024 Team Status: Inactive Member Role/Relationship Status Dates Dr. Jose Moreno MD Primary Care Provider Active Start: November 25, 2024 End: November 25, 2024 Dr. Jose Moreno MD Referring Provider Active Start: November 25, 2024 End: November 25, 2024 Lou Soler [employer], [employer] Attending Provider Active Start: November 25, 2024 End: November 25, 2024 Team Status: Inactive Member Role/Relationship Status Dates Dr. Jose Moreno MD Primary Care Provider Active Start: September 14, 2024 End: September 14, 2024 Dr. Jose Moreno MD Attending Provider Active Start: September 14, 2024 End: September 14, 2024 Dr. Jose Moreno MD Referring Provider Active Start: September 14, 2024 End: September 14, 2024 Team Status: Inactive Member Role/Relationship Status Dates Dr. Joes Moreno MD Primary Care Provider Active Start: November 23, 2024 End: November 23, 2024 Dr. Jose Moreno MD Attending Provider Active Start: November 23, 2024 End: November 23, 2024 Dr. Jose Moreno MD Referring Provider Active Start: November 23, 2024 End: November 23, 2024 (unrecognized sect ion and content) No Status Records Found INFORMATION SOURCE (unrecogn ized section and content) DATE CREATED AUTHOR 12/29/2024 [facility] FOR RECORDS PERTAINING TO PATIENTS WHO ARE OR HAVE BEEN ENROLLED IN A CHEMICAL DEPENDENCY/SUBSTANCEABUSE PROGRAM, SOME INFORMATION MAY BE OMITTED. This clinical summary was aggregated from multiple sources. Caution should be exercised in using it in the provision of clinical care. This summary normalizes information from multiple sources, and as a consequence, information in this document may materially change the coding, format and clinical context of patient data. In addition, data may be omitted in some cases. CLINICAL DECISIONS SHOULD BE BASED ON THE PRIMARY CLINICAL RECORDS. [employer] provides no warranty or guarantee of the accuracy or completeness of information in this document.
[2025-01-28 19:20] LABS: Hematocrit 43.2 % (40-54); Hemoglobin 14.5 g/dL (13.0-16.5); Immature Granulocytes Count 0.040 X10^3/uL (0.0-0.0); Mean Corp Hgb Conc 33.6 g/dL (32-36); Mean Corpuscular Volume 95.6 fL (80-94); Mean Platelet Vol. 10.2 fl (6.2-12.0); NRBC Flagged by Analyzer 0 % (0-5); Platelet Count 236 K/mm3 (150-450); RBC Distribution Width CV 12.6 % (11.6-14.6); RBC Distribution Width SD 44.0 fl (35.1-43.9); Red Blood Count 4.52 M/mm3 (4.6-6.2); White Blood Count 7.3 K/mm3 (4.4-11.0)
[2025-01-28 19:33] LABS: AST(SGOT) 28 U/L (<=37); Alanine Aminotransfer ALT/SGPT 32 U/L (<=46); Albumin, Serum 4.0 g/dL (3.4-4.8); Alkaline Phosphatase 49 U/L (40-129); Anion Gap 13 (5-15); BUN 18 mg/dL (4-19); BUN/Creat Ratio 28.6 RATIO (10-20); Calcium,Total 8.9 mg/dL (7.6-11.0); Carbon Dioxide 20.9 mmol/L (21.0-32.0); Chloride 105 mmol/L (98-108); Globulin 2.8 g/dL (2.2-4.2); Glucose 96 mg/dL (70-99); Potassium 4.1 mmol/L (3.3-5.1)
== END | disposition home or self-care (01) ==
LOC: MFPLAB 16:01
PROVIDERS: PCP Family Medicine; Visit Provider Family Medicine
DX: I10 Essential (primary) hypertension (principal)
CPT/HCPCS: 36415; 80053; 85025

== ENCOUNTER → 2025-02-03 | Outpatient (CLI) | payer MEDICARE, OTHER, SELFPAY ==
--- NOTE | 2025-02-03 15:05 | MRI_ITS ---
PROCEDURE: BRAIN W/WO CONTRAST 02/03/2025 REASON FOR EXAM: LOSS OF BALANCE, HEAD PRESSURE TECHNIQUE: Procedure Code: MRIBRWW Modality: MR Procedure: BRAIN W/WO CONTRAST Multiplanar and multisequence images were obtained. CONTRAST: Clariscan VOLUME: 23 mL COMPARISON: 12-Jul-2022 FINDINGS: No acute or hyperacute infarcts. No intracerebral or extra-axial acute hemorrhage. No obvious enhancing masses. Bilateral cerebral periventricular and subcortical white matter faint high T2/FLAIR WI signal. Normal MRI signal of the cerebellar hemispheres and brain stem. Unremarkable ventricular system with asymmetry of the lateral ventricles. Dilated cortical sulci and extra-axial CSF spaces. No shift of midline structures. Normal MRI appearance of the petrous temporal bones cerebellopontine angles with no definite masses. Normal MRI appearance of orbital structures, both globes, optic nerves, optic chiasm, optic tracts and optic radiations. Scanned paranasal sinuses show mild left maxillary and ethmoidal mucosal thickening with left sphenoid mucous retention cyst. MRI/Brain W/WO Contrast IMPRESSION: No acute infarcts. No intracerebral or extra-axial hematomas. No enhancing mass es. Bilateral cerebral mild microvascular ischemic changes showing mild interval pr ogression. Reading [facility]
== END | disposition home or self-care (01) ==
LOC: MRI 15:03
PROVIDERS: PCP Family Medicine; Referring Provider Family Medicine; Visit Provider Family Medicine
DX: R26.89 Other abnormalities of gait and mobility (principal)
CPT/HCPCS: 70553; A9575; A4216

== ENCOUNTER → 2025-04-27 | Outpatient (CLI) | payer MEDICARE, OTHER, SELFPAY ==
[2025-04-27 16:10] LABS: Mucous, Urine 0 SEEN /hpf (<or=2+)
--- OUTSIDE RECORDS SUMMARY | 2025-04-27 16:15 | XMS RPT_ITS | CCD ---
Author Organization [facility] Care Team Providers Care Dance Hall Host/Hostess Name Role Phone Dr. Kenneth Barbour Primary Care Provider 1([facility])[phone] Dr. Tavon Gonzalez Attending Provider 1([facility])[phone] Dr. Tavon Gonzalez Referring Provider 1([facility])[phone] Dr. Tavon Gonzalez Other Provider 1([facility])[phone] Kenneth Barbour Primary Care Provider 1([facility])[phone] Dr. Kenneth Barbour Referring Provider 1([facility])[phone] Bryan WINDLACE MACHINE OPERATOR, WINDLACE MACHINE OPERATOR-C Jose Adam Attending Provider 1([facility])[phone] Ryder WINDLACE MACHINE OPERATOR, WINDLACE MACHINE OPERATOR-C Lou Attending Provider Dr. Jose Moreno Primary Care Provider 1([facility] )[phone] Dr. Jose Moreno Referring Provider 1([facility])[phone] Dr. Boby Hernandez Attending Provider 1([facility])[phone] Ryder BULL, WINDLACE MACHINE OPERATOR-C Lou Referring Provider Dr. Jose Moreno Primary Care Provider 1([facility] )[phone] Dr. Lior Pak Attending Provider 1([facility])[phone] Yogesh Brown Referring Provider 1([facility])[phone] Dr. Boby Hernandez Attending Provider 1([facility])[phone] Jose Moreno MD Primary Care Provider Dr. Jose Moreno MD Referring Provider 1([facility] )[phone] Dr. Antione Bah DPM Attending Provider 1([facility] )[phone] Kelly Pérez Attending Provider 1([facility])[phone] Antione Bah DPM Referring Provider Josh ASCENCIO, Dr. Jose Amaral Attending Provider Josh ASCENCIO, Dr. Jose Amaral Primary Care Provider Josh ASCENCIO, Dr. Jose Amaral Referring Provider Olvin SAMS, Dr. Talbot Attending Provider Josh ASCENCIO, Dr. Jose Amaral Attending Provider Josh ASCENCIO, Dr. Jose Amaral Primary Care Provider Josh ASCENCIO, Dr. Jose Amaral Referring Provider Ryder WINDLACE MACHINE OPERATOR-CLou Attending Provider [phone] Jose Moreno Primary Care Unavailable Jose Moreno Referring Unavailable Antione Bah Attending Unavailable Jose Moreno Primary Care Unavailable Jose Moreno Referring Unavailable Antione Bah Attending Unavailable Jose Moreno Primary Care Unavailable Jose Moreno Referring Unavailable Lou Soler NP Attending Unavailable Jose Moreno Primary Care Unavailable Antione Bah Referring Unavailable Kelly Roblero Attending Unavailable Jose Moreno Primary Care Unavailable Jose Moreno Referring Unavailable Antione Bah Attending Unavailable Jose Moreno Primary Care Unavailable SchJose hernandez Referring Unavailable Jose Moreno Attending Unavailable Jose Moreno Primary Care Unavailable Jose Moreno Referring Unavailable Antione Bah Attending Unavailable Jose Moreno Attending Unavailable Jose Moreno Primary Care Unavailable SchJose hernandez Referring Unavailable SchJose hernandez Primary Care Unavailable SchJose hernandez Attending Unavailable SchJose hernandez Primary Care Unavailable SchJose hernandez Referring Unavailable Jose Moreno Attending Unavailable Jose Moreno Referring Unavailable Jose Moreno Attending Unavailable Jose Moreno Primary Care Unavailable SchJose hernandez Referring Unavailable Jose Moreno Attending Unavailable SchJose [...] Essential hypertension; Translations: [Essential (primary) hypertension] Onset: 02-23-2025 08-13-2021 Chronic Nonspecific chest pain (20 sources) [...] Translations: [Anesthesia of skin] 08-13-2021 Episodic Other nervous system disorders (1 source) Other abnormalities of gait and mobility; Translations: [Other abnormalities of gait and mobility] Onset: 02-22-2025 Episodic Spondylosis; intervertebral disc disorders; other back problems (1 source) Cervicalgia; Translations: [Cervicalgia] Onset: 12-01-2024 Episodic Past or Other Problems Problem Classification Problem Date Documented Date Episodic/Chronic Other diseases of veins and lymphatics (1 source) Venous insufficiency (chronic) (peripheral); Translations: [Venous insufficiency (chronic) (peripheral)] Onset: 08-27-2024 Episodic Other screening for suspected conditions (not mental disorders or infectious disease) (1 source) Encounter for screening for malignant neoplasm of prostate; Translations: [Encounter for screening for malignant neoplasm of prostate] Onset: 10-19-2024 Episodic Results Test Name Value Interpretation Reference Range Facility Brain W/WO Contraston 2024 Brain W/WO Contrast [facility] Imaging Services [address] [place] [address] [id number] Brain W/WO Contrast MR#: [id number] Acct: [id number] Name: VESTA OLIVAREZ Rep #: [id number] : 1960 M 64 From: Vicente valencia MD PCP: Dr. Jose Moreno MD Status: [facility] Study: Brain W/WO Contrast Date of Exam: 02/03/25 Exam# [id number] Ordering Dr: Jose Moreno MD PROCEDURE: BRAIN W/WO CONTRAST 02/03/2025 REASON FOR EXAM: LOSS OF BALANCE, HEAD PRESSURE TECHNIQUE: Procedure Code: MRIBRWW Modality: MR Procedure: BRAIN W/WO CONTRAST Multiplanar and multisequence images were obtained. CONTRAST: Clariscan VOLUME: 23 mL COMPARISON: 12-Jul-2022 FINDINGS: No acute or hyperacute infarcts. No intracerebral or extra-axial acute hemorrhage. No obvious enhancing masses. Bilateral cerebral periventricular and subcortical white matter faint high T2/FLAIR WI signal. Normal MRI signal of the cerebellar hemispheres and brain stem. Unremarkable ventricular system with asymmetry of the lateral ventricles. Dilated cortical sulci and extra-axial CSF spaces. No shift of midline structures. Normal MRI appearance of the petrous temporal bones cerebellopontine angles with no definite masses. Normal MRI appearance of orbital structures, both globes, optic nerves, optic chiasm, optic tracts and optic radiations. Scanned paranasal sinuses show mild left maxillary and ethmoidal mucosal thickening with left sphenoid mucous retention cyst. MRI/Brain W/WO Contrast IMPRESSION: No acute infarcts. No intracerebral or extra-axial hematomas. No enhancing masses. Bilateral cerebral mild microvascular ischemic changes showing mild interval progression. Reading Location: [place] [address] CC: Dr. Jose Moreno MD Cook Starch: Signed Normal [facility] CBC W/Diff, Automatedon 10-0 Absolute Lymph 2.61 X10 3/uL Normal 0.83-4.51 [facility] Comment on above: Order Comment: Order Date: 01/28/25 Order Info: 0184-1 - CBCD Performed By: #### L 500.4050, L100.0100 #### [facility] [address] [place], [address] Absolute Neut 3.8 X10 3/uL Normal 2.0-7.7 [facility] Comment on above: Order Comment: Order Date: 01/28/25 Order Info: 0184-1 - CBCD Performed By: #### L 500.4050, L100.0100 #### [facility] [address] [place], [address] Basophils/100 WBC (Bld) 0.7 % Normal 0-1 [facility] Comment on above: Order Comment: Order Date: 01/28/25 Order Info: 0184-1 - CBCD Performed By: #### L 500.4050, L100.0100 #### [facility] [address] [place], [address] Eosinophils/100 WBC (Bld) 3.2 % Normal 0-5 [facility] Comment on above: Order Comment: Order Date: 01/28/25 Order Info: 0184-1 - CBCD Performed By: #### L 500.4050, L100.0100 #### [facility] [address] [place], [address] Erythrocyte distribution width (RBC) [Ratio] 12.6 % Normal 11.6-14.6 [facility] Comment on above: Order Comment: Order Date: 01/28/25 Order Info: 0184-1 - CBCD Performed By: #### L 500.4050, L100.0100 #### [facility] [address] [place], [address] Hematocrit (Bld) [Volume fraction] 43.2 % Normal 40-54 [facility] Comment on above: Order Comment: Order Date: 01/28/25 Order Info: 0184-1 - CBCD Performed By: #### L 500.4050, L100.0100 #### [facility] [address] [place], [address] Hemoglobin (Bld) [Mass/Vol] 14.5 g/dL Normal 13.0-16.5 [facility] Comment on above: Order Comment: Order Date: 01/28/25 Order Info: 0184-1 - CBCD Performed By: #### L 500.4050, L100.0100 #### [facility] [address] [place], [address] IG% 0.600 Normal 0.0-0.9 [facility] Comment on above: Order Comment: Order Date: 01/28/25 Order Info: 0184-1 - CBCD Result Comment: IG% - Immature Granulocytes (promyelocytes, myelocytes and metamyelocytes) > 1% indicates that a LEFT SHIFT is Present. Performed By: #### L 500.4050, L100.0100 #### [facility] [address] [place], [address] Lymphocytes/100 WBC (Bld) 36.0 % Normal 19-41 [facility] Comment on above: Order Comment: Order Date: 01/28/25 Order Info: 0184- - CBCD Performed By: #### L 500.4050, L100.0100 #### [facility] [address] [place], [address] MCH (RBC) [Entitic mass] 32.1 pg High 27.0-32.0 [facility] Comment on above: Order Comment: Order Date: 01/28/25 Order Info: 0184- - CBCD Performed By: #### L 500.4050, L100.0100 #### [facility] [address] [place], [address] MCHC (RBC) [Mass/Vol] 33.6 g/dL Normal 32-36 [facility] Comment on above: Order Comment: Order Date: 01/28/25 Order Info: 0184- - CBCD Performed By: #### L 500.4050, L100.0100 #### [facility] [address] [place], [address] MCV (RBC) [Entitic vol] 95.6 fL High 80-94 [facility] Comment on above: Order Comment: Order Date: 01/28/25 Order Info: 0184- - CBCD Performed By: #### L 500.4050, L100.0100 #### [facility] [address] [place], [address] Monocytes/100 WBC (Bld) 7.6 % Normal 0-10 [facility] Comment on above: Order Comment: Order Date: 01/28/25 Order Info: 0184-1 - CBCD Performed By: #### L 500.4050, L100.0100 #### [facility] [address] [place], [address] Neutrophils/100 WBC (Bld) 51.9 % Normal 47-70 [facility] Comment on above: Order Comment: Order Date: 01/28/25 Order Info: 0184-1 - CBCD Performed By: #### L 500.4050, L100.0100 #### [facility] [address] [place], [address] Nucleated RBC (Bld) [#/Vol] 0 10*3/uL Normal 0-5 [facility] Comment on above: Order Comment: Order Date: 01/28/25 Order Info: 0184-1 - CBCD Performed By: #### L 500.4050, L100.0100 #### [facility] [address] [place], [address] Platelet mean volume (Bld) [Entitic vol] 10.2 fL Normal 6.2-12.0 [facility] Comment on above: Order Comment: Order Date: 01/28/25 Order Info: 0184-1 - CBCD Performed By: #### L 500.4050, L100.0100 #### [facility] [address] [place], [address] Platelets (Bld) [#/Vol] 236 10*3/uL Normal 150-450 [facility] Comment on above: Order Comment: Order Date: 01/28/25 Order Info: 0184-1 - CBCD Performed By: #### L 500.4050, L100.0100 #### [facility] [address] [place], [address] RBC (Bld) [#/Vol] 4.52 10*6/uL Low 4.6-6.2 [facility] Comment on above: Order Comment: Order Date: 01/28/25 Order Info: 0184-1 - CBCD Performed By: #### L 500.4050, L100.0100 #### [facility] [address] [place], [address] RDW SD 44.0 fl High 35.1-43.9 [facility] Comment on above: Order Comment: Order Date: 01/28/25 Order Info: 0184- - CBCD Performed By: #### L 500.4050, L100.0100 #### [facility] [address] [place], [address] WBC (Bld) [#/Vol] 7.3 10*3/uL Normal 4.4-11.0 [facility] Comment on above: Order Comment: Order Date: 01/28/25 Order Info: 0184- - CBCD Performed By: #### L 500.4050, L100.0100 #### [facility] [address] [place], [address] Comprehensive Metabolic Prof [facility] 01-28-2025 Albumin [Mass/Vol] 4.0 g/dL Normal 3.4-4.8 [facility] Comment on above: Order Comment: Order Date: 01/28/25 Order Info: 0786-1 - CMP Performed By: #### L 500.4050, L100.0100 #### [facility] [address] [place], [address] Albumin/Globulin [Mass ratio] 1.4 {ratio} Normal 0.9-2.4 [facility] Comment on above: Order Comment: Order Date: 01/28/25 Order Info: 0786-1 - CMP Performed By: #### L 500.4050, L100.0100 #### [facility] [address] [place], [address] ALK PHOS 49 U/L Normal 40-129 [facility] Comment on above: Order Comment: Order Date: 01/28/25 Order Info: 0786-1 - CMP Performed By: #### L 500.4050, L100.0100 #### [facility] [address] [place], [address] ALT [Catalytic activity/Vol] 32 U/L Normal <=46 [facility] Comment on above: Order Comment: Order Date: 01/28/25 Order Info: 0786-1 - CMP Performed By: #### L 500.4050, L100.0100 #### [facility] [address] [place], [address] AST [Catalytic activity/Vol] 28 U/L Normal <=37 [facility] Comment on above: Order Comment: Order Date: 01/28/25 Order Info: 0786-1 - CMP Performed By: #### L 500.4050, L100.0100 #### [facility] [address] [place], [address] Bilirubin [Mass/Vol] 1.08 mg/dL Normal 0.00-1.30 [facility] Comment on above: Order Comment: Order Date: 01/28/25 Order Info: 0786-1 - CMP Performed By: #### L 500.4050, L100.0100 #### [facility] [address] [place], [address] BUN/CRE 28.6 RATIO High 10-20 [facility] Comment on above: Order Comment: Order Date: 01/28/25 Order Info: 0786-1 - CMP Performed By: #### L 500.4050, L100.0100 #### [facility] [address] [place], [address] Calcium [Mass/Vol] 8.9 mg/dL Normal 7.6-11.0 [facility] Comment on above: Order Comment: Order Date: 01/28/25 Order Info: 0786-1 - CMP Performed By: #### L 500.4050, L100.0100 #### [facility] [address] [place], [address] Chloride [Moles/Vol] 105 mmol/L Normal 98-108 [facility] Comment on above: Order Comment: Order Date: 01/28/25 Order Info: 0786-1 - CMP Performed By: #### L 500.4050, L100.0100 #### [facility] [address] [place], [address] CO2 [Moles/Vol] 20.9 mmol/L Low 21.0-32.0 [facility] Comment on above: Order Comment: Order Date: 01/28/25 Order Info: 0786-1 - CMP Performed By: #### L 500.4050, L100.0100 #### [facility] [address] [place], [address] Creatinine [Mass/Vol] 0.64 mg/dL Low 0.70-1.20 [facility] Comment on above: Order Comment: Order Date: 01/28/25 Order Info: 0786-1 - CMP Performed By: #### L 500.4050, L100.0100 #### [facility] [address] [place], [address] GAP 13 Normal 5-15 [facility] Comment on above: Order Comment: Order Date: 01/28/25 Order Info: 0786-1 - CMP Performed By: #### L 500.4050, L100.0100 #### [facility] [address] [place], [address] GFR/1.73 sq M.predicted among non-blacks MDRD (S/P/Bld) [Vol rate/Area] 105 mL/min/{1.73_m2} Normal >60 [facility] Comment on above: Order Comment: Order Date: 01/28/25 Order Info: 0786-1 - CMP Result Comment: mL/m in/1.73m2 CKD-EPI Creatinine Equation (2020) Performed By: #### L 500.4050, L100.0100 #### [facility] [address] [place], [address] Globulin (S) [Mass/Vol] 2.8 g/dL Normal 2.2-4.2 [facility] Comment on above: Order Comment: Order Date: 01/28/25 Order Info: 0786-1 - CMP Performed By: #### L 500.4050, L100.0100 #### [facility] [address] [place], [address] Glucose [Mass/Vol] 96 mg/dL Normal 70-99 [facility] Comment on above: Order Comment: Order Date: 01/28/25 Order Info: 0786-1 - CMP Performed By: #### L 500.4050, L100.0100 #### [facility] [address] [place], [address] Potassium [Moles/Vol] 4.1 mmol/L Normal 3.3-5.1 [facility] Comment on above: Order Comment: Order Date: 01/28/25 Order Info: 0786-1 - CMP Performed By: #### L 500.4050, L100.0100 #### [facility] [address] [place], [address] Sodium [Moles/Vol] 139 mmol/L Normal 133-145 [facility] Comment on above: Order Comment: Order Date: 01/28/25 Order Info: 0786-1 - CMP Performed By: #### L 500.4050, L100.0100 #### [facility] [address] [place], [address] T PROT 6.8 g/dL Normal 5.9-8.4 [facility] Comment on above: Order Comment: Order Date: 01/28/25 Order Info: 0786-1 - CMP Performed By: #### L 500.4050, L100.0100 #### [facility] [address] [place], [address] Urea nitrogen [Mass/Vol] 18 mg/dL Normal 4-19 [facility] Comment on above: Order Comment: Order Date: 01/28/25 Order Info: 0786-1 - CMP Performed By: #### L 500.4050, L100.0100 #### [facility] [address] [place], [address] Inital Evaluation (1) - PTon 12-08-2024 Inital Evaluation (1) - PT [facility] Physical Therapy [facility] [address] [place] [address] / REHABILITATION SERVICES INITIAL EVALUATION MR#: [id number] Acct: [id number] Name: VESTA OLIVAREZ Rep #: [id number] : 1960 64 From: Jordan Salas DPT Referring Dr.: Dr. Jose Moreno MD Status: REG RCR Insurance: MEDICARE PART A B [facility] Patient's Visit Information Visit Information Visit Information: [...] Purpose of:: To decrease pain, To decrease swelling/inflammatio n, To increase ROM, To improve nutrient delivery to tissue, To increase oxygenation perfusion, To improve muscle perf ormance and motor function and To improve ability to perform ADL's Manual Therapy Techniques to Include: Mobilization and Soft tissue mobilization For the Purpose of:: To decrease pain, To decrease swelling/inflammatio n, To increase ROM and To increase oxygenation perfusion Text: Thank you for the opportunity to evaluate your patient. For Medicare and Medicare HMO plans, please review the plan of care and approve it. It will need to be FAXED BACK to us at [phone] for Medicare purposes. For Medicare only, by signing this I certify the plan of care. Please let me know if there are questions or concerns regarding this plan of care. Physician Signature: (more content not included)... Normal [facility] Cardiology Visit Reporton Cardiology Visit Report [facility] [address] [place] [address] OFFICE VISIT Date of Service: 11/25/24 MR#: [id number] Acct: [id number] Name: VESTA OLIVAREZ Rep #: [id number] : 1960 Provider: TONY null Age/Sex: 64/M [place] [facility] [place] Signed HPI HPI History of Present Illness Details: This is a 64-year-old white male who presents for an outpatient cardiovascular follow-up visit. Patient was last seen in our office in November 2022. He has a history of hypertension. At initial consult visit, he stated several weeks of left-sided chest tightness that did not radiate. This was associated with [id number] or pricks sensations that occur in his left chest [...] Intake Visit Reasons: OVERDUE 1 Y FU [employer]ist Required: No Is patient in pain?: No [...] 11/25/24 @ 15:33 by Lou Soler NP, WINDLACE MACHINE OPERATOR-C) History of left knee replacement Family History [...] Information Trans (more content not included)... Normal [facility] Cerv Spine 2 or 3 Viewson Cerv Spine 2 or 3 Views [facility] Imaging Services [address] [place] [address] Cerv Spine 2 or 3 Views MR#: [id number] Acct: [id number] Name: VESTA OLIVAREZ Rep #: [id number] : 1960 M 64 From: Yao Yu MD PCP: Dr. Jose Moreno MD Status: REG CLI Study: Cerv Spine 2 or 3 Views Date of Exam: 11/23/24 Exam# [id number] Ordering Dr: Jose Moreno MD PROCEDURE: CERV [...] spine scoliosis and degeneration Disclaimer: Reading Location: [place] [address] CC: Dr. Jose Moreno MD Cook Starch: Signed Normal [facility] PSA,Total - Annual Screenon 10-12-2024 PSA,TOT SCREEN 0.68 ng/mL Normal 0.02-4.00 [facility] Comment on above: Order Comment: [...] values. Performed By: #### L 501.9910 #### [facility] [address] [place], [place], [address] Inital Evaluation (1) - PTon 08-31-2024 Inital Evaluation (1) - PT [facility] Physical Therapy [address] [place] [address] / REHABILITATION SERVICES INITIAL EVALUATION MR#: [id number] Acct: [id number] Name: VESTA OLIVAREZ Rep #: [id number] : 1960 64 From: Ninfa BOLTON Referring Dr.: Dr. Jose Moreno MD Status: REG RCR Insurance: MEDICARE PART A B AARP Patient's Visit Information Visit Information Visit Information: [...] to perform ADL's, To increase tolerance to activity/condition/p osition, To improve performance and independence with ADL's, To increase flexibility/ROM, To improve balance and To improve safety with gait Therapeutic Exercise to Include: Strength training, Endurance training, Balance training, Gait and locomotor training, Neuromotor development, Active ROM and Scapular Strength/Stabilizati on For the Purpose of:: To improve muscle performance and motor function, To improve ability to perform ADL's, To increase tolerance to activity/condition/p osition, To decrease level of supervision to perform tasks, To improve ability of physical actions for home/community/work/ leisure, To improve gait and locomotor functions, To [...] to be FAXED BACK to us at [phone] for Medicare purposes. For Medicare only, by signing this I certify the plan of care. Please let me know if there are questions or concerns regarding this plan of care. Physician Signature: D ate: 08/31/24 1111 CC: Dr. Jose Moreno MD Signed Normal [facility] Vitamin D,25 Hydroxyon 06-17 Vitamin D 25-OH 31.2 ng/mL Normal [facility] Comment on above: Order Comment: Order Date: 06/16/24Order Info: 08106-4 - VITD25 Result Comment: Kristal min D 25(OH) Status Range Deficiency <20 ng/mL (50nmol/L) Insufficiency 20 - 30 ng/mL (50 - 75 nmol/L) Sufficiency 30 - 100 ng/mL (75 - 250 nmol/L) Toxicity >100 ng/mL (>250 nmol/L) Performed By: #### L 501.9985, L500.4050, L100.0100, L500.4100, L501.9520, L506.1000 ####[facility] [id number] [place], [address] [id number] DOrdered By: Jaimie Moreno on 06-16-2024 Vitamin D 25-Hydroxy 31.2 ng/mL [facility] Comment on above: Vitamin D 25(OH) Sta tus Range Deficiency <20 ng/mL (50nmol/L) Insufficiency 20 - 30 ng/mL (50 - 75 nmol/L) Sufficiency 30 - 100 ng/mL (75 - 250 nmol/L) Toxicity >100 ng/mL (>250 nmol/L) Absolute neutrophil countOrd ered By: Jose Moreno on 06-16-2024 Neutrophils (Bld) [#/Vol] 3.2 10*3/uL 2.0-7.7 [facility] Albumin to globulin ratioOrd ered By: Jose Moreno on 06-16-2024 Albumin/Globulin [Mass ratio] 0.9 {ratio} 0.9-2.4 [facility] [facility] Basophil percentageOrdered B y: Jose Moreno on 06-16-2024 Basophils/100 WBC (Bld) 0.6 % 0-1 [facility] Bilirubin Test strip Ql (U)O rdered By: Jose Moreno on 06-16-2024 Bilirubin Ql (U) Negative Negative [facility] Bilirubin, totalOrdered By: Jose Moreno on 06-16-2024 Bilirubin [Mass/Vol] 0.80 mg/dL 0.20-1.00 [facility] Comment on above: For patients on eltr ombopag therapy, use of Dimension [place] TBIL is not recommended. Blood urea nitrogen (BUN)/cr eatinine ratioOrdered By: Jose Moreno on 06-16-2024 Urea nitrogen/Creatinine [Mass ratio] 30.9 mg/mg High 10-20 [facility] CBC W/Diff, Automatedon 05-29 Absolute Lymph 2.55 X10 3/uL Normal 0.83-4.51 [facility] Comment on above: Order Comment: Order Date: 06/16/24 Order Info: [id number] - CBCD Performed By: #### L 501.9985, L500.4050, L100.0100, L500.4100, L501.9520, L506.1000 #### [facility] [address] [place], [address] Absolute Neut 3.2 X10 3/uL Normal 2.0-7.7 [facility] Comment on above: Order Comment: Order Date: 06/16/24 Order Info: [id number] - CBCD Performed By: #### L 501.9985, L500.4050, L100.0100, L500.4100, L501.9520, L506.1000 #### [facility] [address] [place], [address] Basophils/100 WBC (Bld) 0.6 % Normal 0-1 [facility] Comment on above: Order Comment: Order Date: 06/16/24 Order Info: [id number] - CBCD Performed By: #### L 501.9985, L500.4050, L100.0100, L500.4100, L501.9520, L506.1000 #### [facility] [address] [place], [address] Eosinophils/100 WBC (Bld) 2.7 % Normal 0-5 [facility] Comment on above: Order Comment: Order Date: 06/16/24 Order Info: [id number] - CBCD Performed By: #### L 501.9985, L500.4050, L100.0100, L500.4100, L501.9520, L506.1000 #### [facility] [address] [place], [address] Erythrocyte distribution width (RBC) [Ratio] 13.1 % Normal 11.6-14.6 [facility] Comment on above: Order Comment: Order Date: 06/16/24 Order Info: [id number] - CBCD Performed By: #### L 501.9985, L500.4050, L100.0100, L500.4100, L501.9520, L506.1000 #### [facility] [address] [place], [address] Hematocrit (Bld) [Volume fraction] 43.1 % Normal 40-54 [facility] Comment on above: Order Comment: Order Date: 06/16/24 Order Info: [id number] - CBCD Performed By: #### L 501.9985, L500.4050, L100.0100, L500.4100, L501.9520, L506.1000 #### [facility] [address] [place], [address] Hemoglobin (Bld) [Mass/Vol] 13.9 g/dL Normal 13.0-16.5 [facility] Comment on above: Order Comment: Order Date: 06/16/24 Order Info: [id number] - CBCD Performed By: #### L 501.9985, L500.4050, L100.0100, L500.4100, L501.9520, L506.1000 #### [facility] [address] [place], [address] IG% 0.500 Normal 0.0-0.9 [facility] Comment on above: Order Comment: Order Date: 06/16/24 Order Info: [id number] - CBCD Result Comment: IG% - Immature Granulocytes (promyelocytes, myelocytes and metamyelocytes) > 1% indicates that a LEFT SHIFT is Present. Performed By: #### L 501.9985, L500.4050, L100.0100, L500.4100, L501.9520, L506.1000 #### [facility] [address] [place], [address] Lymphocytes/100 WBC (Bld) 38.8 % Normal 19-41 [facility] Comment on above: Order Comment: Order Date: 06/16/24 Order Info: [id number]- - CBCD Performed By: #### L 501.9985, L500.4050, L100.0100, L500.4100, L501.9520, L506.1000 #### [facility] [address] [place], [address] MCH (RBC) [Entitic mass] 31.3 pg Normal 27.0-32.0 [facility] Comment on above: Order Comment: Order Date: 06/16/24 Order Info: 018- - CBCD Performed By: #### L 501.9985, L500.4050, L100.0100, L500.4100, L501.9520, L506.1000 #### [facility] [address] [facility] [place], [address] MCHC (RBC) [Mass/Vol] 32.3 g/dL Normal 32-36 [facility] Comment on above: Order Comment: Order Date: 06/16/24 Order Info: [id number]- - CBCD Performed By: #### L 501.9985, L500.4050, L100.0100, L500.4100, L501.9520, L506.1000 #### [facility] [address] [facility] [place], [address] MCV (RBC) [Entitic vol] 97.1 fL High 80-94 [facility] Comment on above: Order Comment: Order Date: 06/16/24 Order Info: [id number]- - CBCD Performed By: #### L 501.9985, L500.4050, L100.0100, L500.4100, L501.9520, L506.1000 #### [facility] [address] [facility] [address] [place], [address] Monocytes/100 WBC (Bld) 8.7 % Normal 0-10 [facility] Comment on above: Order Comment: Order Date: 06/16/24 Order Info: [id number]- - CBCD Performed By: #### L 501.9985, L500.4050, L100.0100, L500.4100, L501.9520, L506.1000 #### [facility] [address] [place], [address] Neutrophils/100 WBC (Bld) 48.7 % Normal 47-70 [facility] Comment on above: Order Comment: Order Date: 06/16/24 Order Info: [id number] - CBCD Performed By: #### L 501.9985, L500.4050, L100.0100, L500.4100, L501.9520, L506.1000 #### [facility] [address] [place], [address] Nucleated RBC (Bld) [#/Vol] 0 10*3/uL Normal 0-5 [facility] Comment on above: Order Comment: Order Date: 06/16/24 Order Info: [id number] - CBCD Performed By: #### L 501.9985, L500.4050, L100.0100, L500.4100, L501.9520, L506.1000 #### [facility] [address] [place], [address] Platelet mean volume (Bld) [Entitic vol] 10.1 fL Normal 6.2-12.0 [facility] Comment on above: Order Comment: Order Date: 06/16/24 Order Info: [id number] - CBCD Performed By: #### L 501.9985, L500.4050, L100.0100, L500.4100, L501.9520, L506.1000 #### [facility] [address] [place], [address] Platelets (Bld) [#/Vol] 245 10*3/uL Normal 150-450 [facility] Comment on above: Order Comment: Order Date: 06/16/24 Order Info: [id number] - CBCD Performed By: #### L 501.9985, L500.4050, L100.0100, L500.4100, L501.9520, L506.1000 #### [facility] [address] [place], [address] RBC (Bld) [#/Vol] 4.44 10*6/uL Low 4.6-6.2 [facility] Comment on above: Order Comment: Order Date: 06/16/24 Order Info: [id number] - CBCD Performed By: #### L 501.9985, L500.4050, L100.0100, L500.4100, L501.9520, L506.1000 #### [facility] [address] [place], [address] RDW SD 46.5 fl High 35.1-43.9 [facility] Comment on above: Order Comment: Order Date: 06/16/24 Order Info: [id number] - CBCD Performed By: #### L 501.9985, L500.4050, L100.0100, L500.4100, L501.9520, L506.1000 #### [facility] [address] [place], [address] WBC (Bld) [#/Vol] 6.6 10*3/uL Normal 4.4-11.0 [facility] Comment on above: Order Comment: Order Date: 06/16/24 Order Info: [id number] - CBCD Performed By: #### L 501.9985, L500.4050, L100.0100, L500.4100, L501.9520, L506.1000 #### [facility] [address] [place], [place], [address] Carbon dioxide measurementOr dered By: Jose Moreno on 06-16-2024 CO2 [Moles/Vol] 27.0 mmol/L 21.0-32.0 [facility] Chloride measurementOrdered By: Jose Moreno on 06-16-2024 Chloride [Moles/Vol] 108 mmol/L High 98-107 [facility] Comprehensive Metabolic Prof ilon 06-16-2024 Albumin [Mass/Vol] 3.5 g/dL Normal 3.2-5.0 [facility] Comment on above: Order Comment: Order Date: 06/16/24Order Info: 86-1 - CMPOrder Info: [id number] - LIPIDOrder Info: [id number] - TSH Performed By: #### L 501.9985, L500.4050, L100.0100, L500.4100, L501.9520, L506.1000 ####[facility] [address] [place], [address] Albumin/Globulin [Mass ratio] 0.9 {ratio} Normal 0.9-2.4 [facility] Comment on above: Order Comment: Order Date: 06/16/24Order Info: [id number] - CMPOrder Info: [id number] - LIPIDOrder Info: 3 - TSH Performed By: #### L 501.9985, L500.4050, L100.0100, L500.4100, L501.9520, L506.1000 ####[facility] [address] [place], [address] ALK P 49 U/L Normal 45-117 [facility] Comment on above: Order Comment: Order Date: 06/16/24Order Info: 07-1 - CMPOrder Info: [id number] - LIPIDOrder Info: 3 - TSH Performed By: #### L 501.9985, L500.4050, L100.0100, L500.4100, L501.9520, L506.1000 ####[facility] [address] [place], [address] ALT [Catalytic activity/Vol] 34 U/L Normal 16-61 [facility] Comment on above: Order Comment: Order Date: 06/16/24Order Info: [id number] - CMPOrder Info: [id number] - LIPIDOrder Info: 3 - TSH Performed By: #### L 501.9985, L500.4050, L100.0100, L500.4100, L501.9520, L506.1000 ####[facility] [address] [place], [address] AST [Catalytic activity/Vol] 23 U/L Normal 15-37 [facility] Comment on above: Order Comment: Order Date: 06/16/24Order Info: [id number] - CMPOrder Info: [id number] - LIPIDOrder Info: [id number] - TSH Performed By: #### L 501.9985, L500.4050, L100.0100, L500.4100, L501.9520, L506.1000 ####[facility] [address] [place], [address] Bilirubin [Mass/Vol] 0.80 mg/dL Normal 0.20-1.00 [facility] Comment on above: Order Comment: Order Date: 06/16/24Order Info: [id number] - CMPOrder Info: [id number] - LIPIDOrder Info: [id number] - TSH Result Comment: For patients on eltrombopag therapy, use of Dimension [place] TBIL is not recommended. Performed By: #### L 501.9985, L500.4050, L100.0100, L500.4100, L501.9520, L506.1000 ####[facility] [address] [place], [address] BUN/CRE 30.9 RATIO High 10-20 [facility] Comment on above: Order Comment: Order Date: 06/16/24Order Info: [id number] - CMPOrder Info: [id number] - LIPIDOrder Info: [id number] - TSH Performed By: #### L 501.9985, L500.4050, L100.0100, L500.4100, L501.9520, L506.1000 ####[facility] [address] [place], [address] CA,Total 8.9 mg/dL Normal 8.5-10.1 [facility] Comment on above: Order Comment: Order Date: 06/16/24Order Info: [id number] - CMPOrder Info: [id number] - LIPIDOrder Info: 3 - TSH Performed By: #### L 501.9985, L500.4050, L100.0100, L500.4100, L501.9520, L506.1000 ####[facility] [address] [place], [address] Chloride [Moles/Vol] 108 mmol/L High 98-107 [facility] Comment on above: Order Comment: Order Date: 06/16/24Order Info: [id number] - CMPOrder Info: - LIPIDOrder Info: 3 - TSH Performed By: #### L 501.9985, L500.4050, L100.0100, L500.4100, L501.9520, L506.1000 ####[facility] [address] [place], [address] CO2 [Moles/Vol] 27.0 mmol/L Normal 21.0-32.0 [facility] Comment on above: Order Comment: Order Date: 06/16/24Order Info: [id number] - CMPOrder Info: - LIPIDOrder Info: 3 - TSH Performed By: #### L 501.9985, L500.4050, L100.0100, L500.4100, L501.9520, L506.1000 ####[facility] [address] [place], [address] Creatinine [Mass/Vol] 0.62 mg/dL Low 0.70-1.30 [facility] Comment on above: Order Comment: Order Date: 06/16/24Order Info: [id number]- - CMPOrder Info: [id number] - LIPIDOrder Info: 3 - TSH Result Comment: The validity of the calculated GFR GFRAA in patients over 70 years has not been determined. Clinical correlation is essential. Performed By: #### L 501.9985, L500.4050, L100.0100, L500.4100, L501.9520, L506.1000 ####[facility] [address] [place], [address] EST GFR - AA 168 mL/min Normal >60 [facility] Comment on above: Order Comment: Order Date: 06/16/24Order Info: [id number] - CMPOrder Info: [id number] - LIPIDOrder Info: [id number] - TSH Result Comment: Afri can Barbadian GFR Calc Performed By: #### L 501.9985, L500.4050, L100.0100, L500.4100, L501.9520, L506.1000 ####[facility] [address] [place], [address] GAP 5 Normal 5-15 [facility] Comment on above: Order Comment: Order Date: 06/16/24Order Info: [id number] - CMPOrder Info: [id number] - LIPIDOrder Info: [id number] - TSH Performed By: #### L 501.9985, L500.4050, L100.0100, L500.4100, L501.9520, L506.1000 ####[facility] [address] [place], [address] GFR/1.73 sq M.predicted among non-blacks MDRD (S/P/Bld) [Vol rate/Area] 139 mL/min/{1.73_m2} Normal >60 [facility] Comment on above: Order Comment: Order Date: 06/16/24Order Info: [id number] - CMPOrder Info: [id number] - LIPIDOrder Info: [id number] - TSH Result Comment: Non- GFR Calc Performed By: #### L 501.9985, L500.4050, L100.0100, L500.4100, L501.9520, L506.1000 ####[facility] [address] [place], [address] Globulin (S) [Mass/Vol] 3.8 g/dL Normal 2.2-4.2 [facility] Comment on above: Order Comment: Order Date: 06/16/24Order Info: [id number] - CMPOrder Info: [id number] - LIPIDOrder Info: [id number] - TSH Performed By: #### L 501.9985, L500.4050, L100.0100, L500.4100, L501.9520, L506.1000 ####[facility] [address] [place], [address] Glucose [Mass/Vol] 96 mg/dL Normal 74-106 [facility] Comment on above: Order Comment: Order Date: 06/16/24Order Info: [id number] - CMPOrder Info: [id number] - LIPIDOrder Info: [id number] - TSH Performed By: #### L 501.9985, L500.4050, L100.0100, L500.4100, L501.9520, L506.1000 ####[facility] [address] [place], [address] Potassium [Moles/Vol] 3.9 mmol/L Normal 3.5-5.1 [facility] Comment on above: Order Comment: Order Date: 06/16/24Order Info: [id number]- - CMPOrder Info: [id number] - LIPIDOrder Info: [id number] - TSH Performed By: #### L 501.9985, L500.4050, L100.0100, L500.4100, L501.9520, L506.1000 ####[facility] [address] [place], [address] Sodium [Moles/Vol] 140 mmol/L Normal 136-145 [facility] Comment on above: Order Comment: Order Date: 06/16/24Order Info: 07-1 - CMPOrder Info: [id number] - LIPIDOrder Info: [id number] - TSH Performed By: #### L 501.9985, L500.4050, L100.0100, L500.4100, L501.9520, L506.1000 ####[facility] [address] [place], [address] T PROT 7.3 g/dL Normal 6.4-8.2 [facility] Comment on above: Order Comment: Order Date: 06/16/24Order Info: [id number] - CMPOrder Info: [id number] - LIPIDOrder Info: [id number] - TSH Performed By: #### L 501.9985, L500.4050, L100.0100, L500.4100, L501.9520, L506.1000 ####[facility] [address] [place], [address] Urea nitrogen [Mass/Vol] 19 mg/dL High 7-18 [facility] Comment on above: Order Comment: Order Date: 06/16/24Order Info: [id number] - CMPOrder Info: [id number] - LIPIDOrder Info: [id number] - TSH Performed By: #### L 501.9985, L500.4050, L100.0100, L500.4100, L501.9520, L506.1000 ####[facility] [address] [place], [address] Eosinophil percentageOrdered By: Jose Moreno on 06-16-2024 Eosinophils/100 WBC (Bld) 2.7 % 0-5 [facility] Epithelial cells.squamous LM Ql (Urine sed)Ordered By: Jose Moreno on 06-16-2024 Epithelial cells.squamous LM.HPF (Urine sed) [#/Area] 0 /[HPF] 0-5 [facility] Erythrocyte distribution wid th ratioOrdered By: Jose Moreno on 06-16-2024 Erythrocyte distribution width (RBC) [Ratio] 13.1 % 11.6-14.6 [facility] Erythrocyte distribution wid th standard deviationOrdered By: Jose Moreno on 06-16-2024 Erythrocyte distribution width (RBC) [Entitic vol] 46.5 fL High 35.1-43.9 [facility] Estimated glomerular filtrat ion rate (GFR) AmericanOrdered By: Jose Moreno on 06-16-2024 Estimated GFR (MDRD) Amer 168 mL/min >60 [facility] Comment on above: GFR Calc Glomerular filtration rate ( GFR) estimationOrdered By: Jose Moreno on 06-16-2024 Estimated GFR (MDRD) Non-Af Amer 139 mL/min >60 [facility] Comment on above: Non- GFR Calc Glucose Ql (U)Ordered By: Cassie Moreno on 06-16-2024 Urine Glucose (UA) Normal mg/dl Normal [facility] Glucose measurementOrdered B y: Jose Moreno on 06-16-2024 Glucose [Mass/Vol] 96 mg/dL 74-106 [facility] Hematocrit Auto (Bld) [Volum e fraction]Ordered By: Jose Moreno on 06-16-2024 Hematocrit (Bld) [Volume fraction] 43.1 % 40-54 [facility] Hemoglobin A1con 06-16-2024 HbA1c (Bld) [Mass fraction] 6.1 % High 3.8-5.6 [facility] Comment on above: Order Comment: Order Date: 06/16/24Order Info: [id number] - A1C Result Comment: Norm al < 5.7 % Prediabetic 5.7 - 6.4 % Diabetic >or= 6.5 % Please note range changes. Performed By: #### L 501.9985, L500.4050, L100.0100, L500.4100, L501.9520, L506.1000 ####[facility] [address] [place], [address] Hemoglobin A1c percentageOrd ered By: Jose Moreno on 06-16-2024 HbA1c (Bld) [Mass fraction] 6.1 % High 3.8-5.6 [facility] Comment on above: Normal < 5.7 % Predi abetic 5.7 - 6.4 % Diabetic >or= 6.5 % Please note range changes. Hemoglobin measurementOrdere d By: Jose Moreno on 06-16-2024 Hemoglobin (Bld) [Mass/Vol] 13.9 g/dL 13.0-16.5 [facility] High density lipoprotein (HD L) measurementOrdered By: Jose Moreno on 06-16-2024 Cholesterol in HDL [Mass/Vol] 56 mg/dL >40 [facility] Comment on above: The drugs N-Acetylcy steine and Metamizole may falsely depress this assay. Reference Range HDL <40 mg/dL Low HDL Cholesterol HDL >or= 60 mg/dL High HDL Cholesterol Immature granulocytes/100 WB C Auto (Bld)Ordered By: Jose Moreno on 06-16-2024 Immature granulocytes/100 WBC (Bld) 0.500 % 0.0-0.9 [facility] Comment on above: IG% - Immature Granu locytes (promyelocytes, myelocytes and metamyelocytes) > 1% indicates that a LEFT SHIFT is Present. Ketones Test strip Ql (U)Ord ered By: Jose Moreno on 06-16-2024 Ketones Ql (U) Negative Negative [facility] - Chemistry and C hemistry - challengeOrdered By: Jose Moreno on 06-16-2024 AST [Catalytic activity/Vol] 23 U/L 15-37 [facility] Lipid Profileon 06-16-2024 Cholesterol [Mass/Vol] 182 mg/dL Normal 200 [facility] Comment on above: Order Comment: Order Date: 06/16/24Order Info: [id number] - CMPOrder Info: [id number] - LIPIDOrder Info: [id number] - TSH Result Comment: <200 mg/dL Desirable 200-240 mg/dL Borderline >240 mg/dL High Risk Performed By: #### L 501.9985, L500.4050, L100.0100, L500.4100, L501.9520, L506.1000 ####[facility] [address] [place], [address] Cholesterol in HDL [Mass/Vol] 56 mg/dL Normal [facility] Comment on above: Order Comment: Order Date: 06/16/24Order Info: [id number] - CMPOrder Info: [id number] - LIPIDOrder Info: [id number] - TSH Result Comment: The drugs N-Acetylcysteine and Metamizole may falsely depress this assay. Reference Range HDL <40 mg/dL Low HDL Cholesterol HDL >or= 60 mg/dL High HDL Cholesterol Performed By: #### L 501.9985, L500.4050, L100.0100, L500.4100, L501.9520, L506.1000 ####[facility] [address] [place], [address] Cholesterol in LDL [Mass/Vol] 99 mg/dL Normal 0-130 [facility] Comment on above: Order Comment: Order Date: 06/16/24Order Info: [id number] - CMPOrder Info: [id number] - LIPIDOrder Info: [id number] - TSH Performed By: #### L 501.9985, L500.4050, L100.0100, L500.4100, L501.9520, L506.1000 ####[facility] [address] [place], [address] Cholesterol in VLDL [Mass/Vol] 27 mg/dL Normal 5-40 [facility] Comment on above: Order Comment: Order Date: 06/16/24Order Info: [id number] - CMPOrder Info: [id number] - LIPIDOrder Info: [id number] - TSH Performed By: #### L 501.9985, L500.4050, L100.0100, L500.4100, L501.9520, L506.1000 ####[facility] [address] [facility], [address] Triglyceride [Mass/Vol] 136 mg/dL Normal [facility] Comment on above: Order Comment: Order Date: 06/16/24Order Info: [id number] - CMPOrder Info: [id number] - LIPIDOrder Info: [id number] - TSH Result Comment: The drugs N-Acetylcysteine and Metamizole may falsely depress this assay. Serum Triglycerides Reference Interval Normal <150 mg/dL Borderline high 150 - 199 mg/dL High 200 - 499 mg/dL Very High > or = 500 mg/dL Performed By: #### L 501.9985, L500.4050, L100.0100, L500.4100, L501.9520, L506.1000 ####[facility] [address] [place], [address] Low density lipoprotein (LDL ) cholesterol measurementOrdered By: Jose Moreno on 06-16-2024 Cholesterol in LDL [Mass/Vol] 99 mg/dL 0-130 [facility] Lymphocytes Auto (Unsp spec) [#/Vol]Ordered By: Jose Moreno on 06-16-2024 Lymphocytes (Bld) [#/Vol] 2.55 10*3/uL 0.83-4.51 [facility] Lymphocytes/100 WBC Auto (Un sp spec)Ordered By: Jose Moreno on 06-16-2024 Lymphocytes/100 WBC (Bld) 38.8 % 19-41 [facility] MCV (mean corpuscular volume ) determinationOrdered By: Jose Moreno on 06-16-2024 MCV (RBC) [Entitic vol] 97.1 fL High 80-94 [facility] Mean corpuscular hemoglobin (MCH) determinationOrdered By: Jose Moreno on 06-16-2024 MCH (RBC) [Entitic mass] 31.3 pg 27.0-32.0 [facility] Mean corpuscular hemoglobin concentration (MCHC) determinationOrdered By: Jose Moreno on 06-16-2024 MCHC (RBC) [Mass/Vol] 32.3 g/dL 32-36 [facility] Mean platelet volume determi nationOrdered By: Jose Moreno on 06-16-2024 Platelet mean volume (Bld) [Entitic vol] 10.1 fL 6.2-12.0 [facility] Microscopic analysis of urin e for red blood cells (RBC)Ordered By: Jose Moreno on 06-16-2024 Urine RBC 0-5 SEEN /hpf 0-5 [facility] Monocyte percentageOrdered B y: Jose Moreno on 06-16-2024 Monocytes/100 WBC (Bld) 8.7 % 0-10 [facility] Mucus LM Ql (Urine sed)Order ed By: Jose Moreno on 06-16-2024 Mucus Ql (Urine sed) 0 SEEN /hpf [facility] Neutrophil percentageOrdered By: Jose Moreno on 06-16-2024 Neutrophils/100 WBC (Bld) 48.7 % 47-70 [facility] Nitrite Test strip Ql (U)Ord ered By: Jose Moreno on 06-16-2024 Nitrite Ql (U) Negative Negative [facility] Nucleated red blood cell per centageOrdered By: Jose Moreno on 06-16-2024 Nucleated RBC/100 WBC (Bld) [Ratio] 0 % 0-5 [facility] Platelet countOrdered By: Cassie Moreno on 06-16-2024 Platelets (Bld) [#/Vol] 245 10*3/uL 150-450 [facility] Potassium measurementOrdered By: Jose Moreno on 06-16-2024 Potassium [Moles/Vol] 3.9 mmol/L 3.5-5.1 [facility] Protein Test strip Ql (U)Ord ered By: Jose Moreno on 06-16-2024 Protein Ql (U) Negative Negative [facility] RBC Auto (Bld) [#/Vol]Ordere d By: Jose Moreno on 06-16-2024 RBC (Bld) [#/Vol] 4.44 10*6/uL Low 4.6-6.2 [facility] Serum anion gap measurementO rdered By: Jose Moreno on 06-16-2024 Anion gap [Moles/Vol] 5 mmol/L 5-15 [facility] [facility] Serum globulin measurementOr dered By: Jose Moreno on 06-16-2024 Globulin (S) [Mass/Vol] 3.8 g/dL 2.2-4.2 [facility] Serum or plasma alanine morelos otransferase (ALT) measurementOrdered By: Jose Moreno on 06-16-2024 ALT [Catalytic activity/Vol] 34 U/L 16-61 [facility] Serum or plasma albumin alexis urement (mass/volume)Ordered By: Jose Moreno on 06-16-2024 Albumin [Mass/Vol] 3.5 g/dL 3.2-5.0 [facility] Serum or plasma alkaline yin sphatase measurementOrdered By: Jose Moreno on 06-16-2024 ALP [Catalytic activity/Vol] 49 U/L 45-117 [facility] Serum or plasma calcium alexis urement (mass/volume)Ordered By: Jose Moreno on 06-16-2024 Calcium [Mass/Vol] 8.9 mg/dL 8.5-10.1 [facility] Serum or plasma cholesterol measurement (mass/volume)Ordered By: Jose Moreno on 06-16-2024 Cholesterol [Mass/Vol] 182 mg/dL <200 [facility] Comment on above: <200 mg/dL Desirable 200-240 mg/dL Borderline >240 mg/dL High Risk Serum or plasma creatinine m easurement (mass/volume)Ordered By: Jose Moreno on 06-16-2024 Creatinine [Mass/Vol] 0.62 mg/dL Low 0.70-1.30 [facility] Comment on above: The validity of the calculated GFR & GFRAA in patients over 70 years has not been determined. Clinical correlation is essential. Serum or plasma urea nitroge n measurement (mass/volume)Ordered By: Jose Moreno on 06-16-2024 Urea nitrogen [Mass/Vol] 19 mg/dL High 7-18 [facility] Sodium levelOrdered By: Jose Moreno on 06-16-2024 Sodium [Moles/Vol] 140 mmol/L 136-145 [facility] TSH QnOrdered By: Jose anderson on 06-16-2024 Thyroid Stimulating Hormone (TSH) 1.740 uIU/mL 0.358-3.740 [facility] Thyroid Stim Hormone (TSH)on 06-16-2024 TSH 1.740 uIU/mL Normal 0.358-3.740 [facility] Comment on above: Order Comment: Order Date: 06/16/24Order Info: [id number] - CMPOrder Info: [id number] - LIPIDOrder Info: [id number] - TSH Performed By: #### L 501.9985, L500.4050, L100.0100, L500.4100, L501.9520, L506.1000 ####[facility] [address] [place], [address] Total proteinOrdered By: Jaden Moreno on 06-16-2024 Protein [Mass/Vol] 7.3 g/dL 6.4-8.2 [facility] Triglycerides measurementOrd ered By: Jose Moreno on 06-16-2024 Triglyceride [Mass/Vol] 136 mg/dL <199 [facility] Comment on above: The drugs N-Acetylcy steine and Metamizole may falsely depress this assay.Serum Triglycerides Reference Interval Normal <150 mg/dL Borderline high 150 - 199 mg/dL High 200 - 499 mg/dL Very High > or = 500 mg/dL Urinalysis, Completeon 06-16 RBC 0-5 SEEN Normal 0-5 [facility] Comment on above: Order Comment: CLEAN CATCH Performed By: #### L 400.0001 #### [facility] [address] [place], [address] BACTERIA 0 SEEN Normal None Seen [facility] Comment on above: Order Comment: CLEAN CATCH Performed By: #### L 400.0001 #### [facility] [address] [place], [address] EPI,SQUAMOUS 0 SEEN Normal 0-5 [facility] Comment on above: Order Comment: CLEAN CATCH Performed By: #### L [id number] #### [facility] [address] [place], [address] Mucus Ql (Urine sed) 0 SEEN Normal [facility] Comment on above: Order Comment: CLEAN CATCH Performed By: #### L [id number] #### [facility] [address] [place], [address] WBC 0 SEEN Normal 0-5 [facility] Comment on above: Order Comment: CLEAN CATCH Performed By: #### L [id number] #### [facility] [address] [place], [address] Urine blood detectionOrdered By: Jose Moreno on 06-16-2024 Urine Occult Blood 25 /ul High Negative [facility] Urine clarityOrdered By: Jaden Moreno on 06-16-2024 Clarity (U) Clear Clear [facility] Urine color determinationOrd ered By: Jose Moreno on 06-16-2024 Color (U) Yellow Yellow [facility] Urine leukocyte esterase det ection by dipstickOrdered By: Jose Moreno on 06-16-2024 Leukocyte esterase Test strip Ql (U) Negative Negative [facility] Urine pHOrdered By: Jose hernandez on 06-16-2024 pH (U) 6.5 [pH] 5.0 - 8.0 [facility] Urine sediment bacteria coun t by microscopy (number/high power field)Ordered By: Jose Moreno on 06-16-2024 Bacteria LM.HPF (Urine sed) [#/Area] 0 /[HPF] None Seen [facility] Urine specific gravity measu rementOrdered By: Jose Moreno on 06-16-2024 Specific gravity (U) [Rel density] 1.015 1.002-1.030 [facility] Urobilinogen Ql (U)Ordered B y: Jose Moreno on 06-16-2024 Urine Urobilinogen Normal mg/dl Normal [facility] Very low density lipoprotein (VLDL) cholesterol measurementOrdered By: Jose Moreno on 06-16-2024 VLDL Cholesterol 27 mg/dL 5-40 [facility] White blood cell (WBC) count Ordered By: Jose Moreno on 06-16-2024 WBC (Bld) [#/Vol] 6.6 10*3/uL 4.4-11.0 [facility] White blood cell countOrdere d By: Jose Moreno on 06-16-2024 Urine WBC 0 SEEN /hpf 0-5 [facility] MR/BMSVinh 05-25-2024 MR/BMS.[facility] Vascular Surgery [address] [place] [address] OFFICE VISIT Date of Service: 05/25/24 MR#: [id number] Acct: [id number] Name: VESTA OLIVAREZ Rep #: [id number] : 1960 Provider: ANGELA Gonzalez Age/Sex: 64/M Location: [facility] Status: Signed Intake Vital Signs 01/20/24 08:26 [...] with the 3M wraps at wound care center. When he previously tried to transition from these to standard compression stockings this did not adequately manage his swelling. Now, wound center has ordered circaids which he received and [...] distress Orientation: alert, awake and oriented x3 [facility] Head: normal to inspection, normocephalic and atraumatic Ears: hearing grossly normal bilaterally and external ears normal Nose: external nose normal Eyes General: appearance normal, both eyes an (more content not included)... Normal [facility] Absolute lymphocyte countOrd ered By: Jose Moreno on 06-30-2023 Lymphocytes Auto (Unsp spec) [#/Vol] 2.11 10*3/uL 0.83-4.51 [facility] Automated lymphocyte count a s percentage of total leukocytesOrdered By: Jose Moreno on 06-30-2023 Lymphocytes/100 WBC Auto (Unsp spec) 35.8 % 19-41 [facility] Basophil percentageOrdered B y: Jose Moreno on 06-30-2023 Basophils/100 WBC (Bld) 0.5 % 0-1 [facility] Bilirubin [Mass/Vol] 1.40 mg/dL 0.20-1.00 [facility] Comment on above: For patients on eltr ombopag therapy, use of Dimension [place] TBIL is not recommended. Chloride [Moles/Vol] 110 mmol/L 98-107 [facility] Cholesterol [Mass/Vol] 204 mg/dL <200 [facility] Comment on above: <200 mg/dL Desirable 200-240 mg/dL Borderline >240 mg/dL High Risk Eosinophils/100 WBC (Bld) 1.7 % 0-5 [facility] Glucose [Mass/Vol] 107 mg/dL 74-106 [facility] Comment on above: Fasting Glucose resu lt from 100 to 125 mg/dL suggests IMPAIRED HOMEOSTASIS per A.D.A. criteria. Hemoglobin (Bld) [Mass/Vol] 15.4 g/dL 13.0-16.5 [facility] Monocytes/100 WBC (Bld) 7.8 % 0-10 [facility] Neutrophils (Bld) [#/Vol] 3.1 10*3/uL 2.0-7.7 [facility] Neutrophils/100 WBC (Bld) 53.4 % 47-70 [facility] Potassium [Moles/Vol] 4.3 mmol/L 3.5-5.1 [facility] Protein [Mass/Vol] 6.9 g/dL 6.4-8.2 [facility] Sodium [Moles/Vol] 141 mmol/L 136-145 [facility] Triglyceride [Mass/Vol] 109 mg/dL <199 [facility] Comment on above: The drugs N-Acetylcy steine and Metamizole may falsely depress this assay.Serum Triglycerides Reference Interval Normal <150 mg/dL Borderline high 150 - 199 mg/dL High 200 - 499 mg/dL Very High > or = 500 mg/dL WBC (Bld) [#/Vol] 5.9 10*3/uL 4.4-11.0 [facility] Determination of erythrocyte mean corpuscular volume (MCV)Ordered By: Jose Moreno on 06-30-2023 MCV (RBC) [Entitic vol] 96.1 fL 80-94 [facility] Erythrocyte distribution wid th ratioOrdered By: Jose Moreno on 06-30-2023 Erythrocyte distribution width (RBC) [Ratio] 12.8 % 11.6-14.6 [facility] Erythrocyte distribution wid th standard deviationOrdered By: Jose Moreno on 06-30-2023 Erythrocyte distribution width (RBC) [Entitic vol] 45.1 fL 35.1-43.9 [facility] Hematocrit Auto (Bld) [Volum e fraction]Ordered By: Jose Moreno on 06-30-2023 Hematocrit (Bld) [Volume fraction] 46.6 % 40-54 [facility] Immature granulocytes/100 WB C Auto (Bld)Ordered By: Jose Moreno on 06-30-2023 Immature granulocytes/100 WBC (Bld) 0.800 % 0.0-0.9 [facility] Comment on above: IG% - Immature Granu locytes (promyelocytes, myelocytes and metamyelocytes) > 1% indicates that a LEFT SHIFT is Present. Laboratory - Chemistry and C hemistry - challengeOrdered By: Jose Moreno on 06-30-2023 Albumin/Globulin [Mass ratio] 1.0 {ratio} 0.9-2.4 [facility] ALP [Catalytic activity/Vol] 50 U/L 45-117 [facility] ALT [Catalytic activity/Vol] 44 U/L 16-61 [facility] Cholesterol in HDL [Mass/Vol] 63 mg/dL >40 [facility] Comment on above: The drugs N-Acetylcy steine and Metamizole may falsely depress this assay. Reference Range HDL <40 mg/dL Low HDL Cholesterol HDL >or= 60 mg/dL High HDL Cholesterol Cholesterol in LDL [Mass/Vol] 119 mg/dL 0-130 [facility] CO2 [Moles/Vol] 26.0 mmol/L 21.0-32.0 [facility] Globulin (S) [Mass/Vol] 3.5 g/dL 2.2-4.2 [facility] Urea nitrogen/Creatinine [Mass ratio] 23.0 mg/mg 10-20 [facility] Laboratory - Hematology and Cell countsOrdered By: Jose Moreno on 06-30-2023 MCH (RBC) [Entitic mass] 31.8 pg 27.0-32.0 [facility] MCHC (RBC) [Mass/Vol] 33.0 g/dL 32-36 [facility] Nucleated RBC/100 WBC (Bld) [Ratio] 0 % 0-5 [facility] Platelet mean volume (Bld) [Entitic vol] 9.2 fL 6.2-12.0 [facility] Platelets (Bld) [#/Vol] 207 10*3/uL 150-450 [facility] No Panel InformationOrdered By: Jose Moreno on 06-30-2023 Estimated GFR (MDRD) Amer 146 mL/min >60 [facility] Comment on above: GFR Calc Estimated GFR (MDRD) Non-Af Amer 121 mL/min >60 [facility] Comment on above: Non- GFR Calc Vitamin D 25-Hydroxy 30.4 ng/mL [facility] Comment on above: Vitamin D 25(OH) Sta tus Range Deficiency <20 ng/mL (50nmol/L) Insufficiency 20 - 30 ng/mL (50 - 75 nmol/L) Sufficiency 30 - 100 ng/mL (75 - 250 nmol/L) Toxicity >100 ng/mL (>250 nmol/L) VLDL Cholesterol 22 mg/dL 5-40 [facility] RBC Auto (Bld) [#/Vol]Ordere d By: Jose Moreno on 06-30-2023 RBC (Bld) [#/Vol] 4.85 10*6/uL 4.6-6.2 [facility] Serum or plasma calcium alexis urement (mass/volume)Ordered By: Jose Moreno on 06-30-2023 Calcium [Mass/Vol] 9.0 mg/dL 8.5-10.1 [facility] Serum or plasma creatinine m easurement (mass/volume)Ordered By: Jose Moreno on 06-30-2023 Creatinine [Mass/Vol] 0.70 mg/dL 0.70-1.30 [facility] Comment on above: The validity of the calculated GFR & GFRAA in patients over 70 years has not been determined. Clinical correlation is essential. Serum or plasma urea nitroge n measurement (mass/volume)Ordered By: Jose Moreno on 06-30-2023 Urea nitrogen [Mass/Vol] 16 mg/dL 7-18 [facility] Thin prep Papanicolaou smear with manual screeningOrdered By: Jose Moreno on 06-30-2023 Thin prep Papanicolaou smear with manual screening 3.4 g/dL 3.2-5.0 [facility] Thin prep Papanicolaou smear with manual screening 27 U/L 15-37 [facility] Thin prep Papanicolaou smear with manual screening 5 5-15 [facility] Whole blood hemoglobin A1c/t otal hemoglobin ratio (mass fraction)Ordered By: Jose Moreno on 06-30-2023 HbA1c (Bld) [Mass fraction] 6.1 % 3.8-5.6 [facility] Comment on above: Normal < 5.7 % Predi abetic 5.7 - 6.4 % Diabetic >or= 6.5 % Please note range changes. Absolute lymphocyte countOrd ered By: Jose Moreno on 05-20-2023 Lymphocytes Auto (Unsp spec) [#/Vol] 2.40 10*3/uL 0.83-4.51 [facility] Automated lymphocyte count a s percentage of total leukocytesOrdered By: Jose Moreno on 05-20-2023 Lymphocytes/100 WBC Auto (Unsp spec) 33.9 % 19-41 [facility] Basophil percentageOrdered B y: Jose Moreno on 05-20-2023 Basophils/100 WBC (Bld) 0.4 % 0-1 [facility] Bilirubin [Mass/Vol] 1.20 mg/dL 0.20-1.00 [facility] Comment on above: For patients on eltr ombopag therapy, use of Dimension [place] TBIL is not recommended. Chloride [Moles/Vol] 106 mmol/L 98-107 [facility] Cholesterol [Mass/Vol] 188 mg/dL <200 [facility] Comment on above: <200 mg/dL Desirable 200-240 mg/dL Borderline >240 mg/dL High Risk Eosinophils/100 WBC (Bld) 1.7 % 0-5 [facility] Glucose [Mass/Vol] 96 mg/dL 74-106 [facility] Hemoglobin (Bld) [Mass/Vol] 15.0 g/dL 13.0-16.5 [facility] Monocytes/100 WBC (Bld) 6.6 % 0-10 [facility] Neutrophils (Bld) [#/Vol] 4.0 10*3/uL 2.0-7.7 [facility] Neutrophils/100 WBC (Bld) 56.8 % 47-70 [facility] Potassium [Moles/Vol] 3.9 mmol/L 3.5-5.1 [facility] Protein [Mass/Vol] 6.8 g/dL 6.4-8.2 [facility] Sodium [Moles/Vol] 138 mmol/L 136-145 [facility] Triglyceride [Mass/Vol] 98 mg/dL <199 [facility] Comment on above: The drugs N-Acetylcy steine and Metamizole may falsely depress this assay.Serum Triglycerides Reference Interval Normal <150 mg/dL Borderline high 150 - 199 mg/dL High 200 - 499 mg/dL Very High > or = 500 mg/dL WBC (Bld) [#/Vol] 7.1 10*3/uL 4.4-11.0 [facility] Determination of erythrocyte mean corpuscular volume (MCV)Ordered By: Jose Moreno on 05-20-2023 MCV (RBC) [Entitic vol] 96.0 fL 80-94 [facility] Erythrocyte distribution wid th ratioOrdered By: Jose Moreno on 05-20-2023 Erythrocyte distribution width (RBC) [Ratio] 12.3 % 11.6-14.6 [facility] Erythrocyte distribution wid th standard deviationOrdered By: Jose Moreno on 05-20-2023 Erythrocyte distribution width (RBC) [Entitic vol] 44.0 fL 35.1-43.9 [facility] Hematocrit Auto (Bld) [Volum e fraction]Ordered By: Jose Moreno on 05-20-2023 Hematocrit (Bld) [Volume fraction] 46.0 % 40-54 [facility] High density lipoprotein (HD L) measurementOrdered By: Jose Moreno on 05-20-2023 Cholesterol in HDL (Body fld) [Mass/Vol] 60 mg/dL >40 [facility] Comment on above: The drugs N-Acetylcy steine and Metamizole may falsely depress this assay. Reference Range HDL <40 mg/dL Low HDL Cholesterol HDL >or= 60 mg/dL High HDL Cholesterol Immature granulocytes/100 WB C Auto (Bld)Ordered By: Jose Moreno on 05-20-2023 Immature granulocytes/100 WBC (Bld) 0.600 % 0.0-0.9 [facility] Comment on above: IG% - Immature Granu locytes (promyelocytes, myelocytes and metamyelocytes) > 1% indicates that a LEFT SHIFT is Present. Laboratory - Chemistry and C hemistry - challengeOrdered By: Jose Moreno on 05-20-2023 Albumin/Globulin [Mass ratio] 1.1 {ratio} 0.9-2.4 [facility] ALP [Catalytic activity/Vol] 51 U/L 45-117 [facility] ALT [Catalytic activity/Vol] 44 U/L 16-61 [facility] CO2 [Moles/Vol] 27.0 mmol/L 21.0-32.0 [facility] Globulin (S) [Mass/Vol] 3.2 g/dL 2.2-4.2 [facility] Urea nitrogen/Creatinine [Mass ratio] 20.3 mg/mg 10-20 [facility] Laboratory - Hematology and Cell countsOrdered By: Jose Moreno on 05-20-2023 MCH (RBC) [Entitic mass] 31.3 pg 27.0-32.0 [facility] MCHC (RBC) [Mass/Vol] 32.6 g/dL 32-36 [facility] Nucleated RBC/100 WBC (Bld) [Ratio] 0 % 0-5 [facility] Platelets (Bld) [#/Vol] 230 10*3/uL 150-450 [facility] Low density lipoprotein (LDL ) cholesterol measurementOrdered By: Jose Moreno on 05-20-2023 Cholesterol in LDL (Body fld) [Moles/Vol] 108 mg/dL 0-130 [facility] No Panel InformationOrdered By: Jose Moreno on 05-20-2023 Estimated GFR (MDRD) Amer 148 mL/min >60 [facility] Comment on above: GFR Calc Estimated GFR (MDRD) Non-Af Amer 123 mL/min >60 [facility] Comment on above: Non- GFR Calc Platelet mean volume Alexis-Ec ker (Bld) [Entitic vol]Ordered By: Jose Moreno on 05-20-2023 Platelet mean volume (Bld) [Entitic vol] 9.9 fL 6.2-12.0 [facility] RBC Auto (Bld) [#/Vol]Ordere d By: Jose Moreno on 05-20-2023 RBC (Bld) [#/Vol] 4.79 10*6/uL 4.6-6.2 [facility] Serum or plasma calcium alexis urement (mass/volume)Ordered By: Jose Moreno on 05-20-2023 Calcium [Mass/Vol] 8.6 mg/dL 8.5-10.1 [facility] Serum or plasma creatinine m easurement (mass/volume)Ordered By: Jose Moreno on 05-20-2023 Creatinine [Mass/Vol] 0.69 mg/dL 0.70-1.30 [facility] Comment on above: The validity of the calculated GFR & GFRAA in patients over 70 years has not been determined. Clinical correlation is essential. Serum or plasma urea nitroge n measurement (mass/volume)Ordered By: Jose Moreno on 05-20-2023 Urea nitrogen [Mass/Vol] 14 mg/dL 7-18 [facility] Thin prep Papanicolaou smear with manual screeningOrdered By: Jose Moreno on 05-20-2023 Thin prep Papanicolaou smear with manual screening 3.6 g/dL 3.2-5.0 [facility] Thin prep Papanicolaou smear with manual screening 31 U/L 15-37 [facility] Thin prep Papanicolaou smear with manual screening 5 5-15 [facility] Very low density lipoprotein (VLDL) cholesterol measurementOrdered By: Jose Moreno on 05-20-2023 Cholesterol in VLDL Calc [Moles/Vol] 20 mg/dL 5-40 [facility] Whole blood hemoglobin A1c/t otal hemoglobin ratio (mass fraction)Ordered By: Jose Moreno on 05-20-2023 HbA1c (Bld) [Mass fraction] 6.0 % 3.8-5.6 [facility] Comment on above: Normal < 5.7 % Predi abetic 5.7 - 6.4 % Diabetic >or= 6.5 % Please note range changes. Absolute lymphocyte countOrd ered By: Jose Moreno on 01-07-2023 Lymphocytes Auto (Unsp spec) [#/Vol] 2.61 10*3/uL 0.83-4.51 [facility] Basophil percentageOrdered B y: Jose Moreno on 01-07-2023 Basophils/100 WBC (Bld) 0.4 % 0-1 [facility] Bilirubin [Mass/Vol] 0.90 mg/dL 0.20-1.00 [facility] Comment on above: For patients on eltr ombopag therapy, use of Dimension [place] TBIL is not recommended. Chloride [Moles/Vol] 109 mmol/L 98-107 [facility] Eosinophils/100 WBC (Bld) 1.9 % 0-5 [facility] Glucose [Mass/Vol] 91 mg/dL 74-106 [facility] Neutrophils (Bld) [#/Vol] 3.4 10*3/uL 2.0-7.7 [facility] Neutrophils/100 WBC (Bld) 50.7 % 47-70 [facility] Potassium [Moles/Vol] 3.9 mmol/L 3.5-5.1 [facility] Protein [Mass/Vol] 6.9 g/dL 6.4-8.2 [facility] Sodium [Moles/Vol] 141 mmol/L 136-145 [facility] WBC (Bld) [#/Vol] 6.8 10*3/uL 4.4-11.0 [facility] Blood erythrocytes count (nu mber/volume)Ordered By: Jose Moreno on 01-07-2023 RBC (Bld) [#/Vol] 4.47 10*6/uL 4.6-6.2 [facility] Blood hemoglobin measurement (mass/volume)Ordered By: Jose Moreno on 01-07-2023 Hemoglobin (Bld) [Mass/Vol] 14.4 g/dL 13.0-16.5 [facility] Blood lymphocytes/100 leukoc ytesOrdered By: Jose Moreno on 01-07-2023 Lymphocytes/100 WBC (Bld) 38.7 % 19-41 [facility] Blood monocytes/100 leukocyt esOrdered By: Jose Moreno on 01-07-2023 Monocytes/100 WBC (Bld) 7.9 % 0-10 [facility] Blood platelet mean volumeOr dered By: Jose Moreno on 01-07-2023 Platelet mean volume (Bld) [Entitic vol] 9.9 fL 6.2-12.0 [facility] Determination of erythrocyte mean corpuscular volume (MCV)Ordered By: Jose Moreno on 01-07-2023 MCV (RBC) [Entitic vol] 98.2 fL 80-94 [facility] Hematocrit Auto (Bld) [Volum e fraction]Ordered By: Jose Moreno on 01-07-2023 Hematocrit (Bld) [Volume fraction] 43.9 % 40-54 [facility] Laboratory - Chemistry and C hemistry - challengeOrdered By: Jose Moreno on 01-07-2023 ALP [Catalytic activity/Vol] 48 U/L 45-117 [facility] ALT [Catalytic activity/Vol] 44 U/L 16-61 [facility] CO2 [Moles/Vol] 28.0 mmol/L 21.0-32.0 [facility] Globulin (S) [Mass/Vol] 3.3 g/dL 2.2-4.2 [facility] Urea nitrogen/Creatinine [Mass ratio] 28.4 mg/mg 10-20 [facility] Laboratory - Hematology and Cell countsOrdered By: Jose Moreno on 01-07-2023 Erythrocyte distribution width (RBC) [Entitic vol] 46.1 fL 35.1-43.9 [facility] Erythrocyte distribution width (RBC) [Ratio] 12.8 % 11.6-14.6 [facility] Immature granulocytes/100 WBC (Bld) 0.400 % 0.0-0.9 [facility] Comment on above: IG% - Immature Granu locytes (promyelocytes, myelocytes and metamyelocytes) > 1% indicates that a LEFT SHIFT is Present. MCH (RBC) [Entitic mass] 32.2 pg 27.0-32.0 [facility] Nucleated RBC/100 [facility] (Bld) [[facility]] 0 % 0[facility] [Mass/Vol]Or dered By: Jose Moreno on 01-07-2023 MCHC (RBC) [Mass/Vol] 32.8 g/dL 32-36 [facility] No Panel InformationOrdered By: Jose Moreno on 01-07-2023 Estimated GFR (MDRD) Amer 164 mL/min >60 [facility] Comment on above: GFR Calc Estimated GFR (MDRD) Non-Af Amer 135 mL/min >60 [facility] Comment on above: Non- GFR Calc Thyroid Stimulating Hormone (TSH) 1.41 uIU/mL 0.358-3.74 [facility] Platelets bldOrdered By: Jaden Moreno on 01-07-2023 Platelets (Bld) [#/Vol] 228 10*3/uL 150-450 [facility] Serum or plasma albumin alexis urement (mass/volume)Ordered By: Jose Moreno on 01-07-2023 Albumin [Mass/Vol] 3.6 g/dL 3.2-5.0 [facility] Serum or plasma albumin/glob ulin mass ratioOrdered By: Jose Moreno on 01-07-2023 Albumin/Globulin [Mass ratio] 1.1 {ratio} 0.9-2.4 [facility] Serum or plasma calcium alexis urement (mass/volume)Ordered By: Jose Moreno on 01-07-2023 Calcium [Mass/Vol] 8.4 mg/dL 8.5-10.1 [facility] Serum or plasma creatinine m easurement (mass/volume)Ordered By: Jose Moreno on 01-07-2023 Creatinine [Mass/Vol] 0.63 mg/dL 0.70-1.30 [facility] Comment on above: The validity of the calculated GFR & GFRAA in patients over 70 years has not been determined. Clinical correlation is essential. Serum or plasma urea nitroge n measurement (mass/volume)Ordered By: Jose Moreno on 01-07-2023 Urea nitrogen [Mass/Vol] 18 mg/dL 7-18 [facility] Thin prep Papanicolaou smear with manual screeningOrdered By: Jose Moreno on 01-07-2023 Thin prep Papanicolaou smear with manual screening 26 U/L 15-37 [facility] Thin prep Papanicolaou smear with manual screening 4 5-15 [facility] Whole blood hemoglobin A1c/t otal hemoglobin ratio (mass fraction)Ordered By: Jose Moreno on 01-07-2023 HbA1c (Bld) [Mass fraction] 6.0 % 3.8-5.6 [facility] Comment on above: Normal < 5.7 % Predi abetic 5.7 - 6.4 % Diabetic >or= 6.5 % Please note range changes. Absolute lymphocyte countOrd ered By: Dr. Moreno on 08-21-2022 Lymphocytes Auto (Unsp spec) [#/Vol] 3.34 10*3/uL 0.83-4.51 [facility] Basophil percentageOrdered B y: Dr. Moreno on 08-21-2022 Basophil percentage 0 SEEN /hpf 0-5 [facility] Basophils/100 WBC (Bld) 0.5 % 0-1 [facility] Bilirubin [Mass/Vol] 1.00 mg/dL 0.20-1.00 [facility] Comment on above: For patients on eltr ombopag therapy, use of Dimension [place] TBIL is not recommended. Chloride [Moles/Vol] 104 mmol/L 98-107 [facility] Cholesterol [Mass/Vol] 200 mg/dL <200 [facility] Comment on above: <200 mg/dL Desirable 200-240 mg/dL Borderline >240 mg/dL High Risk Eosinophils/100 WBC (Bld) 2.2 % 0-5 [facility] Glucose [Mass/Vol] 92 mg/dL 74-106 [facility] Neutrophils (Bld) [#/Vol] 4.8 10*3/uL 2.0-7.7 [facility] Neutrophils/100 WBC (Bld) 52.1 % 47-70 [facility] Potassium [Moles/Vol] 4.3 mmol/L 3.5-5.1 [facility] Protein [Mass/Vol] 7.1 g/dL 6.4-8.2 [facility] Sodium [Moles/Vol] 134 mmol/L 136-145 [facility] Triglyceride [Mass/Vol] 170 mg/dL <199 [facility] Comment on above: The drugs N-Acetylcy steine and Metamizole may falsely depress this assay.Serum Triglycerides Reference Interval Normal <150 mg/dL Borderline high 150 - 199 mg/dL High 200 - 499 mg/dL Very High > or = 500 mg/dL WBC (Bld) [#/Vol] 9.2 10*3/uL 4.4-11.0 [facility] Bilirubin Test strip Ql (U)O rdered By: Dr. Moreno on 08-21-2022 Bilirubin Ql (U) Negative Negative [facility] Blood erythrocytes count (nu mber/volume)Ordered By: Dr. Moreno on 08-21-2022 RBC (Bld) [#/Vol] 4.90 10*6/uL 4.6-6.2 [facility] Blood hemoglobin measurement (mass/volume)Ordered By: Dr. Moreno on 08-21-2022 Hemoglobin (Bld) [Mass/Vol] 15.7 g/dL 13.0-16.5 [facility] Blood lymphocytes/100 leukoc ytesOrdered By: Dr. Moreno on 08-21-2022 Lymphocytes/100 WBC (Bld) 36.5 % 19-41 [facility] Blood monocytes/100 leukocyt esOrdered By: Dr. Moreno on 08-21-2022 Monocytes/100 WBC (Bld) 7.3 % 0-10 [facility] Blood platelet mean volumeOr dered By: Dr. Moreno on 08-21-2022 Platelet mean volume (Bld) [Entitic vol] 9.7 fL 6.2-12.0 [facility] Determination of erythrocyte mean corpuscular volume (MCV)Ordered By: Dr. Moreno on 08-21-2022 MCV (RBC) [Entitic vol] 96.3 fL 80-94 [facility] Hematocrit Auto (Bld) [Volum e fraction]Ordered By: Dr. Moreno on 08-21-2022 Hematocrit (Bld) [Volume fraction] 47.2 % 40-54 [facility] Ketones Test strip Ql (U)Ord ered By: Dr. Moreno on 08-21-2022 Ketones Ql (U) Negative Negative [facility] Laboratory - Chemistry and C hemistry - challengeOrdered By: Dr. Moreno on 08-21-2022 ALP [Catalytic activity/Vol] 53 U/L 45-117 [facility] ALT [Catalytic activity/Vol] 44 U/L 16-61 [facility] CO2 [Moles/Vol] 25.0 mmol/L 21.0-32.0 [facility] Cobalamin (Vitamin B12) [Mass/Vol] 260 pg/mL 211-911 [facility] Free T4 [Mass/Vol] 0.98 ng/dL 0.76-1.46 [facility] Globulin (S) [Mass/Vol] 3.5 g/dL 2.2-4.2 [facility] Urea nitrogen/Creatinine [Mass ratio] 26.5 mg/mg 10-20 [facility] Laboratory - Hematology and Cell countsOrdered By: Dr. Moreno on 08-21-2022 Erythrocyte distribution width (RBC) [Entitic vol] 45.1 fL 35.1-43.9 [facility] Erythrocyte distribution width (RBC) [Ratio] 12.7 % 11.6-14.6 [facility] Immature granulocytes/100 WBC (Bld) 1.400 % 0.0-0.9 [facility] Comment on above: IG% - Immature Granu locytes (promyelocytes, myelocytes and metamyelocytes) > 1% indicates that a LEFT SHIFT is Present. MCH (RBC) [Entitic mass] 32.0 pg 27.0-32.0 [facility] Nucleated RBC/100 WBC (Bld) [Ratio] 0 % 0-5 [facility] MCHC Auto (RBC) [Mass/Vol]Or dered By: Dr. Moreno on 08-21-2022 MCHC (RBC) [Mass/Vol] 33.3 g/dL 32-36 [facility] Mucus LM Ql (Urine sed)Order ed By: Dr. Moreno on 08-21-2022 Mucus Ql (Urine sed) 0 SEEN /hpf [facility] Nitrite Test strip Ql (U)Ord ered By: Dr. Moreno on 08-21-2022 Nitrite Ql (U) Negative Negative [facility] No Panel InformationOrdered By: Dr. Moreno on 08-21-2022 Estimated GFR (MDRD) Amer 151 mL/min >60 [facility] Comment on above: GFR Calc Estimated GFR (MDRD) Non-Af Amer 125 mL/min >60 [facility] Comment on above: Non- GFR Calc Thyroid Stimulating Hormone (TSH) 1.92 uIU/mL 0.358-3.74 [facility] Vitamin D 25-Hydroxy 25.6 ng/mL [facility] Comment on above: Vitamin D 25(OH) Sta tus Range Deficiency <20 ng/mL (50nmol/L) Insufficiency 20 - 30 ng/mL (50 - 75 nmol/L) Sufficiency 30 - 100 ng/mL (75 - 250 nmol/L) Toxicity >100 ng/mL (>250 nmol/L) Platelets bldOrdered By: Dr. Moreno on 08-21-2022 Platelets (Bld) [#/Vol] 243 10*3/uL 150-450 [facility] Protein Test strip Ql (U)Ord ered By: Dr. Moreno on 08-21-2022 Protein Ql (U) Negative Negative [facility] Serum or plasma albumin alexis urement (mass/volume)Ordered By: Dr. Moreno on 08-21-2022 Albumin [Mass/Vol] 3.6 g/dL 3.2-5.0 [facility] Serum or plasma albumin/glob ulin mass ratioOrdered By: Dr. Moreno on 08-21-2022 Albumin/Globulin [Mass ratio] 1.0 {ratio} 0.9-2.4 [facility] Serum or plasma calcium alexis urement (mass/volume)Ordered By: Dr. Moreno on 08-21-2022 Calcium [Mass/Vol] 9.1 mg/dL 8.5-10.1 [facility] Serum or plasma cholesterol in HDL measurement (mass/volume)Ordered By: Dr. Moreno on 08-21-2022 Cholesterol in HDL [Mass/Vol] 55 mg/dL >40 [facility] Comment on above: The drugs N-Acetylcy steine and Metamizole may falsely depress this assay. Reference Range HDL <40 mg/dL Low HDL Cholesterol HDL >or= 60 mg/dL High HDL Cholesterol Serum or plasma cholesterol in VLDL measurement (mass/volume)Ordered By: Dr. Moreno on 08-21-2022 Cholesterol in VLDL [Mass/Vol] 34 mg/dL 5-40 [facility] Serum or plasma creatinine m easurement (mass/volume)Ordered By: Dr. Moreno on 08-21-2022 Creatinine [Mass/Vol] 0.68 mg/dL 0.70-1.30 [facility] Comment on above: The validity of the calculated GFR & GFRAA in patients over 70 years has not been determined. Clinical correlation is essential. Serum or plasma low density lipoprotein (LDL) cholesterol measurement (mass/volume)Ordered By: Dr. Moreno on 08-21-2022 Cholesterol in LDL [Mass/Vol] 111 mg/dL 0-130 [facility] Serum or plasma urea nitroge n measurement (mass/volume)Ordered By: Dr. Moreno on 08-21-2022 Urea nitrogen [Mass/Vol] 18 mg/dL 7-18 [facility] Squamous epithelial cells de tection in urine sediment by light microscopyOrdered By: Dr. Moreno on 08-21-2022 Epithelial cells.squamous LM Ql (Urine sed) 0-5 SEEN /hpf 0-5 [facility] Thin prep Papanicolaou smear with manual screeningOrdered By: Dr. Moreno on 08-21-2022 Thin prep Papanicolaou smear with manual screening 24 U/L 15-37 [facility] Thin prep Papanicolaou smear with manual screening 5 5-15 [facility] Urine blood detectionOrdered By: Dr. Moreno on 08-21-2022 RBC Ql (U) 10 /ul Negative [facility] RBC Ql (U) 0-5 SEEN /hpf 0-5 [facility] Urine clarityOrdered By: Dr. Moreno on 08-21-2022 Clarity (U) Clear Clear [facility] Urine color determinationOrd ered By: Dr. Moreno on 08-21-2022 Color (U) Yellow Yellow [facility] Urine glucose detectionOrder ed By: Dr. Moreno on 08-21-2022 Glucose Ql (U) Normal mg/dl Normal [facility] Urine leukocyte esterase det ection by dipstickOrdered By: Dr. Moreno on 08-21-2022 Leukocyte esterase Test strip Ql (U) Negative Negative [facility] Urine pHOrdered By: Dr. Andrea lao on 08-21-2022 pH (U) 6.5 [pH] 5.0 - 8.0 [facility] Urine sediment bacteria coun t by microscopy (number/high power field)Ordered By: Dr. Moreno on 08-21-2022 Bacteria LM.HPF (Urine sed) [#/Area] 0 /[HPF] None Seen [facility] Urine specific gravity measu rementOrdered By: Dr. Moreno on 08-21-2022 Specific gravity (U) [Rel density] 1.015 1.002-1.030 [facility] Urobilinogen Auto test strip Ql (U)Ordered By: Dr. Moreno on 08-21-2022 Urobilinogen Ql (U) Normal mg/dl Normal [facility] Basophil percentageOrdered B y: Dr. Stark on 07-12-2022 Creatinine [Mass/Vol] 0.9 mg/dL 0.70-1.30 [facility] No Panel InformationOrdered By: Dr. Stark on 07-12-2022 Bedside Estimated GFR (eGFR) > 60.0000 mL/min >60 [facility] Absolute lymphocyte counton 11-09-2021 Lymphocytes Auto (Unsp spec) [#/Vol] 2.87 10*3/uL 0.83-4.51 [facility] Work Phone: Basophil percentageon 2021 Basophils/100 WBC (Bld) 0.8 % 0-1 [facility] Work Phone: Bilirubin [Mass/Vol] 0.80 mg/dL 0.20-1.00 [facility] Work Phone: Comment on above: For patients on eltr ombopag therapy, use of Dimension [place] TBIL is not recommended. Chloride [Moles/Vol] 106 mmol/L 98-107 [facility] Work Phone: Cholesterol [Mass/Vol] 181 mg/dL <200 [facility] Work Phone: Comment on above: <200 mg/dL Desirable 200-240 mg/dL Borderline >240 mg/dL High Risk Eosinophils/100 WBC (Bld) 2.8 % 0-5 [facility] Work Phone: Glucose [Mass/Vol] 132 mg/dL 74-106 [facility] Work Phone: Comment on above: Fasting Glucose resu lt greater than or equal to 126 mg/dL suggests DIABETES MELLITUS per A.D.A. criteria. Neutrophils (Bld) [#/Vol] 3.3 10*3/uL 2.0-7.7 [facility] Work Phone: Neutrophils/100 WBC (Bld) 46.5 % 47-70 [facility] Work Phone: Potassium [Moles/Vol] 4.1 mmol/L 3.5-5.1 [facility] Work Phone: Protein [Mass/Vol] 6.8 g/dL 6.4-8.2 [facility] Work Phone: Sodium [Moles/Vol] 141 mmol/L 136-145 [facility] Work Phone: Triglyceride [Mass/Vol] 133 mg/dL <199 [facility] Work Phone: Comment on above: The drugs N-Acetylcy steine and Metamizole may falsely depress this assay.Serum Triglycerides Reference Interval Normal <150 mg/dL Borderline high 150 - 199 mg/dL High 200 - 499 mg/dL Very High > or = 500 mg/dL WBC (Bld) [#/Vol] 7.2 10*3/uL 4.4-11.0 [facility] Work Phone: Blood erythrocytes count (nu mber/volume)on 11-09-2021 RBC (Bld) [#/Vol] 4.63 10*6/uL 4.6-6.2 [facility] Work Phone: Blood hemoglobin measurement (mass/volume)on 11-09-2021 Hemoglobin (Bld) [Mass/Vol] 14.6 g/dL 13.0-16.5 [facility] Work Phone: Blood lymphocytes/100 leukoc yteson 11-09-2021 Lymphocytes/100 WBC (Bld) 40.1 % 19-41 [facility] Work Phone: Blood monocytes/100 leukocyt eson 11-09-2021 Monocytes/100 WBC (Bld) 8.5 % 0-10 [facility] Work Phone: [phone] Blood platelet mean volumeon 11-09-2021 Platelet mean volume (Bld) [Entitic vol] 9.2 fL 6.2-12.0 [facility] Work Phone: Determination of erythrocyte mean corpuscular volume (MCV)on 11-09-2021 MCV (RBC) [Entitic vol] 97.8 fL 80-94 [facility] Work Phone: Hematocrit Auto (Bld) [Volum e fraction]on 11-09-2021 Hematocrit (Bld) [Volume fraction] 45.3 % 40-54 [facility] Work Phone: Laboratory - Chemistry and C hemistry - challengeon 11-09-2021 ALP [Catalytic activity/Vol] 49 U/L 45-117 [facility] Work Phone: ALT [Catalytic activity/Vol] 36 U/L 16-61 [facility] Work Phone: CO2 [Moles/Vol] 29.0 mmol/L 21.0-32.0 [facility] Work Phone: Globulin (S) [Mass/Vol] 3.4 g/dL 2.2-4.2 [facility] Work Phone: Urea nitrogen/Creatinine [Mass ratio] 21.5 mg/mg 10-20 [facility] Work Phone: Laboratory - Hematology and Cell countson 11-09-2021 Erythrocyte distribution width (RBC) [Entitic vol] 44.7 fL 35.1-43.9 [facility] Work Phone: Erythrocyte distribution width (RBC) [Ratio] 12.4 % 11.6-14.6 [facility] Work Phone: Immature granulocytes/100 WBC (Bld) 1.300 % 0.0-0.9 [facility] Work Phone: Comment on above: IG% - Immature Granu locytes (promyelocytes, myelocytes and metamyelocytes) > 1% indicates that a LEFT SHIFT is Present. MCH (RBC) [Entitic mass] 31.5 pg 27.0-32.0 [facility] Work Phone: Nucleated RBC/100 WBC (Bld) [Ratio] 0 % 0-5 [facility] Work Phone: MCHC Auto (RBC) [Mass/Vol]on 11-09-2021 MCHC (RBC) [Mass/Vol] 32.2 g/dL 32-36 [facility] Work Phone: No Panel Informationon 11-09 Estimated GFR (MDRD) Amer 137 mL/min >60 [facility] Work Phone: Comment on above: GFR Calc Estimated GFR (MDRD) Non-Af Amer 113 mL/min >60 [facility] Work Phone: Comment on above: Non- GFR Calc Platelets bldon 11-09-2021 Platelets (Bld) [#/Vol] 215 10*3/uL 150-450 [facility] Work Phone: Serum or plasma albumin alexis urement (mass/volume)on 11-09-2021 Albumin [Mass/Vol] 3.4 g/dL 3.2-5.0 [facility] Work Phone: Serum or plasma albumin/glob ulin mass ratioon 11-09-2021 Albumin/Globulin [Mass ratio] 1.0 {ratio} 0.9-2.4 [facility] Work Phone: Serum or plasma calcium alexis urement (mass/volume)on 11-09-2021 Calcium [Mass/Vol] 8.5 mg/dL 8.5-10.1 [facility] Work Phone: Serum or plasma cholesterol in HDL measurement (mass/volume)on 11-09-2021 Cholesterol in HDL [Mass/Vol] 50 mg/dL >40 [facility] Work Phone: Comment on above: The drugs N-Acetylcy steine and Metamizole may falsely depress this assay. Reference Range HDL <40 mg/dL Low HDL Cholesterol HDL >or= 60 mg/dL High HDL Cholesterol Serum or plasma cholesterol in VLDL measurement (mass/volume)on 11-09-2021 Cholesterol in VLDL [Mass/Vol] 27 mg/dL 5-40 [facility] Work Phone: Serum or plasma creatinine m easurement (mass/volume)on 11-09-2021 Creatinine [Mass/Vol] 0.74 mg/dL 0.70-1.30 [facility] Work Phone: Comment on above: The validity of the calculated GFR & GFRAA in patients over 70 years has not been determined. Clinical correlation is essential. Serum or plasma low density lipoprotein (LDL) cholesterol measurement (mass/volume)on 11-09-2021 Cholesterol in LDL [Mass/Vol] 104 mg/dL 0-130 [facility] Work Phone: Serum or plasma urea nitroge n measurement (mass/volume)on 11-09-2021 Urea nitrogen [Mass/Vol] 16 mg/dL 7-18 [facility] Work Phone: Thin prep Papanicolaou smear with manual screeningon 11-09-2021 Thin prep Papanicolaou smear with manual screening 24 U/L 15-37 [facility] Work Phone: Thin prep Papanicolaou smear with manual screening 6 5-15 [facility] Work Phone: Whole blood hemoglobin A1c/t otal hemoglobin ratio (mass fraction)on 11-09-2021 HbA1c (Bld) [Mass fraction] 6.1 % 3.8-5.6 [facility] Work Phone: Comment on above: Normal < 5.7 % Predi abetic 5.7 - 6.4 % Diabetic >or= 6.5 % Please note range changes. Vital Signs Date Time Vital Sign Value Performing Clinician Faci lity 11-25-2024 11:37-0400 Body mass index (BMI) [Ratio] 37.5 kg/m2 Dr. Jose Moreno MD Work Phone: [facility] 11-25-2024 11:37-0400 Body weight 108.[address] Jose Moreno MD Work Phone: [facility] 11-25-2024 11:37-0400 Diastolic blood pressure 79 mm[Hg] Dr. Jose Moreno MD Work Phone: [facility] 11-25-2024 11:37-0400 Heart rate 57 /min Dr. Jose Moreno MD Work Phone: [facility] 11-25-2024 11:37-0400 Respiratory rate 18 /min Dr. Jose Moreno MD Work Phone: [facility] 11-25-2024 11:37-0400 SaO2% (BldA) [Mass fraction] 97 % Dr. Jose Moerno MD Work Phone: [facility] 11-25-2024 11:37-0400 Systolic blood pressure 142 mm[Hg] Dr. Jose Moreno MD Work Phone: [facility] 06-29-2024 08:17-0500 Body temperature 97.4 [degF] Dr. Jose Moreno MD Work Phone: [facility] 06-29-2024 08:17-0500 Diastolic blood pressure 79 mm[Hg] Dr. Jose Moreno MD Work Phone: [facility] 06-29-2024 08:17-0500 Heart rate 52 /min Dr. Jose Moreno MD Work Phone: [facility] 06-29-2024 08:17-0500 Respiratory rate 16 /min Dr. Jose Moreno MD Work Phone: [facility] 06-29-2024 08:17-0500 Systolic blood pressure 156 mm[Hg] Dr. Jose Moreno MD Work Phone: [facility] 06-01-2024 08:17-0500 Body temperature 98.3 [degF] Dr. Jose Moreno MD Work Phone: [facility] 06-01-2024 08:17-0500 Diastolic blood pressure 74 mm[Hg] Dr. Jose Moreno MD Work Phone: [facility] 06-01-2024 08:17-0500 Heart rate 58 /min Dr. Jose Moreno MD Work Phone: [facility] 06-01-2024 08:17-0500 Respiratory rate 18 /min Dr. Jose Moreno MD Work Phone: [facility] 06-01-2024 08:17-0500 Systolic blood pressure 160 mm[Hg] Dr. Jose Moreno MD Work Phone: [facility] 05-26-2024 13:36-0500 Body temperature 97.3 [degF] Dr. Jose Moreno MD Work Phone: [facility] 05-26-2024 13:36-0500 Diastolic blood pressure 75 mm[Hg] Dr. Jose Moreno MD Work Phone: [facility] 05-26-2024 13:36-0500 Heart rate 55 /min Dr. Jose Moreno MD Work Phone: [facility] 05-26-2024 13:36-0500 Respiratory rate 18 /min Dr. Jose Moreno MD Work Phone: [facility] 05-26-2024 13:36-0500 Systolic blood pressure 167 mm[Hg] Dr. Jose Moreno MD Work Phone: [facility] 05-25-2024 15:39-0500 Body temperature 97.5 [degF] Dr. Jose Moreno MD Work Phone: [facility] 05-25-2024 15:39-0500 Body weight 111.[address] Jose Moreno MD Work Phone: [facility] 05-25-2024 15:39-0500 Diastolic blood pressure 86 mm[Hg] Dr. Jose Moreno MD Work Phone: 6(646)627-735723 [place] [address] 05-25-2024 15:39-0500 Heart rate 55 /min Dr. Jose Moreno MD Work Phone: 2(814)005-711323 [place] [address] 05-25-2024 15:39-0500 Respiratory rate 16 /min Dr. Jose Moreno MD Work Phone: [phone] [address] 05-25-2024 15:39-0500 SaO2% (BldA) [Mass fraction] 96 % Dr. Jose Moreno MD Work Phone: 6(417)446-441123 [place] [address] 05-25-2024 15:39-0500 Systolic blood pressure 166 mm[Hg] Dr. Jose Moreno MD Work Phone: 5(550)832-164223 [place] [address] 04-27-2024 09:31-0500 Body temperature 97.4 [degF] Dr. Jose Moreno MD Work Phone: 7(353)168-972323 [place] [address] 04-27-2024 09:31-0500 Diastolic blood pressure 77 mm[Hg] Dr. Jose Moreno MD Work Phone: 2(107)762-360423 [place] [address] 04-27-2024 09:31-0500 Heart rate 55 /min Dr. Jose Moreno MD Work Phone: [facility] 04-27-2024 09:31-0500 Respiratory rate 18 /min Dr. Jose Moreno MD Work Phone: [facility] 04-27-2024 09:31-0500 Systolic blood pressure 125 mm[Hg] Dr. Jose Moreno MD Work Phone: [facility] 12-05-2022 14:39-0400 Body height 170.[address] Jose Moreno Work Phone: 9(705)751-404223 [place] [address] 12-05-2022 14:39-0400 Body mass index (BMI) [Ratio] 38.4 kg/m2 Dr. Jose Moreno Work Phone: [facility] 12-05-2022 14:39-0400 Body weight 111.[address] Jose Moreno Work Phone: [facility] 12-05-2022 14:39-0400 Diastolic blood pressure 89 mm[Hg] Dr. Jose Moreno Work Phone: [facility] 12-05-2022 14:39-0400 Heart rate 63 /min Dr. Jose Moreno Work Phone: [facility] 12-05-2022 14:39-0400 Respiratory rate 18 /min Dr. Jose Moreno Work Phone: [facility] 12-05-2022 14:39-0400 SaO2% (BldA) [Mass fraction] 95 % Dr. Jose Moreno Work Phone: [facility] 12-05-2022 14:39-0400 Systolic blood pressure 143 mm[Hg] Dr. Jose Moreno Work Phone: [facility] 06-06-2022 11:32-0500 Body height 170.[address] Kenneth Barbour Work Phone: [facility] 06-06-2022 11:28-0500 Body mass index (BMI) [Ratio] 39.9 kg/m2 Dr. Kenneth Barbour Work Phone: [facility] 06-06-2022 11:28-0500 Body weight 115.[address] Kenneth Barbour Work Phone: [facility] 06-06-2022 11:28-0500 Diastolic blood pressure 96 mm[Hg] Dr. Kenneth Barbour Work Phone: [facility] 06-06-2022 11:28-0500 Heart rate 69 /min Dr. Kenneth Barbour Work Phone: [facility] 06-06-2022 11:28-0500 Respiratory rate 18 /min Dr. Kenneth Barbour Work Phone: [facility] 06-06-2022 11:28-0500 SaO2% (BldA) [Mass fraction] 95 % Dr. Kenneth Barbour Work Phone: [facility] 06-06-2022 11:28-0500 Systolic blood pressure 177 mm[Hg] Dr. Kenneth Barbour Work Phone: [facility] Encounters Encounter Date Encounter Type Care Provider Facility Start: 02-03-2025 End: 02-03-2025 ambulatory Jose Moreno Facility:[facility] Start: 01-28-2025 End: 01-28-2025 ambulatory Jose Moreno Facility:[facility] Start: 12-28-2024 ambulatory Jose Moreno Facilit y:[facility] Start: 11-25-2024 End: 11-25-2024 Patient encounter procedure Lou JIMENEZ -[facility] Work Phone: Start: 11-25-2024 End: 11-25-[address] Jose Moreno MD Work Phone: -[facility] Start: 11-23-2024 End: 11-23-[address] Jose Moreno MD Work Phone: -[facility] [place] Start: 11-23-2024 End: 11-23-[address] Jose Moreno MD -[facility] Work Phone: Start: 11-23-2024 End: 11-23-2024 ambulatory Jose Moreno Facility:[facility] Start: 10-12-2024 End: 10-12-[address] Jose Moreno MD Work Phone: [facility] Work Phone: Start: 10-12-2024 End: 10-12-[address] Jose Moreno MD -[facility] Start: 10-12-2024 End: 10-12-2024 ambulatory Jose Moreno Facility:[facility] Start: 09-14-2024 End: 09-14-2024 ambulatory [...] ambulatory Dr. Jose Moreno MD Work Phone: [facility] Work Phone: Start: 06-16-2024 End: 06-16-[address] Jose Moreno MD -[facility] Start: 06-16-2024 End: 06-16-2024 ambulatory Jose Moreno Facility:[facility] Start: 06-01-2024 End: 06-25-[address] Antione Bah DPM [facility] Work Phone: Start: 06-01-2024 End: 06-25-2024 ambulatory Jose Moreno Facility:[facility] Start: 05-26-2024 End: 05-28-2024 ambulatory Jose Moreno Facility:[facility] Start: 05-26-2024 End: 05-28-[address] Antione Bah [facility] Work Phone: Start: 05-25-2024 End: 05-25-2024 Patient encounter procedure Kelly MILLER -[facility] Work Phone: Start: 05-25-2024 End: 05-25-2024 ambulatory Jose Moreno Facility:[facility] Start: 04-27-2024 End: 04-27-2024 ambulatory Jose Moreno Facility:[facility] Start: 04-27-2024 End: 04-27-[address] Antione Bah [facility] Work Phone: Start: 03-23-2024 End: 03-27-2024 ambulatory Jose Moreno Facility:[facility] Start: 07-31-2023 Non-patient / Non-visit Dr. Cassie Moreno Work Phone: [facility] Start: 07-31-2023 End: 07-31-[address] Jose Moreno Work Phone: [facility] Work Phone: Start: 07-31-2023 End: 07-31-[address] Jose Moreno Work Phone: [facility]-Cardiovascular Services Work Phone: Start: 07-21-2023 End: 07-21-[address] Jose Moreno Work Phone: [facility] Work Phone: Start: 07-21-2023 End: 07-21-[address] Jose Moreno Work Phone: [facility]-Laboratory, Specimen Work Phone: Start: 06-30-2023 End: 06-30-2023 Non-patient / Non-visit Dr. Jose Moreno Work Phone: [facility] Work Phone: Start: 06-30-2023 End: 06-30-2023 ambulatory [facility] Work Phone: Start: 06-30-2023 End: 06-30-2023 Patient encounter procedure [facility]-Pulmonary Services/Neurology Work Phone: Start: 05-29-2023 End: 05-29-2023 Patient encounter procedure [facility]-Cat Scan, [facility] Work Phone: Start: 05-20-2023 End: 05-20-2023 ambulatory [facility] Work Phone: Start: 05-20-2023 End: 05-20-2023 Patient encounter procedure [facility] Work Phone: Start: 01-07-2023 End: 01-07-[address] Jose Moreno Work Phone: [facility] Work Phone: Start: 01-07-2023 End: 01-07-[address] Jose Moreno Work Phone: [facility] Start: 12-23-2022 Non-patient / Non-visit Dr. Cassie Moreno Work Phone: [facility] Work Phone: Start: 12-19-2022 Non-patient / Non-visit Dr. Cassie Moreno Work Phone: [facility] Start: 12-19-2022 End: 12-19-[address] Jose Moreno Work Phone: [facility] Work Phone: Start: 12-19-2022 End: 12-19-[address] [facility] Start: 12-05-2022 End: 12-05-[address] Jose Moreno Work Phone: [facility] Work Phone: Start: 08-21-2022 End: 08-21-[address] Kenneth Barbour Work Phone: [facility] Work Phone: Start: 08-21-2022 End: 08-21-[address] Kenneth Barbour Work Phone: [facility]-Laboratory, [place] Start: 07-12-2022 End: 07-12-[address] Kenneth Barbour Work Phone: [facility] Work Phone: Start: 07-12-2022 End: 07-12-[address] Kenneth Barbour Work Phone: [facility] Start: 06-06-2022 End: 06-06-[address] Kenneth Barbour Work Phone: [facility] Start: 11-09-2021 End: 11-09-[address] Kenneth Barbour Work Phone: [facility]-Laboratory Start: 08-24-2021 Non-patient / Non-visit Dr. Tera Barbour Work Phone: [facility] Start: 08-24-2021 End: 08-24-[address] Kenneth Barbour Work Phone: [facility]-Cardiovascular Services Procedures Date Procedure Procedure Detail Performing [...] Date Care Activity Detail Author Patient referral [facility] Work Phone: Payers Date Payer Category Payer Self-pay [id number] 2024 Unknown [id number] 2023 Medicare [id number] 2008 Unknown [id number] Unknown [id number] 2.16.8 [id number] Unknown [id number] 2.16.8 [id number] Unknown [id number] 2.16.8 [id number] Unknown [id number] 2.16.8 [id number] Unknown [id number] 2.16.8 [id number] Unknown [id number] 2.16.8 [id number] Unknown [id number] 2.16.8 [id number] Unknown [id number] 2.16.8 [id number] Unknown [id number] 2.16.8 [id number] Unknown [id number] 2.16.8 [id number] Unknown [id number] 2.16.8 [id number] Unknown [id number] 2.16.8 [id number] Unknown [id number] 2.16.8 [id number] Unknown [id number] 2.16.8 [id number] Social History Date Type Detail Facility Start: 05-29-2020 End: 12-05-2022 Tobacco smoking status NHIS Unknown if ever smoked [facility] Start: 1960 Sex Assigned At Male [facility] Start: 01-20-2024 Tobacco smoking stat us NHIS Never smoked tobacco (finding) [facility] Start: 07-26-2024 Sex Male (finding) [facility] Clinical Notes 04-27-2024 to 11-25-2024 Note Date & Type Note Facility 11-25-2024 Evaluation note Diagnosis Onset Date Resolution Essential hypertension acute Ju ly 2024 3:15pm [facility] Work Phone: 1(321) 960-117807-31-2025 Radiology Diagnostic study note [facility] Imaging Services [address] [place] [address] Cerv Spine 2 or 3 Views MR#: [id number] Acct: [id number] Name: VESTA OLIVAREZ Rep #: [id number] : 1960 M 64 From: Denise Yu MD PCP: Dr. Jose Moreno MD Status: RE G CLI Study:Cerv Spine 2 or 3 Views Date of Exam: 11/23/24 Exam# [id number] Ordering Dr: Jose Moreno MD PROCEDURE: CERV [...] spine scoliosis and degeneration Disclaimer: Reading Location: [place] [address] CC: Dr. 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 June 29, 2024 8:16am Venous insufficiency (chroni c) (peripheral) chronic June 29, 2024 8:16am [facility] Work Phone: 1(395) 170-754403-04-2025 Progress note Author Antione Bah [facility] Note Date/Time June 29, 2024 8:13 am [facility] [address] [place] [address] Progress Note - Wound Care 06/29/24911 MR#: [id number] Acct: [id number] Name: VESTA OLIVAREZ Rep #:[id number] : [...] Date Recorded By Document 06/29/24 08:17 KW [id number] 06/29/24 08:33 KW 06/29/24 08:17 WC - Today's Visit Information Type of service Follow-up Visit (Physician/NET ARCHITECT ) Arrival Mode Ambulatory Patient Identification Verified [...] 0-10 Numeric Is Patient Pain Free? Yes - Nurse 1 - General Ulcer Measurement Start: 06/29/24 08:16 Freq: Status: Active Protocol: Activity Type Activity Date Activity User E-sign Co-sign Detail Recorded Client Recorded Date Recorded By Document 06/29/24 08:17 KW [id number] 06/29/24 08:33 KW 06/29/24 08:17 Wound Center Nurse 1 Left Calf (cm) 44 Left Ankle (cm) 27.5 - Nurse 2 - General Ulcer CM Notes Start: 06/29/24 08:16 Freq: Status: Active Protocol: Activity Type Activity Date Activity User E-sign Co-sign Detail Recorded Client Recorded Date Recorded By Document 06/29/24 09:10 DS [id number] 06/29/24 09:10 DS 06/29/24 09:10 Pain Scale: [...] Cosigner Signature (if applicable): CC: ~ Signed [facility] Work Phone: 1(415) 227-692403-04-2025 Progress note [facility] [place] [address] Progress Note - Wound Care 06/29/24911 MR#: [id number] Acct: [id number] Name: VESTA OLIVAREZ Rep #:[id number] : 1960 64 From: Antione Bah DPM PCP: Dr. Jose Moreno MD Status:[facility] Location: History of Present Illness Date of [...] Date Recorded By Document 06/29/24 08:17 KW [id number] 06/29/24 08:33 KW 06/29/24 08:17 WC - Today's Visit Information Type of service Follow-up Visit (Physician/NET ARCHITECT ) Arrival Mode Ambulatory Patient Identification Verified [...] 0-10 Numeric Is Patient Pain Free? Yes - Nurse 1 - General Ulcer Measurement Start: 06/29/24 08:16 Freq: Status: Active Protocol: Activity Type Activity Date Activity User E-sign Co-sign Detail Recorded Client Recorded Date Recorded By Document 06/29/24 08:17 KW [id number] 06/29/24 08:33 KW 06/29/24 08:17 Wound Center Nurse 1 Left Calf (cm) 44 Left Ankle (cm) 27.5 WC - Nurse 2 - General Ulcer CM Notes Start: 06/29/24 08:16 Freq: Status: Active Protocol: Activity Type Activity Date Activity User E-sign Co-sign Detail Recorded Client Recorded Date Recorded By Document 06/29/24 09:10 DS [id number] 06/29/24 09:10 DS 06/29/24 09:10 Pain Scale: [...] Cosigner Signature (if applicable): CC: ~ Signed [facility]12-31-2024 Evaluation note* Diagnosis Onset Date Resolution Status Admit Date Acquired lymphedema acute Decem 2023 9:00am 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 April 27, 024 9:00am Venous insufficiency (chroni c) (peripheral) chronic April 27 024 9:00am Acquired lymphedema acute Jan2024 3:18pm Venous insufficiency (chroni c) (peripheral) chronic [...] c) (peripheral) chronic June 29, 2024 8:16am [facility] Work Phone: Evaluation noteNo assessment information available [facility] Work Phone: Evaluation note* Diagnosis Onset Date Resolution Status Essential hypertension acute Chest discomfort chronic [facility] Work Phone: Evaluation note* Diagnosis Onset Date Resolution Status Essential hypertension acute Lightheadedness acute [facility] Work Phone: Evaluation note* Diagnosis Onset Date Resolution Status Admit Date Essential hypertension acute Ju ly 2024 3:15pm Lightheadedness acute October 3:15pm [facility] Work Phone: Reason for referral (narrative)No reason for referral information available[facility] Work Phone: Chief Complaint and [...] Reason for Visit Admit Date Acquired lymphedema April 27, 2024 9:00am Non-pressure chronic ulcer o f [...] Dr. Kenneth Barbour MD Family Provider Active Team Status: Inactive Member Role Status Dates Dr. Kenneth Barbour MD Primary Care Provider, Referring Provider Active Jose Adams WINDLACE MACHINE OPERATOR, WINDLACE MACHINE OPERATOR-C Attending Provider Active Team Status: Inactive Member [...] Inactive Member Role Status Dates Lou Soler WINDLACE MACHINE OPERATOR, WINDLACE MACHINE OPERATOR-C Attending Provider Active Dr. Jose Moreno MD Primary Care Provider, Referr ing Provider Active Team Status: Active Member Role Status Dates Dr. Jose Moreno MD Primary Care Provider Active Lou Soler WINDLACE MACHINE OPERATOR, WINDLACE MACHINE OPERATOR-C Attending Provider Active Team Status: Active Member Role Status Dates Dr. Jose Moreno MD Primary Care Provider Active Dr. Boby Hernandez MD Attending Provider Active Team Status: Inactive Member Role Status Dates Dr. Jose Moreno MD Primary Care Provider Active Lou Soler WINDLACE MACHINE OPERATOR, WINDLACE MACHINE OPERATOR-C Attending Provider, Referring P rovider Active Team Status: Active Member Role Status Dates Dr. Jose Moreno MD Primary Care Provider Active Dr. Boby Hernandez MD Attending Provider Active Lou Soler WINDLACE MACHINE OPERATOR, WINDLACE MACHINE OPERATOR-C Referring Provider Active Team Status: Inactive Member [...] Jose Moreno MD Primary Care Provider Active Hannah MILLER, PA Attending Provider Active Team Status: Active Member [...] 2024 End: July 26, 2024 Dr. Antione Frakes , DPM Attending Provider Active Start: June 29, [...] 2024 End: November 25, 2024 Lou Soler WINDLACE MACHINE OPERATOR, WINDLACE MACHINE OPERATOR-C Attending Provider Active Start: November 25, 2024 [...] ized section and content) DATE CREATED AUTHOR 02/24/2025 [facility] FOR RECORDS PERTAINING TO PATIENTS WHO ARE [...] BE BASED ON THE PRIMARY CLINICAL RECORDS. [employer] provides no warranty or guarantee of the accuracy or completeness of information in this document.
[2025-04-27 17:28] LABS: Hematocrit 43.5 % (40-54); Hemoglobin 14.7 g/dL (13.0-16.5); Immature Granulocytes Count 0.120 X10^3/uL (0.0-0.0); Mean Corp Hgb Conc 33.8 g/dL (32-36); Mean Corpuscular Volume 94.4 fL (80-94); Mean Platelet Vol. 9.8 fl (6.2-12.0); NRBC Flagged by Analyzer 0 % (0-5); Platelet Count 249 K/mm3 (150-450); RBC Distribution Width CV 12.3 % (11.6-14.6); RBC Distribution Width SD 42.6 fl (35.1-43.9); Red Blood Count 4.61 M/mm3 (4.6-6.2); White Blood Count 7.4 K/mm3 (4.4-11.0)
[2025-04-27 17:54] LABS: AST(SGOT) 28 U/L (<=37); Alanine Aminotransfer ALT/SGPT 36 U/L (<=46); Albumin, Serum 3.9 g/dL (3.4-4.8); Alkaline Phosphatase 48 U/L (40-129); Anion Gap 11 (7-18); BUN 16 mg/dL (4-19); BUN/Creat Ratio 23.6 RATIO (10-20); Calcium,Total 9.1 mg/dL (7.6-11.0); Carbon Dioxide 23.3 mmol/L (20.0-29.0); Chloride 105 mmol/L (96-106); Cholesterol 163 mg/dL (<=200); Globulin 2.9 g/dL (2.2-4.2); Glucose 107 mg/dL (70-99); Low Density Lipoprotein Calc. 87 mg/dL; Magnesium 2.1 mg/dL (1.5-2.2); Potassium 4.2 mmol/L (3.5-5.1); Triglycerides 144 mg/dL; Very Low Density Lipoprotein 29 mg/dL (5-40); Vitamin D,25 Hydroxy 21.6 ng/mL (30-100); cholesterol:hdl ratio screen 3.20
[2025-04-27 18:15] LABS: Color, Urine Yellow (Yellow); Glucose, Dipstick Normal (Normal); Ketone-Dipstick Negative (Negative); Leukocyte Esterase-Dipstick Negative /ul (Negative); Nitrite-Dipstick Negative (Negative); Occult Blood-Urine Negative /ul (Negative); Protein-Dipstick Negative (Negative); Specific Gravity, Urine 1.010 (1.002-1.030); Urine Bilirubin Dipstick Negative (Negative)
[2025-04-27 19:03] LABS: Red Blood Cells-Urine 0-5 SEEN /hpf (0-5); Squamous Epithelial Cells - UA 5-10 SEEN /hpf (0-5)
== END | disposition home or self-care (01) ==
LOC: MFPLAB 16:08
PROVIDERS: PCP Family Medicine; Visit Provider Family Medicine
DX: E55.9 Vitamin D deficiency, unspecified (principal); I10 Essential (primary) hypertension; R73.02 Impaired glucose tolerance (oral)
CPT/HCPCS: 36415; 80053; 80061; 81001; 82306; 83036; 83735; 85025